=== PATIENT | female | born 1945 | race Caucasian/White ===

== ENCOUNTER 2023-08-12 13:05 | Outpatient (CLI) | payer MEDICAID, SELFPAY ==
--- OUTSIDE RECORDS SUMMARY | 2023-08-14 19:23 | XMS_ITS | Clinical Summary ---
Author Name Unknown Organization [facility] Address [place], [place] [address] Care Team Providers Care Burr Mill Operator Name Role Phone Pcp, No Unavailable Unavailable Pcp, No Unavailable Unavailable Navya Quinn DO Primary Care Provider [phone] Allergies No known active allergies Medications Medication Sig Dispensed Refills Start Date End Date Status blood-glucose meterIndications:D iabetes mellitus without complication (HC) Dispense meter, test strips, lancets covered by pt ins. E11.65 NIDDM type II, uncontrolled - Test 4 times/day. Reason: High A1C 1 Device 0 07/07/20 19 024 Discontinued(*P atient states no longer taking) polyethylene glycoL (MIRALAX) 17 gram/scoop powderIndications: Constipation, acute Mix 1 scoop (17 g) in liquid then take by mouth once daily if needed for Constipation. 510 g 3 09/06/19 23 024 Discontinued(*P atient states no longer taking) sennosides-docusat e (SENOKOT S) (8.6-50 mg) tabletIndications: Constipation, acute Take 1 Tablet by mouth once daily if needed for Constipation. 90 Tablet 3 10/01/19 23 024 Discontinued(*P atient states no longer taking) emollient (Vanicream) creamIndications:X erosis cutis Apply topically to affected area(s) 2 times daily if needed for Dry Skin, Irritation or Itching. 113 g 10 12/07/19 Suspended Additional Information traMADoL (ULTRAM) 50 mg tabletIndications: Primary osteoarthritis of left hip,Radicular pain of left lower extremity Take 1 Tablet (50 mg) by mouth every 6 hours if needed for Pain. 20 Tablet 0 01/14/20 23 024 Discontinued(Ph armacist change per medication history (E-cancel not sent)) propylene glycoL, PF, 0.6 % dropIndications:dr quiñones eye Place 1 Drop into both eyes 2 times daily if needed (for dry eyes). 10 mL 3 03/11/20 23 024 Discontinued(*P atient states no longer taking) aspirin (ECOTRIN) 81 mg enteric coated tabletIndications: Cerebrovascular accident (CVA), unspecified mechanism (HC) Take 1 Tablet (81 mg) by mouth once daily with a meal. 90 Tablet 3 03/11/20 Suspended Additional Information calcium carbonate (CALTRATE) 600 mg calcium (1,500 mg) tabletIndications: Postmenopausal Take 1 Tablet (600 mg) by mouth two times daily with meals. 180 Tablet 2 03/11/20 Suspended Additional Information cholecalciferol (Vitamin D) 1,000 unit capsuleIndications :Postmenopausal Take 1 Capsule (1,000 units) by mouth once daily. 90 Capsule 2 03/11/20 Suspended Additional Information naproxen (Naprosyn) 500 mg tabletIndications: Primary osteoarthritis of left hip,History of fracture of left hip Take 1 Tablet (500 mg) by mouth two times daily. 60 Tablet 4 05/20/20 23 024 Discontinued(Ph armacist change per medication history (E-cancel not sent)) acetaminophen (TYLENOL EXTRA STRGTH) 500 mg tabletIndications: Primary osteoarthritis of left hip Take 1 Tablet (500 mg) by mouth every 6 hours if needed for Headache or Pain. Max acetaminophen dose: 4000mg in 24 hrs. 500 Tablet 1 06/03/20 Suspended Additional Information atorvastatin (LIPITOR) 40 mg tabletIndications: Cerebrovascular accident (CVA), unspecified mechanism (HC) Take 1 Tablet (40 mg) by mouth once daily with evening meal. 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 Restart Friday06/21/23 90 Tablet 3 06/20/20 Suspended nitroglycerin (NITROSTAT) 0.4 mg sublingual tabletIndications: Cardiovascular symptoms,ASCVD (arteriosclerotic cardiovascular disease) Place 1 Tablet (0.4 mg) under the tongue every 5 minutes if needed for Chest pain 1st choice (Hold if SBP less than 90 mmHg). Up to 3 tablets in 15 minutes. 25 Tablet 1 06/20/20 Suspended Additional Information guaiFENesin (MUCINEX) 600 mg Extended-Release tabletIndications: Acute cough Take 1 Tablet (600 mg) by mouth two times daily. 60 Each 0 06/23/20 024 Discontinued(*P atient states no longer taking) metFORMIN (GLUCOPHAGE XR) 750 mg Extended-Release tabletIndications: Type 2 diabetes mellitus with diabetic neuropathy, without long-term current use of insulin (HC) Take 1 Tablet (750 mg) by mouth once daily with evening meal. Restart Friday06/22/23 as prescribed 90 Tablet 0 06/23/20 023 Discontinued metFORMIN (GLUCOPHAGE XR) 750 mg Extended-Release tabletIndications: Type 2 diabetes mellitus with diabetic neuropathy, without long-term current use of insulin (HC) TAKE 1 TABLET (750 MG) BY MOUTH ONCE DAILY WITH EVENING MEAL. RESTART Friday06/22/23 PRESCRIBED 60 Tablet 0 07/17/20 Suspended Additional Information erythromycin ophthalmic ointment 0.5%Indications:Le ft corneal abrasion, initial encounter Apply 1 Strip to left eye four times daily for 10 days. 0.7 g 0 07/31/19 24 024 oxyCODONE (ROXICODONE) 5 mg immediate release tabletIndications: Left corneal abrasion, initial encounter Take 1 Tablet (5 mg) by mouth every 8 hours if needed (breakthrough pain). 3 Tablet 0 07/31/19 Suspended Additional Information naproxen (NAPROSYN) 500 mg tablet Take 500 mg by mouth every 12 hours if needed for Pain. 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 03/06/2022 Vitreous hemorrhage, right eye 03/06/2022 Lumbar radiculopathy 01/03/2022 Type 2 diabetes mellitus wit h diabetic neuropathy, without long-term current use of insulin 01/03/2022 COVID-19 virus detected 12/18/2019 Kidney disease 12/18/2019 Closed intertrochanteric fracture of femur 12/16 Overview: Added automatically from request for surgery [id number] Presbyopia 07/15/2019 Regular astigmatism of both eyes 07/15/2019 Bilateral pseudophakia 07/15/2019 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 due to underlying condition 07/15/2019 Headache, post-traumatic 10/26/2010 Other and unspecified hyperlipidemia 11/09/2008 Lumbar Herniated Intervertebral Disk 11/09/2008 Type II or unspecified type diabetes mellitus without mention of complication, not stated as uncontrolled 04/16/2006 Primary osteoarthritis of left hip Encounters Date Type Department Care Team Description 08/12/2023 4:50 PM SEO SPECIALIST - Present Hospital Encounter [facility] [address] [place] [address] [facility], [facility] Hospitalists Of Macario Rojas MD Schmidt, Renan Ambriz MD Residents, C1 08/12/2023 Orders Only [facility] SERVICES Scanner 1 scan: (1-Ord) [facility], XR CHEST 1V PORTABLE, 08/12/2023 08/12/2023 Nurse Triage [facility] [address] [place] [address] Ludivina Chatterjee RN Chest Pain/problem (Walked in with 10 Chest pain. ) 08/07/2023 Telephone [facility] [address] [place] [address] Navya Quinn DO Screening 08/06/2023 11:20 AM SEO SPECIALIST Office Visit [facility] [address] [facility] [address] [place] [address] Nilo Lester MD Follow Up (Left Hip/Leg) 08/06/2023 Travel 08/01/2023 Orders Only [facility] [address] [place] [address] Renetta Malone PA Imaging 07/31/2023 8:42 PM SEO SPECIALIST - 07/31/2023 9:52 PM SEO SPECIALIST Emergency [facility] [address] [place] [address] Christiano Strickland DO Left corneal abrasion, initial encounter (Primary Dx) Discharge Disposition: Home Self Care 07/31/2023 Travel 07/30/2023 1:30 PM SEO SPECIALIST Office Visit [facility] [address] [place] [address] Josephine Aguilar MD CV General Cardiology Est (pt had angio 06/20 CAD ( [place] ref to Jeff to see in clinic )KATHRIN -GRAND DAUGHTER CONTACT ??[phone]//PCP : Navya Quinn DO) 07/30/2023 Travel 07/17/2023 Refill [facility] [address] [place] [address] Karolyn Jaimes PA Refill Request (Metformin) 07/14/2023 Refill [facility] [address] [place] [address] Karolyn Jaimes PA Refill Request (Metformin) 07/08/2023 9:01 AM SEO SPECIALIST - 07/08/2023 11:59 PM SEO SPECIALIST Hospital Encounter [facility] [address] [place] [address] Nilo Lester MD Chronic right SI joint pain 07/08/2023 Travel 07/07/2023 Refill [facility] [address] [place] [address] Karolyn Jaimes PA Refill Request (Metformin) 06/23/2023 11:35 AM SEO SPECIALIST Office Visit [facility] [address] [place] [address] Karolyn Jaimes PA Post Procedure (CORONARY ANGIOGRAM-[facility]W HOSP-DOD 06/20/23 ) 06/23/2023 Telephone [facility] [address] [place] [address] Dr [address] [place] [address] Renan Howard, DO Procedure (LEFT SI JOINT INJ W/DR HOWARD); Prior Authorization (MEDICAID AND [facility]) 06/23/2023 Travel 06/20/2023 10:12 AM SEO SPECIALIST - 06/20/2023 7:00 PM SEO SPECIALIST Hospital Encounter [facility] [address] [place] [address] Rudi Gallardo MD Strauss, Craig Edward, MD [place] [place] [place] ASCVD (arteriosclerotic cardiovascular disease) (Primary Dx); Cardiovascular symptoms; 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, without long-term current use of insulin, unspecified laterality, unspecified retinopathy severity (HC); Type 2 diabetes mellitus with diabetic neuropathy, without long-term current use of insulin (HC) Discharge Disposition: Home Self Care 06/20/2023 Travel 06/18/2023 10:20 AM SEO SPECIALIST Office Visit [facility] [address] [place] [address] Nilo Lester MD Follow Up (Left Hip/CT Scan Results) 06/18/2023 Telephone [facility] [address] [place] [address] Kristian Wang MD Injection Question (XR INJ SACROILIAC JOINT LEFT) 06/18/2023 Travel 06/13/2023 1:00 PM SEO SPECIALIST Ancillary Procedure [facility] [address] [place] [address] 06/13/2023 Travel 06/05/2023 11:00 AM SEO SPECIALIST Telemedicine [facility] [address] [facility] [address] [place] [phone] Rudi Gallardo MD CV General Cardiology Est 06/04/2023 9:00 AM SEO SPECIALIST Office Visit [facility] [place] [address] [place] [address] Nilo Lester MD Consult (Left Hip) 06/04/2023 Travel 06/03/2023 Refill [facility] [address] [place] [address] Navya Quinn DO Refill Request (Limited supply ) 05/21/2023 12:15 PM CDT - 05/21/2023 11:59 PM CDT Hospital Encounter [facility] [address] [place] [address] Winnie Self MD Sanoy, Tracy Elaine Chest pain, unspecified type 05/21/2023 10:30 AM CDT - 05/21/2023 12:14 PM CDT Hospital Encounter [facility] [address] [place] [address] Winnie Self MD Chest pain, unspecified type 05/21/2023 Telephone [facility] [address] [facility] [address] [place] [phone] Winnie Self MD Cardiology Appointment 05/20/2023 3:00 PM CDT Ancillary Procedure [facility] [place] [address] [facility] [place] [phone] 05/20/2023 2:30 PM CDT Office Visit [facility] [address] [facility] [address] [place] [phone] Mickey Delgadillo PA Hip Pain/problem (left hip) 05/20/2023 Travel 05/14/2023 Telephone [facility] [address] [place] [address] Navya Quinn, Appointment Request from Last 3 Months Immunizations Name Administration Dates Next Due COVID-19 vaccine (Pfizer-Bio NTech 30mcg/0.3mL) 12YO+ BIVALENT PF, MDV 06/05/2022 COVID-19 vaccine (Pfizer-Bio NTech 30mcg/0.3mL) 12YO+ REIGNALD-SUCROSE PF, MDV 01/02/2022 COVID-19 vaccine (Pfizer-Bio NTech 30mcg/0.3mL) PF, MDV 11/21/2020 Influenza, IIV3 (Age 6-35 mos) 04/24/2011 Influenza, IIV3 (Age >=3 years) 04/24/2011,05/02,05/02/2009 Influenza, Inactivated AIIV4 (Age 65+ Years) Preserv Free 06/05/2022,06/22/2021 Influenza, Inactivated IIV3 (Age 65+ Years) Preserv Free 07/07/2019,07/07/2019 Td (Age >=7 Years) 09/21/2003 Family History Medical History Relation Name Comments Diabetes Father Relation Name Status Comments Father Social History Tobacco Use Types Packs/Day Years Used Date Smoking Tobacco: Former Cigarettes 30 Smokeless Tobacco: Never Tobacco Cessation:Counseling Given: Not Answered Comments:Stopped smoking 30 years ago Alcohol Use Standard Drinks/Week Comments Not Currently 0 (1 standard drink = 0.6 oz pure alcohol) used to drink a lot 20 years ago. Social Connections Answer Date Recorded Frequency of Communication with Friends and Fami ly Not on file 07/28/2021 Financial Resource Strain Answer Date R ecorded Difficulty of Paying Living Expenses 1 09/09/2022 Difficulty of Paying Living Expenses 2 09/09/2022 Food Insecurity Answer Date Recorded Worried About Running Out of Food in the Last Ye ar 1 09/09/2022 Transportation Needs Answer Date Record ed Lack of Transportation (Medical) 2 09/09/2022 Housing Stability Answer Date Recorded Unable to Pay for Housing in the Last Year 1 09/09/2022 Sex and Gender Information Value Date Recorded Sex Assigned at Not on file Gender Identity Not on file Sexual Orientation Not on file Obstetrics History Last Filed Vital Signs Vital Sign Reading Time Taken Comments Blood Pressure 102/52 08/14/2023 7:20 PM SEO SPECIALIST Pulse 69 08/14/2023 7:20 PM SEO SPECIALIST Temperature 36.7 ??C (98.1 ??F) 08/14/2023 3:30 PM CS T Respiratory Rate 16 08/14/2023 3:30 PM SEO SPECIALIST Oxygen Saturation 98% 08/14/2023 3:30 PM SEO SPECIALIST Inhaled Oxygen Concentration - - Weight 48.6 kg (107 lb 4.1 oz) 08/14/2023 4:14 A M SEO SPECIALIST Height 157.5 cm (5' 2) 07/31/2023 8:03 PM SEO SPECIALIST Body Mass Index 19.62 07/31/2023 8:03 PM SEO SPECIALIST Plan of Treatment Upcoming Encounters Date Type Department Care Team (Late st Contact Info) Description 08/15/2023 7:00 AM SEO SPECIALIST - 08/15/2023 1:20 PM SEO SPECIALIST Surgery [facility] [address] [place] [address] Lucian Mooney MD [address] [facility] [address] [place] [address] BYPASS CORONARY ARTERY W/EVH 08/21/2023 10:25 AM SEO SPECIALIST Office Visit [facility] [address] [place] [address] Marcin Saeed MD [address] [place] [address] 08/29/2023 2:10 PM SEO SPECIALIST Office Visit [facility] [address] [place] [address] Navya Quinn, DO [address] [place] [address] 09/29/2023 11:30 AM SEO SPECIALIST Appointment [facility] [address] [place] [address] 09/29/2023 12:30 PM SEO SPECIALIST Appointment [facility] [address] [place] [address] 09/29/2023 2:30 PM SEO SPECIALIST Office Visit [facility] [address] [place] [phone] Danny Blackmon DO [address] [place] [address] Scheduled Procedures Name Priority Associated Diagnoses Date/Ti me BYPASS CORONARY ARTERY CAD 08/15/2023 7:00 AM SEO SPECIALIST Health Maintenance Due Date Last Done Comments Pneumococcal series for age 65+ (1 of 2 - PCV) 1950 Tdap 1955 Hepatitis C screening for ag e 18-79 1962 Zoster (shingles) series for age 50+ (1 of 2) 1994 DEXA/DXA scan for age 65+ 2009 Tetanus booster 09/21/2013 09/21/2003 Depression screening for age 12+ 07/09/2020 07/09/20 19, 07/07/2019 COVID-19 vaccine series ( season) 2023 06/05/2022, 01/02/2022, 11/21/2020 Influenza for age 65+ 03/28/2023 06/05/2022 , 06/22/2021, 07/07/2019, Additional history exists BMI (ht and wt on same day) for age 18+ 07/30/2024 07/30/2023, 09/20/2022, 08/26/2022, Additional history exists Medical Devices Implanted Type Area Jewel Supervisor Device Identifier Shelf Expiration Date Model / Serial / Lot Log [id number] - Yesy Sn60wf Lens Iol - 1 - Lens Iol 21.0 Wf [id number]. 0 Implanted:Qty: 1 on 10/21/2011 at [facility] Left: Eye [employer] [id number]. 0# / [id number] / Log [id number] - Yesy Sn60wf Lens Iol - 1 - Lens Iol 22.5 Wf [id number]. [id number] Implanted:Qty: 1 on 11/07/2011 at [facility] Right: Eye [employer] 07/08/2016 [id number]. [id number]# / [id number] / Procedures The patient is currently admitted. The information in this section might not be complete until the patient is discharged. Procedure Name Priority Date/Time Associated Diagnosis Comments SCAN-CARDIAC STRIP 08/14/2023 6: 43 PM SEO SPECIALIST GLUCOSE METER Timed 08/14/2023 5:41 PM SEO SPECIALIST GLUCOSE METER Timed 08/14/2023 12:16 PM SEO SPECIALIST TYPE & SCREEN STAT 08/14/2023 10:52 AM SEO SPECIALIST GLUCOSE, FASTING Preop 08/14/2023 10:5 2 AM SEO SPECIALIST GLUCOSE METER Timed 08/14/2023 7:42 AM SEO SPECIALIST SCAN-CARDIAC STRIP 08/14/2023 7: 16 AM SEO SPECIALIST PLATELET COUNT Early AM 08/14/2023 6:55 AM SEO SPECIALIST APTT Timed 08/14/2023 4:29 AM SEO SPECIALIST HEMATOCRIT Early AM 08/14/2023 4:29 AM SEO SPECIALIST HEMOGLOBIN Early AM 08/14/2023 4:29 AM SEO SPECIALIST SCAN-CARDIAC STRIP 08/14/2023 4: 11 AM SEO SPECIALIST GLUCOSE METER Timed 08/13/2023 9:43 PM SEO SPECIALIST APTT Today 08/13/2023 9:11 PM SEO SPECIALIST GLUCOSE METER Timed 08/13/2023 5:14 PM SEO SPECIALIST SCAN-CARDIAC STRIP 08/13/2023 3: 27 PM SEO SPECIALIST APTT Today 08/13/2023 2:10 PM SEO SPECIALIST GLUCOSE METER Timed 08/13/2023 12:20 PM SEO SPECIALIST SCAN CORRESP-EKG RESULTS 08/13/2023 10:16 AM SEO SPECIALIST SCAN CORRESP-IMAGING 08/13/2023 10:16 AM SEO SPECIALIST GLUCOSE METER Timed 08/13/2023 8:39 AM SEO SPECIALIST SCAN-CARDIAC STRIP 08/13/2023 7: 39 AM SEO SPECIALIST APTT Timed 08/13/2023 6:50 AM SEO SPECIALIST HEMATOCRIT Early AM 08/13/2023 6:50 AM SEO SPECIALIST HEMOGLOBIN Early AM 08/13/2023 6:50 AM SEO SPECIALIST PLATELET COUNT Early AM 08/13/2023 6:50 AM SEO SPECIALIST APTT Timed 08/13/2023 1:03 AM SEO SPECIALIST SCAN-CARDIAC STRIP 08/13/2023 12 :05 AM SEO SPECIALIST GLUCOSE METER Timed 08/12/2023 9:28 PM SEO SPECIALIST TROPONIN T (HS) ONE TIME Timed 08/12/2023 9:26 PM SEO SPECIALIST EKG 12 LEAD Routine 08/12/2023 7:51 PM SEO SPECIALIST TROPONIN T (HS) ACUTE W/2HR REFLEX STAT 08/12/2023 7:07 PM SEO SPECIALIST BASIC METABOLIC PANEL Timed 08/12/2023 7:07 PM SEO SPECIALIST HEMATOCRIT JEMMA 08/12/2023 7:07 PM SEO SPECIALIST HEMOGLOBIN JEMMA 08/12/2023 7:07 PM SEO SPECIALIST PLATELET COUNT JEMMA 08/12/2023 7:07 PM SEO SPECIALIST APTT JEMMA 08/12/2023 7:07 PM SEO SPECIALIST PROTIME-INR JEMMA 08/12/2023 7:07 PM SEO SPECIALIST GLUCOSE METER Timed 08/12/2023 6:50 PM SEO SPECIALIST SCAN-RADIOLOGY REPORT 08/12/2023 12:00 AM SEO SPECIALIST EKG 12 LEAD STAT 07/31/2023 9:04 PM SEO SPECIALIST PROTIME-INR STAT 07/31/2023 8:44 PM SEO SPECIALIST BASIC METABOLIC PANEL STAT 07/31/2023 8:44 PM SEO SPECIALIST CBC W PLT NO DIFF STAT 07/31/2023 8:4 4 PM SEO SPECIALIST XR INJ SACROILIAC JOINT LEFT Routine 07/08/2023 10:26 AM SEO SPECIALIST Chronic right SI joint pain HEMOGLOBIN Routine 06/23/2023 12:51 PM SEO SPECIALIST Unstable angina (HC) BASIC METABOLIC PANEL Routine 06/23/2023 12:51 PM SEO SPECIALIST Unstable angina (HC) CVL CORONARY ANGIOGRAM POSS PCI Routine 06/20/2023 2:38 PM SEO SPECIALIST Cardiovascular symptoms EXTRA TUBE GOLD/SST Today 06/20/2023 1 :55 PM SEO SPECIALIST POTASSIUM STAT 06/20/2023 1:55 PM SEO SPECIALIST HEMOGLOBIN A1C SCREENING JEMMA 06/20/2023 12:28 PM SEO SPECIALIST LIPID PANEL JEMMA 06/20/2023 12:28 PM SEO SPECIALIST CREATININE STAT 06/20/2023 12:28 PM SEO SPECIALIST BUN STAT 06/20/2023 12:28 PM SEO SPECIALIST SODIUM STAT 06/20/2023 12:28 PM SEO SPECIALIST CBC W PLT NO DIFF STAT 06/20/2023 12: 28 PM SEO SPECIALIST BASIC METABOLIC PANEL JEMMA 06/20/2023 12:28 PM SEO SPECIALIST EXTRA TUBE GOLD/SST Today 06/20/2023 1 2:25 PM SEO SPECIALIST EKG 12 LEAD JEMMA 06/20/2023 12:04 PM SEO SPECIALIST SCAN-OPERATIVE/PROC EDURE REPORT 06/20/2023 12:[address] HIP LEFT WO Routine 06/13/2023 1:25 PM SEO SPECIALIST History of fracture of left hip ECHO TTE COMPLETE WO CONTRAST Routine 05/21/2023 2:44 PM CDT Chest pain, unspecified type CT CARDIAC CORONARY ARTERIES DUAL READ Routine 05/21/2023 12:08 PM CDT Chest pain, unspecified type CREATININE,ISTAT Routine 05/21/2023 11:0 7 AM CDT XR HIP 2 OR 3 VIEWS W PELVIS LEFT Routine 05/20/2023 2:44 PM CDT Primary osteoarthritis of left hip History of fracture of left hip from Last 3 Months Results * SCAN-CARDIAC STRIP (08/14/2023 6:43 PM SEO SPECIALIST) Scanner OTHER * GLUCOSE METER (08/14/2023 5:41 PM SEO SPECIALIST) Only the most recent of9 resultswithin the time period is included. [facility] Signature GLUCOSE METER 99 65 - 100 mg/dL 08/14/2023 5:42 PM SEO SPECIALIST [facility] Blood BLOOD SPECIMEN / Unknown 08/14/2023 5:41 PM SEO SPECIALIST 08/14/2023 5:42 PM SEO SPECIALIST Renan Call MD CHEMISTRY Performing Organization Address City/[facility]/ZIP Co de Phone Number [facility] [address] [place] [address], * Type and Screen (08/14/2023 10:52 AM SEO SPECIALIST) ABORH O Rh Positive 08/14/2023 12:36 PM SEO SPECIALIST [facility] [employer] [facility] ANTIBODY SCREEN Negative Negative 08/14/2023 12:36 PM SEO SPECIALIST [facility] SPECIMEN EXPIRATION DATE/TIME 08/17/23 23:59 08/14/2023 12:36 PM SEO SPECIALIST [facility] Blood BLOOD SPECIMEN / Unknown Venipuncture / Unknown 08/14/2023 10:52 AM SEO SPECIALIST 08/14/2023 11:12 AM SEO SPECIALIST Nathalie MALAVE BLOOD BANK Performing Organization Address [facility] Co de Phone Number [facility]OD BANK [address] [place] [address], * (ABNORMAL) Glucose, Fasting (08/14/2023 10:52 AM SEO SPECIALIST) GLUCOSE 201(H) 70 - 99 mg/dL 08/14/2023 11:48 AM SEO SPECIALIST [facility] [employer] [facility] Blood BLOOD SPECIMEN / Unknown Venipuncture / Unknown 08/14/2023 10:52 AM SEO SPECIALIST 08/14/2023 11:13 AM SEO SPECIALIST Nathalie MALAVE CHEMISTRY Performing Organization Address [facility]/ZIP Co de Phone Number [facility] [employer] [facility] [address] [place] [address], * SCAN-CARDIAC STRIP (08/14/2023 7:16 AM SEO SPECIALIST) Scanner OTHER * PLATELET COUNT (08/14/2023 6:55 AM SEO SPECIALIST) Only the most recent of3 resultswithin the time period is included. PLATELET COUNT 319 140 - 440 thou/cu mm 08/14/2023 7:28 AM SEO SPECIALIST [facility] MPV 9.4 6.5 - 11.0 fL 08/14/2023 7:28 AM SEO SPECIALIST [facility] Blood BLOOD SPECIMEN / Unknown Venipuncture / Unknown 08/14/2023 6:55 AM SEO SPECIALIST 08/14/2023 7:20 AM SEO SPECIALIST Narrative [facility] - 08/14/2023 7:28 AM SEO SPECIALIST Necessary every morning while on IV heparin. Macario Rojas MD HEMATOLOGY Performing Organization Address [facility] de Phone Number [facility] [address] [place] [address], [place] * (ABNORMAL) HEMOGLOBIN (08/14/2023 4:29 AM SEO SPECIALIST) Only the most recent of4 resultswithin the time period is included. HEMOGLOBIN 11.9(L) 12.0 - 16.0 g/dL 08/14/2023 4:45 AM SEO SPECIALIST [facility] MCV 96 80 - 100 fL 08/14/2023 4:45 AM SEO SPECIALIST [facility] Blood BLOOD SPECIMEN / Unknown Venipuncture / Unknown 08/14/2023 4:29 AM SEO SPECIALIST 08/14/2023 4:40 AM SEO SPECIALIST Narrative [facility] - 08/14/2023 4:45 AM SEO SPECIALIST Every morning while on IV heparin. Every morning while on IV heparin. Macario Rojas MD HEMATOLOGY Performing Organization Address City/[facility]/ZIP Co de Phone Number [facility] [address] [place] [address], * HEMATOCRIT (08/14/2023 4:29 AM SEO SPECIALIST) Only the most recent of3 resultswithin the time period is included. HEMATOCRIT 35.3 33.0 - 51.0 % 08/14/2023 4:45 AM SEO SPECIALIST [facility] Blood BLOOD SPECIMEN / Unknown Venipuncture / Unknown 08/14/2023 4:29 AM SEO SPECIALIST 08/14/2023 4:40 AM SEO SPECIALIST Narrative [facility] - 08/14/2023 4:45 AM SEO SPECIALIST Every morning while on IV heparin. Every morning while on IV heparin. Macario Rojas MD HEMATOLOGY Performing Organization Address [facility] Co de Phone Number [facility] [address] [place] [address], * (ABNORMAL) APTT (08/14/2023 4:29 AM SEO SPECIALIST) Only the most recent of6 resultswithin the time period is included. APTT 75(H) 29 - 36 sec 08/14/2023 4:55 AM SEO SPECIALIST [facility] Blood BLOOD SPECIMEN / Unknown Venipuncture / Unknown 08/14/2023 4:29 AM SEO SPECIALIST 08/14/2023 4:40 AM SEO SPECIALIST Narrative [facility] - 08/14/2023 4:55 AM SEO SPECIALIST Therapeutic Range: 57-100 seconds Renan Call MD HEMATOLOGY Performing Organization Address [facility] Co de Phone Number [facility] [address] [place] [address], * SCAN-CARDIAC STRIP (08/14/2023 4:11 AM SEO SPECIALIST) Scanner OTHER * SCAN-CARDIAC STRIP (08/13/2023 3:27 PM SEO SPECIALIST) Scanner OTHER * SCAN CORRESP-EKG RESULTS (08/13/2023 10:16 AM SEO SPECIALIST) Narrative 08/13/2023 10:16 AM SEO SPECIALIST Ordered by an unspecified provider. Other Clinical Staff OTHER * SCAN CORRESP-IMAGING (08/13/2023 10:16 AM SEO SPECIALIST) Anatomical Region Laterality Modality Other Narrative 08/13/2023 10:16 AM SEO SPECIALIST Ordered by an unspecified provider. Other Clinical Staff OTHER * SCAN-CARDIAC STRIP (08/13/2023 7:39 AM SEO SPECIALIST) Scanner OTHER * SCAN-CARDIAC STRIP (08/13/2023 12:05 AM SEO SPECIALIST) Scanner OTHER * TROPONIN T (HS) ONE TIME (08/12/2023 9:26 PM SEO SPECIALIST) Pathologist [facility] TROPONIN T HS 10 6-10 ng/L ng/L 08/12/2023 11:04 PM SEO SPECIALIST [facility] Blood BLOOD SPECIMEN / Unknown Venipuncture / Unknown 08/12/2023 9:26 PM SEO SPECIALIST 08/12/2023 9:46 PM SEO SPECIALIST Macario Rojas MD [facility]Y [facility] [address] [place] [address], * EKG 12 LEAD (08/12/2023 7:51 PM SEO SPECIALIST) Only the most recent of3 resultswithin the time period is included. [facility] Interpretation Normal sinus rhythm Inferior infarct (cited on or before 08-SEP-2022) Anterolateral infarct (cited on or before 08-SEP-2022) Low voltage QRS Abnormal ECG When compared with ECG of 31-JUL-2023 21:04, Questionable change in initial forces of Anterolateral leads T waves now ??Inverted in III BEYOND NOW Ventricular Rate 84 BPM BEYOND NOW Atrial Rate 84 BPM BEYOND NOW P-R Interval 146 ms BEYOND NOW QRS Duration 78 ms BEYOND NOW QT 370 ms BEYOND NOW QTc 437 ms BEYOND NOW P Perry 39 degrees BEYOND NOW R Perry -11 degrees BEYOND NOW T Perry 27 degrees BEYOND NOW 08/12/2023 7:51 PM SEO SPECIALIST 08/13/2023 6:38 PM SEO SPECIALIST Clarence Mora APICULTURE TEACHER EKG ORD BEYOND NOW [place], [place] * TROPONIN T (HS) ACUTE W/2HR REFLEX (08/12/2023 7:07 PM SEO SPECIALIST) TROPONIN T HS 9 6-10 ng/L ng/L 08/12/2023 8:01 PM [facility] Blood BLOOD SPECIMEN / Unknown Venipuncture / Unknown 08/12/2023 7:07 PM SEO SPECIALIST 08/12/2023 7:29 PM SEO SPECIALIST [facility] - 08/12/2023 8:01 PM [facility] hs-cTnT (Elecsys Troponin T Gen 5) concentration (s) above the sex-specific 99th percentile (16 ng/L or greater for males or 11 ng/L or greater for females) are indicative of myocardial injury. If initial hs-cTnT <=100 ng/L at presentation, a 0h/2h ABSOLUTE (ng/L) delta change (rising or falling) of >=10 ng/L suggests a significant change, whereas a 0h/2h delta change <=3 ng/L suggests no significant change. If initial hs-cTnT >100 ng/L at presentation, a 0h/2h/ RELATIVE (percent, %) delta change of 20% is suggested to distinguish patients with acute vs. chronic myocardial injury. There are multiple etiologies that can cause hs-cTnT increases above the 99th percentile (myocardial injury) other than acute myocardial infarction. Clinical context and careful clinical evaluation are critical for diagnosis and risk-stratification. The diagnosis of acute myocardial infarction requires a rising and/or falling pattern in hs-cTnT concentrations with at least one value above the sex-specific 99th percentile PLUS at least one of the following clinical criteria: ischemic symptoms, new or presumed new significant ST-T wave changes or new LBBB, development of pathological Q waves, imaging evidence of new loss of viable myocardium or new regional wall motion abnormality, or identification of intracoronary atherothrombosis or an acute angiographic culprit on coronary angiography. In appropriate low-risk patients with a non-ischemic electrocardiogram without active chest pain with a symptom onset >3-hours without recurrence, a single initial hs-cTnT<6 ng/L identifies patient with a very low risk in emergency department patient population. Macario Rojas MD CHEMISTRY Performing Organization Address [facility] de Phone Number [facility] [address] [address], * PROTIME-INR (08/12/2023 7:07 PM SEO SPECIALIST) Only the most recent of2 resultswithin the time period is included. INR 1.0 <1.3 08/12/2023 7:55 PM [facility] PROTIME 11.5 10.3 - 12.3 sec 08/12/2023 7:55 PM [facility] Blood BLOOD SPECIMEN / Unknown Venipuncture / Unknown 08/12/2023 7:07 PM SEO SPECIALIST 08/12/2023 7:29 PM SEO SPECIALIST Narrative [facility] - 08/12/2023 7:55 PM SEO SPECIALIST ?Therapeutic Range 2.0-3.0 for most anticoagulated patients 2.5-3.5 or 4.0 for high risk patients The INR is only used for patients on stable oral anticoagulant therapy. It makes no significant contribution to the diagnosis or treatment of patients whose Protime is prolonged for other reasons. INR results are increased when heparin levels exceed 1.0 U/mL, which corresponds to an aPTT >125 seconds if the patient is on UFH. Macario Rojas MD HEMATOLOGY Performing Organization Address [facility] de Phone Number [facility] [address] [address], * (ABNORMAL) Basic metabolic panel TODAY (08/12/2023 7:07 PM SEO SPECIALIST) Only the most recent of4 resultswithin the time period is included. SODIUM 137 136 - 145 mmol/L 08/12/2023 8:01 PM [facility] POTASSIUM 4.0 3.5 - 5.1 mmol/L 08/12/2023 8:01 PM SEO SPECIALIST [facility] CHLORIDE 102 98 - 107 mmol/L 08/12/2023 8:01 PM [facility] CO2,TOTAL 22 22 - 29 mmol/L 08/12/2023 8:01 PM [facility] ANION GAP 13 5 - 18 08/12/2023 8:01 PM [facility] GLUCOSE 86 70 - 99 mg/dL 08/12/2023 8:01 PM [facility] CALCIUM 9.5 8.8 - 10.2 mg/dL 08/12/2023 8:01 PM [facility] BUN 8 8 - 23 mg/dL 08/12/2023 8:01 PM [facility] CREATININE 0.63 0.50 - 0.90 mg/dL 08/12/2023 8:01 PM [facility] BUN/CREAT RATIO 13 10 - 20 8:01 PM [facility] eGFR 90(L) >90 mL/min/1.7 3m2 08/12/2023 8:01 PM [facility] Comment:As of 2021, eG FR is calculated by the CKD-EPI creatinine equation without race adjustment. ??eGFR can be influenced by muscle mass, exercise, and diet. ??The reported eGFR is an estimation only and is only applicable if the renal function is stable. Blood BLOOD SPECIMEN / Unknown Venipuncture / Unknown 08/12/2023 7:07 PM SEO SPECIALIST 08/12/2023 7:29 PM SEO SPECIALIST Macario Rojas MD CHEMISTRY [facility] [address] [place] [address], * SCAN-RADIOLOGY REPORT (08/12/2023 12:00 AM SEO SPECIALIST) Anatomical Region Laterality Modality Other Scanner OTHER * (ABNORMAL) CBC W PLT NO DIFF (07/31/2023 8:44 PM SEO SPECIALIST) Only the most recent of2 resultswithin the time period is included. WHITE BLOOD COUNT 10.2 4.5 - 11.0 thou/cu mm 07/31/2023 8:52 PM [facility] RED BLOOD COUNT 3.67(L) 4.00 - 5.20 mil/cu mm 07/31/2023 8:52 PM [facility] HEMOGLOBIN 11.8(L) 12.0 - 16.0 g/dL 07/31/2023 8:52 PM [facility] HEMATOCRIT 36.3 33.0 - 51.0 % 07/31/2023 8:52 PM [facility] MCV 99 80 - 100 fL 07/31/2023 8:52 PM [facility] MCH 32.2 26.0 - 34.0 pg 07/31/2023 8:52 PM [facility] MCHC 32.5 32.0 - 36.0 g/dL 07/31/2023 8:52 PM [facility] RDW 14.0 11.5 - 15.5 % 07/31/2023 8:52 PM [facility] PLATELET COUNT 298 140 - 440 thou/cu mm 07/31/2023 8:52 PM [facility] MPV 9.2 6.5 - 11.0 fL 07/31/2023 8:52 PM [facility] Blood BLOOD SPECIMEN / Unknown Venipuncture / Unknown 07/31/2023 8:44 PM SEO SPECIALIST 07/31/2023 8:48 PM SEO SPECIALIST Chrisitano Strickland DO HEMATOLOGY Performing Organization Address [facility]/State/[facility] Co de Phone Number [facility] [address] [place] [address] * XR INJ SACROILIAC JOINT LEFT (07/08/2023 10:26 AM SEO SPECIALIST) Anatomical Region Laterality Modality SACRUM Digital Radiogra phy, Other Narrative 07/08/2023 10:41 AM SEO SPECIALIST Preoperative diagnosis: Left SI joint region pain. Postoperative diagnosis: ??Same. Procedure: Fluoroscopically guided, contrast controlled left sacroiliac joint injection. Surgeon: Renan Cunniff, D.O. Complications: None. Estimated blood loss: Less than 1 ml. Anesthesia: Local. Indications: Left low back and buttock pain. 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 Preprocedure pain score: 6/10 Postprocedure pain score: 6/10 Following denial of allergy and review of potential side effects and complications including but not necessarily limited to infection, allergic reaction, local tissue breakdown, nerve injury, seizure, syncope, headache, respiratory or cardiac arrest, and scar formation the patient indicated they understood and agreed to proceed. Written informed consent was obtained and all of the patient??s questions were answered. Procedure: In the prone position, following sterile prep and drape of the lumbosacral region, the hyperlucent zone in the inferior aspect of the left sacroiliac joint was imaged fluoroscopically via a roughly AP view with some cephalocaudad tilt. The skin over the target area was anesthetized via 25-gauge 1??? needle with 1 ml of 1% Lidocaine. ??A 22-gauge 3??? spinal needle was then atraumatically introduced and advanced under fluoroscopic guidance into the hyperlucent zone in the inferior aspect of the left sacroiliac joint. Following negative aspiration, injection of 0.5 ml Omnipaque 300 confirmed intra-articular placement without vascular uptake. 2.5 ml of solution (1.5 ml 0.2% ropivacaine with 1 ml or 6 mg betamethasone) was then injected without complication and the needle was withdrawn. The patient was observed following the procedure and met the discharge criteria before being discharged from the facility. ??The patient was instructed to follow up per the protocol for their procedure. Nilo Lester MD FLUOROSCOPY * CVL CORONARY ANGIOGRAM POSS PCI (06/20/2023 2:38 PM SEO SPECIALIST) Anatomical Region Laterality Modality X-Ray Angiograph y, X-Ray Angiography 06/20/2023 2:38 PM SEO SPECIALIST Narrative Transcriptions Rudi Gallardo MD - 06/20/2023 3:36 PM CST [facility] Cardiac Catheterization Report Name: JOSE LUIS JESSICA Event Date: 06/20/2023 14:38 Excellian ID #: [id number] [facility] #: [id number] Diagnostic Physician: RUDI GALLARDO [facility] Referring Physician: Primary Care Physician: NAVYA QUINN Date: 1945 Gender: Female Age: 77 Summary/Conclusions PRESENTATION / INDICATIONS * Angina * Abnormal cardiac CTA VASCULAR ACCESS * Using ultrasound guidance and a percutaneous technique, the right commonfemoral artery was accessed. Ultrasound was used to confirm vesselpatency, localizing needle into the lumen of the vessel. An image wassaved for the medical record. DIAGNOSTIC - CORONARY * Severe multivessel coronary disease (LAD,OM1,RCA) in a right dominantsystem HEMODYNAMICS * The LVEDP is within normal limits SPECIAL PROCEDURES * Right femoral arteriotomy was successfully closed utilizing a closuredevice DIAGNOSTIC SUMMARY ? 30% stenosis in the LMCA ? 30% stenosis in the Proximal LAD ? 70% stenosis in the Mid LAD ? 80% stenosis in the Distal LAD ? 80% stenosis in the 1st Marginal ? 70% stenosis in the 2nd Marginal ? 95% stenosis in the Ramus ? 80% stenosis in the Proximal RCA ? 70% stenosis in the Mid RCA ? 20% stenosis in the Distal RCA ? 70% stenosis in the RPDA LEFT VENTRICULAR FUNCTION ? LV Pressure = 120/4. RECOMMENDATIONS & PLAN * Medical Rx * Optimize risk factors and medications: HDL > 50 ; LDL < 70 ;Triglycerides < 100 * Smoking cessation * Recommend surgical revascularization Consent & [place] Protocol The risks, benefits, and alternatives of the procedure were discussed withthe patient and written informed consent was obtained. [place] protocol was followed. TIME OUT conducted just prior tostarting procedure confirmed patient identity, site/side, procedure,patient position, and availability of correct equipment and implants (ifapplicable). Staff Name Title Germania Rivas RN Nurse Carrier, October CVT Scrub Ney Leyva CVT Monitor Isabel Richey [employer] Monitor Jabari Glaser CVT Carton Forming Machine Tender DarrinondrKallie ramos [employer] Carton Forming Machine Tender Rudi Gallardo Diagnostic Brush Maker Machine Procedures ? Ultrasound Guided Vascular Access ? Coronary Angiogram ? Femoral Closure Device ? Left Heart Cath No Ventriculogram Diagnostic Findings * Left Main Coronary Artery ? 30% stenosis in the LMCA. * Left Anterior Descending ? 30% stenosis in the Proximal LAD. ? 70% stenosis in the Mid LAD. ? 80% stenosis in the Distal LAD. * Circumflex ? 80% stenosis in the 1st Marginal. ? 70% stenosis in the 2nd Marginal. The distal vessel is small. * Ramus ? 95% stenosis in the Ramus. The distal vessel is small. * Right Coronary Artery ? 80% stenosis in the Proximal RCA. ? 70% stenosis in the Mid RCA. ? 20% stenosis in the Distal RCA. ? 70% stenosis in the RPDA. Lesion Information Lesion # Vessel Segment Lesion Length Lesion Details 1st Marginal LMCA 2nd Marginal Mid LAD Distal LAD RPDA Proximal RCA Mid RCA Distal RCA Proximal LAD Ramus Hemodynamics State: Baseline Pressures (mmHg) Site Systolic Diastolic End Diastolic A Wave V Wave Mean AO 124 49 67 LV 120 -8 4 LV 127 -3 7 AO 126 49 79 Procedure Details Estimated Blood Loss: < 30 ml Specimen Collected: None Level of Sedation Achieved: Moderate Procedure Start: 14:38 Procedure End: 15:13 Procedure Time: 35 min Fluoroscopy Time: 2.9 min Cumulative Air Kerma: 212 mGy DAP: 1330 uGy/M2 Physiologic Data Weight: 49.0 kg BSA: 1.47 m2 Vascular Access Time Access Sheath Size 14:44 Right Femoral Artery, sheath inserted Medications Ordered and Administered Start Time Stop Time Medication Dose Units Route Ordered By Given By 14:38 Fentanyl 50 mcg IV Rudi Gallardo Katlyn RN 14:39 Versed 0.5 mg IV Rudi Gallardo Katlyn RN 14:44 1% Lidocaine 7 ml Subcut Rudi Gallardo Konstantinos 14:44 Versed 0.5 mg IV Kallie Singh Katlyn RN 15:08 Lidocaine 1% w/Epi 1:100,000 8 ml Subcut Cathy Gallardo Konstantinos I personally monitored the patient?s conscious sedation during theprocedure. Conscious sedation starts with the first sedation medication dose ofFentanyl or Versed and ends when the procedure is completed, the patientis stable for recovery status, and the physician or other qualified healthcare professional providing the sedation ends personal [id number] time with the patient. The medications listed above were verbally ordered by me and read back tome as documented above. Refer to the procedure log report for additional case details. electronically signed on 06/20/2023 3:36:46 PM with status of Final Rudi Gallardo MD [facility] [address] [place] [id number] [place] [address] (p) [phone](f) Provider Referring CV IMAGING * EXTRA TUBE GOLD/SST (06/20/2023 1:55 PM SEO SPECIALIST) Only the most recent of2 resultswithin the time period is included. Blood BLOOD SPECIMEN / Unknown Extra Tube / Unknown 06/20/2023 1:55 PM SEO SPECIALIST 06/20/2023 2:04 PM SEO SPECIALIST Rudi Gallardo MD LABORATORY [facility] [address] [place] [address], * POTASSIUM (06/20/2023 1:55 PM SEO SPECIALIST) POTASSIUM 4.0 3.5 - 5.1 mmol/L 06/20/2023 2:32 PM SEO SPECIALIST [facility] Blood BLOOD SPECIMEN / Unknown Non-Lab Venipuncture / Unknown 06/20/2023 1:55 PM SEO SPECIALIST 06/20/2023 2:04 PM SEO SPECIALIST Alize Zacarias APICULTURE TEACHER CHEMISTRY [facility] [address] [place] [address], * (ABNORMAL) HEMOGLOBIN A1C SCREENING (06/20/2023 12:28 PM SEO SPECIALIST) HEMOGLOBIN A1C SCREENING 6.9(H) <=6.4 % 06/20/2023 3:25 PM SEO SPECIALIST [facility] Blood BLOOD SPECIMEN / Unknown Non-Lab Venipuncture / Unknown 06/20/2023 12:28 PM SEO SPECIALIST 06/20/2023 12:38 PM SEO SPECIALIST Narrative [facility] - 06/20/2023 3:25 PM SEO SPECIALIST ? (<5.7%) ?Normal ? (5.7% to 6.4%) ? Indicates prediabetes ? (>=6.5%) ? Confirms diabetes Falsely low levels may be seen with: Recent Transfusion, Recent Significant Blood Loss, Hemolytic Diseases, or Falsely elevated levels may be seen with: Untreated Anemias, Splenectomy Alize Zacarias NP CHEMISTRY Performing Organization Address [facility] Co wv Phone Number [facility] [address] [place] [address], * BUN (06/20/2023 12:28 PM SEO SPECIALIST) BUN 13 8 - 23 mg/dL 06/20/2023 1:08 PM SEO SPECIALIST [facility] Blood BLOOD SPECIMEN / Unknown Non-Lab Venipuncture / Unknown 06/20/2023 12:28 PM SEO SPECIALIST 06/20/2023 12:38 PM SEO SPECIALIST Alize Zacarias APICULTURE TEACHER CHEMISTRY Performing Organization Address [facility] de Phone Number [facility] [address] [place] [address], [place] * Sodium (06/20/2023 12:28 PM SEO SPECIALIST) SODIUM 136 136 - 145 mmol/L 06/20/2023 1:08 PM SEO SPECIALIST [facility] Blood BLOOD SPECIMEN / Unknown Non-Lab Venipuncture / Unknown 06/20/2023 12:28 PM SEO SPECIALIST 06/20/2023 12:38 PM SEO SPECIALIST Alize Zacarias APICULTURE TEACHER CHEMISTRY Performing Organization Address [facility] Co de Phone Number [facility] [address] [place] [address], [place] * (ABNORMAL) Creatinine (06/20/2023 12:28 PM SEO SPECIALIST) eGFR 74(L) >90 mL/min/1.7 3m2 06/20/2023 1:08 PM SEO SPECIALIST [facility] Comment:As of 2021, eG FR is calculated by the CKD-EPI creatinine equation without race adjustment. ??eGFR can be influenced by muscle mass, exercise, and diet. ??The reported eGFR is an estimation only and is only applicable if the renal function is stable. CREATININE 0.81 0.50 - 0.90 mg/dL 06/20/2023 1:08 PM SEO SPECIALIST [facility] Blood BLOOD SPECIMEN / Unknown Non-Lab Venipuncture / Unknown 06/20/2023 12:28 PM SEO SPECIALIST 06/20/2023 12:38 PM SEO SPECIALIST Alize Zacarias NP CHEMISTRY [facility] [address] [place] [address], * Lipid Panel (06/20/2023 12:28 PM SEO SPECIALIST) CHOLESTEROL,TOTAL 104 100 - 199 mg/dL 06/20/2023 1:08 PM SEO SPECIALIST [facility] Comment: Cholesterol, Total Reference Ranges Desirable <200 mg/dL Borderline 200-239 mg/dL High >=240 mg/dL TRIGLYCERIDES 107 <150 mg/dL 06/20/2023 1:08 PM SEO SPECIALIST [facility] HDL CHOLESTEROL 44 >40 mg/dL 1:08 PM SEO SPECIALIST [facility] NON-HDL CHOLESTEROL 60 <145 mg/dl 06/20/2023 1:08 PM SEO SPECIALIST [facility] CHOL/HDL RATIO 2.36 <4.50 06/20/2023 1:08 PM SEO SPECIALIST [facility] LDL CHOLESTEROL 39 <=130 mg/dL 06/20/2023 1:08 PM SEO SPECIALIST [facility] VLDL CHOLESTEROL 21 <=30 mg/dL 06/20/2023 1:08 PM SEO SPECIALIST [facility] PROVIDER ORDERED STATUS RANDOM 06/20/2023 1:08 PM SEO SPECIALIST [facility] Blood BLOOD SPECIMEN / Unknown Non-Lab Venipuncture / Unknown 06/20/2023 12:28 PM SEO SPECIALIST 06/20/2023 12:38 PM SEO SPECIALIST Alize Zacarias NP [facility]STRY [facility] [address] [place] [address], * SCAN-OPERATIVE/PROCEDURE REPORT (06/20/2023 12:00 AM SEO SPECIALIST) Narrative 06/20/2023 12:00 AM SEO SPECIALIST Ordered by an unspecified provider. Other Clinical Staff OTHER * CT HIP LEFT WO (06/13/2023 1:25 PM SEO SPECIALIST) Anatomical Region Laterality Modality HIPL Computed Tomogra phy 06/14/2023 10:3 2 PM SEO SPECIALIST Narrative 06/14/2023 10:32 PM SEO SPECIALIST For Patients: ??As a result of the Century Cures Act, medical imaging exams and procedure reports are released immediately into your electronic medical record. ??You may view this report before your referring provider. ??If you have questions, please contact your health care provider. Indication: Left hip fracture Technique: Noncontrast CT pelvis and left hip Please note that all CT scans at this facility use dose modulation, iterative reconstruction, and/or weight-based dosing when appropriate to reduce radiation dose to as low as reasonably achievable. Comparison: X-rays 05/20/2023 Findings: There is a chronic displaced fracture of the right medial pubic bone with up to 6 millimeters of diastasis. Reactive sclerosis noted along with chronic adjacent densities. Spurring at the symphysis pubis with chondrocalcinosis. Chronic deformity of the left inferior and left superior pubic rami noted. The sacrum is intact. Mild degenerative changes at the SI joints. Chronic wedging of the L4 vertebral body. Facet degeneration lower lumbar spine. Dense vascular calcifications. Calcifications associated with the uterus. No adenopathy or bowel obstruction. Postoperative changes of open reduction internal fixation of proximal left femoral fracture with intact hardware. The oblique fracture lucency still persists at the anterior aspect. Up to 2.9 millimeters lucency at the fracture site noted. Chronic heterotopic density superior to the greater trochanter. Impression: Status post ORIF left femoral neck fracture with intact hardware and near anatomic alignment. Incomplete healing of the fracture at the anterior aspect. 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 Please note that all CT scans at this facility use dose modulation, iterative reconstruction, and/or weight-based dosing when appropriate to reduce radiation dose to as low as reasonably achievable. Dictated by Bg Yoon MD @ Jun 14 2023 10:32PM (Electronically Signed) ?? Procedure Note Bg Yoon MD - 06/14/2023 For Patients: As a result of the Cures Act, medical imagingexams and procedure reports are released immediately into your electronicmedical record. You may view this report before your referring provider.If you have questions, please contact your health care provider. Indication: Left hip fracture Technique: Noncontrast CT pelvis and left hip Please note that all CT scans at this facility use dose modulation,iterative reconstruction, and/or weight-based dosing when appropriate toreduce radiation dose to as low as reasonably achievable. Comparison: X-rays 05/20/2023 Findings: There is a chronic displaced fracture of the right medial pubic bone withup to 6 millimeters of diastasis. Reactive sclerosis noted along withchronic adjacent densities. Spurring at the symphysis pubis withchondrocalcinosis. Chronic deformity of the left inferior and leftsuperior pubic rami noted. The sacrum is intact. Mild degenerative changesat the SI joints. Chronic wedging of the L4 vertebral body. Facetdegeneration lower lumbar spine. Dense vascular calcifications.Calcifications associated with the uterus. No adenopathy or bowelobstruction. Postoperative changes of open reduction internal fixation ofproximal left femoral fracture with intact hardware. The oblique fracturelucency still persists at the anterior aspect. Up to 2.9 millimeterslucency at the fracture site noted. Chronic heterotopic density superiorto the greater trochanter. Impression: Status post ORIF left femoral neck fracture with intact hardware and nearanatomic alignment. Incomplete healing of the fracture at the anterioraspect. 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 Please note that all CT scans at this facility use dose modulation,iterative reconstruction, and/or weight-based dosing when appropriate toreduce radiation dose to as low as reasonably achievable. Dictated by Bg Yoon MD @ Jun 14 2023 10:32PM (Electronically Signed) Nilo Lester MD CT * ECHO TTE COMPLETE WO CONTRAST (05/21/2023 2:44 PM CDT) AORTIC VALVE MEAN PG 3 mmHg EJECTION FRACTION 60 % PEAK TR VELOCITY 1.9 m/s LVEDD 3.7 cm EJECTION FRACTION 60 - 65% Anatomical Region Laterality Modality Ultrasound 05/21/2023 12:1 2 PM CDT Narrative 05/21/2023 4:12 PM CDT ECHOCARDIOGRAM JOSE LUIS JESSICA ?Accession#: ?? [id number] : ?1945 77 years Study Date: ?? 05/21/2023 12:12:14 PM Gender: F ? BP: ? 96/60 mmHg Height: 160.00 cm ? BSA: ?1.49 m? ? ? Weight: 49.00 kg ?Tech: ? ARLETTE ?Referring MD: WINNIE SELF Site: ? [facility] Reading Location: [facility] Patient Location: Outpatient. Procedure: 2D, Color Doppler and Spectral Doppler. Indication for study: Chest pain Cardiac Rhythm: Regular.Study quality: Fair. Final Impressions: 1. Normal LV size, normal wall thickness, normal global systolic function with an estimated EF of 60 - 65%. 2. Right ventricular cavity size is normal, global systolic RV function is normal. 3. Mildly enlarged left atrium. Chamber Sizes and Function Normal left ventricular size, normal wall thickness, normal global systolic function with an estimated EF of 60 - 65%. Left atrial size is mildly enlarged. Right ventricular cavity size is normal, global systolic RV function is normal. The right atrium is normal. Right atrial volume index is 16 ml/m? ? ?. The pulmonary artery is not well visualized. The sinus of Valsalva is normal sized. The ascending aorta is not well visualized. Valves, RV Pressures and Diastolic Function The aortic valve is trileaflet and sclerotic, no stenosis and no regurgitation. The mitral valve is sclerotic, trace mitral regurgitation. Mitral annular calcification is present. Spectral Doppler shows Grade 1 pattern of LV diastolic filling. The tricuspid valve is normal in structure. Tricuspid regurgitation is trace regurgitation. The tricuspid regurgitant velocity is 1.9 m/s, the estimated right ventricular systolic pressure is 14 mmHg plus right atrial pressure. The pulmonic valve is not well visualized. Trace pulmonary regurgitation. Masses, Effusion, Shunts There is no pericardial effusion. The inferior vena cava is not well visualized, respiratory size variation not well visualized. No left to right shunting was detected by limited color flow Doppler interrogation of the interatrial septum. MEASUREMENTS AND CALCULATIONS 2-D Measurements and LV Function: LVID (d) 3.7 cm LVOT diameter 2.2 cm IVS (d) ??1.1 cm HR ?56 bpm LVPW (d) 0.8 cm LA Vol index ??34 ml/m2 Ao Sinus 3.3 cm RA Vol index ??16 ml/m2 ?RV Max 4C (d) 3.5 cm Diastology: Mitral ?Tissue Doppler E Peak 0.8 m/s ??e', Septum ? 0.05 m/s A Peak 1.3 m/s ??e', Lateral ?0.06 m/s E/A ?0.7 ?E/e' Average ?? 15.43 DT ? 331 msec Aortic Valve: Vmax ? 1.1 m/s ??LIANNA (V) ?? 3.54 cm? ? ? VTI ?0.26 m ?? LIANNA (I) ?? 3.30 cm? ? ? LVOT V max 1.0 m/s ??Max PG ?5 mmHg LVOT VTI ?? 0.22 m ?? Mean PG ?? 3 mmHg SV ? 87 ml ?Dim Index 0.85 SV index ?? 58 ml/m? ? ? CO ?4.9 l/min ?CI ?3.3 l/min/m? ? ? Mitral Valve: MVA ?2.3 cm? ? ? MV P 1/2 96 msec Tricuspid Valve and estimated PA pressures: TR Vmax 1.9 m/s TR maxG 14 mmHg . This study was interpreted by an [facility] accredited facility. ??Final ?? Procedure Note Bg Stratton MD - 05/21/2023 ECHOCARDIOGRAM JOSE LUIS JESSICA : 1945 77 years Study Date: 05/21/2023 12:12:14 PM Gender: F BP: 96/60 mmHg Height: 160.00 cm BSA: 1.49 m? ? ? Weight: 49.00 kg Tech: ARLETTE Referring MD: WINNIE SELF Site: [facility] Reading Location: [facility] Patient Location: Outpatient. Procedure: 2D, Color Doppler and Spectral Doppler. Indication for study: Chest pain Cardiac Rhythm: Regular.Study quality: Fair. Final Impressions: 1. Normal LV size, normal wall thickness, normal global systolic functionwith an estimated EF of 60 - 65%. 2. Right ventricular cavity size is normal, global systolic RV functionis normal. 3. Mildly enlarged left atrium. Chamber Sizes and Function Normal left ventricular size, normal wall thickness, normal globalsystolic function with an estimated EF of 60 - 65%. Left atrial size ismildly enlarged. Right ventricular cavity size is normal, global systolicRV function is normal. The right atrium is normal. Right atrial volumeindex is 16 ml/m? ? ?. The pulmonary artery is not well visualized. The sinusof Valsalva is normal sized. The ascending aorta is not well visualized. Valves, RV Pressures and Diastolic Function The aortic valve is trileaflet and sclerotic, no stenosis and noregurgitation. The mitral valve is sclerotic, trace mitral regurgitation.Mitral annular calcification is present. Spectral Doppler shows Grade 1pattern of LV diastolic filling. The tricuspid valve is normal instructure. Tricuspid regurgitation is trace regurgitation. The tricuspidregurgitant velocity is 1.9 m/s, the estimated right ventricular systolicpressure is 14 mmHg plus right atrial pressure. The pulmonic valve is notwell visualized. Trace pulmonary regurgitation. Masses, Effusion, Shunts There is no pericardial effusion. The inferior vena cava is not wellvisualized, respiratory size variation not well visualized. No left toright shunting was detected by limited color flow Doppler interrogation ofthe interatrial septum. MEASUREMENTS AND CALCULATIONS 2-D Measurements and LV Function: LVID (d) 3.7 cm LVOT diameter 2.2 cm IVS (d) 1.1 cm HR 56 bpm LVPW (d) 0.8 cm LA Vol index 34 ml/m2 Ao Sinus 3.3 cm RA Vol index 16 ml/m2 RV Max 4C (d) 3.5 cm Diastology: Mitral Tissue Doppler E Peak 0.8 m/s e', Septum 0.05 m/s A Peak 1.3 m/s e', Lateral 0.06 m/s E/A 0.7 E/e' Average 15.43 DT 331 msec Aortic Valve: Vmax 1.1 m/s LIANNA (V) 3.54 cm? ? ? VTI 0.26 m LIANNA (I) 3.30 cm? ? ? LVOT V max 1.0 m/s Max PG 5 mmHg LVOT VTI 0.22 m Mean PG 3 mmHg SV 87 ml Dim Index 0.85 SV index 58 ml/m? ? ? CO 4.9 l/min CI 3.3 l/min/m? ? ? Mitral Valve: MVA 2.3 cm? ? ? MV P 1/2 96 msec Tricuspid Valve and estimated PA pressures: TR Vmax 1.9 m/s TR maxG 14 mmHg . This study was interpreted by an [facility] accredited facility. Final Winnie Self MD ECHO ORD * CT CARDIAC CORONARY ARTERIES DUAL READ (05/21/2023 12:08 PM CDT) Anatomical Region Laterality Modality HEART Computed Tomogra phy 05/21/2023 11:5 7 AM CDT Impressions 05/21/2023 8:30 PM CDT 1. ??Stable basilar interstitial fibrotic changes. 2. ??No new acute or suspicious extracardiac imaging abnormality. 3. ??Please refer to the dedicated cardiac imaging report. ?? Please note that all CT scans at this facility use dose modulation, iterative reconstruction and/or weight-based dosing when appropriate to reduce radiation dose to as low as reasonably achievable. ?? Phil Stewart M.D. Pediatric/Diagnostic Radiologist [employer] [email or web address] / ? Narrative 05/21/2023 8:30 PM CDT ?[facility] ? Cardiac CT Report ??MRN: ? [id number] ?Name: ? JOSE LUIS JOYCE ?: ?Scan Date: ?Accession Number: ? [id number] ? Electronically signed by Seng Boland 12:57:54 VITALS HEIGHT: 63 in ?(160 cm) WEIGHT: 107 lbs ?(49 kgs) BSA: 1.48 m^2 BMI: 19 kg/m^2 BP: 108 / 59 mmHg BASELINE HR: 63 BPM HEART RHYTHM: Normal Sinus Rhythm FINAL IMPRESSION 1. Extensive coronary artery atherosclerosis with severe proximal RCA stenosis and potentially severe lesions in the LAD, ramus intermiedate, and RPLB. 2. Symptomatic coronary disease is likely. Consider invasive coronary angiogram, if clinically appropriate. STUDY QUALITY: Study quality is excellent. CAD-RADS: CAD-RADS Classification 4A (>=70% stenosis). CALCIUM SCORING: Total coronary artery calcium score 2528. REDFIELD percentile based on age, gender, and race is 99. DOMINANCE: Right dominant coronary artery system. LM: The LM is normal. LAD: The proximal LAD has partially calcified atherosclerosis. There is a 25-49% proximal LAD stenosis. The mid LAD has partially calcified atherosclerosis. There is a 50-69% mid LAD stenosis. There is a 50-69% distal LAD stenosis. D1: The first diagonal is too small to characterize. D2: The second diagonal has non-calcified atherosclerosis. There is a 25-49% second diagonal stenosis. RAMUS: The ramus has non-calcified atherosclerosis. There is a 50-69% ramus stenosis. LCX: The proximal LCx has partially calcified atherosclerosis. There is a <25% proximal LCx stenosis. The mid LCx has partially calcified atherosclerosis. There is a 25-49% mid LCx stenosis. Distal LCx stenosis indeterminate due to small vessel size. OM1: The first obtuse marginal has partially calcified atherosclerosis. There is a 25-49% first obtuse marginal stenosis. RCA: The proximal RCA has partially calcified atherosclerosis. There is a >=70% proximal RCA stenosis. The mid RCA has partially calcified atherosclerosis. There is a 25-49% mid RCA stenosis. The distal RCA has partially calcified atherosclerosis. There is a 25-49% distal RCA stenosis. RIGHT PDA: The right PDA is normal. RIGHT PLB: The right posterolateral has partially calcified atherosclerosis. There is a 25-49% right posterolateral stenosis. OTHER FINDINGS: No acute aortic pathology No NICOLE thrombus Normal pericardium CALCIUM SCORING TABLE . . ? Number of Lesions Pattern of Calcium Volume Total Score +-------+ + +--------+ + LM ? 0 LAD ? 772 LCx ? 373 RCA ?1383 Ramus ? '-------+ + +--------+ ' SCAN INFO TEST TYPE: ??Calcium score, Coronary CT Angiography SCANNER CREAM RIPENER: ??SIEMENS SCANNER MODEL: ??Cryoocyte DOSE REDUCTION ALGORITHM: ??Helical with dose modulation PHASE UNITS: ??ms START PHASE: ??280 ms END PHASE: ??350 ms EKG GATED: ??Yes PRE-CONTRAST: ??Yes POST-CONTRAST: ??Yes 3D RECONSTRUCTION: ??Yes GENERAL ?CONTRAST AGENT ?CONTRAST AGENT USED?: ??Yes ?TYPE: ??Omnipaque 350 ?DOSE: ??90 ml ?RATE: ??6.0 ml/s ?ROUTE: ??IV ?ARM: ??Right ?BOLUS TECHNIQUE: ??Biphasic ?SERUM CREATININE: ??0.8 mg/dL ?GFR: ??73.73 ml/min/1.73m^2 ?CREATININE DATE: ?CT CONTRAST REACTION: ??None ?MEDICATION ADMINISTERED DURING SCAN ?TYPE: ??Nitroglycerin, sublingual, B-Blockers ?NITROGLYCERIN, TOTAL DOSE: ??0.8 mg ?B-JAMI TYPE: ??Oral ?B-JAMI NAME, ORAL: ??Metoprolol tartrate ?B-BLOCKERS, ORAL DOSE: ??100 mg ?RADIATION DOSE ?DLP: ??158 ?KV: ??90 ?SETUP ?PATIENT TYPE: ??Outpatient ?REASON(S) FOR SCAN: ??Chest pain ?REFERRING PHYSICIAN: ??WINNIE SELF ?ATTENDING PHYSICIAN: ??WINNIE SELF ?TECHNOLOGIST: ??Jaylin Alvarez Patient Account ?[id number] ICD10 Codes ?R07.9 Report generated by [employer], a product of [employer] For Patients: As a result of the 21st Century Cures Act, medical imaging exams and procedure reports are released immediately into your electronic medical record. ??You may view this report before your referring provider. ?? If you have questions, please contact your health care provider. OVER-READ ??OVER-READ ??OVER-READ OVER-READ: DETAILED RADIOLOGY EXTRACARDIAC OVER-READ OF CARDIAC CT 05/21/2023 TECHNIQUE: ??Please see cardiology report for technical information. ??90 cc Omnipaque-350 intravenous contrast. This exam is being performed in conjunction with the services provided by the [facility] ([facility]). CLINICAL HISTORY: ??Cardiac CTA over-read. ? FINDINGS: Lung Parenchyma: Extensive emphysema and interstitial reticulation and fibrosis in the lower lobes. ??No change from a recent chest CT scan 11/06/2022. ?? Pleural Spaces: No pleural effusions. Pulmonary Arteries: No filling defects. Aorta: No signs for dissection. Mediastinum: No adenopathy. Miscellaneous: No additional suspicious abnormalities. Winnie Self MD CT * (ABNORMAL) CREATININE,ISTAT (05/21/2023 11:07 AM CDT) [facility] CREATININE, POCT 0.80 0.57 - 1.11 mg/dL 05/22/2023 3:59 PM CDT [facility] Comment:Caution: Patients ta giovanni Hydroxyurea have falsely increased iStat Creatinine results. Verify creatinine results ordering a Creatinine (03092.2) eGFR 76(L) >90 mL/min/1.7 3m2 05/22/2023 3:59 PM CDT [facility] Comment:As of 2021, eG FR is calculated by the CKD-EPI creatinine equation without race adjustment. eGFR can be influenced by muscle mass, exercise, and diet. The reported eGFR is an estimation only and is only applicable if the renal function is stable. Blood BLOOD SPECIMEN / Unknown 05/21/2023 11:07 AM CDT 05/22/2023 3:59 PM CDT Winnie Self [facility] [address] [place] [address], [place] * XR HIP 2 OR 3 VIEWS W PELVIS LEFT (05/20/2023 2:44 PM CDT) Anatomical Region Laterality Modality HIPS, HIPL, Pelvis Computed Radi ography 05/21/2023 7:00 AM CDT Impressions 05/21/2023 7:00 AM CDT Healed intertrochanteric fracture of the left hip. Hardware stable. Mild chronic bilateral hip arthropathy unchanged. Dictated by Shayla Weaver MD @ 05/21/2023 7:00:22 AM (Electronically Signed) Narrative 05/21/2023 7:00 AM CDT For Patients: ??As a result of the Cures Act, medical imaging exams and procedure reports are released immediately into your electronic medical record. ??You may view this report before your referring provider. ??If you have questions, please contact your health care provider. INDICATION: Primary osteoarthritis the left and history of fracture. TECHNIQUE: AP pelvis and left hip, 5 views. COMPARISON: 01/13/2023. FINDINGS: Healed intertrochanteric fracture of the left hip without evidence for position change. Inter medullary jessica and interlocking screw unchanged in position. No obvious hardware loosening. Mild joint arthropathy similar to the previous.. No significant change from the previous. Procedure Note Renan Weaver MD - 05/21/2023 For Patients: As a result of the s Act, medical imagingexams and procedure reports are released immediately into your electronicmedical record. You may view this report before your referring provider.If you have questions, please contact your health care provider. INDICATION: Primary osteoarthritis the left and history of fracture. TECHNIQUE: AP pelvis and left hip, 5 views. COMPARISON: 01/13/2023. FINDINGS: Healed intertrochanteric fracture of the left hip without evidence forposition change. Inter medullary jessica and interlocking screw unchanged inposition. No obvious hardware loosening. Mild joint arthropathy similar tothe previous.. No significant change from the previous. IMPRESSION: Healed intertrochanteric fracture of the left hip. Hardware stable. Mild chronic bilateral hip arthropathy unchanged. Dictated by Shayla Weaver MD @ 05/21/2023 7:00:22 AM (Electronically Signed) [facility] from Last 3 Months Advance Directives Latest Code Status on File Code Status Date Activated Date Inactivated Comments Full Code 08/12/2023 6:25 PM Question Answer Comments Code Status Discussion: Reviewed Preferences Code Status History Code Status Date Activated Date Inactivated Comments Full Code 06/20/2023 11:11 AM 06/20/2023 9:11 PM Question Answer Comments Code Status Discussion: Reviewed Preferences Full Code 09/08/2022 6:37 PM 09/09/2022 7:27 PM Question Answer Comments Code Status Discussion: Reviewed Preferences Full Code 11/07/2011 12:40 PM 11/07/2011 5:54 PM Full Code 10/21/2011 7:39 AM 10/21/2011 1:26 PM Care Teams [employer] Operator Relationship Specialty Start Date End Date [place] [address] PCP - General Family Practice 09/09/22 Pcp, No . 06/13/21 Pcp, No . 06/18/21
--- OUTSIDE RECORDS SUMMARY | 2023-08-14 19:23 | XMS_ITS | Data Portability ---
Author Name Unknown Address [address] [place] [id number] Phone [phone] Organization [place] - [facility] Address [address] [place] [phone] Assessment No assessment recorded. Plan of Treatment Reminders Order Date Submit Date Provider Last Modified By Organization Details Last Modified Time Details Appointments None recorded. Lab CBC w/ auto diff 2020 [facility] Not available 11:40:30 CMP, serum or plasma 2020 [facility] Not available 13:01:26 lipid panel, blood 2020 [facility], [address] [place] [address], [phone], 19:21:27 hemoglobin A1C/hemoglo bin total, QN, blood 2020 [facility], [address] [place] [address], [phone], 10:43:52 microalbumi n, urine 2020 [facility], [address] [place] [address], [phone], 19:21:28 Referral None recorded. Procedures None recorded. Surgeries None recorded. Imaging None recorded. Medication Orders Naprosyn 500 mg tablet 2020 [facility], [address] [place] [address], [id number], 14:25:44 metformin 500 mg tablet 2020 021 [facility], [address] [place] [address], [id number], 16:30:56 Patient TargetsNo targets recorded. Patient Instructions Encounter Date Encounter Id Patient Instructions Last Modified By Organization Details Last Modified Time 06/05/[id number] Trista will get her scheduled at [facility] frieda Not available 06/05/2021 20:07:01 12/11/2020 [id number] add Tylenol thre e times a day, review diet frieda Not available 12/11/2020 17:37:07 11/27/2020 [id number] discuss eyes, kidneys, here with yedalia malave Not available 11/27/2020 17:41:53 Reason for Referral None Reported. Results Created Date Observation Date Name Description Value Unit Range Abnormal Flag LastModifiedBy Organization Detail LastModifiedTime 11/23/1911/22/2020 hemog lobin A1C/h emogl obin total , QN, blood hemoglobin A1C 9.7 Not Available [facility] ([facility]) [address] [facility] [place], [address], 11/24/2020 09:11:18 11/23/19 21 11/22/2020 CMP, serum or plasm a creatinine 0.87 Not Available Not Available 0 11/23/2020 12:16:28 11/23/19 21 11/22/2020 CMP, serum or plasm a ALT 8 Not Available Not Available 10/27 12:16:28 11/23/19 21 11/22/2020 CBC w/ auto diff white blood count 9.7 Not Available Not Available 11:11:30 11/23/19 21 11/22/2020 CBC w/ auto diff hemoglobin 12.4 Not Available Not Available 0 11/23/2020 11:11:30 11/23/19 21 11/22/2020 CBC w/ auto diff platelet count 259 Not Available Not Available 11:11:30 12/12/19 21 11/28/2020 XR, hip, unila teral No observ ation record ed. [facility] Radiology Department [address] [place], [address], 12/11/2020 12:50:27 Result Notes None recorded. Problems Name Status Onset Date Resolution Date Notes Provider Name and Address Organization Details Recorded Time Type 2 diabetes mellitus Active Nelson Canales MD [address] [place], [address], [facility] 06/05/2021 15:10:37 Problem Notes None recorded. Procedures Surgical History None recorded. Imaging Results Imaging Date Name Status LastModified by Organiz ation Details LastModified Time 11/28/2020 XR, hip, unilateral completed [facility] Department [address] [place], [address], 12/11/2020 12:50:27 Procedure Notes None recorded. Medical Equipment None Reported. Medications Name Sig Start Date Stop Date Status Note LastModified by Organization Details LastModified Time metformin 500 mg tablet TAKE ONE TABLET BY MOUTH EVERY DAY active Not Available Not Available No t Available acetaminophen 325 mg tablet TAKE 2 TABLETS BY MOUTH TWICE A DAY active Not Available Not Available No t Available gabapentin 300 mg capsule TAKE 1 CAPSULE (300 MG) BY MOUTH 2 TIMES DAILY FOR 14 DAYS, THEN 2 CAPSULES (600 MG) 2 TIMES DAILY. active Not Available Not Available No t Available gabapentin 100 mg capsule TAKE ONE CAPSULE BY MOUTH THREE TIMES DAILY active Not Available Not Available No t Available naproxen 500 mg tablet TAKE ONE TABLET BY MOUTH TWICE A DAY FOR 90 DAYS 2021 active Not Available Not Available Not Avai lable Vitals Date Recorded Body weight Systolic blood pressure Diastolic blood pressure Provider Name and Address Organization Details Last Updated DateTime 02/05/2021 82767.71 g 143 mm[Hg] 69 mm[Hg] Nelson Canales MD [address] [place], [phone] 02/05/2021 15:34:54 Date Recorded Body weight Systolic blood pressure Diastolic blood pressure Provider Name and Address Organization Details Last Updated DateTime 06/05/2021 67293.04 g 132 mm[Hg] 71 mm[Hg] Muriel Tobias [facility], [place] - [facility] 06/05/2021 18:08:12 Social History None recorded. Functional Status None recorded. Mental Status None recorded. Family History Nothing Reported. Medical History No medical history recorded. Gynecological HistoryNo gynecological history recorded. Obstetrics History GPAL:G 0 P 0 0 0 0 Past Encounters Encounter ID Performer Location Encounter Start Date Encounter Closed Date Diagnosis/Indication [id number] eNlson Canales MD [place] [facility] [place] [address] 11/20/2020 16:11:17 11/20/2020 16:43:13 Type 2 diabetes mellitus without complication [id number] Nelson Canales MD [place] [facility] [address] [place] [phone] 11/27/2020 15:30:28 11/27/2020 18:30:09 Neuropathy due to diabetes mellitus [id number] Nelson Canales MD [place] [facility] [address] [place] [phone] 12/11/2020 14:26:48 12/11/2020 17:46:51 Disorder of eye due to type 2 diabetes mellitus [id number] Nelson Canales MD [place] [facility] [address] [place] [address] 02/05/2021 13:53:31 02/05/2021 17:56:26 Chronic low back pain Peripheral neuropathy due to type 2 diabetes mellitus [id number] Nelson Canales MD [place] [facility] [address] [place] [address] 06/05/2021 17:47:44 06/05/2021 18:35:31 Peripheral neuropathy due to type 2 diabetes mellitus Health Concerns Section Related Observation LastModified by Organization Detai ls LastModified Time None Recorded Concern Status LastModified by Organization Details LastModified Time None Recorded Advance Directives Directive None Recorded Payers Encounter Date Sequence Insurance Name Policy Number Policy Holly Covered Member ID Holly Member ID Guarantor Name 06/05/2021 SLIDING FEE SCHEDULE - DISCOUNT 02/05/2021 SLIDING FEE SCHEDULE - DISCOUNT 12/11/2020 SLIDING FEE SCHEDULE - DISCOUNT 11/27/2020 SLIDING FEE SCHEDULE - DISCOUNT 11/20/2020 SLIDING FEE SCHEDULE - DISCOUNT Notes Date Note Type Note Provider Name and Address Organization Details Recorded Time 11/20/2020 text/html HPI Notes: fx of left leg in past, using cane, needs handicapped, eye probs in past Nelson Canales MD [address] [facility] [place], [address], [facility] 11/20/2020 16:32:22 11/27/2020 text/html HPI Notes: fractured hip over a year ago, sounds like a rid in femur and a pin in hip, now discomfort in calf, numbness in both feet Nelson Canales MD [address] [facility] [place], [address], [facility] 11/27/2020 17:42:29 12/11/2020 text/html HPI Notes: follo w up type 2 diabetes Nelson Canales MD [address] [facility] [place], [address], [facility] 12/11/2020 17:37:41 02/05/2021 text/html HPI Notes: Diabe eder F/U Reported by patient. Review finger sticks: fastin; pre dinner: Labs: last A1C result: Context: concerns? thrmoved to [place], known retinopathy, can't pay for glasses, glucometers in 100's but last panel had BS of 300+ previous fx of left femur, now hip hurts, Tylenol doesn't help, using cane, requesting IM medicine Nelson Canales MD [address] [facility] [place], [address], [facility] 02/05/2021 15:46:12 06/05/2021 text/html HPI Notes: still has poor pain control of left leg and lower back, knows that she needs more attention to opthalmologic problems Nelson Canales MD [address] [facility] [place], [address], [facility] 06/05/2021 20:07:14 OBGyn Episode No OBEpisode recorded.
== END 2023-08-12 13:06 | disposition home or self-care (01) ==
PROVIDERS: PCP Family Medicine; Visit Provider Emergency Medicine
DX: R07.89 Other chest pain (principal)
CPT/HCPCS: A0425; A0427

== ENCOUNTER 2023-08-12 13:43 | Emergency (ER) | payer MEDICAID, SELFPAY ==
[2023-08-12] VITALS (21 sets, daily range): BP systolic 130–174; BP diastolic 73–154; PULSE 80–99; RESP 16; TEMP 36.8; O2SAT 96–100
--- NOTE | 2023-08-12 13:47 | CRLHL7_ITS ---
For Patients: As a result of the Cures Act, medical imaging exams and procedure reports are released immediately into your electronic medical record. You may view this report before your referring provider. If you have questions, please contact your health care provider. INDICATION: CHEST PAIN TECHNIQUE: Chest 1 views. COMPARISON: Chest radiograph on March 19, 2012 FINDINGS/IMPRESSION: The cardiomediastinal silhouette is within normal limits. There are diffuse interstitial markings bilaterally, which may be sequela of fibrosis without focal airspace consolidation, pleural effusion, or pneumothorax. Likely calcified granuloma in the left lateral mid lung zone. Chronic appearing deformity of the right humeral head, likely sequela of remote injury. No acute displaced fractures. Dictated by Godfrey Dodson MD @ 08/12/2023 2:52:36 PM (Electronically Signed)
--- NOTE | 2023-08-12 13:49 | ED.GENADULT ---
HPI - General Adult General Time Seen by Provider: 13:49 Date Seen: 08/12/23 Chief complaint: Chest Pain Stated complaint: Possible stemi Time Seen by Provider: 08/12/23 13:47 Source: patient Mode of arrival: EMS History of Present Illness HPI narrative: Leonila is a 78-year-old female past medical history includes diabetes mellitus type 2, with multivessel coronary disease presents emerged department from clinic via EMS with chest pain. Patient was just recently seen at [facility], considerations for a bypass due to her multivessel disease. Patient is [place], per EMS she developed chest pain that started around 10:00 p.m. last night, substernal nonradiating, this continued throughout the night she was seen in clinic, EKG performed showing concerns for STEMI, EMS was then called and she was transported over to the emergency department, she received 324 mg oral aspirin. Patient has no pain at this time. Patient states she has had ongoing intermittent chest pain for a long time, pain comes on at rest or during exertion, she gets mild shortness of breath, no diaphoresis, nausea vomiting. She denies any lightheadedness or dizziness, patient was seen by Cardiovascular surgery up in [place] on 07/30, they were considering her for bypass surgery. Related Data Home Medications Medication Instructions Recorded Confirmed SENNA 08/12/23 aspirin 81 mg tablet,delayed 81 mg PO DAILY 08/12/23 08/12/23 release atorvastatin 40 mg tablet 40 mg PO QPM 08/12/23 08/12/23 calcium carbonate 08/12/23 cholecalciferol (vitamin D3) .ROUTE 08/12/23 glipizide 5 mg tablet, extended 5 mg PO DAILY 08/12/23 08/12/23 release 24 hr guaifenesin 600 mg tablet, 600 mg PO BID 08/12/23 08/12/23 extended release 12 hr (Mucus Relief ER) metformin 750 mg tablet,extended 750 mg PO QPM 08/12/23 08/12/23 release 24 hr naproxen 500 mg tablet 500 mg PO BID 08/12/23 08/12/23 oxycodone 5 mg tablet 5 mg PO Q8H PRN pain 08/12/23 08/12/23 polyethylene glycol 3350 17 g PO 08/12/23 gram/dose oral powder propylene glycol (PF) 0.6 % eye 1 drp ophthalmic (eye) BID PRN 08/12/23 08/12/23 drops (Systane Complete PF) tramadol 50 mg tablet 50 mg PO Q6H PRN pain 08/12/23 08/12/23 Allergies Allergy/AdvReac Type Severity Reaction Status Date / Time No Known Drug Allergies Allergy Verified 08/12/23 13:54 Review of Systems Status of ROS: Reports: 10 or more systems reviewed and unremarkable except as noted in History and below PFSH PFSH Social History Smoking Status: Never smoker Do you use any of these nicotine containing products: None Second hand tobacco smoke exposure: No How often do you have a drink containing alcohol: never AUDIT-C Alcohol total score: 0 Non-prescribed substance use: denies use service: No Exam Narrative: Exam Narrative: General: No obvious distress sitting comfortably HEENT: No JVD, neck supple, pupils equal round reactive to light Lungs: Clear to auscultation bilaterally Heart: Normal sinus rhythm S1-S2 Abdomen: Soft nontender Muscle skeletal: No lower extremity edema Neuro: Alert awake and oriented x3 Const: Vital Signs, click to edit/add: Vital Signs - 24 hr 08/12/23 13:49 08/12/23 13:49 08/12/23 13:52 Temperature 98.2 F Pulse Rate 85 83 Pulse Rate [Pulse Oximeter] 80 Respiratory Rate 16 Blood Pressure 130/76 Blood Pressure [Ri ght Upper Arm] 130/76 Pulse Oximetry 100 98 100 Oxygen Delivery Me od Room Air 08/12/23 14:00 08/12/23 14:04 08/12/23 14:15 Temperature Pulse Rate 82 86 87 Pulse Rate [Pulse Oximeter] Respiratory Rate Blood Pressure Blood Pressure [Ri ght Upper Arm] Pulse Oximetry 99 99 100 Oxygen Delivery Me thod 08/12/23 14:23 08/12/23 14:27 08/12/23 14:30 Temperature Pulse Rate 83 84 86 Pulse Rate [Pulse Oximeter] Respiratory Rate Blood Pressure 131/97 H 146/94 H Blood Pressure [Ri ght Upper Arm] Pulse Oximetry 100 100 99 Oxygen Delivery Nc thod 08/12/23 14:32 08/12/23 14:37 08/12/23 14:45 Temperature Pulse Rate 86 88 97 Pulse Rate [Pulse Oximeter] Respiratory Rate Blood Pressure 145/77 H 135/74 150/133 H Blood Pressure [Ri ght Upper Arm] Pulse Oximetry 100 96 100 Oxygen Delivery Me thod 08/12/23 14:46 08/12/23 14:49 08/12/23 14:54 Temperature Pulse Rate 87 99 84 Pulse Rate [Pulse Oximeter] Respiratory Rate Blood Pressure 174/154 H 153/73 H Blood Pressure [Ri ght Upper Arm] Pulse Oximetry 100 100 98 Oxygen Delivery Me thod Course Course ED Course: 1:50 PM: AIDET performed. Vitals are stable at this time, patient is pain-free at this time, was able to speak with Dr. Joshua RENEE, cardiology [facility], recommendations at this time were no Plavix, Heparin with loading, patient did receive aspirin prior to arrival, not treat as a level 1 or level 2, patient to be transferred to [facility], acceptance was made by Dr. Lewis. Awaiting on bed availability. Differentials include life-STEMI, NSTEMI, ACS, angina, unstable angina, pulmonary embolism, pneumothorax, pneumonia, aortic dissection. Other considerations include pericarditis, myocarditis, chest wall pain, GERD, esophageal rupture as well as other etiologies. ECG a bedside shows normal sinus rhythm, bpm of 86, she does have a left axis deviation, low-voltage QRS, inferior infarct and anterior lateral infarct age undetermined but seen on previous, no acute ST changes compared to previous. This was discussed with Cardiology. Reevaluation(s) Time of Reevaluation #1: 14:20 Time of Reevaluation #2: 15:04 Reevaluation #2: Point of care troponin was negative, imaging showed no acute cardiopulmonary process, CBC showed mild leukocytosis of 11.65, neutrophils of 8.2, metabolic panel pending, patient was started on heparin and doing well, patient reports no chest pain at this time, transport here for patient, patient to go via ground ALS to [facility]. Patient and family were in agreement this plan. Vital Signs Vital signs: Initial Vital Signs Temperature 98.2 F 08/12/23 13:49 Temperature Source Temporal Artery Scan 08/12/23 13:49 Pulse Rate 85 08/12/23 13:49 Respiratory Rate 16 08/12/23 13:49 Blood Pressure 130/76 08/12/23 13:49 Blood Pressure Mean 94 08/12/23 13:49 Blood Pressure Position Supine 08/12/23 13:49 Pulse Oximetry 100 08/12/23 13:49 Oxygen Delivery Method Room Air 08/12/23 13:49 Vital Signs Temperature 98.2 F 08/12/23 13:49 Pulse Rate 85 08/12/23 13:49 Respiratory Rate 16 08/12/23 13:49 Blood Pressure 130/76 08/12/23 13:49 Pulse Oximetry 100 08/12/23 13:49 Oxygen Delivery Method Room Air 08/12/23 13:49 Temperature 98.2 F 08/12/23 13:49 Pulse Rate 84 08/12/23 14:54 Respiratory Rate 16 08/12/23 13:49 Blood Pressure 153/73 H 08/12/23 14:54 Pulse Oximetry 98 08/12/23 14:54 Oxygen Delivery Method Room Air 08/12/23 13:49 Medications Administered Medications: Generic Name Dose Route Start Last Admin Trade Name Freq PRN Reason Stop Dose Admin Heparin Sodium/Dextrose 25,000 unit in 500 mls @ 0 mls/hr 08/12/23 14:00 08/12/23 14:24 Heparin IV 900 unit/hr .Q0M JULY 18 mls/hr Administration Protocol Per Protocol Discontinued Medications Generic Name Dose Route Start Last Admin Trade Name Freq PRN Reason Stop Dose Admin Heparin Sodium (Porcine) 4,000 unit 08/12/23 13:57 08/12/23 14:27 Heparin 5,000 Unit/0.5 Ml Inj IVP 08/12/23 13:58 4,000 unit ONCE ONE Administration Medical Decision Making Lab Data Labs: Lab Results 08/12/23 Range/Units 14:15 WBC 11.65 H (4.50-11.00) K/uL RBC 3.81 L (4.00-5.20) m/uL Hgb 12.2 (12.0-16.0) gm/dL Hct 37.5 (33.0-51.0) % MCV 98 (80-100) fL MCH 32 (26-34) pg MCHC 33 (32-36) gm/dL RDW Coeff of Demetrius 13.4 (11.5-15.5) % Plt Count 354 (140-440) K/uL Neut % (Auto) 70.3 (42.0-72.0) % Lymph % (Auto) 22.5 (20-44) % Day % (Auto) 4.9 (0.0-11.0) % Eos % (Auto) 1.7 (0.0-7.0) % Baso % (Auto) 0.4 (0.0-3.0) % Neut # (Auto) 8.20 H (1.7-7.0) K/uL Lymph # (Auto) 2.60 (0.90-2.90) K/uL Day # (Auto) 0.60 (0.00-0.90) K/UL Eos # (Auto) 0.20 (0.00-0.50) K/uL Baso # (Auto) 0.00 (0.00-0.30) K/uL Abs Immat Gran (auto) 0.00 (0.00-0.30) K/uL Imm/Tot Granulo (auto) 0.2 % INR 0.88 L (0.91-1.10) POC Troponin I 0.00 L (0.01-0.04) ng/ml Critical Care Time Critical Care Time Critical Care Time: Yes Attestation: The patient required my highest level preparedness to intervene emergently and I personally spent this critical care time directly and personally managing the patient. This critical care time included: Obtaining a history; Examining the patient; Pulse oximetry; Ordering and reviewing of studies; Arranging urgent treatment with development of a management plan; Evaluation of patients response to treatment; Frequent reassessment discussions with other providers. This critical care time was performed to assess and manage the high probability of imminent life-threatening deterioration that could result in multiorgan failure. It was exclusive of separate billable procedures and treating other patients and teaching time. Total Critical Care Time in Minutes: 45 Critical Care Time Critical Care Time: Yes Attestation: The patient required my highest level preparedness to intervene emergently and I personally spent this critical care time directly and personally managing the patient. This critical care time included: Obtaining a history; Examining the patient; Pulse oximetry; Ordering and reviewing of studies; Arranging urgent treatment with development of a management plan; Evaluation of patients response to treatment; Frequent reassessment discussions with other providers. This critical care time was performed to assess and manage the high probability of imminent life-threatening deterioration that could result in multiorgan failure. It was exclusive of separate billable procedures and treating other patients and teaching time. Total Critical Care Time in Minutes: 45 Discharge Plan Discharge Prescriptions: No Action atorvastatin 40 mg tablet 40 mg PO QPM glipizide 5 mg tablet extended release 24hr 5 mg PO DAILY aspirin 81 mg tablet,delayed release (DR/EC) 81 mg PO DAILY polyethylene glycol 3350 17 gram/dose powder PO naproxen 500 mg tablet 500 mg PO BID oxycodone 5 mg tablet 5 mg PO Q8H PRN (Reason: pain) metformin 750 mg tablet extended release 24 hr 750 mg PO QPM guaifenesin [Mucus Relief ER] 600 mg tablet extended release 12hr 600 mg PO BID Systane Complete PF 0.6 % drops 1 drp ophthalmic (eye) BID PRN SENNA tramadol 50 mg tablet 50 mg PO Q6H PRN (Reason: pain) cholecalciferol (vitamin D3) .ROUTE calcium carbonate Follow Up/Referrals: Marcin Saeed MD [Primary Care Provider] -
[2023-08-12] MEDS: HEPARIN 25,000 UNIT/500 ML BAG 18 UNIT IV (14:24)
[2023-08-12 14:27] LABS: Basophils Percent Auto 0.4 % (0.0-3.0); Eosinophils Percent Auto 1.7 % (0.0-7.0); Hematocrit 37.5 % (33.0-51.0); Hemoglobin* 12.2 gm/dL (12.0-16.0); Immature Granulocytes Pct Auto 0.2 %; Lymphocytes Percent Auto 22.5 % (20-44); Mean Corpuscular HGB Conc 33 gm/dL (32-36); Mean Corpuscular Hemoglobin 32 pg (26-34); Mean Corpuscular Volume 98 fL (80-100); Monocytes Percent Auto 4.9 % (0.0-11.0); Neutrophils Percent Auto 70.3 % (42.0-72.0); Platelet Count* 354 K/uL (140-440); RDW Coefficient of Variation % 13.4 % (11.5-15.5); Red Blood Count 3.81 m/uL (4.00-5.20); White Blood Count* 11.65 K/uL (4.50-11.00)
[2023-08-12] MEDS: HEPARIN 5,000 UNIT/0.5 ML INJ 4000 UNIT IVP (14:27)
[2023-08-12 14:36] LABS: Slide Review Reflex No
--- NOTE | 2023-08-12 14:50 | ED.NURSE ---
Per patient request, phone call was placed to granddaughter, Azucena. Azucena informed of patients status and need for transfer for further cardiac treatment and work up. Azucena understood and was agreeable for patient transfer. She will meet the patient up at [place] later this evening. All questions answered.
[2023-08-12 14:51] LABS: INR 0.88 (0.91-1.10); Prothrombin Time 12.4 Seconds
--- NOTE | 2023-08-12 15:10 | ED.NURSE ---
Call received from [facility] nurse for report. Report given regarding patient. Pt will be transferred to [facility], Rm H [id number]. EMS called for transport. ETA within the hour. Patient notified of this by granddaughter, Azucena. All questions answered.
[2023-08-12 15:26] LABS: Albumin* 4.5 g/dL (3.3-5.0); Chloride* 102 mmol/L (96-114); Sodium* 137 mmol/L (135-149)
[2023-08-12 15:27] LABS: Potassium* 3.5 mmol/L (3.6-5.1)
[2023-08-12 15:29] LABS: Alanine Aminotransferase* 17 U/L (4-35); Alkaline Phosphatase* 108 U/L (40-150); Anion Gap 10 mEq/L (7-15); Aspartate Amino Transferase* 26 U/L (12-35); Bilirubin Total* 0.4 mg/dL (0.1-1.5); Blood Urea Nitrogen* 9 mg/dL (7-30); Carbon Dioxide* 25 mmol/L (20-32); Creatinine* 0.6 mg/dL (0.5-1.5); Estimated Glomerular Filt Rate 91 ml/min; Glucose* 121 mg/dL (60-115)
[2023-08-12 15:30] LABS: Calcium* 9.3 mg/dL (8.4-10.6)
[2023-08-12 15:57] LABS: Partial Thromboplastin Time* 29 Seconds (23-33)
== END 2023-08-12 15:40 | disposition short-term general hospital (02) ==
PROVIDERS: Emergency Provider Student in an Organized Health Care Education/Training Program; PCP Family Medicine
DX: I25.10 Atherosclerotic heart disease of native coronary artery without angina pectoris (principal)
CPT/HCPCS: 36415; 71045; 80053; 84484; 85025; 85610; 85730; 96374; 99283; 99291; J1644

== ENCOUNTER 2023-08-12 15:23 | Outpatient (CLI) | payer MEDICAID, SELFPAY | END 2023-08-12 15:24 | disposition home or self-care (01) | PROVIDERS: PCP Family Medicine; Visit Provider Emergency Medicine | DX: I20.9 Angina pectoris, unspecified (principal) | CPT/HCPCS: A0425; A0434 ==

== ENCOUNTER 2024-05-09 15:22 | Emergency (ER) | payer MEDICAID, SELFPAY ==
[2024-05-09] VITALS (26 sets, daily range): BP systolic 91–119; BP diastolic 44–73; PULSE 82–101; RESP 14–22; TEMP 36.9; O2SAT 95–98; BMI 20.3
--- NOTE | 2024-05-09 15:36 | ED_ITS ---
HPI - Chest Pain General Time Seen by Provider: 15:37 Date Seen: 05/09/24 Chief Complaint: Chest Pain Stated Complaint: chest pain/back pain dizzy, nausea Time Seen by Provider: 05/09/24 15:36 Source: patient, RN notes reviewed and supervisor delivery department Mode of arrival: ambulatory Limitations: no limitations History of Present Illness HPI narrative: This 78-year-old lady is seen with the aid of supervisor delivery department and concern with headache, back pain, cough, diffuse chest pain. It is been going on for several days, she states she has just been in bed. When ask if she has been around any ill contacts she states no one has been checking on her. She denies any fevers. She states her appetite is down and she feels nauseated but has had no vomiting or diarrhea. No urinary changes. She was revascularized at [facility] with a CABG in July of this year, this was the last time we saw her in we did send her to [facility]. Did ask her multiple times about her chest symptoms and she just kept saying that it was throughout the chest. Asked her if it was like prior heart disease symptoms she did state yes and then stated it was throughout the whole chest. It has been there for days now. She is not feeling well. She is also complaining of dizziness. She last tried Tylenol about 3 hours ago. MD complaint: chest pain Pertinent past history: coronary artery disease and CABG Related Data On Oral Contraceptives: No Home Medications ?Medication ?Instructions ?Recorded ?Confirmed SENNA 08/12/23 aspirin 81 mg tablet,delayed 81 mg PO DAILY 08/12/23 08/12/23 release atorvastatin 40 mg tablet 40 mg PO QPM 08/12/23 08/12/23 calcium carbonate 08/12/23 cholecalciferol (vitamin D3) .ROUTE 08/12/23 glipizide 5 mg tablet, extended 5 mg PO DAILY 08/12/23 08/12/23 release 24 hr guaifenesin 600 mg tablet, 600 mg PO BID 08/12/23 08/12/23 extended release 12 hr (Mucus Relief ER) metformin 750 mg tablet,extended 750 mg PO QPM 08/12/23 08/12/23 release 24 hr naproxen 500 mg tablet 500 mg PO BID 08/12/23 08/12/23 oxycodone 5 mg tablet 5 mg PO Q8H PRN pain 08/12/23 08/12/23 polyethylene glycol 3350 17 g PO 08/12/23 gram/dose oral powder propylene glycol (PF) 0.6 % eye 1 drp ophthalmic (eye) BID PRN 08/12/23 08/12/23 drops (Systane Complete PF) tramadol 50 mg tablet 50 mg PO Q6H PRN pain 08/12/23 08/12/23 Previous Rx's ?Medication ?Instructions ?Recorded ondansetron 4 mg disintegrating 4 mg PO Q8H PRN nausea and 05/09/24 tablet vomiting #10 tabs Allergies Allergy/AdvReac Type Severity Reaction Status Date / Time No Known Drug Allergies Allergy Verified 08/12/23 13:54 Review of Systems Status of ROS Reports: 6 or more systems reviewed and unremarkable except as noted in History and [facility] Social History Smoking Status: Never smoker Do you use any of these nicotine containing products: None Second hand tobacco smoke exposure: No How often do you have a drink containing alcohol: never AUDIT-C Alcohol total score: 0 Non-prescribed substance use: denies use service: No Exam Const Vital Signs, click to edit/add: Vital Signs - 24 hr 05/09/24 15:31 05/09/24 15:41 05/09/24 15:50 Temperature 98.4 F Pulse Rate Pulse Rate [Right Pulse Oximeter] 96 89 Respiratory Rate 18 18 Blood Pressure [Right Upper Arm] 91/73 109/65 Pulse Oximetry 95 95 96 Oxygen Delivery Method Room Air Room Air 05/09/24 15:56 05/09/24 16:00 05/09/24 16:14 Temperature Pulse Rate Pulse Rate [Right Pulse Oximeter] 101 H Respiratory Rate 22 Blood Pressure [Right Upper Arm] 114/67 Pulse Oximetry 97 96 96 Oxygen Delivery Method Room Air 05/09/24 16:15 05/09/24 16:20 05/09/24 16:30 Temperature Pulse Rate 95 Pulse Rate [Right Pulse Oximeter] Respiratory Rate Blood Pressure [Right Upper Arm] Pulse Oximetry 97 97 96 Oxygen Delivery Method 05/09/24 16:30 05/09/24 16:31 05/09/24 16:40 Temperature Pulse Rate Pulse Rate [Right Pulse Oximeter] 90 Respiratory Rate 22 Blood Pressure [Right Upper Arm] 99/44 L Pulse Oximetry 96 96 96 Oxygen Delivery Method Room Air 05/09/24 16:45 05/09/24 16:50 05/09/24 17:00 Temperature Pulse Rate 89 Pulse Rate [Right Pulse Oximeter] Respiratory Rate Blood Pressure [Right Upper Arm] Pulse Oximetry 95 96 95 Oxygen Delivery Method 05/09/24 17:00 05/09/24 17:01 05/09/24 17:10 Temperature Pulse Rate Pulse Rate [Right Pulse Oximeter] 82 Respiratory Rate 16 Blood Pressure [Right Upper Arm] 119/70 Pulse Oximetry 95 95 96 Oxygen Delivery Method Room Air 05/09/24 17:15 05/09/24 17:20 05/09/24 17:30 Temperature Pulse Rate 93 Pulse Rate [Right Pulse Oximeter] Respiratory Rate Blood Pressure [Right Upper Arm] Pulse Oximetry 96 96 96 Oxygen Delivery Method 05/09/24 17:30 05/09/24 17:31 05/09/24 17:40 Temperature Pulse Rate Pulse Rate [Right Pulse Oximeter] 88 Respiratory Rate 14 Blood Pressure [Right Upper Arm] 110/69 Pulse Oximetry 97 96 98 Oxygen Delivery Method Room Air 05/09/24 17:45 05/09/24 17:50 05/09/24 18:00 Temperature Pulse Rate 87 Pulse Rate [Right Pulse Oximeter] Respiratory Rate Blood Pressure [Right Upper Arm] Pulse Oximetry 97 98 97 Oxygen Delivery Method 05/09/24 18:00 05/09/24 18:01 05/09/24 18:10 Temperature Pulse Rate Pulse Rate [Right Pulse Oximeter] 90 Respiratory Rate 15 Blood Pressure [Right Upper Arm] 105/70 Pulse Oximetry 97 97 98 Oxygen Delivery Method Room Air Patient walks in from the parking lot with a walker, did see her walking in without any significant problem. She is of slender frame but alert, interactive, able speak in complete sentences. She does keep her eyes closed throughout the interaction. She has symmetrical facial function. Speech is fluid. Neck is slender, no masses or adenopathy, no jugular venous distension. She is able to sit up, lungs are with fibrotic crackles throughout but no wheezi ng, no tachypnea. CV regular rate and rhythm, 2 to 3/6 systolic murmur, normal S1-S2, no S3-S4. Abdomen is soft, nontender, nondistended, do not feel any masses or any organomegaly. She has no lower extremity edema. Using all of her extremities, no focal deficits noted. Documenting provider has reviewed patient's vital signs: yes Course Course ED Course: Reviewed with patient that we will certainly look at her heart, make sure it is not ischemic disease. It is quite definite that her symptoms have been present for days now. Will also look at COVID, consider pneumonia. Will get a full complement of labs. She will be monitored on cardiac monitoring pulse oximetry here. She is currently hemodynamically stable and afebrile. Reevaluation(s) Time of Reevaluation #1: 17:30 Reevaluation #1: Reviewed with patient via the supervisor delivery department that she has COVID. Specifically tried to decipher exactly when she was sick. She states she has had the flu all week long. It has maybe been Friday or Friday, it is unclear exactly when she got sick. Given that she would not start Paxlovid until tomorrow, I fear that she is significantly out of range for this treatment to work. She states that she has been taking Tylenol and drinking cinnamon T. She had earlier told nursing staff she had not drank anything for 2 days. She earlier told me that she has been drinking water. She did ambulate in, watched her walk without any difficulty with her walker. Nursing staff did report that her heart rate was escalating at times. When I was in talking to her at this point, heart rate baseline was 80s to 90s with a narrow complex, at 1 point the monitor are long armed with V-tach with a rate in the 200s, the monitor still had a narrow complex and was not any faster than what it had been. The monitor alarmed many times, sometimes it was artifact with her moving but her baseline heart rate was in the 80s to 90s. We can send her with some Zofran at home. We will try to contact her granddaughter's to see if they can come get her. We will also see if we can talk to family to find out exactly how long she has been sick, from the best that I can get from her, it is likely out of the 5 day window. She meets no criteria for hospitalization for hypoxia, certainly does not seem weak with the visualized walking I saw. Vital Signs Vital signs: Initial Vital Signs Temperature 98.4 F 05/09/24 15:31 Temperature Source Temporal Artery Scan 05/09/24 15:31 Pulse Rate 96 05/09/24 15:31 Respiratory Rate 18 05/09/24 15:31 Blood Pressure 91/73 05/09/24 15:31 Blood Pressure Mean 79 05/09/24 15:31 Blood Pressure Position Sitting 05/09/24 15:31 Pulse Oximetry 95 05/09/24 15:31 Oxygen Delivery Method Room Air 05/09/24 15:31 Vital Signs Temperature 98.4 F 05/09/24 15:31 Pulse Rate 96 05/09/24 15:31 Respiratory Rate 18 05/09/24 15:31 Blood Pressure 91/73 05/09/24 15:31 Pulse Oximetry 95 05/09/24 15:31 Oxygen Delivery Method Room Air 05/09/24 15:31 Temperature 98.4 F 05/09/24 15:31 Pulse Rate 90 05/09/24 18:00 Respiratory Rate 15 05/09/24 18:00 Blood Pressure 105/70 05/09/24 18:00 Pulse Oximetry 98 05/09/24 18:10 Oxygen Delivery Method Room Air 05/09/24 18:00 MDM - Chest Pain Lab Data Attestation: I reviewed the patient's lab results. Labs: Lab Results 05/09/24 05/09/24 05/09/24 Range/Units 14:10 15:55 16:10 WBC 10.03 (4.50-11.00) K/uL RBC 3.72 L (4.00-5.20) m/uL Hgb 11.7 L (12.0-16.0) gm/dL Hct 35.5 (33.0-51.0) % MCV 95 (80-100) fL MCH 32 (26-34) pg MCHC 33 (32-36) gm/dL RDW Coeff of Demetrius 13.2 (11.5-15.5) % Plt Count 279 (140-440) K/uL Neut % (Auto) 64.4 (42.0-72.0) % Lymph % (Auto) 25.5 (20-44) % Rusk % (Auto) 7.3 (0.0-11.0) % Eos % (Auto) 2.2 (0.0-7.0) % Baso % (Auto) 0.4 (0.0-3.0) % Neut # (Auto) 6.46 (1.7-7.0) K/uL Lymph # (Auto) 2.56 (0.90-2.90) K/uL Rusk # (Auto) 0.70 (0.00-0.90) K/UL Eos # (Auto) 0.22 (0.00-0.50) K/uL Baso # (Auto) 0.04 (0.00-0.30) K/uL Abs Immat Gran (auto) 0.02 (0.00-0.30) K/uL Imm/Tot Granulo (auto) 0.2 % D-Dimer Quant (PE/DVT) 0.59 H (0.00-0.50) ug/ml Sodium 132 L (135-149) mmol/L Potassium 3.8 (3.6-5.1) mmol/L Chloride 97 (96-114) mmol/L Carbon Dioxide 25 (20-32) mmol/L Anion Gap 10 (7-15) mEq/L BUN 12 (7-30) mg/dL Creatinine 0.9 (0.5-1.5) mg/dL Estimated Creat Clear 32.77 Estimated GFR 65 ml/min Glucose 274 H (60-115) mg/dL Lactate 2.1 H (0.5-1.9) mmol/L Calcium 8.9 (8.4-10.6) mg/dL Magnesium 1.6 (1.5-2.6) mg/dL Total Bilirubin 0.3 (0.1-1.5) mg/dL AST 29 (12-35) U/L ALT 17 (4-35) U/L Alkaline Phosphatase 106 (40-150) U/L Total Creatine Kinase 46 (41-117) U/L Troponin I < 0.01 L (0.01-0.04) ng/mL C-Reactive Protein < 0.5 L (0.5-1.0) mg/dL NT-Pro-B Natriuret Pep 461 pg/mL Total Protein 7.0 (6.0-8.3) g/dL Albumin 3.9 (3.3-5.0) g/dL Procalcitonin 0.07 (<0.50) ng/mL SARS-CoV-2 (PCR) POSITIVE SARS-CoV-2 A (Negative) Influenza Type A (PCR) Negative PCR FLU A (Negative) Influenza Type B (PCR) Negative PCR FLU B (Negative) RSV (PCR) Negative PCR RSV (Negative) POC Troponin I 0.02 (0.01-0.04) ng/ml Imaging Data Chest x-ray: Attestation: I have reviewed the pertinent imaging results. My impression: Patient has fibrotic changes on her lungs, was seen on prior chest x-ray when compared to that. Will await Radiology over-read. Do not appreciate any acute pneumonia or congestive heart failure. Radiologist's impression: Patient: JOSE LUIS JESSICA Facility:?[facility] Patient ID:?[id number] Site Patient ID:?[id number]. Site :?[id number] Study:?XRay-Chest PCXR-05/09/2024 4:06:55 PM Ordering Physician:Jasper Ruby Final Report: Indication: : Cough generalized chest pain Comparison 08/12/2023 TECHNIQUE: Single-view chest. FINDINGS: Normal cardiac mediastinal silhouette median sternotomy. Diffuse interstitial reticular opacities without significant change probable granuloma left lateral midlung. No acute findings are seen. No effusion. Dictated by Elizabeth Villarreal MD @ 05/09/2024 4:34:58 PM (Electronic Signature) ECG Data Attestation: I personally reviewed and interpreted this ECG as follows: (Sinus rhythm, 97 beats per minute. Inferior infarct, anterolateral infarct.) ECG interpretation date: 05/09/24 ECG interpretation time: 15:54 Prior ECG tracings: available for review (Compared to EKG from 08/12/2023 and unchanged.) Discharge Plan Discharge Clinical Impression: COVID-19 Patient Disposition: Home, Self-Care Condition: Stable Instructions: COVID-19 (Coronavirus Disease 2019) (ED), COVID-19: Slow the Coronavirus Spread (ED) Additional Instructions: Based on what you have told me, you are out of the treatment window for Paxlovid to work. Continue with Tylenol 1000 mg 3 times a day as needed for symptoms. Your appetite for food will improve as you feel better. Really need to stay hydrated and drink fluids. I have sent prescription for Zofran in to use for nausea, this may help you drink and eat better. If you are not improving over the next week, develops any concerns for respiratory symptoms or pneumonia (increasing cough, shortness of breath, develop fever), please seek re- evaluation. Activity Level: Activity as Tolerated Prescriptions: New ondansetron 4 mg tablet,disintegrating 4 mg PO Q8H PRN (Reason: nausea and vomiting) Qty: 10 0RF No Action atorvastatin 40 mg tablet 40 mg PO QPM glipizide 5 mg tablet extended release 24hr 5 mg PO DAILY aspirin 81 mg tablet,delayed release (DR/EC) 81 mg PO DAILY polyethylene glycol 3350 17 gram/dose powder PO naproxen 500 mg tablet 500 mg PO BID oxycodone 5 mg tablet 5 mg PO Q8H PRN (Reason: pain) metformin 750 mg tablet extended release 24 hr 750 mg PO QPM guaifenesin [Mucus Relief ER] 600 mg tablet extended release 12hr 600 mg PO BID Systane Complete PF 0.6 % drops 1 drp ophthalmic (eye) BID PRN SENNA tramadol 50 mg tablet 50 mg PO Q6H PRN (Reason: pain) cholecalciferol (vitamin D3) .ROUTE calcium carbonate Follow Up/Referrals: Marcin Saeed MD [Primary Care Provider] - Stand Alone Forms: [employer] Info Instructions
--- NOTE | 2024-05-09 15:50 | CRLHL7_ITS ---
For Patients: As a result of the Century Cures Act, medical imaging exams and procedure reports are released immediately into your electronic medical record. You may view this report before your referring provider. If you have questions, please contact your health care provider. Indication: : Cough generalized chest pain Comparison 08/12/2023 TECHNIQUE: Single-view chest. FINDINGS: Normal cardiac mediastinal silhouette median sternotomy. Diffuse interstitial reticular opacities without significant change probable granuloma left lateral midlung. No acute findings are seen. No effusion. Dictated by Elizabeth Villarreal MD @ 05/09/2024 4:34:58 PM (Electronically Signed)
[2024-05-09 16:26] LABS: Lactate* 2.1 mmol/L (0.5-1.9)
[2024-05-09 16:27] LABS: Basophils Absolute Auto 0.04 K/uL (0.00-0.30); Basophils Percent Auto 0.4 % (0.0-3.0); Eosinophils Absolute Auto 0.22 K/uL (0.00-0.50); Eosinophils Percent Auto 2.2 % (0.0-7.0); Hematocrit 35.5 % (33.0-51.0); Hemoglobin* 11.7 gm/dL (12.0-16.0); Immature Granulocytes Abs Auto 0.02 K/uL (0.00-0.30); Immature Granulocytes Pct Auto 0.2 %; Lymphocytes Absolute Auto 2.56 K/uL (0.90-2.90); Lymphocytes Percent Auto 25.5 % (20-44); Mean Corpuscular HGB Conc 33 gm/dL (32-36); Mean Corpuscular Hemoglobin 32 pg (26-34); Mean Corpuscular Volume 95 fL (80-100); Monocytes Percent Auto 7.3 % (0.0-11.0); Neutrophils Absolute Auto 6.46 K/uL (1.7-7.0); Neutrophils Percent Auto 64.4 % (42.0-72.0); Platelet Count* 279 K/uL (140-440); RDW Coefficient of Variation % 13.2 % (11.5-15.5); Red Blood Count 3.72 m/uL (4.00-5.20); White Blood Count* 10.03 K/uL (4.50-11.00)
[2024-05-09 16:27] LABS: Troponin, Point-of-Care* 0.02 ng/ml (0.01-0.04)
--- OUTSIDE RECORDS SUMMARY | 2024-05-09 16:31 | XMS_ITS | Clinical Summary ---
Author Organization [id number] Address [place], [place] [address] Care Team Providers Care Director Of Radiology Name Role Phone Pcp, No Unavailable Unavailable Pcp, No Unavailable Unavailable Navya Quinn DO Primary Care Provider [phone] Allergies No known active allergies Medications Medication Sig Dispensed Refills Start Date End Date Status emollient (Vanicream) creamIndications:Xe rosis cutis Apply topically to affected area(s) 2 times daily if needed for Dry Skin, Irritation or Itching. 113 g 10 3 Active nitroglycerin (NITROSTAT) 0.4 mg sublingual tabletIndications:C ardiovascular symptoms,ASCVD (arteriosclerotic cardiovascular disease) Place 1 Tablet (0.4 mg) under the tongue every 5 minutes if needed for Chest pain 1st choice (Hold if SBP less than 90 mmHg). Up to 3 tablets in 15 minutes. 25 Tablet 1 3 Active acetaminophen (TYLENOL EXTRA STRGTH) 500 mg tabletIndications:S /P CABG x 4 Take 2 Tablets (1,000 mg) by mouth every 6 hours if needed for Pain. Max acetaminophen dose: 4000mg in 24 hrs. 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 1 Each 4 Active metFORMIN (GLUCOPHAGE XR) 750 mg Extended-Release tabletIndications:T ype 2 diabetes mellitus with diabetic neuropathy, without long-term current use of insulin (HC) Take 1 Tablet (750 mg) by mouth once daily with evening meal. Restart Friday06/22/23 as prescribed 90 Tablet 3 4 Active nintedanib 150 mg capIndications:IPF (idiopathic pulmonary fibrosis) (HC) Take 1 Capsule (150 mg) by mouth two times daily with meals. 60 Capsule 11 4 Active polyethylene glycol 400 (Blink Tears) 0.25 % dropIndications:Dry eye syndrome of both eyes Place into the eye(s). 15 mL 4 Active famotidine (PEPCID) 20 mg tabletIndications:A bdominal pain, epigastric TAKE 1 TABLET (20 MG) BY MOUTH TWO TIMES DAILY. 180 Tablet 2 4 Active atorvastatin (LIPITOR) 40 mg tabletIndications:C erebrovascular accident (CVA), unspecified mechanism (HC) Take 1 Tablet (40 mg) by mouth once daily with evening meal. 90 Tablet 2 4 Active lidocaine 5 % topical patchIndications:Ch ronic left hip pain Apply on dry, clean, hairless skin. Apply 1 patch to painful area of skin for up to to 12 hours within 24 hour period. 30 Patch 11 4 Active metoprolol tartrate (LOPRESSOR) 25 mg tabletIndications:S /P CABG x 4,Atrial flutter, unspecified type (HC) Take 1 Tablet (25 mg) by mouth two times daily. 180 Tablet 3 4 Active aspirin (ECOTRIN) 81 mg enteric coated tabletIndications:C erebrovascular accident (CVA), unspecified mechanism (HC) Take 1 Tablet (81 mg) by mouth once daily with a meal. 90 Tablet 3 4 Active calcium carbonate-vitamin D3, 600 mg-400 unit, 600 mg-10 mcg (400 unit) tabletIndications:P ostmenopausal Take 1 Tablet by mouth two times daily with meals. 200 Tablet 4 4 Active Graduated Compression StockingsIndication s:Hypotension, unspecified hypotension type For personal use. Length: calf Strength: 16-20 mmHg 1 Packet 4 Active alendronate (FOSAMAX) 70 mg tabletIndications:A ge-related osteoporosis with current pathological fracture, sequela Take 1 Tablet (70 mg) by mouth once a week in the morning. Take on empty stomach with full glass of water. Do not lie down for 1 hr. 12 Tablet 3 4 Active warfarin (COUMADIN) 3 mg tabletIndications:N ew onset atrial fibrillation (HC),Anticoagulatio n monitoring, INR range 2-3 Take by mouth 04/26: Hold; Otherwise 3 mg every Fri; 4.5 mg all other days in the evening OR as directed 4 Active warfarin (COUMADIN) 3 mg tabletIndications:N ew onset atrial fibrillation (HC),Anticoagulatio n monitoring, INR range 2-3 Take by mouth 6 mg (3 mg x 2) every Fri; 4.5 mg (3 mg x 1.5) all other days in the evening OR as directed 4 04/26/20 24 Discontinue d(Other - add note to specify (E-cancel not sent)) Active Problems Problem Noted Date Diagnosed Date New onset atrial fibrillation 08/27/2023 Anticoagulation monitoring, INR range 2-3 2023 Atrial flutter 08/20/2023 ASCVD (arteriosclerotic cardiovascular disease) 06/20/[address] scan of heart 06/20/2023 Overview (06/20/2023): - CTCA: severe RCA stenosis, potentially severe [...] 12/18/2019 Closed intertrochanteric fracture of femur 12/16 Overview (08/15/2022): Added automatically from request for surgery [id number] Presbyopia 07/15/2019 Regular astigmatism of both eyes [...] Encounters Date Type Department Care Team Description 04/29/[address] [place] [address] Shaqra, Navya Annalee, DO Anticoagulation (Lab order update/) 04/24/2024 Anticoagulation (warfarin) [address] [address] 1, [facility] Anticoagulation 04/23/2024 10:15 AM CDT Orders Only [address] [place] [address] Lab[facility] 04/23/2024 Travel 04/20/[address] [address] Shaqra, Navya Annalee, DO Anticoagulation (AC ORDER) 04/13/[address] [address] Shaqra, Navya Annalee, DO Results 04/12/[address] [address] Shaqra, Navya Annalee, DO Medication Management (alendronate (FOSAMAX) ) 04/08/2024 2:00 PM CDT Ancillary Procedure [address] [address] 04/08/2024 1:45 PM CDT Ancillary Procedure [facility] [address] [facility] [address] 04/08/2024 12:55 PM CDT Office Visit [facility] [place] [address] Sir Quinni Annalee, DO Follow Up (Breast pain) 04/08/2024 Travel 04/06/2024 3:15 PM CDT Ancillary Procedure [facility] [address] [facility] [address] 04/06/2024 2:30 PM CDT Ancillary Procedure [facility] [address] 04/06/2024 2:00 PM CDT Ancillary Procedure [facility] [address] 04/06/2024 1:20 PM CDT Office [facility] [address] Sir Quinni Annalee, DO Blood Pressure (Follow up BP/dizziness) 04/06/2024 Travel 04/02/2024 2:30 PM CDT Orders Only [facility] [address] [facility] 04/02/2024 Anticoagulation (warfarin) [facility] [address] [facility] [place] [address] 1, [facility] Anticoagulation 04/02/2024 Travel 03/30/2024 Telephone [facility] [address] [facility] [address] Sir Quinni Annalee, DO Anticoagulation (Unable to contact patient.) 03/25/2024 9:20 AM CDT Office [facility] [address] Deseanra Navya Annalee, DO Diabetes (3 month check); Breast Problem (Continued bilateral breast pain, did not get mammogram completed) 03/25/2024 Anticoagulation (warfarin) [facility] [address] [facility] [address] 1, [facility] Anticoagulation (OV) 03/25/2024 Travel 03/08/2024 Anticoagulation (warfarin) [facility] [address] [place] [address] 1, [facility] Anticoagulation (Chart update: medication changes) 03/08/2024 Nurse Triage [facility] [address] [place] [address] Kai Navya Annalee, DO Error-please disregard 03/08/[address] [place] [address] Sir Quinni Annalee, Lab 03/03/[address] [address] Sir Quinni Annalee, DO Medication Management; Questions 03/01/2024 8:30 AM CDT Orders Only [address] [address] Lab[facility] 03/01/2024 Anticoagulation (warfarin) [facility] [address] [place] [address] 1, [facility] Anticoagulation 03/01/2024 Travel 02/23/[address] [address] Sir Quinni Annalee, DO Follow Up 02/18/[address] [address] Sir Quinni Annalee, DO Refill Request (Glipizide Extended-release) 02/16/2024 8:05 AM CDT Office Visit [address] [address] Sir Quinni DO [facility] Lab (Needs INR drawn); Hip Pain/problem (L hip/leg pain 4 years - has been unable to go to PT); Pain In Breast (Bilateral breast pain, reports feeling lumps ) 02/16/2024 Anticoagulation (warfarin) [address] [address] 1, [facility] Anticoagulation; Refill Request (Warfarin) 02/16/2024 Travel from Last 3 Months Immunizations Name Administration Dates Next Due COVID-19 vaccine (Chemayi-Bio NTech 30mcg/0.3mL) 12YO+ BIVALENT PF, MDV 06/05/2022 COVID-19 vaccine (Pfizer-Bio NTech 30mcg/0.3mL) 12YO+ REGINALD-SUCROSE PF, MDV 01/02/2022 COVID-19 vaccine (Pfizer-Bio NTech 30mcg/0.3mL) PF, MDV 11/21/2020 Influenza, IIV3 (Age 6-35 mos) 04/24/2011 Influenza, IIV3 (Age >=3 years) 04/24/2011,05/02,05/02/2009 Influenza, Inactivated AIIV4 (Age 65+ Years) Preserv Free 06/05/2022,06/22/2021 Influenza, Inactivated IIV3 (Age 65+ Years) Preserv Free 07/07/2019,07/07/2019 Pneumococcal Conj 20-valent (Prevnar 20) 024 Td (Age >=7 Years) 09/21/2003 Family History Medical History Relation Name Comments Diabetes Father Relation Name Status Comments Father Social History Tobacco Use Types Packs/Day Years Used Date Smoking Tobacco: Former Cigarettes Smokeless Tobacco: Never Tobacco Cessation:Counseling Given: Not Answered Comments:Stopped smoking 30 years ago Alcohol Use Standard Drinks/Week Comments Not Currently 0 (1 standard drink = 0.6 oz pure alcohol) used to drink a lot 20 years ago. PHQ-2 Answer Date Recorded PHQ-2 TOTAL SCORE 0 12/15/2023 Social Connections Answer Date Recorded Frequency of Communication with Friends and Fami ly 0 10/15/2023 Financial Resource Strain Answer Date R ecorded Difficulty of Paying Living Expenses 2 10/15/2023 Difficulty of Paying Living Expenses 1 10/15/2023 Food Insecurity Answer Date Recorded Worried About Running Out of Food in the Last Ye ar 1 10/15/2023 Transportation Needs Answer Date Record ed Lack of Transportation (Medical) 2 10/15/2023 Housing Stability Answer Date Recorded Unable to Pay for Housing in the Last Year 3 10/15/2023 Sex and Gender Information Value Date Recorded Sex Assigned at Not on file Gender Identity Not on file Sexual Orientation Not on file Obstetrics History Last Filed Vital Signs Vital Sign Reading Time Taken Comments Blood Pressure 113/68 04/08/2024 1:13 PM CDT Pulse 99 04/08/2024 1:13 PM CDT Temperature 36.7 ??C (98.1 ??F) 08/26/2023 8:12 AM CS T Respiratory Rate 16 12/02/2023 10:51 AM CDT Oxygen Saturation 97% 04/08/2024 1:13 PM CDT Inhaled Oxygen Concentration - - Weight 48.3 kg (106 lb 8 oz) 04/06/2024 1:08 PM CDT Height 160 cm (5' 3) 12/02/2023 10:51 AM CDT Body Mass Index 18.87 12/02/2023 10:51 AM CDT Plan of Treatment Upcoming Encounters Date Type Department Care Team (Late st Contact Info) Description 05/27/2024 12:45 PM CDT Orders Only [facility] [address] [place] [address] [place] 06/01/2024 1:30 PM EXTERNAL GRINDER TENDER Office Visit [facility] [address] [place] [address] James Johnson MD [address] [facility] [address] [place] [address] 06/29/2024 12:55 PM EXTERNAL GRINDER TENDER Office Visit [facility] [address] [place] [address] Navya Quinn, DO [address] [place] [address] Health Maintenance Due Date Last Done Comments Tdap 1956 Hepatitis C screening for ag e 18-79 1962 Zoster (shingles) series for age 50+ (1 of 2) 1963 Tetanus booster 09/21/2013 09/21/2003 RSV vaccine for adults or (1 - 1-dose 75+ series) 2019 COVID-19 vaccine series ( season) 2024 06/05/2022, 01/02/2022, 11/21/2020 Influenza for age 65+ 03/28/2024 06/05/2022 , 06/22/2021, 07/07/2019, Additional history exists BMI (ht and wt on same day) for age 18+ 12/01/2024 12/02/2023, 10/27/2023, 09/29/2023, Additional history exists Depression screening for age 12+ 12/17/2024 12/18/2023, 12/16/2023, 12/15/2023, Additional history exists Pneumococcal series for age 65+ Completed DEXA/DXA scan for age 65+ Completed 04/06/2024 Medical Devices Implanted Type Area Program Or Project Administrator Device Identifier Shelf Expiration Date Model / Serial / Lot Log [id number] - Yesy [id number] Lens Iol - 1 - Lens Iol 21.0 Wf [id number] Implanted:Qty: 1 on 10/21/2011 at [facility] Left: Eye [employer] [id number]. [id number]# / [id number] / Log [id number] - Yesy Sn60wf Lens Iol - 1 - Lens Iol 22.5 Wf [id number]. [id number] Implanted:Qty: 1 on 11/07/2011 at [facility] Right: Eye [employer] 07/08/2016 [id number]. [id number]# / [id number] / Procedures Procedure Name Priority Date/Time Associated Diagnosis Comments PROTIME-INR Routine 04/23/2024 10:18 AM CDT New onset atrial fibrillation (HC) Anticoagulation monitoring, INR range 2-3 XR SPINE THORACIC 3 VIEWS Routine 04/08/2024 1:13 PM CDT Left-sided chest wall pain XR RIBS LEFT AND PA CHEST MINIMUM 3 VIEWS Routine 04/08/2024 1:12 PM CDT Left-sided chest wall pain US BREAST UNILATERAL LEFT LIMITED JEMMA 04/06/2024 2:41 PM CDT Breast pain in female XR MAMMO LISANDRO BILAT DIAG STAT 04/06/2024 2:30 PM CDT Breast pain in female XR DXA BONE DENSITY 2 SITES AXIAL AND 1 SITE PERIPHERAL Routine 04/06/2024 2:24 PM CDT Postmenopausal INR,POCT Routine 04/02/2024 2:46 PM CDT New onset atrial fibrillation (HC) HEMOGLOBIN A1C MONITORING (POCT) Routine 03/25/2024 9:25 AM CDT Type 2 diabetes mellitus with diabetic neuropathy, without long-term current use of insulin (HC) PROTIME-INR STAT 03/25/2024 9:25 AM CDT New onset atrial fibrillation (HC) INR,POCT Routine 03/01/2024 7:45 AM CDT New onset atrial fibrillation (HC) INR,POCT Routine 02/16/2024 9:25 AM CDT New onset atrial fibrillation (HC) from Last 3 Months Results * (ABNORMAL) PROTIME-INR (04/23/2024 10:18 AM CDT) Only the most recent of2 resultswithin the time period is included. INR 4.1(H) [facility] Comment: Reference Range ? 0.9-1.1 Moderate-intensity Warfarin Therapy 2.0-3.0 Higher-intensity Warfarin Therapy ?? 3.0-4.0 PT 40.5(H) 9.0 - 11.5 sec [facility] Comment: For additional information, please refer to http://education.UIEvolution/faq/GFB844 (This link is being provided for informational/ educational purposes only.) Blood BLOOD SPECIMEN / Unknown 04/23/2024 10:18 AM CDT 04/23/2024 10:18 AM CDT Navya Quinn DO HEMATOLOGY [facility] [address] [place] [address], [facility] [address] [place] [address] * XR SPINE THORACIC 3 VIEWS (04/08/2024 1:13 PM CDT) Anatomical Region Laterality Modality Spine, THORACIC SPINE Computed R adiography 04/09/2024 2:21 PM CDT Impressions 04/09/2024 2:21 PM CDT Increased compression of the T12 vertebral body since the prior study. Chronic L1 fracture, unchanged. Dictated by Bg Yoon MD @ 04/09/2024 2:21:47 PM (Electronically Signed) Narrative 04/09/2024 2:21 PM CDT For Patients: ??As a result of the Cures Act, medical imaging exams and procedure reports are released immediately into your electronic medical record. ??You may view this report before your referring provider. ??If you have questions, please contact your health care provider. INDICATION: Left-sided chest wall pain TECHNIQUE: 3-view thoracic spine. COMPARISON: CT chest 09/29/2023 FINDINGS: Chronic wedging of L1. Increased compression of T12. Postop changes CABG. Chronic scarring bilaterally. Mild curvature of the lower thoracic/upper lumbar spine. Procedure Note Bg Yoon MD - 04/09/2024 For Patients: As a result of the Cures Act, medical imagingexams and procedure reports are released immediately into your electronicmedical record. You may view this report before your referring provider.If you have questions, please contact your health care provider. INDICATION: Left-sided chest wall pain TECHNIQUE: 3-view thoracic spine. COMPARISON: CT chest 09/29/2023 FINDINGS: Chronic wedging of L1. Increased compression of T12. Postop changes CABG.Chronic scarring bilaterally. Mild curvature of the lower thoracic/upperlumbar spine. IMPRESSION: Increased compression of the T12 vertebral body since the prior study.Chronic L1 fracture, unchanged. Dictated by Bg Yoon MD @ 04/09/2024 2:21:47 PM (Electronically Signed) Navya Quinn DO GENERAL IMAGING * XR RIBS LEFT AND PA CHEST MINIMUM 3 VIEWS (04/08/2024 1:12 PM CDT) Anatomical Region Laterality Modality RIBS, RIBS L, CHEST Computed Rad iography 04/09/2024 2:19 PM CDT Impressions 04/09/2024 2:19 PM CDT No acute cardiopulmonary disease. No left-sided rib fracture. Dictated by Bg Yoon MD @ 04/09/2024 2:19:49 PM (Electronically Signed) Narrative 04/09/2024 2:19 PM CDT For Patients: ??As a result of the Cures Act, medical imaging exams and procedure reports are released immediately into your electronic medical record. ??You may view this report before your referring provider. ??If you have questions, please contact your health care provider. INDICATION: Left-sided chest wall pain COMPARISON: 08/27/2023 TECHNIQUE: PA chest and left ribs. FINDINGS: Chronic reticular densities within the lungs bilaterally along with calcified left-sided granuloma. Postop changes right upper quadrant. Vascular calcifications. Curvature of the spine. There is no evidence of pulmonary contusion, pneumothorax or pleural effusion. Oblique detail views of the ribs demonstrate no evidence of fracture or intrinsic bone lesion. ??There is no evidence of pleural hematoma. Procedure Note Bg Yoon MD - 04/09/2024 For Patients: As a result of the Cures Act, medical imagingexams and procedure reports are released immediately into your electronicmedical record. You may view this report before your referring provider.If you have questions, please contact your health care provider. INDICATION: Left-sided chest wall pain COMPARISON: 08/27/2023 TECHNIQUE: PA chest and left ribs. FINDINGS: Chronic reticular densities within the lungs bilaterally along withcalcified left-sided granuloma. Postop changes right upper quadrant.Vascular calcifications. Curvature of the spine. There is no evidence ofpulmonary contusion, pneumothorax or pleural effusion. Oblique detailviews of the ribs demonstrate no evidence of fracture or intrinsic bonelesion. There is no evidence of pleural hematoma. IMPRESSION: No acute cardiopulmonary disease. No left-sided rib fracture. Dictated by Bg Yoon MD @ 04/09/2024 2:19:49 PM (Electronically Signed) Navya Annalee Erichqra DO GENERAL IMAGING * US BREAST UNILATERAL LEFT LIMITED (04/06/2024 2:41 PM CDT) Anatomical Region Laterality Modality BREASTS, Breast Left, Breast Right Left Ultrasound Narrative 04/07/2024 2:08 PM CDT As a result of the Cures Act, medical imaging exams and procedure reports are released immediately into your electronic medical record. ??You may view this report before your referring provider. ??If you have questions, please contact your health care provider. LEFT BREAST ULTRASOUND 04/06/2024 PLEASE SEE [id number] FOR BILATERAL DIGITAL DIAGNOSTIC MAMMOGRAM OF SAME DAY. Navya Annalee Erichqra DO US * XR MAMMO LISANDRO BILAT DIAG (04/06/2024 2:30 PM CDT) Anatomical Region Laterality Modality BREASTS, Breast Left, Breast Right Bilateral Mammography 04/06/2024 2:47 PM CDT Impressions 04/07/2024 2:08 PM CDT No suspicious findings. No evidence of malignancy. RECOMMENDATIONS: Routine screening mammography. BI-RADS Category 2: Benign Dictated by: Bg Yoon MD @04/06/2024 2:47:35 PM/jsb PATIENTS: You will also receive a letter with your examination results in an easy to read format. ??If you have questions about your results, please contact your referring provider. Narrative 04/07/2024 2:08 PM CDT As a result of the Cures Act, medical imaging exams and procedure reports are released immediately into your electronic medical record. ??You may view this report before your referring provider. ??If you have questions, please contact your health care provider. BILATERAL BREAST MAMMOGRAM DIGITAL DIAGNOSTIC ADDITIONAL VIEWS WITH COMPUTER-AIDED DETECTION AND TOMOSYNTHESIS 04/06/2024 ?? LEFT BREAST ULTRASOUND 04/06/2024 CLINICAL HISTORY: LEFT breast pain. COMPARISON: 12/13/2021. TECHNIQUE: Digital BILATERAL mammogram in 4 projections with computer-aided detection. Tomosynthesis was used in this interpretation. Real-time ultrasound imaging of LEFT breast with imaging documentation. BREAST COMPOSITION: There are scattered areas of fibroglandular density. FINDINGS: 3D CC/MLO BILATERAL mammogram images submitted. No suspicious mass or architectural distortion. No adenopathy or suspicious calcification. Targeted LEFT breast ultrasound performed at 4 o'clock 10 cm from the nipple. Normal fibroglandular tissue is present. No solid mass or fibrocystic change. Navya Annalee Shaqra DO MAMMO * (ABNORMAL) XR DXA BONE DENSITY 2 SITES AXIAL AND 1 SITE PERIPHERAL (04/06/2024 2:24 PM CDT) Anatomical Region Laterality Modality LUMBAR SPINE Other Impressions 04/07/2024 4:24 PM CDT Osteoporosis. RECOMMENDATIONS: The National Osteoporosis Foundation recommends pharmacologic treatment for patients with T-scores of -2.5 or less, patients with prior history of fragility fractures, or patients with 10-year probability of greater than 3% at hips or greater than 20% of suffering major osteoporotic fractures. Recommend continued optimization of calcium and vitamin D intake through dietary means and/or supplementation and regular exercise. Consider pharmacologic therapy for osteoporosis. Follow-up bone density reading in 2 years if therapy initiated to assess therapeutic efficacy. Emma Naidu PA-C [facility] 04/07/2024 Narrative 04/07/2024 4:24 PM CDT For Patients: Results are automatically released to your [facility] account once available, in compliance with federal regulations. This means that you may see your results before your provider has had a chance to review them. Please allow 2-3 business days for your provider to comment on the results. XR DXA Bone Mineral Density (BMD) EXAM LOCATION: [address] [address] PATIENT NAME: Leonila Lozano DATE OF : 1945 EXAM DATE: 04/06/2024 REQUESTING PROVIDER: Navya Quinn DO GENDER AT : female HEIGHT: 5' 3 (12/02/2023) WEIGHT: ??106 lb 8 oz (04/06/2024) MENOPAUSAL STATUS: Postmenopausal RACE/ETHNICITY: ?? White Patient Declined RISK FACTORS: History of Fragility Fracture (at a major site), Smoking (prior), and Weight < 127 lbs. CURRENT MEDICATION FOR BONE LOSS: NONE INDICATION: Post-Menopause COMPARISON DATE(S): None DXA scans are compared to prior studies for a patient only when the two (or more) studies were performed on the same scanner. It is not possible to compare data generated on one scanner to data from another because there are not standards in DXA equipment. This applies even if the two scanners are made by the same program management professional. PROCEDURE: Dual-energy x-ray absorptiometry performed with routine technique. Reporting is completed in the form of a T-score. The T-score represents the standard deviation from peak bone mass based on young healthy adult. A Z-score is used for diagnosis in premenopausal women, and for men under the age of 50. FINDINGS: RESULT LUMBAR SPINE L1 - L4 BMD: 0.662 g/cm2 T-Score: - 4.3 Z-Score: - 1.9 Change from prior: ??None RESULTS FEMUR Left femoral neck BMD: 0.423 g/cm2 T-Score: - 4.4 Z-Score: - 1.9 Change from prior: ??None Right femoral neck BMD: 0.385 g/cm2 T-Score: - 4.9 Z-Score: - 2.6 Change from prior: ??None Left hip BMD: 0.081 g/cm2 T-Score: - 9.1 Z-Score: - 6.4 Change from prior: ??None Right hip BMD: 0.057 g/cm2 T-Score: - 10.2 Z-Score: - 7.5 Change from prior: ??None WHO criteria: Normal: T-score at or above -1 SD Osteopenia: T-score between -1.1 and -2.4 SD Osteoporosis: T-score at or below -2.5 SD Navya Quinn DO DEXA * (ABNORMAL) INR,POCT (04/02/2024 2:46 PM CDT) Only the most recent of3 resultswithin the time period is included. INR 3.5(H) <1.3 04/02/2024 2:46 PM CDT [facility] Blood BLOOD SPECIMEN / Unknown Capillary / Unknown 04/02/2024 2:46 PM CDT 04/02/2024 2:46 PM CDT Narrative [facility] - 04/02/2024 2:46 PM CDT ?Therapeutic Range 2.0-3.0 for most anticoagulated patients 2.5-3.5 or 4.0 for high risk patients Navya Quinn DO LABORATORY Performing Organization Address City/State/[facility] Co de Phone Number [facility] [address] [place] [address], * (ABNORMAL) HEMOGLOBIN A1C MONITORING (POCT) (03/25/2024 9:25 AM CDT) Pathologist [facility] HEMOGLOBIN A1C MONITORING (POCT) 6.8(H) <=6.4 % 03/25/2024 9:36 AM CDT [facility] Blood BLOOD SPECIMEN / Unknown Venipuncture / Unknown 03/25/2024 9:25 AM CDT 03/25/2024 9:28 AM CDT Narrative [facility] - 03/25/2024 9:36 AM CDT ? (<=6.9%) ? Indicates good control ? (7.0% to 7.9%) ? Indicates fair control ? (>=8.0%) ? Indicates poor control ?? NOTE: ??These thresholds are guidelines and ?individual targets may vary. Falsely low levels may be seen with: Recent Transfusion, Recent Significant Blood Loss, Hemolytic Diseases, or Falsely elevated levels may be seen with: Untreated Anemias, Splenectomy ? Navya Quinn DO CHEMISTRY [facility] [address] [place] [address], [place] [phone] from Last 3 Months Advance Directives * Full Code (Latest Code Status on File) Date Activated Date Inactivated Comments 08/12/2023 6:25 PM 08/26/2023 5:01 PM Question Answer Comments Code Status Discussion: Reviewed Preferences * Full Code Date Activated Date Inactivated Comments 06/20/2023 11:11 AM 06/20/2023 9:11 PM Question Answer Comments Code Status Discussion: Reviewed Preferences * Full Code Date Activated Date Inactivated Comments 09/08/2022 6:37 PM 09/09/2022 7:27 PM Question Answer Comments Code Status Discussion: Reviewed Preferences * Full Code Date Activated Date Inactivated Comments 11/07/2011 12:40 PM 11/07/2011 5:54 PM * Full Code Date Activated Date Inactivated Comments 10/21/2011 7:39 AM 10/21/2011 1:26 PM Care Teams Director Of Radiology Relationship Specialty Start Date End Date Navya Quinn DO [address] [place] [address] PCP - General Family Practice 09/09/22 Pcp, No . 06/13/21 Pcp, No . 06/18/21
--- OUTSIDE RECORDS SUMMARY | 2024-05-09 16:31 | XMS_ITS | Data Portability ---
Author Organization [facility] - HealthDeangelo grayson [facility] Address [address] [place] [address] [facility] [place] [address] Assessment No assessment recorded. Plan of Treatment Reminders Order Date Submit Date Provider Last Modified By Organization Details Last Modified Time Details Appointments None recorded. Lab CBC w/ auto diff 2020 [facility] Not available 11:40:30 CMP, serum or plasma 2020 [facility] Not available 13:01:26 lipid panel, blood 2020 [facility], [address] [place] [address], [phone], 19:21:27 hemoglobin A1C/hemoglo bin total, QN, blood 2020 [facility], [address] [place] [address], [phone], 10:43:52 microalbumi n, urine 2020 [facility], [address] [place] [address], [phone], 19:21:28 Referral None recorded. Procedures None recorded. Surgeries None recorded. Imaging None recorded. Medication Orders metformin 500 mg tablet [address], [address], 16:30:56 Naprosyn 500 mg tablet 2020 021 [facility], [address] [place] [address], [address], 14:25:44 Patient TargetsNo targets recorded. Patient Instructions Encounter Date Encounter Id Patient Instructions Last Modified By Organization Details Last Modified Time 11/27/2020 [id number] discuss eyes, kidneys, here with razia malave Not available 11/27/2020 17:41:53 12/11/2020 [id number] add Tylenol thre e times a day, review diet frieda Not available 12/11/2020 17:37:07 06/05/2021 [id number] Trista will get her scheduled at [facility] Not available 06/05/2021 20:07:01 Reason for Referral None Reported. Results Created Date Observation Date Name Description Value Unit Range Abnormal Flag Note LastModifiedBy Organization Detail LastModifiedTime 11/23/1911/22/2020 hemog lobin A1C/h emogl obin total , QN, blood hemoglobin A1C 9.7 Not Available [facility], [place], [address], 11/24/2020 09:11:18 11/23/19 21 11/22/2020 CMP, serum or plasm a creatinine 0.87 Not Available Not Scarlet ilable 11/23/2020 12:16:28 11/23/19 21 11/22/2020 CMP, serum or plasm a ALT 8 Not Available Not Availa ble 11/23/2020 12:16:28 11/23/19 21 11/22/2020 CBC w/ auto diff white blood count 9.7 Not Available Not Available 10/27 11:11:30 11/23/19 21 11/22/2020 CBC w/ auto diff hemoglobin 12.4 Not Available Not Scarlet ilable 11/23/2020 11:11:30 11/23/19 21 11/22/2020 CBC w/ auto diff platelet count 259 Not Available Not Available 10/27 11:11:30 12/12/19 21 11/28/2020 XR, hip, unila teral No observ ation record ed. [facility] Radiology Department [address] [place], [address], 12/11/2020 12:50:27 Result Notes None recorded. Problems Name Problem SNOMED Code Status Onset Date Resolution Date Notes Provider Name and Address Organization Details Recorded Time Type 2 diabetes mellitus 68336083 Active Nelson Canales MD [address] [place], [address] , [facility] [employer] 15:10:37 Problem Notes None recorded. Procedures Surgical History None recorded. Imaging Results Imaging Date Name Status LastModified by Organiz ation Details LastModified Time 11/28/2020 XR, hip, unilateral completed [facility] Radiology Department [address] [place], [address], 12/11/2020 12:50:27 Procedure Notes None recorded. Medical [...] Address Organization Details Last Updated DateTime 02/05/2021 12643.71 g 143 mm[Hg] 69 mm[Hg] Nelson Canales MD [address] [place], [address] [employer] 02/05/2021 15:34:54 Date Recorded Body weight Systolic blood pressure Diastolic blood pressure Provider Name and Address Organization Details Last Updated DateTime 06/05/2021 01072.04 g 132 mm[Hg] 71 mm[Hg] Muriel Tobias [facility] 06/05/2021 18:08:12 Social History None recorded. Functional Status None recorded. Mental Status None recorded. Family History Nothing Reported. Medical History No medical history recorded. Gynecological HistoryNo gynecological history recorded. Obstetrics History GPAL:G 0 P 0 0 0 0 Past Encounters Encounter ID Performer Location Encounter Start Date Encounter Closed Date Diagnosis/Indication Diagnosis SNOMED-CT Code Diagnosis ICD10 Code [id number] [facility] [address] [place] [id number] 11/20/2020 16:11:17 11/20/2020 16:43:13 Type 2 diabetes mellitus without complication 548488846 E11.9 [id number] Nelson Canales MD [facility] [address] [place] [id number] 11/27/2020 15:30:28 11/27/2020 18:30:09 Neuropathy due to diabetes mellitus 376079540 E11.40 [id number] Nelson Canales MD [facility] [address] [place] [id number] 12/11/2020 14:26:48 12/11/2020 17:46:51 Disorder of eye due to type 2 diabetes mellitus 456259743 E11.39 [id number] [facility] [address] [place] [id number] 02/05/2021 13:53:31 02/05/2021 17:56:26 Chronic low back pain 928821539 M54.5 Peripheral neuropathy due to type 2 diabetes mellitus 1330840091 107 E11.42 [id number] Nelson Canales MD [facility] [address] [place] [address] 06/05/2021 17:47:44 06/05/2021 18:35:31 Peripheral neuropathy due to type 2 diabetes mellitus 5575970261 107 E11.42 Health Concerns Section Related Observation LastModified by Organization Detai ls LastModified Time None Recorded Concern Status LastModified by Organization Details LastModified Time None Recorded Advance Directives Directive None Recorded Payers Encounter Date Sequence Insurance Name Policy Number Policy Holly Covered Member ID Holly Member ID Guarantor Name 11/20/2020 SLIDING FEE SCHEDULE - DISCOUNT 11/27/2020 SLIDING FEE SCHEDULE - DISCOUNT 12/11/2020 SLIDING FEE SCHEDULE - DISCOUNT 02/05/2021 SLIDING FEE SCHEDULE - DISCOUNT 06/05/2021 SLIDING FEE SCHEDULE - DISCOUNT Notes Date Note Type Note Provider Name and Address Organization Details Recorded Time 11/20/2020 text/html HPI Notes: fx of left leg in past, using cane, needs handicapped, eye probs in past Nelson Canales MD [address] [place] [address] [place], [address], [facility] 11/20/2020 16:32:22 11/27/2020 text/html HPI Notes: fractured hip over a year ago, sounds like a rid in femur and a pin in hip, now discomfort in calf, numbness in both feet Nelson Canales MD [address] [place] [address] [place], [address], [facility] 11/27/2020 17:42:29 12/11/2020 text/html HPI Notes: follo w up type 2 [place] [address] [place], [place] [address], [address], [facility] [employer] 12/11/2020 17:37:41 02/05/2021 text/html HPI Notes: Diabe eder F/U Reported by patient. Review finger sticks: fastin; pre dinner: Labs: last A1C result: Context: concerns? thrmoved to [place], known retinopathy, can't pay for glasses, glucometers in 100's but last panel had BS of 300+ previous fx of left femur, now hip hurts, Tylenol doesn't help, using cane, requesting IM medicine Nelson Canales MD [address] [place] [address] [place], [address], [facility] [employer] 02/05/2021 15:46:12 06/05/2021 text/html HPI Notes: still has poor pain control of left leg and lower back, knows that she needs more attention [place] [address] [place] [address] [place], [address], [place] - [facility] 06/05/2021 20:07:14 OBGyn Episode No OBEpisode recorded.
[2024-05-09 16:32] LABS: Slide Review Reflex No
[2024-05-09 16:48] LABS: Albumin* 3.9 g/dL (3.3-5.0); Chloride* 97 mmol/L (96-114); Sodium* 132 mmol/L (135-149)
[2024-05-09 16:49] LABS: Potassium* 3.8 mmol/L (3.6-5.1)
[2024-05-09 16:50] LABS: Bilirubin Total* 0.3 mg/dL (0.1-1.5); Creatinine* 0.9 mg/dL (0.5-1.5); Est. Creatinine Clearance* 32.77; Estimated Glomerular Filt Rate 65 ml/min
[2024-05-09 16:51] LABS: Alanine Aminotransferase* 17 U/L (4-35); Alkaline Phosphatase* 106 U/L (40-150); Anion Gap 10 mEq/L (7-15); Aspartate Amino Transferase* 29 U/L (12-35); Blood Urea Nitrogen* 12 mg/dL (7-30); Carbon Dioxide* 25 mmol/L (20-32); Creatine Kinase* 46 U/L (41-117); Glucose* 274 mg/dL (60-115)
[2024-05-09 16:52] LABS: Calcium* 8.9 mg/dL (8.4-10.6); Magnesium* 1.6 mg/dL (1.5-2.6)
[2024-05-09 16:53] LABS: PCR FLU A Negative PCR FLU A (Negative); PCR FLU B Negative PCR FLU B (Negative); PCR RSV Negative PCR RSV (Negative); SARS PCR* POSITIVE SARS-CoV-2 (Negative)
[2024-05-09 16:57] LABS: C Reactive Protein* < 0.5 mg/dL (0.5-1.0)
[2024-05-09 17:08] LABS: NT Pro B Type NatriureticPept* 461 pg/mL; Procalcitonin* 0.07 ng/mL (<0.50); Troponin I* < 0.01 ng/mL (0.01-0.04)
[2024-05-09 17:39] LABS: D Dimer Quantitative* 0.59 ug/ml (0.00-0.50)
== END 2024-05-09 18:31 | disposition home or self-care (01) ==
PROVIDERS: Emergency Provider Family Medicine; PCP Family Medicine
DX: U07.1 COVID-19 (principal)
CPT/HCPCS: 36415; 71045; 80053; 82550; 83605; 83735; 83880; 84145; 84484; 85025; 85379; 86140; 87631; 93005; 94761; 99283; 99284

== ENCOUNTER 2024-09-08 17:20 | Emergency (ER) | payer MEDICAID, SELFPAY ==
--- OUTSIDE RECORDS SUMMARY | 2024-09-08 17:22 | XMS_ITS | Data Portability ---
Author Organization [facility] - HealthDeangelo grayson [facility] Address [address] [place] [address] [facility] [place] [address] Assessment No assessment recorded. Plan of Treatment Reminders Order Date Submit Date Provider Last Modified By Organization Details Last Modified Time Details Appointments None recorded. Lab CBC w/ auto diff 2020 [facility] Not available 11:40:30 CMP, serum or plasma 2020 [facility] Not available 13:01:26 lipid panel, blood 2020 [facility], [address] [place] [address], [phone], 19:21:27 hemoglobin A1C/hemoglo bin total, QN, blood 2020 [facility], [address] [place] [address], [address], 10:43:52 microalbumi n, urine 2020 [facility], [address] [place] [address], [phone], 19:21:28 Referral None recorded. Procedures None recorded. Surgeries None recorded. Imaging None recorded. Medication Orders metformin 500 mg tablet [address], [address], 16:30:56 Naprosyn 500 mg tablet 2020 021 [facility], [address] [place] [address], [address], 14:25:44 Patient TargetsNo targets recorded. Patient Instructions Encounter Date Encounter Id Patient Instructions Last Modified By Organization Details Last Modified Time 11/27/2020 [id number] discuss eyes, kidneys, here with razia malave Not available 11/27/2020 17:41:53 12/11/2020 [id number] add Tylenol thre e times a day, review diet frieda Not available 12/11/2020 17:37:07 06/05/2021 [id number] Trista will get her scheduled at [facility] Not available 06/05/2021 20:07:01 Reason for Referral None Reported. Results Created Date Observation Date Name Description Value Unit Range Abnormal Flag Note LastModifiedBy Organization Detail LastModifiedTime 11/23/1911/22/2020 hemog lobin A1C/h emogl obin total , QN, blood hemoglobin A1C 9.7 Not Available [facility], [place], [address], 11/24/2020 09:11:18 11/23/19 21 11/22/2020 CMP, serum [...] unila teral No observ ation record ed. [facility] Radiology Department [address] [place], [address], 12/11/2020 12:50:27 Result Notes None recorded. Problems Name Problem SNOMED Code Status Onset Date Resolution Date Notes Provider Name and Address Organization Details Recorded Time Type 2 diabetes mellitus 87560859 Active Nelson Canales MD [address] [place], [address] , [facility] [employer] 15:10:37 Problem Notes None recorded. Procedures Surgical History None recorded. Imaging Results Imaging Date Name Status LastModified by Organiz ation Details LastModified Time 11/28/2020 XR, hip, unilateral completed [facility] Radiology Department [address] [place], [address], 12/11/2020 12:50:27 Procedure Notes None recorded. Medical [...] Address Organization Details Last Updated DateTime 02/05/2021 68628.71 g 143 mm[Hg] 69 mm[Hg] Nelson Canales MD [address] [place], [address] [employer] 02/05/2021 15:34:54 Date Recorded Body weight Systolic blood pressure Diastolic blood pressure Provider Name and Address Organization Details Last Updated DateTime 06/05/2021 58691.04 g 132 mm[Hg] 71 mm[Hg] Muriel Tobias [facility] 06/05/2021 18:08:12 Social History None recorded. Functional Status None recorded. Mental Status None recorded. Family History Nothing Reported. Medical History No medical history recorded. Gynecological HistoryNo gynecological history recorded. Obstetrics History GPAL:G 0 P 0 0 0 0 Past Encounters Encounter ID Performer Location Encounter Start Date Encounter Closed Date Diagnosis/Indication Diagnosis SNOMED-CT Code Diagnosis ICD10 Code Diagnosis Note [id number] Nelson Canales MD [facility] [address] [place] [id number] 11/20/2020 16:11:17 11/20/2020 16:43:13 Type 2 diabetes mellitus without complication 670250608 E11.9 [id number] Nelson Canales MD [facility] [address] [place] [id number] 11/27/2020 15:30:28 11/27/2020 18:30:09 Neuropathy due to diabetes mellitus 637449523 E11.40 needs x-ray and med for discomfort [id number] [facility] [address] [place] [id number] 12/11/2020 14:26:48 12/11/2020 17:46:51 Disorder of eye due to type 2 diabetes mellitus 123211557 E11.39 has macular edema and needs improved control [id number] Nelson Canales MD [facility] [address] [place] [id number] 02/05/2021 13:53:31 02/05/2021 17:56:26 Chronic low back pain 212621089 M54.5 needs explanatio n, no narcotics, only NSAID's Peripheral neuropathy due to type 2 diabetes mellitus 7104145702 107 E11.42 needs nail care and inspection [id number] Nelson Canales MD [facility] [address] [place] [address] 06/05/2021 17:47:44 06/05/2021 18:35:31 Peripheral neuropathy due to type 2 diabetes mellitus 4437520249 107 E11.42 add Tylenol to naproxen and take meds with food Health Concerns Section Related Observation LastModified by [...] Address Organization Details Recorded Time 11/20/2020 text/html fx of left leg i n past, using cane, needs handicapped, eye probs in past Nelson Canales MD [address] [facility] [place], [address], [facility] [employer] 11/20/2020 16:32:22 11/27/2020 text/html fractured hip ov er a year ago, sounds like a rid in femur and a pin in hip, now discomfort in calf, numbness in both feet Nelson Canales MD [address] [facility], [address], [facility] [employer] 11/27/2020 17:42:29 12/11/2020 text/html follow up type 2 diabetes Nelson Canales MD [address] [facility] [place], [address], [facility] [employer] 12/11/2020 17:37:41 02/05/2021 text/html Diabetes F/UReported bypatient.Review finger sticks:fastin; pre dinner: Labs:last A1C result: Context:concerns? thrmoved to [place], known retinopathy, can't pay for glasses, glucometers in 100's but last panel had BS of 300+ previous fx of left femur, now hip hurts, Tylenol doesn't help, using cane, requesting IM medicine Nleson Canales MD [address] [facility] [place], [address], [facility] [employer] 02/05/2021 15:46:12 06/05/2021 text/html still has poor p ain control of left leg and lower back, knows that she needs more attention to opthalmologic problems Nelson Canales MD [address] [place], [address], [facility] - [facility] 06/05/2021 20:07:14 OBGyn Episode No OBEpisode recorded.
--- OUTSIDE RECORDS SUMMARY | 2024-09-08 17:22 | XMS_ITS | Clinical Summary ---
[facility] Address [address] [place] [address] Care Team Providers Care Survey Manager Name Role Phone Navya Quinn DO Primary Care Provider [phone] Source Comments You are receiving this document as you are listed as the primary care provider,follow-up provider, or the patient has been referred to you for consultation.This is in compliance with the Medicare and[facility] EHR Incentive Program,which states Providers who transition their patient to another setting of careor provider of care or refers their patient to another provider of care shouldprovide summary care record for each transition of care or referral. [facility] Allergies No known active allergies Medications Blood Glucose Monitoring Suppl (TRUE METRIX METER) DEVIIndication s:Diabetes Mellitus Use 1 Kit to test two times a day before meals. Pharmacy to dispense based on insurance Indications: Diabetes 1 Each 0 Active blood glucose (TRUE METRIX BLOOD GLUCOSE TEST) test stripIndicatio ns:Diabetes Mellitus Use 1 Each to test two times a day before meals. Pharmacy to dispense based on insurance Indications: Diabetes 100 Strip 0 Active lancets 30GIndications :Type 2 diabetes mellitus with hyperglycemia, without long-term current use of insulin (HRC) Use 1 Each to test two times a day before meals. Pharmacy to dispense based on insurance 100 Each 11 0 Active glipiZIDE XL (GLUCOTROL XL) 5 MG 24 hour release tablet Take 5 mg by mouth daily. before a meal. 2 Active methylPREDNISo lone (MEDROL 21 TABLET DOSEPACK) 4 MG tablet Take by mouth as instructed per packaging. 2 Active acetaminophen (TYLENOL) 500 MG tablet Take 500 mg by mouth every 6 hours as needed. Max acetaminophen dose: 4000mg in 24 hrs. 2 Active metFORMIN XR (GLUCOPHAGE XR) 750 MG 24 hour release tablet Take 750 mg by mouth daily. with evening meal. 2 Active ASPIRIN LOW DOSE 81 MG enteric coated tablet Take 1 Tablet (81 mg) by mouth daily. 3 Active atorvastatin (LIPITOR) 40 MG tablet Take 1 Tablet (40 mg) by mouth daily. 3 Active furosemide (LASIX) 40 MG tablet Take 1 Tablet (40 mg) by mouth daily. 4 Active metoprolol tartrate (LOPRESSOR) 25 MG tablet Take 1 Tablet (25 mg) by mouth two times a day. 4 Active polyethylene glycol 3350 (GLYCOLAX) 17 GM/SCOOP powder Fill to top of indicated section in lid (17 grams). Mix in 4 to 8 ounces of a beverage and drink once daily as directed. 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[employer]OR [employer] ENGLISH 4 Active warfarin 3 MG tablet Managed by outside facility/provider 4 Active Active Problems Problem Noted Date Diagnosed Date Constipation 09/24/2023 Abdominal pain 09/24/2023 Chest pain 09/24/2023 Hx of CABG 09/24/2023 Primary osteoarthritis of left hip 09/02/2023 Anticoagulation monitoring, INR range 2-3 2023 Chronic atrial fibrillation 08/27/2023 Atrial flutter 08/20/[address] scan of heart 06/20/2023 Overview (09/02/2023): - CTCA: severe RCA stenosis, potentially severe lesions to LAD, ramus & RPLB ASCVD (arteriosclerotic cardiovascular disease) 06/20/2023 Mixed hyperlipidemia 06/20/2023 Unstable angina 06/20/2023 Chronic [...] of insulin 01/03/2022 COVID-19 virus detected 12/18/2019 Type 2 diabetes mellitus wit h hyperglycemia, without long-term current use of insulin 12/18/2019 Kidney disease 12/18/2019 Closed displaced intertrochanteric fracture of l eft femur 12/18/2019 Closed nondisplaced intertro chanteric fracture of left femur 12/17/2019 Overview (12/17/2019): Added automatically from request for surgery [id number] Bilateral pseudophakia 07/15/2019 Presbyopia 07/15/2019 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 due to underlying condition 07/15/2019 Regular astigmatism of both eyes 07/15/2019 Headache, post-traumatic 10/26/2010 Hyperlipidemia 11/09/2008 Diabetes mellitus without complication 6 Resolved Problems Problem Noted Date Diagnosed Date Resolved Date Closed intertrochanteric fracture of femur 12/17/2019 12/11/2023 Overview (09/02/2023): Added automatically from request for surgery [id number] Social History Tobacco Use Types Packs/Day Years Used Date Smoking Tobacco: Never Assessed [facility] Utilities Answer Date Recorded In the past 12 months has e [employer], gas, oil, or water [employer] threatened to shut off services in your home? No 09/24/2023 Humiliation, Afraid, Rape, and Kick questionnair e Answer Date Recorded Fear of Current or Ex-Partner Not on file Emotionally Abused Not on file 09/23/2023 Within the last year, have y ou been kicked, hit, slapped, or otherwise physically hurt by your partner or ex-partner? No 09/23/2023 Within the last year, have y ou been raped or forced to have any kind of sexual activity by your partner or ex-partner? No 09/23/2023 Hunger Vital Sign Answer Date Recorded Within the past 12 months, y ou worried that your food would run out before you got the money to buy more. Never true 09/24/19 24 Within the past 12 months, t he food you bought just didn't last and you didn't have money to get more. Never true 09/24/2023 PRAPARE - Transportation Answer Date Re corded In the past 12 months, has l ack of transportation kept you from medical appointments or from getting medications? No 08/29 In the past 12 months, has l ack of transportation kept you from meetings, work, or from getting things needed for daily living? No 09/24/2023 Housing Stability Vital Sign Answer Hammad e Recorded In the last 12 months, was t here a time when you were not able to pay the mortgage or rent on time? No 09/24/2023 In the last 12 months, how many places have you lived? 2 09/24/2023 In the last 12 months, was t here a time when you did not have a steady place to sleep or slept in a [place] [facility] (including now)? No 09/24/2023 Comments No Sex and Gender Information Value Date Recorded Sex Assigned at Not on file Legal Sex Female 5:52 PM CDT Gender Identity Not on file Sexual Orientation Not on file Last Filed Vital Signs Vital Sign Reading Time Taken Comments Blood Pressure 109/51 11/28/2023 2:42 PM CDT Pulse 78 11/28/2023 2:42 PM CDT Temperature 37.1 C (98.7 F) 11/28/2023 2:42 PM CDT Respiratory Rate 18 11/28/2023 2:42 PM CDT Oxygen Saturation 100% 11/28/2023 2:42 PM CDT Inhaled Oxygen Concentration - - Weight 48.1 kg (106 lb) 09/24/2023 6:07 PM [employer] Height 154 cm (5' 0.63) 09/24/2023 4:00 PM [employer] Body Mass Index 20.27 09/24/2023 4:00 PM [employer] Plan of Treatment Health Maintenance Due Date Last Done Comments Diabetes: Eye Exam 1944 Diabetes: Foot Exam 1944 Diabetes: Lipid Panel 1944 Diabetes: Urine Microalbumin 1944 Pneumococcal 50+ Yrs (1 - PCV) 1950 Adult Preventive Visit 1962 Zoster/Shingles (1 of 2) 1994 DTaP/Tdap/Td (1 - Tdap) 09/22/2003 09/21/2003 Dexa 2009 RSV (1 - 1-dose 75+ series) 2019 COVID-19 Vaccine (2 - season) 2024 11/21/2020 Influenza (#1) 2024 06/05/2022, 05/29, 07/07/2019, Additional history exists Diabetes: HGBA1C 06/25/2024 12/24/2023, , 09/24/2023, Additional history exists Diabetes: Creatinine 11/27/2024 11/28/2023, 09/26/2023, 09/24/2023, Additional history exists HepA Aged Out No longer eligi ble based on patient's age to complete this topic HepB Aged Out No longer eligi ble based on patient's age to complete this topic Hib Aged Out No longer eligi ble based on patient's age to complete this topic IPV (Polio) Aged Out No longer eligi ble based on patient's age to complete this topic MCV4 Aged Out No longer eligi ble based on patient's age to complete this topic Medical Devices Implanted Type Area Living Nurse Device Identifier Shelf Expiration Date Model / Serial / Lot Nail Michael Ti St 130d [id number] - [id number] Implanted:Qty: 1 on 12/18/2019 by Nelson Escamilla MD at [facility] DEVICE [employer] - Trauma 05/27/2029 [id number] / / [id number] Scr T[address]na [address] 90mm - [id number] Implanted:Qty: 1 on 12/18/2019 by Nelson Escamilla MD at [facility] DEVICE [employer] - Trauma 04/26/2029 [id number] / / [id number] Scr Lk Ti T25 St 5.0x44 - [id number] Implanted:Qty: 1 on 12/18/2019 by Nelson Escamilla MD at [facility] DEVICE [employer] - Trauma 07/27/2028 [id number] / / [id number] Scr Lk Ti T25 St 5.0x60 - [id number] Implanted:Qty: 1 on 12/18/2019 by Nelson Escamilla MD at [facility] DEVICE [employer] De[employer] - Trauma 08/27/2028 [id number] / / [id number] Procedures Procedure Name Priority Date/Time Associated Diagnosis Comments BASIC METABOLIC PANEL STAT 11/28/2023 3:15 PM CDT HGB A1C Routine 09/24/2023 7:06 AM ASSOCIATE PROFESSOR OF ENGLISH from Last 3 Months or Most Recently Relevant to Health Maintenance Results * (ABNORMAL) Basic Metabolic Panel (11/28/2023 3:15 PM CDT) Sodium 134(L) 136 - 145 mmol/L 11/28/2023 3:49 PM CDT [facility] Potassium 3.6 3.5 - 5.1 mmol/L 11/28/2023 3:49 PM T [facility] Chloride 102 98 - 109 mmol/L 11/28/2023 3:49 PM T [facility] CO2 24 20 - 29 mmol/L 11/28/2023 3:49 PM T [facility] Anion Gap 8 6 - 16 mmol/L 11/28/2023 3:49 PM T [facility] Calcium 9.0 8.4 - 10.4 mg/dL 11/28/2023 3:49 PM T [facility] BUN 14 7 - 26 mg/dL 11/28/2023 3:49 PM T [facility] Creatinine 0.65 0.55 - 1.02 mg/dL 11/28/2023 3:49 PM T [facility] Glucose 190(H) 70 - 100 mg/dL 11/28/2023 3:49 PM T [facility] Comment:The given reference range is for the fasting state. Non-fasting reference range for glucose is 70 - 180 mg/dL. GFR, Estimated >60 >60 mL/min/1.7 3m2 11/28/2023 3:49 PM CDT [facility] Blood Venipuncture / Unknown 11/28/2023 3:15 PM CDT 11/28/2023 3:20 PM CDT us Sushma Valenzuela PA-C LAB_1 Final Re sult [address] [address], [facility] * (ABNORMAL) Hgb A1C (09/24/2023 7:06 AM ASSOCIATE PROFESSOR [employer] ENGLISH) Hemoglobin A1C 7.5(H) <=5.6 % 09/24/2023 11:45 AM ASSOCIATE PROFESSOR [employer] ENGLISH [facility] Estimated Average Glucose (Calc) 169 < 117 mg/dL 09/24/2023 11:45 AM ASSOCIATE PROFESSOR OF ENGLISH [facility] Comment:Estimated average gl ucose (eAG) converts A1c into glucose units (mg/dL) and estimates average glucose over the past approximately 3 months. The eAG reference interval (<117 mg/dL) corresponds to an A1c of <5.7%. Blood Venipuncture / Unknown 09/24/2023 7:06 AM ASSOCIATE PROFESSOR [employer] ENGLISH 09/24/2023 7:09 AM ASSOCIATE PROFESSOR OF ENGLISH Narrative [facility] - 09/24/2023 11:45 AM ASSOCIATE PROFESSOR OF ENGLISH For patients not previously diagnosed with diabetes: 5.7-6.4%: Increased risk for diabetes 6.5% and greater: Diagnostic for diabetes For patients diagnosed with diabetes: <8.0%: Goal of therapy for ages 18-75 Clinicians may recommend a higher or lower goal for specific individuals. us Myles Guo MD LAB_1 Final Result Performing Organization Address City/[facility]/ZIP Co de Phone Number [facility] [address] [address], [facility] from Last 3 Months or Most Recently Relevant to Health Maintenance Insurance [facility] Advance Directives * Full Code (Latest Code Status on File) Date Activated Date Inactivated Comments 09/24/2023 2:36 AM 09/26/2023 2:31 PM * Full Code Date Activated Date Inactivated Comments 12/17/2019 11:18 PM 12/24/2019 7:35 PM Care Teams Survey Manager Relationship Specialty Start Date End Date Navya Quinn DO [address] [place] [address] PCP - General Family Practice 11/28/23
[2024-09-08 17:28] VITALS: BP 101/62; PULSE 102; RESP 20; TEMP 36.4; O2SAT 97
--- NOTE | 2024-09-08 17:41 | ED.GENADULT ---
HPI - General Adult General Time Seen by Provider: 17:41 Date Seen: 09/08/24 Chief complaint: Abdominal Pain Stated complaint: Abdominal pain Time Seen by Provider: 09/08/24 17:41 Source: patient, RN notes reviewed, old records reviewed and travelift operator Mode of arrival: ambulatory Limitations: no limitations History of Present Illness HPI narrative: This 79-year-old female is coming in with complaint of left upper quadrant abdominal pain and pain along the left lower ribs. She states it hurts worse with eating. She has had this pain for a while now. She admits some of her symptoms have been present since she had open-heart surgery about a year ago. She denies heart attack or bypass grafting in but tells me a doctor told her her vessels were blocked in her heart. She obviously has had bypass grafting from what she is telling me. Will try to look in her chart. She states that she has been having pain in this left upper abdomen for some time now, possibly since the surgery. She will get pain up in the chest that certainly is been there since the surgery. There is no change with respiration. States the abdominal symptoms increase with eating but denies any heartburn or reflux. She has had no fevers or chills. She states she has chronic constipation. Her doctor gave her a powder or dust to take but then her stools got too loose. She is now on a pill. She states she still is having constipation issues. There is no vomiting. Did log in to [facility] and see that she was seen on September 03 this year for ongoing breast pain. She was complaining of breast pain at that time but pain along the left lower ribs as well. She was having back pain with it. She had had a diagnostic mammogram in March 2024 which was unremarkable. She notes Tylenol was helping with her symptoms. She is now on docusate 1 tablet twice daily for her constipation, previously trying MiraLax. She is known to have compression fractures. Her primary care provider did think that her symptoms were from musculoskeletal issues. She of note was not stating this was abdominal in nature. 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 She is known to have severe osteoporosis. Related Data Home Medications ?Medication ?Instructions ?Recorded ?Confirmed SENNA 08/12/23 aspirin 81 mg tablet,delayed 81 mg PO DAILY 08/12/23 08/12/23 release atorvastatin 40 mg tablet 40 mg PO QPM 08/12/23 08/12/23 calcium carbonate 08/12/23 cholecalciferol (vitamin D3) .ROUTE 08/12/23 glipizide 5 mg tablet, extended 5 mg PO DAILY 08/12/23 08/12/23 release 24 hr guaifenesin 600 mg tablet, 600 mg PO BID 08/12/23 08/12/23 extended release 12 hr (Mucus Relief ER) metformin 750 mg tablet,extended 750 mg PO QPM 08/12/23 08/12/23 release 24 hr naproxen 500 mg tablet 500 mg PO BID 08/12/23 08/12/23 oxycodone 5 mg tablet 5 mg PO Q8H PRN pain 08/12/23 08/12/23 polyethylene glycol 3350 17 g PO 08/12/23 gram/dose oral powder propylene glycol (PF) 0.6 % eye 1 drp ophthalmic (eye) BID PRN 08/12/23 08/12/23 drops (Systane Complete PF) tramadol 50 mg tablet 50 mg PO Q6H PRN pain 08/12/23 08/12/23 Previous Rx's ?Medication ?Instructions ?Recorded ondansetron 4 mg disintegrating 4 mg PO Q8H PRN nausea and 05/09/24 tablet vomiting #10 tabs Allergies Allergy/AdvReac Type Severity Reaction Status Date / Time No Known Drug Allergies Allergy Verified 09/08/24 18:15 Review of Systems Status of ROS: Reports: 6 or more systems reviewed and unremarkable except as noted in History and below PFSH PFSH Social History Smoking Status: Never smoker Do you use any of these nicotine containing products: None Second hand tobacco smoke exposure: No How often do you have a drink containing alcohol: never AUDIT-C Alcohol total score: 0 Non-prescribed substance use: denies use service: No Exam Const: Vital Signs, click to edit/add: Vital Signs - 24 hr 09/08/24 17:28 09/08/24 17:50 Temperature 97.6 F Pulse Rate [Pulse Oximeter] 102 H Respiratory Rate 20 Blood Pressure [Ri ght Upper Arm] 101/62 Pulse Oximetry 97 98 Oxygen Delivery Me thod Room Air This 79-year-old female is alert and interactive, voice is not hoarse, very conversive via the travelift operator. Missing some dentition. She will keep her eyes closed a lot when talking but will engage in eye contact at times. Sclera clear, conjugate gaze, symmetrical facial function. Neck supple, no adenopathy, do not note any jugular venous distension. She is able sit up, lungs are clear, good air entry, no wheezing or crackles, no tachypnea, no accessory muscle use. CV regular rate and rhythm, no significant murmur, normal S1-S2. She has a seborrheic keratosis juxtaposed along the left nipple, she pulls her shirt up over the chest wall when showing me where she hurts in the left chest wall and upper abdomen on that side. She takes my hand in presses in deeply below the left lower rib border an complains of pain. I note no masses, do not appreciate any organomegaly. She has no rebound or guarding but certainly is tender left upper quadrant. She does complain of pain along the left lower ribs. In prior notes this was painful as well along the rib borders on the left lower side. I do not feel any organomegaly in her abdomen. She is not painful or tender elsewhere outside this left upper quadrant. No lower extremity edema. Moving both arms. She did ambulate into the ED of her own accord. Documenting provider has reviewed patient's vital signs: yes Course Course ED Course: Will get an EKG, full complement of labs including troponin. Will do a portable chest x-ray. Will do abdomen pelvis imaging with CT scan with IV contrast. Reviewing her chart in her current presentation, suspect that this might be some chronic pain of undetermined etiology. Will do these imaging modalities, check full complement of labs to ensure stability. Rule out acute intra-abdominal pathology, make sure chest x-ray is not showing any significant infiltrate or effusion. Patient overall seems quite stable but will make sure she has no acute surgical issue intra-abdominally, consider cardiac, pulmonary, other nonsurgical GI issues. Reevaluation(s) Time of Reevaluation #1: 19:47 Reevaluation #1: Have reviewed patient's imaging reports. Did look in epic and she had a thoracic spine x-ray on 04/09/2024, this showed increased compression fracture T12 of the vertebral body since prior study, was compared to a chest CT 09/29/2023. There is a chronic L1 fracture, no change. Did call mining engineering technologist, will see if they can find this chest CT and get it compared to our current study. Time of Reevaluation #2: 21:02 Reevaluation #2: There is no comparison or addendum to the CT. Patient was given 5 mg oral oxycodone, have had this before. She does have some improvement in her pain. We discussed that there is nothing wrong on the CT intra-abdominally in that left upper quadrant, do suspect that this could be neuropathic pain. Her symptoms seem to be potentially subacute nature. I cannot do an MRI here at this time. I do think she is safe to discharge tomorrow to follow up in clinic, have discussed the importance of contacting the clinic, bring the CT report in. She may need MRI imaging in the near future. I will give some oxycodone from [facility], she understands that she will need more pain medicine from the clinic, we can only give a small amount from here. Given prior notes in chart, do wonder if there is certainly radiculopathy but I am going to refrain from any prednisone at this point. Patient is ambulatory, able to walk and believe she does need some pain management until she can follow up in clinic. Have discussed the need to go on MiraLax will on the oxycodone. She states the oxycodone gives her severe diarrhea and she cannot even make it to the toilet. We discussed use of senna instead, she will stay on Colace. Vital Signs Vital signs: Initial Vital Signs Temperature 97.6 F 09/08/24 17:28 Temperature Source Temporal Artery Scan 09/08/24 17:28 Pulse Rate 102 H 09/08/24 17:28 Respiratory Rate 20 09/08/24 17:28 Blood Pressure 101/62 09/08/24 17:28 Blood Pressure Mean 75 09/08/24 17:28 Pulse Oximetry 97 09/08/24 17:28 Oxygen Delivery Method Room Air 09/08/24 17:28 Vital Signs Temperature 97.6 F 09/08/24 17:28 Pulse Rate 102 H 09/08/24 17:28 Respiratory Rate 20 09/08/24 17:28 Blood Pressure 101/62 09/08/24 17:28 Pulse Oximetry 97 02/12/25 17:28 Oxygen Delivery Method Room Air 09/08/24 17:28 Temperature 97.6 F 09/08/24 17:28 Pulse Rate 102 H 09/08/24 17:28 Respiratory Rate 20 09/08/24 17:28 Blood Pressure 101/62 09/08/24 17:28 Pulse Oximetry 98 09/08/24 17:50 Oxygen Delivery Method Room Air 09/08/24 17:28 Medical Decision Making Lab Data Labs: Lab Results 09/08/24 09/08/24 Range/Units 18:10 Unknown WBC 10.73 (4.50-11.00) K/uL RBC 3.72 L (4.00-5.20) m/uL Hgb 11.7 L (12.0-16.0) gm/dL Hct 35.7 (33.0-51.0) % MCV 96 (80-100) fL MCH 32 (26-34) pg MCHC 33 (32-36) gm/dL RDW Coeff of Demetrius 12.3 (11.5-15.5) % Plt Count 255 (140-440) K/uL Neut % (Auto) 58.4 (42.0-72.0) % Lymph % (Auto) 30.8 (20-44) % Loup % (Auto) 7.4 (0.0-11.0) % Eos % (Auto) 2.7 (0.0-7.0) % Baso % (Auto) 0.5 (0.0-3.0) % Neut # (Auto) 6.28 (1.7-7.0) K/uL Lymph # (Auto) 3.30 H (0.90-2.90) K/uL Loup # (Auto) 0.80 (0.00-0.90) K/UL Eos # (Auto) 0.29 (0.00-0.50) K/uL Baso # (Auto) 0.05 (0.00-0.30) K/uL Abs Immat Gran (auto) 0.02 (0.00-0.30) K/uL Imm/Tot Granulo (auto) 0.2 % Sodium 136 (135-149) mmol/L Potassium 4.1 (3.6-5.1) mmol/L Chloride 98 (96-114) mmol/L Carbon Dioxide 28 (20-32) mmol/L Anion Gap 10 (7-15) mEq/L BUN 18 (7-30) mg/dL Creatinine 0.8 (0.5-1.5) mg/dL Estimated GFR 74 ml/min Glucose 291 H (60-115) mg/dL Lactate 1.7 (0.5-1.9) mmol/L Calcium 8.7 (8.4-10.6) mg/dL Total Bilirubin 0.3 (0.1-1.5) mg/dL AST 22 (12-35) U/L ALT 15 (4-35) U/L Alkaline Phosphatase 155 H (40-150) U/L Troponin I < 0.01 L (0.01-0.04) ng/mL C-Reactive Protein < 0.5 L (0.5-1.0) mg/dL NT-Pro-B Natriuret Pep 279 pg/mL Total Protein 6.2 (6.0-8.3) g/dL Albumin 3.7 (3.3-5.0) g/dL Lipase 87 (23-300) U/L Urine Color Yellow (Yellow) Urine Appearance Clear (Clear) Urine pH 5.5 (5.0-8.5) Ur Specific [place] 1.010 (1.000-1.030) Urine Protein Negative (Negative) Urine Glucose (UA) Negative (Negative) Urine Ketones Negative (Negative) Urine Blood Trace-intact A (Negative) Urine Nitrite Negative (Negative) Urine Bilirubin Negative (Negative) Urine Urobilinogen 0.2 (0.2-1.0) Ur Leukocyte Esterase Negative (Negative) Imaging Data Chest x-ray: Attestation: I have reviewed the pertinent imaging results. My impression: Portable chest x-ray without any definitive infiltrate, congestive heart failure or effusion on my preliminary review. Await Radiology over-read. Radiologist's impression: Patient: JOSE LUIS JESSICA Facility:?[facility] Patient ID:?[id number] Site Patient ID:?[id number]. Site :?[id number] Study:?XRay-Chest 1 VIEW-09/08/2024 6:37:50 PM Ordering Physician:Jasper Ruby Final Report: Indication: Chest pain Technique: Chest 1 view Comparison: Chest x-ray 05/09/2024 Findings/Impression: Cardiovascular and mediastinum: Normal heart size with aortic tortuosity and atherosclerotic calcification. Lungs and pleural space: No pleural effusion or pneumothorax. Mild reticular interstitial prominence, favor pulmonary fibrosis. Stable nodularity left lung. Bones and soft tissues: Right upper quadrant surgical clips. Contrast within the bilateral collecting systems. Status post median sternotomy. Dictated by Alejandro Alfaro MD @ 09/08/2024 7:08:04 PM (Electronic Signature) CT scan - abdomen: Attestation: I have reviewed the pertinent imaging results. Radiologist's impression: Patient: JOSE LUIS JESSICA Facility:?[facility] Patient ID:?[id number] Site Patient ID:?[id number]. Site :?[id number] Study:?CT-Abdomen/Pelvis W/ 58CC ISOVUE 370-09/08/2024 6:33:01 PM Ordering Physician:Jasper Ruby Final Report: INDICATION: Left upper quadrant pain. TECHNIQUE: CT of the abdomen and pelvis acquired with 58 cc Isovue 370 IV contrast. Coronal and sagittal reconstructions. COMPARISON: CT of the abdomen and pelvis 11/06/2022. FINDINGS: Lower chest: Pulmonary fibrotic changes with honeycombing. Calcified granuloma left upper lobe. Extensive coronary artery calcifications. Mitral annulus calcifications. Sternotomy. Retained epicardial pacer wires. Liver: Diffuse hepatic steatosis. No suspicious masses. Gallbladder and bile ducts: Cholecystectomy. Mild dilation of the common bile duct is likely related to postcholecystectomy state. Spleen: Unremarkable. Pancreas: Unremarkable. Adrenal glands: Unremarkable. Kidneys, Ureters, and Bladder: Symmetric enhancement. No hydronephrosis or obstructing stones. Mild circumferential bladder wall thickening. Reproductive organs: Periuterine vascular calcifications. Chronic coarse calcifications in the bilateral adnexa. GI tract/Peritoneum: No small bowel dilation. Large amount of stool throughout the colon. The appendix is not identified. No intraperitoneal free air or fluid. Vasculature: Abdominal aorta is normal in caliber. Mesenteric arteries appear patent. Extensive vascular calcifications. Lymph nodes: No lymphadenopathy. Abdominal Wall: Multiple calcified subcutaneous granulomas in the buttocks. Bones: Degenerative changes of the spine. Chronic L1 and L4 compression fractures. New severe T12 superior endplate compression fracture may be acute or subacute, with mild retropulsion. Old right pubic ramus fracture extending to the pubic symphysis. Old left inferior pubic ramus fracture. Partially visualized left femur hardware. IMPRESSION: 1. New acute or subacute appearing severe T12 superior endplate compression fracture with mild retropulsion. 2. Mild bladder wall thickening. Correlate with urinalysis. 3. Large stool burden. 4. Diffuse hepatic steatosis. Please note that all CT scans at this facility use dose modulation, iterative reconstruction, and/or weight-based dosing when appropriate to reduce radiation dose to as low as reasonably achievable. Dictated by Brielle Greenfield MD @ 09/08/2024 7:19:10 PM (Electronic Signature) ECG Data Attestation: I personally reviewed and interpreted this ECG as follows: (Normal sinus rhythm, 86 beats per minute. Q-waves inferiorly, Q-waves V3 through V6, no acute ST segment change.) Prior ECG tracings: available for review (Unchanged from priors last year in our chart.) Discharge Plan Discharge Clinical Impression: Abdominal pain, left upper quadrant, Chronic chest pain, Compression fracture of T12 vertebra Patient Disposition: Home, Self-Care Condition: Stable Instructions: Osteoporosis (ED), Vertebral Compression Fracture (ED) Additional Instructions: Take Tylenol 1000 mg 3 times a day baseline for pain. Have provided 4 tablets of oxycodone to be used every 6-8 hours as needed for pain that is not covered by the Tylenol. Need to call the clinic tomorrow and get a follow-up with either your primary or Dr. Wang. I do think MRI of your spine in this area should be considered to be ordered. This will need to be done by the clinic. You need to discuss further pain management and possible pain medicines with someone at clinic tomorrow. We cannot give you more from here. Activity Level: Activity as Tolerated Prescriptions: No Action atorvastatin 40 mg tablet 40 mg PO QPM glipizide 5 mg tablet extended release 24hr 5 mg PO DAILY aspirin 81 mg tablet,delayed release (DR/EC) 81 mg PO DAILY polyethylene glycol 3350 17 gram/dose powder PO naproxen 500 mg tablet 500 mg PO BID oxycodone 5 mg tablet 5 mg PO Q8H PRN (Reason: pain) metformin 750 mg tablet extended release 24 hr 750 mg PO QPM guaifenesin [Mucus Relief ER] 600 mg tablet extended release 12hr 600 mg PO BID Systane Complete PF 0.6 % drops 1 drp ophthalmic (eye) BID PRN SENNA tramadol 50 mg tablet 50 mg PO Q6H PRN (Reason: pain) cholecalciferol (vitamin D3) .ROUTE calcium carbonate ondansetron 4 mg tablet,disintegrating 4 mg PO Q8H PRN (Reason: nausea and vomiting) Qty: 10 0RF Follow Up/Referrals: Marcin Saeed MD [Staff Physician] - Stand Alone Forms: MyHealth Info Instructions
[2024-09-08 17:50] VITALS: O2SAT 98
--- OUTSIDE RECORDS SUMMARY | 2024-09-08 18:03 | XMS_ITS | Clinical Summary ---
[facility] Address [address] [place] [address] Care Team Providers Care Associate Material Handler Name Role Phone Navya Quinn DO Primary Care Provider [phone] Source Comments You are receiving this document as you are listed as the primary care provider,follow-up provider, or the patient has been referred to you for consultation.This is in compliance with the Medicare and[facility] EHR Incentive Program,which states Providers who transition their patient to another setting of careor provider of care or refers their patient to another provider of care shouldprovide summary care record for each transition of care or referral. [facility] Allergies No known active allergies Medications Blood [...] as directed. 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 Utilities Answer Date Recorded In the past 12 months has e [employer], gas, oil, or water [employer] threatened to shut off services in your [...] place to sleep or slept in a residential (including now)? No 09/24/2023 Comments No Sex [...] 48.1 kg (106 lb) 09/24/2023 6:07 PM [employer] Height 154 cm (5' 0.63) 09/24/2023 4:00 PM [employer] Body Mass Index 20.27 09/24/2023 4:00 PM [employer] Plan of Treatment Health Maintenance Due Date [...] this topic Medical Devices Implanted Type Area Vp Respiratory Device Identifier Shelf Expiration Date Model / Serial / Lot Nail Michael Ti St 130d [id number] Lt - [id number] Implanted:Qty: 1 on 12/18/2019 by Nelson Escamilla MD at [facility] DEVICE [employer] - Trauma 05/27/2029 [id number] / / [id number] Scr Tfna [address] 90mm - [id number] Implanted:Qty: 1 on 12/18/2019 by Nelson Escamilla MD at [facility] DEVICE [employer] - Trauma 04/26/2029 [id number] / / [id number] Scr Lk Ti T25 St 5.0x44 - [id number] Implanted:Qty: 1 on 12/18/2019 by Nelson Escamilla MD at [facility] DEVICE [employer] De[employer]uy [employer] - Trauma 07/27/2028 [id number] / / [id number] Scr Lk Ti T25 St 5.0x60 - [id number] Implanted:Qty: 1 on 12/18/2019 by Nelson Escamilla MD at [facility] DEVICE [employer] DePuy [employer]ynthe[employer] - Trauma 08/27/2028 [id number] / / [id number] Procedures Procedure Name Priority Date/Time Associated Diagnosis Comments BASIC METABOLIC PANEL STAT 11/28/2023 3:15 PM CDT HGB A1C Routine 09/24/2023 7:06 AM [facility] [employer] from Last 3 Months or Most Recently Relevant to Health Maintenance Results * (ABNORMAL) Basic Metabolic Panel (11/28/2023 3:15 PM CDT) Sodium 134(L) 136 - 145 mmol/L 11/28/2023 3:49 PM CDT [facility] Potassium 3.6 3.5 - 5.1 mmol/L 11/28/2023 3:49 PM T [facility] Chloride 102 98 - 109 mmol/L 11/28/2023 3:49 PM T [facility] CO2 24 20 - 29 mmol/L 11/28/2023 3:49 PM T [facility] Anion Gap 8 6 - 16 mmol/L 11/28/2023 3:49 PM T [facility] Calcium 9.0 8.4 - 10.4 mg/dL 11/28/2023 3:49 PM T [facility] BUN 14 7 - 26 mg/dL 11/28/2023 3:49 PM T [facility] Creatinine 0.65 0.55 - 1.02 mg/dL 11/28/2023 3:49 PM T [facility] Glucose 190(H) 70 - 100 mg/dL 11/28/2023 3:49 PM T [facility] Comment:The given reference range is for the fasting state. Non-fasting reference range for glucose is 70 - 180 mg/dL. GFR, Estimated >60 >60 mL/min/1.7 3m2 11/28/2023 3:49 PM CDT [facility] Blood Venipuncture / Unknown 11/28/2023 3:15 PM CDT 11/28/2023 3:20 PM CDT us Sushma Valenzuela PA-C LAB_1 Final Re sult [address] [address], [facility] * (ABNORMAL) Hgb A1C (09/24/2023 7:06 AM [facility]) Hemoglobin A1C 7.5(H) <=5.6 % 09/24/2023 11:45 AM [facility] [employer] [facility] Estimated Average Glucose (Calc) 169 < 117 mg/dL 09/24/2023 11:45 AM [facility] Comment:Estimated average gl ucose (eAG) converts A1c into glucose units (mg/dL) and estimates average glucose over the past approximately 3 months. The eAG reference interval (<117 mg/dL) corresponds to an A1c of <5.7%. Blood Venipuncture / Unknown 09/24/2023 7:06 AM [facility] 09/24/2023 7:09 AM [facility] Narrative [facility] - 09/24/2023 11:45 AM [facility] For patients not previously diagnosed with diabetes: 5.7-6.4%: Increased risk for diabetes 6.5% and greater: Diagnostic for diabetes For patients diagnosed with diabetes: <8.0%: Goal of therapy for ages 18-75 Clinicians may recommend a higher or lower goal for specific individuals. us Myles Guo MD LAB_1 Final Result Performing Organization Address City/[facility]/ZIP Co de Phone Number [facility] [address] [address], [facility] from Last 3 Months or Most Recently Relevant to Health Maintenance Insurance [facility] Advance Directives * Full Code (Latest Code Status on File) Date Activated Date Inactivated Comments 09/24/2023 2:36 AM 09/26/2023 2:31 PM * Full Code Date Activated Date Inactivated Comments 12/17/2019 11:18 PM 12/24/2019 7:35 PM Care Teams Associate Material Handler Relationship Specialty Start Date End Date Navya Quinn DO [address] [place] [address] PCP - General Family Practice 11/28/23
[2024-09-08 18:34] LABS: Albumin* 3.7 g/dL (3.3-5.0); Chloride* 98 mmol/L (96-114); Sodium* 136 mmol/L (135-149)
[2024-09-08 18:35] LABS: Basophils Absolute Auto 0.05 K/uL (0.00-0.30); Basophils Percent Auto 0.5 % (0.0-3.0); Eosinophils Absolute Auto 0.29 K/uL (0.00-0.50); Eosinophils Percent Auto 2.7 % (0.0-7.0); Hematocrit 35.7 % (33.0-51.0); Hemoglobin* 11.7 gm/dL (12.0-16.0); Immature Granulocytes Abs Auto 0.02 K/uL (0.00-0.30); Immature Granulocytes Pct Auto 0.2 %; Lymphocytes Percent Auto 30.8 % (20-44); Mean Corpuscular HGB Conc 33 gm/dL (32-36); Mean Corpuscular Hemoglobin 32 pg (26-34); Mean Corpuscular Volume 96 fL (80-100); Monocytes Percent Auto 7.4 % (0.0-11.0); Neutrophils Absolute Auto 6.28 K/uL (1.7-7.0); Neutrophils Percent Auto 58.4 % (42.0-72.0); Platelet Count* 255 K/uL (140-440); Potassium* 4.1 mmol/L (3.6-5.1); RDW Coefficient of Variation % 12.3 % (11.5-15.5); Red Blood Count 3.72 m/uL (4.00-5.20); White Blood Count* 10.73 K/uL (4.50-11.00)
[2024-09-08 18:36] LABS: Creatinine* 0.8 mg/dL (0.5-1.5); Estimated Glomerular Filt Rate 74 ml/min
[2024-09-08 18:37] LABS: Alanine Aminotransferase* 15 U/L (4-35); Alkaline Phosphatase* 155 U/L (40-150); Anion Gap 10 mEq/L (7-15); Aspartate Amino Transferase* 22 U/L (12-35); Bilirubin Total* 0.3 mg/dL (0.1-1.5); Blood Urea Nitrogen* 18 mg/dL (7-30); Carbon Dioxide* 28 mmol/L (20-32); Glucose* 291 mg/dL (60-115); Lipase* 87 U/L (23-300); Total Protein* 6.2 g/dL (6.0-8.3)
[2024-09-08 18:38] LABS: Calcium* 8.7 mg/dL (8.4-10.6)
[2024-09-08 18:42] LABS: Slide Review Reflex No
[2024-09-08 18:52] LABS: Lactate* 1.7 mmol/L (0.5-1.9)
[2024-09-08 18:55] LABS: C Reactive Protein* < 0.5 mg/dL (0.5-1.0); NT Pro B Type NatriureticPept* 279 pg/mL; Troponin I* < 0.01 ng/mL (0.01-0.04)
[2024-09-08 20:41] LABS: Appearance Urine Clear (Clear); Bilirubin Urine Negative (Negative); Blood Urine Trace-intact (Negative); Color Urine Yellow (Yellow); Glucose Urine Negative (Negative); Ketones Urine Negative (Negative); Leukocyte Esterase Urine Negative (Negative); Nitrite Urine Negative (Negative); Protein Urine Negative (Negative); Urobilinogen Urine 0.2 (0.2-1.0); pH Urine 5.5 (5.0-8.5)
[2024-09-08 21:39] LABS: RBC Urine 0-2 (0-2); Squamous Epithelial Cell Urine Few (None-Few); WBC Urine 0-2 (0-5)
== END 2024-09-08 21:32 | disposition home or self-care (01) ==
PROVIDERS: Emergency Provider Family Medicine; PCP Student in an Organized Health Care Education/Training Program
DX: R10.12 Left upper quadrant pain (principal); R07.9 Chest pain, unspecified; G89.29 Other chronic pain; M48.54XA Collapsed vertebra, not elsewhere classified, thoracic region, initial encounter for fracture
CPT/HCPCS: 36415; 71045; 74177; 80053; 81001; 82565; 83605; 83690; 83880; 84484; 85025; 86140; 93005; 94761; 99284; 99285; Q9967

== ENCOUNTER 2024-10-05 15:58 | Emergency (ER) | payer MEDICAID, SELFPAY ==
[2024-10-05] VITALS (44 sets, daily range): BP systolic 80–152; BP diastolic 44–106; PULSE 72–91; RESP 0–40; TEMP 36.2; O2SAT 86–100
--- OUTSIDE RECORDS SUMMARY | 2024-10-05 16:00 | XMS_ITS | Clinical Summary ---
Author Organization [facility] Address [address] [place] [address] Care Team Providers Care Obiee Obia Solution Architect Name Role Phone Navya Quinn DO Primary Care Provider [phone] Source Comments You are receiving this document as you are listed as the primary care provider,follow-up provider, or the patient has been referred to you for consultation.This is in compliance with the Medicare and[facility] EHR Incentive Program,which states Providers who transition their patient to another setting of careor provider of care or refers their patient to another provider of care shouldprovide summary care record for each transition of care or referral. [facility] Allergies No known active allergies Medications Blood [...] as directed. 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 07/15/2019 Regular astigmatism of both eyes 07/15/2019 Headache, post-traumatic 10/26/2010 Hyperlipidemia 11/09/2008 Diabetes mellitus without complication 6 Resolved Problems Problem Noted Date Diagnosed Date Resolved Date Closed intertrochanteric fracture of femur 12/17/2019 12/11/2023 Overview (09/02/2023): Added automatically from request for surgery [id number] Social History Tobacco Use Types Packs/Day Years Used Date Smoking Tobacco: Never Assessed [facility] Utilities Answer Date Recorded In the past 12 months has e Transit [employer], gas, oil, or water [employer] threatened to shut off services in your [...] place to sleep or slept in a care home (including now)? No 09/24/2023 Comments No Sex [...] 48.1 kg (106 lb) 09/24/2023 6:07 PM [employer] Height 154 cm (5' 0.63) 09/24/2023 4:00 PM [employer] Body Mass Index 20.27 09/24/2023 4:00 PM [employer] Plan of Treatment Health Maintenance Due Date Last Done Comments Diabetes: Eye Exam 1944 Diabetes: Foot Exam 1944 Diabetes: Lipid Panel 1944 Diabetes: Urine Microalbumin 1944 Tuberculosis Screening 1944 Adult Preventive Visit 1962 Pneumococcal 50+ Yrs (1 of 2 - PCV) 1963 Zoster/Shingles (1 of 2) 1994 DTaP/Tdap/Td (1 [...] on patient's age to complete this topic Meningococcal B Aged Out No longer el igible based on patient's age to complete this topic Medical Devices Implanted Type Area Mechanotherapist Device Identifier Shelf Expiration Date Model / Serial / Lot Nail Michael Ti St 130d [id number] Lt - [id number] Implanted:Qty: 1 on 12/18/2019 by Nelson Escamilla MD at [facility] DEVICE [employer] - Trauma 05/27/2029 [id number] / / [id number] Sc[address] 90mm - [id number] Implanted:Qty: 1 on 12/18/2019 by Nelson Escamilla MD at [facility] DEVICE [employer] - Trauma 04/26/2029 [id number] / / [id number] Scr Lk Ti T25 St 5.0x44 - [id number] Implanted:Qty: 1 on 12/18/2019 by Nelson Escamilla MD at [facility] DEVICE [employer] De[employer]uy Synthes - Trauma 07/27/2028 [id number] / / [id number] Scr Lk Ti T25 St 5.0x60 - [id number] Implanted:Qty: 1 on 12/18/2019 by Nelson Escamilla MD at [facility] DEVICE [employer] DePuy Synthes - Trauma 08/27/2028 [id number] / / [id number] Procedures Procedure Name Priority Date/Time Associated Diagnosis Comments BASIC METABOLIC PANEL STAT 11/28/2023 3:15 PM CDT HGB A1C Routine 09/24/2023 7:06 AM [employer] from Last 3 Months or Most Recently [...] Sushma Valenzuela PA-C LAB_1 Final Re sult Performing Organization Address City/[facility]/ZIP Co de Phone Number [address] * (ABNORMAL) Hgb A1C (09/24/2023 7:06 AM [employer]) Hemoglobin A1C 7.5(H) <=5.6 % 09/24/2023 11:45 AM [employer] [facility] Estimated Average Glucose (Calc) 169 < 117 mg/dL 09/24/2023 11:45 AM [facility] Comment:Estimated average gl ucose (eAG) converts A1c into glucose units (mg/dL) and estimates average glucose over the past approximately 3 months. The eAG reference interval (<117 mg/dL) corresponds to an A1c of <5.7%. Blood Venipuncture / Unknown 09/24/2023 7:06 AM [employer] 09/24/2023 7:09 AM [employer] Narrative [facility] - 09/24/2023 11:45 AM [employer] For patients not previously diagnosed with diabetes: 5.7-6.4%: Increased risk for diabetes 6.5% and greater: Diagnostic for diabetes For patients diagnosed with diabetes: <8.0%: Goal of therapy for ages 18-75 Clinicians may recommend a higher or lower goal for specific individuals. us Myles Guo MD LAB_1 Final Result Performing Organization Address [facility] Co de Phone Number [facility] [address] [place] [address], [facility] from Last 3 Months or Most Recently Relevant to Health Maintenance Insurance [facility] [id number] [place] [id number] Advance Directives * Full Code (Latest Code Status on File) Date Activated Date Inactivated Comments 09/24/2023 2:36 AM 09/26/2023 2:31 PM * Full Code Date Activated Date Inactivated Comments 12/17/2019 11:18 PM 12/24/2019 7:35 PM Care Teams Obiee Obia Solution Architect Relationship Specialty Start Date End Date Navya [place] [address] [place] [address] PCP - General Family Practice 11/28/23
--- OUTSIDE RECORDS SUMMARY | 2024-10-05 16:01 | XMS_ITS | Data Portability ---
Author Organization [facility] - [facility]angel[facility] Address [address] [place] [address] [facility] [place] [address] Assessment No assessment recorded. Plan of Treatment Reminders Order Date Submit Date Provider Last Modified By Organization Details Last Modified Time Details Appointments None recorded. Lab CBC w/ auto diff 2020 [facility] Not available 11:40:30 CMP, serum or plasma 2020 [facility] Not available 13:01:26 lipid panel, blood 2020 [facility], [address] [place] [address], [phone], 19:21:27 hemoglobin A1C/hemoglo bin total, QN, blood 2020 [facility], [address] [place] [address], [phone], 10:43:52 microalbumi n, urine 2020 [facility], [address] [place] [address], [phone], 19:21:28 Referral None recorded. Procedures None recorded. Surgeries None recorded. Imaging None recorded. Medication Orders Naprosyn 500 mg tablet [address], [address], 14:25:44 metformin 500 mg tablet 2020 021 [facility], [address] [place] [address], [address], 16:30:56 Patient TargetsNo targets recorded. Patient Instructions Encounter Date Encounter Id Patient Instructions Last Modified By Organization Details Last Modified Time 11/27/2020 [id number] discuss eyes, kidneys, here with razia malave Not available 11/27/2020 17:41:53 12/11/2020 [id number] add Tylenol thre e times a day, review diet frieda Not available 12/11/2020 17:37:07 06/05/2021 [id number] Trista will get her scheduled at [facility] Not available 06/05/2021 20:07:01 Reason for Referral None Reported. Results Created Date Observation Date Name Description Value Unit Range Abnormal Flag Note LastModifiedBy Organization Detail LastModifiedTime 11/23/1911/22/2020 hemog lobin A1C/h emogl obin total , QN, blood hemoglobin A1C 9.7 Not Available [facility] [address] [place] [address], [place], [address], 11/24/2020 09:11:18 11/23/19 21 11/22/2020 CMP, serum [...] unila teral No observ ation record ed. [facility] Radiology Department [address] [place], [address], 12/11/2020 12:50:27 Result Notes None recorded. Problems Name Problem SNOMED Code Status Onset Date Resolution Date Notes Provider Name and Address Organization Details Recorded Time Type 2 diabetes mellitus 27712336 Active Nelosn Canales MD [address] [place], [address] , [facility] Group Therapy Records 15:10:37 Problem Notes None recorded. Procedures Surgical History None recorded. Imaging Results Imaging Date Name Status LastModified by Organiz ation Details LastModified Time 11/28/2020 XR, hip, unilateral completed [facility] Radiology Department [address] [place], [address], 12/11/2020 12:50:27 Procedure Notes None recorded. Medical [...] Address Organization Details Last Updated DateTime 02/05/2021 81472.71 g 143 mm[Hg] 69 mm[Hg] Nelson Caanles MD [address] [place], [phone] Group Therapy Records 02/05/2021 15:34:54 Date Recorded Body weight Systolic blood pressure Diastolic blood pressure Provider Name and Address Organization Details Last Updated DateTime 06/05/2021 20189.04 g 132 mm[Hg] 71 mm[Hg] Muriel Tobias [facility] 06/05/2021 18:08:12 Social History None recorded. Functional Status None recorded. Mental Status None recorded. Family History Nothing Reported. Medical History No medical history recorded. Gynecological HistoryNo gynecological history recorded. Obstetrics History GPAL:G 0 P 0 0 0 0 Past Encounters Encounter ID Performer Location Encounter Start Date Encounter Closed Date Diagnosis/Indication Diagnosis SNOMED-CT Code Diagnosis ICD10 Code Diagnosis Note [id number] Nelson Canales MD [facility] [address] [place] [phone] 11/20/2020 16:11:17 11/20/2020 16:43:13 Type 2 diabetes mellitus without complication 711124579 E11.9 [id number] Nelson Canales MD [facility] [address] [place] [phone] 11/27/2020 15:30:28 11/27/2020 18:30:09 Neuropathy due to diabetes mellitus 604235319 E11.40 needs x-ray and med for discomfort [id number] [facility] [address] [place] [phone] 12/11/2020 14:26:48 12/11/2020 17:46:51 Disorder of eye due to type 2 diabetes mellitus 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 [address] [place] [address] 06/05/2021 17:47:44 06/05/2021 18:35:31 Peripheral neuropathy due to type 2 diabetes mellitus 4854029384 107 E11.42 add Tylenol to naproxen and [...] probs in past Nelson Canales MD [address] [facility] [place], [address], [facility] Group Therapy Records 11/20/2020 16:32:22 11/27/2020 text/html fractured hip ov er a year ago, sounds like a rid in femur and a pin in hip, now discomfort in calf, numbness in both feet Nelson Canales MD [address] [facility] [place], [address], [facility] [employer] 11/27/2020 17:42:29 12/11/2020 text/html follow up type 2 diabetes Nelson Canales MD [address] [facility] [place], [address], [facility] Group Therapy Records 12/11/2020 17:37:41 02/05/2021 text/html Diabetes F/UReported bypatient.Review finger sticks:fastin; pre dinner: Labs:last A1C result: Context:concerns? thrmoved to [place], known retinopathy, can't pay for glasses, glucometers in 100's but last panel had BS of 300+ previous fx of left femur, now hip hurts, Tylenol doesn't help, using cane, requesting IM medicine Nelson Canales MD [address] [facility] [place], [address], [facility] Group Therapy Records 02/05/2021 15:46:12 06/05/2021 text/html still has poor p ain control of left leg and lower back, knows that she needs more attention to opthalmologic problems Nelson Canales MD [address] [place], [address], [facility] - [facility] 06/05/2021 20:07:14 OBGyn Episode No OBEpisode recorded.
--- OUTSIDE RECORDS SUMMARY | 2024-10-05 16:01 | XMS_ITS | Clinical Summary ---
Author Organization [facility] [place] [facility] & [facility] Address [address] [place] [address] Care Team Providers Care Raised Printer Name Role Phone Navya Quinn DO Primary Care Provider [phone] Navya Quinn Annalee DO Unavailable [phone] Pcp, No Unavailable Unavailable Pcp, No Unavailable Unavailable Gustavo Castellano Unavailable [phone] [facility] Unavailable [phone] Allergies No known active allergies Medications nitroglycerin (NITROSTAT) 0.4 mg sublingual tabletIndications :Cardiovascular symptoms,ASCVD (arteriosclerotic cardiovascular disease) Place 1 Tablet (0.4 mg) under the tongue every 5 minutes if needed for Chest pain 1st choice (Hold if SBP less than 90 mmHg). Up to 3 tablets in 15 minutes. 25 Tablet 1 06/20/20 23 6:39 PM LEAD SOLUTIONS ARCHITECT 023 Active acetaminophen (TYLENOL EXTRA STRGTH) 500 mg tabletIndications :S/P CABG x 4 Take 2 Tablets (1,000 mg) by mouth every 6 hours if needed for Pain. Max acetaminophen dose: 4000mg in 24 hrs. 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 1 Each 024 Active atorvastatin (LIPITOR) 40 mg tabletIndications :Cerebrovascular accident (CVA), unspecified mechanism (HC) Take 1 Tablet (40 mg) by mouth once daily with evening meal. 90 Tablet 2 024 Active aspirin (ECOTRIN) 81 mg enteric coated tabletIndications :Cerebrovascular accident (CVA), unspecified mechanism (HC) Take 1 Tablet (81 mg) by mouth once daily with a meal. 90 Tablet 3 024 Active calcium carbonate-vitamin D3, 600 mg-400 unit, 600 mg-10 mcg (400 unit) tabletIndications :Postmenopausal Take 1 Tablet by mouth two times daily with meals. 200 Tablet 4 024 Active Graduated Compression StockingsIndicati ons:Hypotension, unspecified hypotension type For personal use. Length: calf Strength: 16-20 mmHg 1 Packet 024 Active polyethylene glycoL (MIRALAX) 17 gram/scoop powderIndications :Chronic constipation Mix 1 scoop (17 g) in liquid then take by mouth once daily if needed for Constipation. 510 g 3 024 Active Methyl Salicylate-Mentho l (Icy Hot) 29-7.6 % ointIndications:C hronic left hip pain Apply topically to affected area(s) once daily if needed (For pain). 99.2 g 024 Active metFORMIN (GLUCOPHAGE XR) 750 mg Extended-Release tabletIndications :Type 2 diabetes mellitus with diabetic neuropathy, without long-term current use of insulin (HC) Take 1 Tablet (750 mg) by mouth two times daily with meals. 180 Tablet 3 024 Active docusate (COLACE) 100 mg capsuleIndication s:Chronic constipation Take 1 Capsule (100 mg) by mouth 2 times daily if needed for Constipation. 100 Capsule 1 024 Active sennosides (SENNA) 8.6 mg tabletIndications :Chronic constipation Take 1 Tablet (8.6 mg) by mouth 2 times daily if needed for Constipation. 60 Tablet 1 025 Active levETIRAcetam (KEPPRA) 1,000 mg tabletIndications :prevent seizures Take 1 Tablet (1,000 mg) by mouth two times daily. 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 15 mL 024 2024 Discontinued (Pharmacist change per medication history (E-cancel not sent)) famotidine (PEPCID) 20 mg tabletIndications :Abdominal pain, epigastric TAKE 1 TABLET (20 MG) BY MOUTH TWO TIMES DAILY. 180 Tablet 2 024 2024 Discontinued (Pharmacist change per medication history (E-cancel not sent)) famotidine (PEPCID) 20 mg tabletIndications :Abdominal pain, epigastric Take 1 Tablet (20 mg) by mouth two times daily. 180 Tablet 3 024 2024 Discontinued (Pharmacist change per medication history (E-cancel not sent)) propylene glycoL 0.6 % ophthalmic solutionIndicatio ns:Dry eyes, bilateral Place into the eye(s). 10 mL 2 024 2024 Discontinued (Pharmacist change per medication history (E-cancel not sent)) diclofenac topical (VOLTAREN) 1 % gelIndications:Ch ronic midline thoracic back pain Apply 2 g topically to affected area(s) four times daily. 50 g 2 025 2024 Discontinued (Pharmacist change per medication history (E-cancel not sent)) lidocaine 4 % topical patchIndications: Chronic midline thoracic back pain Apply to intact skin to cover most painful area for max 12hr per 24hr period. 30 Patch 1 025 2024 Discontinued (Pharmacist change per medication history (E-cancel not sent)) emollient (Vanicream) creamIndications: Xerosis cutis Apply topically to affected area(s) 2 times daily if needed for Dry Skin, Irritation or Itching. 113 g 10 025 2024 Discontinued (Pharmacist change per medication history (E-cancel not sent)) Active Problems Problem Noted Date Diagnosed Date New onset seizure 10/01/2024 Seizure 09/18/2024 History of CVA (cerebrovascular accident) 2024 Encephalopathy 09/18/2024 Acute respiratory failure 09/18/2024 Type 2 diabetes mellitus wit h proliferative retinopathy of both eyes, without long-term current use of insulin 07/05/2024 Vitreous hemorrhage of left eye 07/05/2024 Coronary artery disease invo lving [place] coronary artery without angina pectoris 06/01/2024 AF (paroxysmal atrial fibrillation) 06/01/2024 New onset atrial fibrillation 08/27/2023 Atrial flutter 08/20/2023 ASCVD (arteriosclerotic cardiovascular disease) [...] (08/15/2022): Added automatically from request for surgery [id number] Presbyopia 07/15/2019 Regular astigmatism of both eyes 07/15/2019 Bilateral pseudophakia 07/15/2019 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 due to underlying condition 07/15/2019 Headache, post-traumatic 10/26/2010 Other and unspecified hyperlipidemia 11/09/2008 Lumbar Herniated Intervertebral Disk 11/09/2008 Type II or unspecified type diabetes mellitus without mention of complication, not stated as uncontrolled 04/16/2006 Primary osteoarthritis of left hip Resolved Problems Problem Noted Date Diagnosed Date Resolved Date Anticoagulation monitoring, INR range 2-3 08/27/2023 06/11/2024 Encounters Date Type Department Care Team Description 10/05/2024 Home Care Visit [address] [address] Yesenia Stovall, RN NOT TAKEN UNDER HOME CARE 10/04/2024 Home Care Visit [address] [address] Meseret Davis, LAVELL CARE COORDINATION 10/01/2024 2:10 PM LEAD SOLUTIONS ARCHITECT Office Visit [facility] [address] [place] [address] Navya Quinn, [facility] F/U (09/26 Follow up - seizures, weakness, stent placement) 10/01/2024 Travel 09/29/2024 Home Care Visit [address] [address] Yesenia Stovall, RN CARE COORDINATION 09/28/2024 Home Care Visit [address] [address] Yesenia Stovall, RN CARE COORDINATION 09/27/2024 Patient Outreach [facility] [address] [place] [address] Taya Judge RN Primary RN Care Management; Hospital F/U (LACE 57) 09/24/2024 Travel 09/18/2024 8:45 PM LEAD SOLUTIONS ARCHITECT - 09/26/2024 1:55 PM LEAD SOLUTIONS ARCHITECT Hospital Encounter [address] [address] Suzanne Harris MD [facility], [facility] Hospitalist megan Montes, MD Lance Orr Saadia Zafar, MD [place], Shelly Leavitt MD Seizure (HC) (Primary Dx); Left-sided weakness; Acute respiratory failure, unspecified whether with hypoxia or hypercapnia (HC) Discharge Disposition: Home Health 09/18/2024 8:38 PM LEAD SOLUTIONS ARCHITECT - 09/19/2024 6:38 AM LEAD SOLUTIONS ARCHITECT Emergency [facility] [address] [place] [address] Suzanne Harris MD Discharge Disposition: Home Self Care 09/08/2024 Orders Only [facility] Scanner 1 scan: (1-Ord) [facility], ADDENDUM-CT ABDOMEN PELVIS W, 09/08/2024 09/08/2024 Orders Only [facility] Scanner 1 scan: (1-Ord) [facility], XR CHEST 1V, 09/08/2024 09/08/2024 Orders Only [facility] Scanner 1 scan: (1-Ord) [facility], CT ABD PELVIS WO, 09/08/2024 09/03/2024 12:45 PM LEAD SOLUTIONS ARCHITECT Office Visit [facility] [address] [place] [address] Kellen Atwood, Pain (left breast pain and left sided pulsating back pain for about 1 month. ) 09/03/2024 Travel 07/08/2024 7:30 AM LEAD SOLUTIONS ARCHITECT Office Visit [facility] [address] [place] [address] Kellen Atwood, DO Diabetes 07/08/2024 Travel from Last 3 Months Immunizations Immunization Administration Dates Next Due COVID-19 vaccine (Pfizer-Bio NTech 30mcg/0.3mL) 12YO+ BIVALENT PF, MDV 06/05/2022 COVID-19 vaccine (Pfizer-Bio NTech 30mcg/0.3mL) 12YO+ REGINALD-SUCROSE PF, MDV 01/02/2022 COVID-19 vaccine (Pfizer-Bio NTech 30mcg/0.3mL) PF, MDV 11/21/2020 Influenza, IIV3 (Age 6-35 mos) 04/24/2011 Influenza, IIV3 (Age >=3 years) 04/24/2011,05/02,05/02/2009 Influenza, Inactivated AIIV4 (Age 65+ Years) Preserv Free 06/05/2022,06/22/2021 Influenza, Inactivated IIV3 (Age 65+ Years) Preserv Free 09/25/2024,07/07/2019,07/07/2019 Pneumococcal Conj 20-valent (Prevnar 20) 024 Td (Age >=7 Years) 09/21/2003 Family History Medical History Relation Name Comments Diabetes Father Relation Name Status Comments Father Social History Tobacco Use Types Packs/Day Years Used Date Smoking Tobacco: Former Cigarettes Smokeless Tobacco: Never Tobacco Cessation:Counseling Given: Yes Comments:Stopped smoking 30 years ago Alcohol Use Standard Drinks/Week Comments Not Currently 0 (1 standard drink = 0.6 oz pure alcohol) used to drink a lot 20 years ago. PHQ-2 Answer Date Recorded PHQ-2 TOTAL SCORE 0 12/15/2023 Social Connections Answer Date Recorded Do you often feel lonely or isolated from those around you? 0 09/24/2024 Financial Resource Strain Answer Date R ecorded Difficulty of Paying Living Expenses 3 09/24/2024 Difficulty of Paying Living Expenses Not on file 09/24/2024 Food Insecurity Answer Date Recorded Do you worry your food will run out before you are able to buy more? 1 09/24/2024 Transportation Needs Answer Date Record ed Does lack of transportation keep you from medica l appointments? 1 09/24/2024 Does lack of transportation keep you from work, meetings or getting things that you need? 1 09/24/2024 Housing Stability Answer Date Recorded What is your housing situation today? 1 09/24/2024 Interpersonal Safety Answer Date Record ed Are you being hit, kicked, p ushed or yelled at (see row info)? No 09/18/2024 Interpersonal Safety Abuse 12 - 18 Not on file 09/18/2024 Interpersonal Safety Ambulatory Vulnerability No t on file 09/18/2024 Utilities Answer Date Recorded Do you have trouble paying f or utilities (for example, heat, electricity, water, phone)? 1 09/24/2024 Comments No Sex and Gender Information Value Date Recorded Sex Assigned at Not on file Legal Sex Female 12:24 PM CDT Gender Identity Not on file Sexual Orientation Not on file Obstetrics History Last Filed Vital Signs Vital Sign Reading Time Taken Comments Blood Pressure 107/57 10/01/2024 2:05 PM LEAD SOLUTIONS ARCHITECT Pulse 89 10/01/2024 2:05 PM LEAD SOLUTIONS ARCHITECT Temperature 37.1 C (98.7 F) 09/26/2024 8:18 AM LEAD SOLUTIONS ARCHITECT Respiratory Rate 16 09/26/2024 8:18 AM LEAD SOLUTIONS ARCHITECT Oxygen Saturation 97% 10/01/2024 2:05 PM LEAD SOLUTIONS ARCHITECT Inhaled Oxygen Concentration - - Weight 48.4 kg (106 lb 9.6 oz) 10/01/2024 2:05 P M LEAD SOLUTIONS ARCHITECT Height 160 cm (5' 3) 09/19/2024 2:00 AM LEAD SOLUTIONS ARCHITECT Body Mass Index 18.88 09/19/2024 2:00 AM LEAD SOLUTIONS ARCHITECT Plan of Treatment Upcoming Encounters Date Type Department Care Team (Late st Contact Info) Description 10/06/2024 2:40 PM CDT Office Visit [facility] [address] [place] [address] Kristian Wang MD [address] [place] [address] 10/15/2024 2:10 PM CDT Office Visit [facility] [address] [place] [address] Navya Quinn DO [address] [place] [address] 11/11/2024 1:45 PM CDT Office Visit [facility] [address] [address] [place], [place] [id number] Danny Blackmon, DO [address] [address] Health Maintenance Due Date Last Done Comments Tdap 1955 Zoster (shingles) series for age 50+ (1 of 2) 1994 Tetanus booster 09/21/2013 09/21/2003 RSV vaccine for adults or (1 - 1-dose 75+ series) 2019 COVID-19 vaccine series ( season) 2024 06/05/2022, 01/02/2022, 11/21/2020 BMI (ht and wt on same day) for age 18+ 12/01/2024 12/02/2023, 10/27/2023, 09/29/2023, Additional history exists Depression screening for age 12+ 12/17/2024 12/18/2023, 12/16/2023, 12/15/2023, Additional history exists Pneumococcal series for age 50+ Completed DEXA/DXA scan for age 65+ Completed 04/06/2024 Influenza Vaccine Completed 09/25/2024, , 06/22/2021, Additional history exists Medical Devices Implanted Type Area Manager Demand Device Identifier Shelf Expiration Date Model / Serial / Lot Log [id number] - Yesy [id number] Lens Iol - 1 - Lens Iol 21.0 Wf [id number]. [id number] Implanted:Qty: 1 on 10/21/2011 at [facility] Left: Eye [employer] [id number]. [id number]# / [id number] / Log [id number] - Yesy [id number] Lens Iol - 1 - Lens Iol 22.5 Wf [id number]. [id number] Implanted:Qty: 1 on 11/07/2011 at [facility] Right: Eye [employer] 07/08/2016 [id number]. [id number]# / [id number] / Procedures Procedure Name Priority Date/Time Associated Diagnosis Comments GLUCOSE METER Timed 09/26/2024 12:46 PM LEAD SOLUTIONS ARCHITECT SCAN-CARDIAC STRIP 09/26/2024 8: 26 AM LEAD SOLUTIONS ARCHITECT GLUCOSE METER Timed 09/26/2024 7:26 AM LEAD SOLUTIONS ARCHITECT MAGNESIUM Early AM 09/26/2024 6:18 AM LEAD SOLUTIONS ARCHITECT POTASSIUM Early AM 09/26/2024 6:18 AM LEAD SOLUTIONS ARCHITECT GLUCOSE METER Timed 09/25/2024 10:20 PM LEAD SOLUTIONS ARCHITECT MAGNESIUM Timed 09/25/2024 5:34 PM LEAD SOLUTIONS ARCHITECT GLUCOSE METER Timed 09/25/2024 5:11 PM LEAD SOLUTIONS ARCHITECT GLUCOSE METER Timed 09/25/2024 12:00 PM LEAD SOLUTIONS ARCHITECT SCAN-CARDIAC STRIP 09/25/2024 9: 11 AM LEAD SOLUTIONS ARCHITECT GLUCOSE METER Timed 09/25/2024 8:40 AM LEAD SOLUTIONS ARCHITECT POTASSIUM Early AM 09/25/2024 6:32 AM LEAD SOLUTIONS ARCHITECT MAGNESIUM Early AM 09/25/2024 6:32 AM LEAD SOLUTIONS ARCHITECT GLUCOSE METER Timed 09/24/2024 9:27 PM LEAD SOLUTIONS ARCHITECT GLUCOSE METER Timed 09/24/2024 5:06 PM LEAD SOLUTIONS ARCHITECT POTASSIUM Timed 09/24/2024 3:14 PM LEAD SOLUTIONS ARCHITECT GLUCOSE METER Timed 09/24/2024 11:59 AM LEAD SOLUTIONS ARCHITECT SCAN-CARDIAC STRIP 09/24/2024 9: 31 AM LEAD SOLUTIONS ARCHITECT GLUCOSE METER Timed 09/24/2024 8:41 AM LEAD SOLUTIONS ARCHITECT CREATININE Early AM 09/24/2024 6:34 AM LEAD SOLUTIONS ARCHITECT HEMOGLOBIN Early AM 09/24/2024 6:34 AM LEAD SOLUTIONS ARCHITECT WHITE BLOOD COUNT Early AM 09/24/2024 6:3 4 AM LEAD SOLUTIONS ARCHITECT POTASSIUM Early AM 09/24/2024 6:34 AM LEAD SOLUTIONS ARCHITECT MAGNESIUM Early AM 09/24/2024 6:34 AM LEAD SOLUTIONS ARCHITECT GLUCOSE METER Timed 09/23/2024 10:20 PM LEAD SOLUTIONS ARCHITECT SCAN-CARDIAC STRIP 09/23/2024 5: 33 PM LEAD SOLUTIONS ARCHITECT GLUCOSE METER Timed 09/23/2024 4:55 PM LEAD SOLUTIONS ARCHITECT GLUCOSE METER Timed 09/23/2024 11:17 [address] [employer] CARDIAC CORONARY ARTERIES CV DUAL READ Routine 09/23/2024 11:06 AM LEAD SOLUTIONS [address] CT CARDIAC CORONARY ARTERIES RAD DUAL READ Routine 09/23/2024 11:06 AM LEAD SOLUTIONS ARCHITECT GLUCOSE METER Timed 09/23/2024 7:52 AM LEAD SOLUTIONS ARCHITECT MAGNESIUM Early AM 09/23/2024 3:59 AM LEAD SOLUTIONS ARCHITECT CBC W PLT NO DIFF Early AM 09/23/2024 3:5 9 AM LEAD SOLUTIONS ARCHITECT BASIC METABOLIC PANEL Early AM 09/23/2024 3:59 AM LEAD SOLUTIONS ARCHITECT GLUCOSE METER Timed 09/23/2024 3:49 AM LEAD SOLUTIONS ARCHITECT GLUCOSE METER Timed 09/22/2024 11:51 PM LEAD SOLUTIONS ARCHITECT GLUCOSE METER Timed 09/22/2024 9:24 PM LEAD SOLUTIONS ARCHITECT SCAN-CARDIAC STRIP 09/22/2024 8: 06 PM LEAD SOLUTIONS ARCHITECT SCAN-CARDIAC STRIP 09/22/2024 7: 43 PM LEAD SOLUTIONS ARCHITECT MAGNESIUM Timed 09/22/2024 5:40 PM LEAD SOLUTIONS ARCHITECT GLUCOSE METER Timed 09/22/2024 4:27 PM LEAD SOLUTIONS ARCHITECT GLUCOSE METER Timed 09/22/2024 3:53 PM LEAD SOLUTIONS ARCHITECT SCAN CORRESP-EKG RESULTS 09/22/2024 1:55 PM LEAD SOLUTIONS ARCHITECT GLUCOSE METER Timed 09/22/2024 12:30 PM LEAD SOLUTIONS ARCHITECT XR VIDEO SWALLOW W SPEECH Routine 09/22/2024 10:10 AM LEAD SOLUTIONS ARCHITECT GLUCOSE METER Timed 09/22/2024 7:49 AM LEAD SOLUTIONS ARCHITECT SCAN-CARDIAC STRIP 09/22/2024 7: 19 AM LEAD SOLUTIONS ARCHITECT EKG 12 LEAD STAT 09/22/2024 6:25 AM LEAD SOLUTIONS ARCHITECT TROPONIN T (HS) ONE TIME STAT 09/22/2024 6:17 AM LEAD SOLUTIONS ARCHITECT CREATININE Early AM 09/22/2024 4:26 AM LEAD SOLUTIONS ARCHITECT HEMOGLOBIN Early AM 09/22/2024 4:26 AM LEAD SOLUTIONS ARCHITECT WHITE BLOOD COUNT Early AM 09/22/2024 4:2 6 AM LEAD SOLUTIONS ARCHITECT POTASSIUM Early AM 09/22/2024 4:26 AM LEAD SOLUTIONS ARCHITECT MAGNESIUM Early AM 09/22/2024 4:26 AM LEAD SOLUTIONS ARCHITECT GLUCOSE METER Timed 09/22/2024 4:14 AM LEAD SOLUTIONS ARCHITECT GLUCOSE METER Timed 09/21/2024 11:57 PM LEAD SOLUTIONS ARCHITECT US VENOUS LOWER EXTREMITY BILATERAL PORTABLE Routine 09/21/2024 10:47 PM LEAD SOLUTIONS ARCHITECT EXTRA TUBE GOLD/SST Today 09/21/2024 8 :53 PM LEAD SOLUTIONS ARCHITECT LACTATE VENOUS Today 09/21/2024 8:48 PM LEAD SOLUTIONS ARCHITECT SCAN-CARDIAC STRIP 09/21/2024 8: 22 PM LEAD SOLUTIONS ARCHITECT GLUCOSE METER Timed 09/21/2024 8:07 PM LEAD SOLUTIONS [address] CT CHEST PULMONARY EMBOLUS PE ABDOMEN PELVIS W STAT 09/21/2024 7:17 PM LEAD SOLUTIONS ARCHITECT GLUCOSE METER Timed 09/21/2024 4:50 PM LEAD SOLUTIONS ARCHITECT TROPONIN T (HS) ONE TIME Today 09/21/2024 4:15 PM LEAD SOLUTIONS ARCHITECT GLUCOSE METER Timed 09/21/2024 4:07 PM LEAD SOLUTIONS ARCHITECT XR CHEST 1 VIEW PORTABLE JEMMA 09/21/2024 2:43 PM LEAD SOLUTIONS ARCHITECT GLUCOSE METER Timed 09/21/2024 11:56 AM LEAD SOLUTIONS ARCHITECT TROPONIN T (HS) ONE TIME Today 09/21/2024 10:22 AM LEAD SOLUTIONS ARCHITECT EKG 12 LEAD Routine 09/21/2024 10:18 AM LEAD SOLUTIONS ARCHITECT GLUCOSE METER Timed 09/21/2024 7:46 AM LEAD SOLUTIONS ARCHITECT SCAN-CARDIAC STRIP 09/21/2024 7: 30 AM LEAD SOLUTIONS ARCHITECT POTASSIUM Timed 09/21/2024 4:34 AM LEAD SOLUTIONS ARCHITECT BASIC METABOLIC PANEL Early AM 09/21/2024 4:34 AM LEAD SOLUTIONS ARCHITECT CBC W PLT NO DIFF Early AM 09/21/2024 4:3 4 AM LEAD SOLUTIONS ARCHITECT MAGNESIUM Early AM 09/21/2024 4:34 AM LEAD SOLUTIONS ARCHITECT GLUCOSE METER Timed 09/21/2024 3:49 AM LEAD SOLUTIONS ARCHITECT GLUCOSE METER Timed 09/20/2024 11:55 PM LEAD SOLUTIONS ARCHITECT EKG 12 LEAD Routine 09/20/2024 9:57 PM LEAD SOLUTIONS ARCHITECT POTASSIUM STAT 09/20/2024 9:49 PM LEAD SOLUTIONS ARCHITECT GLUCOSE METER Timed 09/20/2024 8:07 PM LEAD SOLUTIONS ARCHITECT GLUCOSE METER Timed 09/20/2024 4:24 PM LEAD SOLUTIONS ARCHITECT POTASSIUM Timed 09/20/2024 3:00 PM LEAD SOLUTIONS ARCHITECT ECHO TTE COMPLETE WO CONTRAST Routine 09/20/2024 12:35 PM LEAD SOLUTIONS ARCHITECT GLUCOSE METER Timed 09/20/2024 11:52 AM LEAD SOLUTIONS ARCHITECT COVID/FLU/RSV PANEL Today 09/20/2024 1 1:30 AM LEAD SOLUTIONS ARCHITECT XR CHEST 1 VIEW PORTABLE Routine 09/20/2024 9:58 AM LEAD SOLUTIONS ARCHITECT CONTINUOUS VIDEO EEG MONITORING Routine 09/20/2024 8:55 AM LEAD SOLUTIONS ARCHITECT GLUCOSE METER Timed 09/20/2024 8:21 AM LEAD SOLUTIONS ARCHITECT SCAN-CARDIAC STRIP 09/20/2024 7: 41 AM LEAD SOLUTIONS ARCHITECT PROCALCITONIN Early AM 09/20/2024 4:43 AM LEAD SOLUTIONS ARCHITECT MAGNESIUM Early AM 09/20/2024 4:39 AM LEAD SOLUTIONS ARCHITECT CO2,TOTAL Early AM 09/20/2024 4:39 AM LEAD SOLUTIONS ARCHITECT WHITE BLOOD COUNT Early AM 09/20/2024 4:3 9 AM LEAD SOLUTIONS ARCHITECT HEMOGLOBIN Early AM 09/20/2024 4:39 AM LEAD SOLUTIONS ARCHITECT CREATININE Early AM 09/20/2024 4:39 AM LEAD SOLUTIONS ARCHITECT SODIUM Early AM 09/20/2024 4:39 AM LEAD SOLUTIONS ARCHITECT POTASSIUM Early AM 09/20/2024 4:39 AM LEAD SOLUTIONS ARCHITECT CK TOTAL Timed 09/20/2024 4:39 AM LEAD SOLUTIONS ARCHITECT TRIGLYCERIDES Timed 09/20/2024 4:39 AM LEAD SOLUTIONS ARCHITECT LEVETIRACETAM (KEPPRA) Timed 4:31 AM LEAD SOLUTIONS ARCHITECT GLUCOSE METER Timed 09/20/2024 4:14 AM LEAD SOLUTIONS ARCHITECT EKG 12 LEAD STAT 09/20/2024 1:43 AM LEAD SOLUTIONS ARCHITECT GLUCOSE METER Timed 09/20/2024 12:09 AM LEAD SOLUTIONS ARCHITECT GLUCOSE METER Timed 09/19/2024 8:02 PM LEAD SOLUTIONS ARCHITECT BLOOD CULTURE Today 09/19/2024 7:15 PM LEAD SOLUTIONS ARCHITECT BLOOD CULTURE Today 09/19/2024 7:04 PM LEAD SOLUTIONS ARCHITECT MAGNESIUM Timed 09/19/2024 7:04 PM LEAD SOLUTIONS ARCHITECT URINALYSIS MICROSCOPIC Timed 4:36 PM LEAD SOLUTIONS ARCHITECT UA W/ SEDIMENT EXAM REFLEXED PER CRITERIA Today 09/19/2024 4:36 PM LEAD SOLUTIONS ARCHITECT GLUCOSE METER Timed 09/19/2024 4:20 PM LEAD SOLUTIONS ARCHITECT SCAN-CARDIAC STRIP 09/19/2024 3: 51 PM LEAD SOLUTIONS ARCHITECT MR HEAD BRAIN WWO Routine 09/19/2024 1:4 7 PM LEAD SOLUTIONS ARCHITECT MRSA/SA PCR Today 09/19/2024 12:31 PM LEAD SOLUTIONS ARCHITECT GLUCOSE METER Timed 09/19/2024 12:14 PM LEAD SOLUTIONS ARCHITECT SCAN-CARDIAC STRIP 09/19/2024 8: 06 AM LEAD SOLUTIONS ARCHITECT MAGNESIUM Early AM 09/19/2024 6:09 AM LEAD SOLUTIONS ARCHITECT POTASSIUM STAT 09/19/2024 6:09 AM LEAD SOLUTIONS ARCHITECT ALT (SGPT) STAT 09/19/2024 6:09 AM LEAD SOLUTIONS ARCHITECT AST (SGOT) STAT 09/19/2024 6:09 AM LEAD SOLUTIONS ARCHITECT BILIRUBIN DIRECT STAT 09/19/2024 6:09 AM LEAD SOLUTIONS ARCHITECT PROTIME-INR JEMMA 09/19/2024 6:09 AM LEAD SOLUTIONS ARCHITECT CBC WITH AUTO DIFFERENTIAL STAT 09/19/2024 6:08 AM LEAD SOLUTIONS ARCHITECT CBC WITH AUTO DIFFERENTIAL STAT 09/19/2024 6:08 AM LEAD SOLUTIONS ARCHITECT GLUCOSE METER Timed 09/19/2024 6:07 AM LEAD SOLUTIONS ARCHITECT SPUTUM CULTURE, STAIN Today 09/19/2024 4:04 AM LEAD SOLUTIONS ARCHITECT GLUCOSE METER Timed 09/19/2024 2:57 AM LEAD SOLUTIONS ARCHITECT HEPATIC FUNCTION PANEL STAT 2:41 AM LEAD SOLUTIONS ARCHITECT PROTIME-INR STAT 09/19/2024 2:41 AM LEAD SOLUTIONS ARCHITECT BASIC METABOLIC PANEL STAT 09/19/2024 2:41 AM LEAD SOLUTIONS ARCHITECT XR ABDOMEN 1 VIEW PORTABLE STAT 09/18/2024 11:18 PM LEAD SOLUTIONS ARCHITECT ISTAT EG6+ ABG Timed 09/18/2024 10:45 PM LEAD SOLUTIONS ARCHITECT MR HEAD RAPID CODE STROKE LTD BRAIN WO CONTRAST JEMMA 09/18/2024 10:28 PM LEAD SOLUTIONS ARCHITECT XR CHEST 1 VIEW PORTABLE JEMMA 09/18/2024 9:29 PM LEAD SOLUTIONS ARCHITECT EKG 12 LEAD STAT 09/18/2024 9:11 PM [address]AD SOLUTIONS [address] ANGIO HEAD NECK CAROTID STROKE PROTOCOL BRET CANDIDAT STAT 09/18/2024 8:54 PM LEAD SOLUTIONS ARCHITECT CT HEAD STROKE PROTOCOL WITHOUT CONTRAST STAT 09/18/2024 8:54 PM LEAD SOLUTIONS ARCHITECT CWS PATH REVIEW HEMATOLOGY STAT 09/18/2024 8:49 PM LEAD SOLUTIONS ARCHITECT RED CELL MORPHOLOGY STAT 09/18/2024 8 :49 PM LEAD SOLUTIONS ARCHITECT PLATELET ESTIMATE STAT 09/18/2024 8:4 9 PM LEAD SOLUTIONS ARCHITECT MANUAL DIFFERENTIAL STAT 09/18/2024 8 :49 PM LEAD SOLUTIONS ARCHITECT CBC WITH AUTO DIFFERENTIAL STAT 09/18/2024 8:49 PM LEAD SOLUTIONS ARCHITECT BASIC METABOLIC PANEL STAT 09/18/2024 8:49 PM LEAD SOLUTIONS ARCHITECT PROTIME-INR STAT 09/18/2024 8:49 PM LEAD SOLUTIONS ARCHITECT CBC WITH AUTO DIFFERENTIAL STAT 09/18/2024 8:49 PM LEAD SOLUTIONS ARCHITECT GLUCOSE METER Timed 09/18/2024 8:40 PM LEAD SOLUTIONS ARCHITECT SCAN-CT INTERPRETATION 12:00 AM LEAD SOLUTIONS ARCHITECT SCAN-RADIOLOGY REPORT 09/08/2024 12:00 AM LEAD SOLUTIONS ARCHITECT SCAN-CT INTERPRETATION 12:00 AM LEAD SOLUTIONS ARCHITECT HEMOGLOBIN A1C MONITORING (POCT) Routine 07/08/2024 7:47 AM LEAD SOLUTIONS ARCHITECT Type 2 diabetes mellitus with diabetic neuropathy, without long-term current use of insulin (HC) XR DXA BONE DENSITY 2 SITES AXIAL AND 1 SITE PERIPHERAL Routine 04/06/2024 2:24 PM CDT Postmenopausal from Last 3 Months or Most Recently Relevant to Health Maintenance Results * (ABNORMAL) GLUCOSE METER (09/26/2024 12:46 PM LEAD SOL[employer] ARCHIT[employer]) Only the most recent of42 resultswithin the time period is included. GLUCOSE METER 190(H) 65 - 100 mg/dL 09/26/2024 12:46 PM [employer] ARCH[employer] [facility] Blood BLOOD SPECIMEN / Unknown 09/26/2024 12:46 PM [employer] 09/26/2024 12:46 PM [employer] AR[employer] us Shelly Perkins MD CHEMISTRY F inal Result [facility] SENDOUT INTERNAL ZIP [phone] [place] [address] * SCAN-CARDIAC STRIP (09/26/2024 8:26 AM LEAD SOLUTIONS ARCHITECT) us Scanner OTHER Final Result * POTASSIUM (09/26/2024 6:18 AM LEAD SOLUTIONS ARCHITECT) Only the most recent of10 resultswithin the time period is included. POTASSIUM 4.0 3.5 - 5.1 mmol/L 09/26/2024 6:59 AM LEAD SOLUTIONS ARCHITECT [facility] Blood BLOOD SPECIMEN / Unknown Venipuncture / Unknown 09/26/2024 6:18 AM LEAD SOLUTIONS ARCHITECT 09/26/2024 6:30 AM LEAD SOLUTIONS ARCHITECT Mariam Martinez RN CHEMISTRY Final Result Performing Organization Address [facility] de Phone Number [facility] S[address]OUT [address] [phone] [place] [address] * MAGNESIUM (09/26/2024 6:18 AM LEAD SOLUTIONS ARCHITECT) Only the most recent of11 resultswithin the time period is included. MAGNESIUM 2.1 1.6 - 2.4 mg/dL 09/26/2024 7:03 AM LEAD SOLUTIONS ARCHITECT [facility] Blood BLOOD SPECIMEN / Unknown Venipuncture / Unknown 09/26/2024 6:18 AM LEAD SOLUTIONS ARCHITECT 09/26/2024 6:30 AM LEAD SOLUTIONS ARCHITECT Mariam Martinez RN CHEMISTRY Final Result Performing Organization Address [facility] Phone Number [facility] S[address]OUT [address] [phone] [place] [address] * SCAN-CARDIAC STRIP (09/25/2024 9:11 AM LEAD SOLUTIONS ARCHITECT) us Scanner OTHER Final Result * SCAN-CARDIAC STRIP (09/24/2024 9:31 AM LEAD SOLUTIONS ARCHITECT) us Scanner OTHER Final Result * WHITE BLOOD COUNT (09/24/2024 6:34 AM LEAD SOLUTIONS ARCHITECT) Only the most recent of3 resultswithin the time period is included. WHITE BLOOD COUNT 7.0 4.5 - 11.0 thou/cu mm 09/24/2024 7:23 AM LEAD SOLUTIONS ARCHITECT [facility] NRBC 0.0 % 09/24/2024 7:23 AM LEAD SOLUTIONS ARCHITECT [facility] ABS NRBC 0.0 thou /cu mm 09/24/2024 7:23 AM LEAD SOLUTIONS ARCHITECT [facility] Blood BLOOD SPECIMEN / Unknown Venipuncture / Unknown 09/24/2024 6:34 AM LEAD SOLUTIONS ARCHITECT 09/24/2024 7:11 AM LEAD SOLUTIONS ARCHITECT us Shelly Perkins MD HEMATOLOGY F inal Result [facility] SENDOUT [address]NAL [phone] [place] [phone] * (ABNORMAL) HEMOGLOBIN (09/24/2024 6:34 AM LEAD SOLUTIONS ARCHITECT) Only the most recent of3 resultswithin the time period is included. HEMOGLOBIN 10.7(L) 12.0 - 16.0 g/dL 09/24/2024 7:23 AM LEAD SOLUTIONS ARCHITECT [facility] MCV 93 80 - 100 fL 09/24/2024 7:[address] [facility] Blood BLOOD SPECIMEN / Unknown Venipuncture / Unknown 09/24/2024 6:34 AM LEAD SOLUTIONS ARCHITECT 09/24/2024 7:11 AM LEAD SOLUTIONS ARCHITECT us Shelly Perkins MD HEMATOLOGY F inal Result Performing Organization Address City/[facility]/ZIP Co de Phone Number [facility] SENDOUT INTERNAL ZIP [phone] [place] [phone] * (ABNORMAL) CREATININE (09/24/2024 6:34 AM LEAD SOLUTIONS ARCHITECT) Only the most recent of3 resultswithin the time period is included. Pathologist [facility] eGFR >90 >90 mL/min/1.7 3m2 09/24/2024 7:[address] [facility] Comment:As of 2021, eG FR is calculated by the CKD-EPI creatinine equation without race adjustment. eGFR can be influenced by muscle mass, exercise, and diet. The reported eGFR is an estimation only and is only applicable if the renal function is stable. CREATININE 0.48(L) 0.50 - 0.90 mg/dL 09/24/2024 7:[address] [facility] Blood BLOOD SPECIMEN / Unknown Venipuncture / Unknown 09/24/2024 6:34 AM LEAD SOLUTIONS ARCHITECT 09/24/2024 7:11 AM LEAD SOLUTIONS ARCHITECT us Shelly Perkins MD CHEMISTRY F inal Result [facility] SENDOUT INTERNAL [address] [phone] [place] [address] * SCAN-CARDIAC STRIP (09/23/2024 5:33 PM LEAD SOLUTIONS ARCHITECT) us Scanner OTHER Final Result * CT CARDIAC CORONARY ARTERIES CV DUAL READ (09/23/2024 11:06 AM LEAD SOLUTIONS ARCHITECT) Anatomical Region Laterality Modality HEART Computed Tomogra phy, Other Narrative 09/23/2024 3:47 PM LEAD SOLUTIONS ARCHITECT Results are automatically released to your [employer] account once available, in compliance with federal regulations. This means that you may see your results before your provider has had a chance to review them. Please allow 2-3 business days for your provider to comment on the results. THIS IS THE CARDIOLOGY REPORT OF A DUAL READ STUDY. READ THE SEPARATE RADIOLOGY REPORT FOR POTENTIAL INCIDENTAL FINDINGS. REPORTS MAY BE FINALIZED AT DIFFERENT TIMES. CT CARDIAC CORONARY, 09/23/2024 INDICATION: Chest pain, coronary artery disease. CONCLUSIONS: See separate radiology report for non-cardiac findings. Severe multivessel [place] coronary artery disease involving the left anterior descending artery, left circumflex, first obtuse marginal, ramus intermedius, and right coronary artery. TA to LAD is widely patent. Vein graft to ramus intermedius is widely patent. Vein graft to obtuse marginal branch and sequentially to the right PDA is widely patent. TECHNIQUE: Calcium score was not performed. ECG-gated CT angiogram of the heart with intravenous contrast Omnipaque 350, 106 cc, flow rate 5, was performed on a Siemens SOMATOM Force CT scanner. The imaging protocol was individualized to minimize radiation exposure. The following ECG-gated acquisition protocol was used: Systole. Pulse range 280-400 msec. Best phase: 300 msec. Min dose: Yes. Scan parameters were as follows: Tube potential: 70 KV. Tube Current: 5231 mAs. Total DLP: 228 mGy*cm; mSv: 3.2; CTDI: 12.2. Images were reconstructed at a slice thickness of 0.6 mm with 0.3 mm overlap. Image post processing was performed on a [employer]rea Workstation. The patient received the following medications: 20 mg of IV metoprolol and 0.8 mg sublingual nitroglycerin spray. Average heart rate during the study was 72 BPM. There were no complications. TECHNICAL QUALITY: Good. FINDINGS: CORONARY ARTERIES: Dominance: Right. Left main artery: The distal left main has mild stenosis, 25-49%. Left anterior descending artery: The LAD is severely calcified with severe stenosis (greater than 70%) in its proximal to mid segment. Left circumflex artery: The mid circumflex is severely diseased. The first obtuse marginal has severe stenosis. Right coronary artery: The RCA is severely calcified with severe stenosis in its proximal to mid segment. Diffuse disease in the distal segment. GRAFTS: TA to LAD graft is widely patent. Saphenous vein graft to the ramus intermedius graft is widely patent. The saphenous vein graft to the obtuse marginal and then sequentially to the right PDA is widely patent. CARDIAC: Grossly normal left ventricular chamber size. Grossly normal right ventricular chamber size. The left atrium is enlarged. Grossly intact interatrial septum. No left atrial appendage thrombus. Mild aortic valve calcification. Severe mitral annular calcification. No pericardial effusion. VESSELS: Normal size aortic root and visualized portions of the ascending and descending thoracic aorta. Mild aortic atherosclerosis. Corbin Coleman MD [facility] AHK/car Susan MALAVE CT Final Result * CT CARDIAC CORONARY ARTERIES RAD DUAL READ (09/23/2024 11:06 AM LEAD SOLUTIONS ARCHITECT) Anatomical Region Laterality Modality HEART Computed Tomogra phy, Other 09/23/2024 11:0 6 AM LEAD SOLUTIONS ARCHITECT Impressions 09/23/2024 12:48 PM LEAD SOLUTIONS ARCHITECT 1. Please refer to no experience's dictation for the cardiac CT report. 2. No new significant incidental extracardiac findings. Narrative 09/23/2024 12:48 PM LEAD SOLUTIONS ARCHITECT For Patients: As a result of the 21st Century Cures Act, medical imaging exams and procedure reports are released immediately into your electronic medical record. You may view this report before your referring provider. If you have questions, please contact your health care provider. *THIS IS THE RADIOLOGY OVER READ REPORT OF A DUAL READ STUDY. READ THE SEPARATE CARDIOLOGY REPORT FOR CARDIOVASCULAR FINDINGS. REPORTS MAY BE FINALIZED AT DIFFERENT TIMES.* EXAM: OVERREAD: DETAILED [facility] EXTRACARDIAC OVERREAD OF CARDIAC CT LOCATION: [facility] MEDICAL IMAGING DATE: 09/23/2024 INDICATION: Chest pain/anginal equiv, ECGs and troponins normal TECHNIQUE: Dose reduction techniques were used. COMPARISON: CT 09/21/2024. FINDINGS: LIMITED CHEST: Chronic fibrotic interstitial changes with patchy airspace opacities in the bilateral lung bases. Small bilateral pleural effusions, right greater than left. Calcified granuloma left upper lobe. Sternotomy. Chronic left lower rib fracture. LIMITED MEDIASTINUM: Epicardial pacer wires. LIMITED UPPER ABDOMEN: Cholecystectomy. Procedure Note Godfrey Quigley MD - 09/23/2024 For Patients: As a result of the Cures Act, medical imagingexams and procedure reports are released immediately into your electronicmedical record. You may view this report before your referring provider.If you have questions, please contact your health care provider. *THIS IS THE RADIOLOGY OVER READ REPORT OF A DUAL READ STUDY. READ THESEPARATE CARDIOLOGY REPORT FOR CARDIOVASCULAR FINDINGS. REPORTS MAY BEFINALIZED AT DIFFERENT TIMES.* EXAM: OVERREAD: DETAILED [facility] EXTRACARDIAC OVERREAD OFCARDIAC CT LOCATION: [facility] MEDICAL IMAGING DATE: 09/23/2024 INDICATION: Chest pain/anginal equiv, ECGs and troponins normal TECHNIQUE: Dose reduction techniques were used. COMPARISON: CT 09/21/2024. FINDINGS: LIMITED CHEST: Chronic fibrotic interstitial changes with patchy airspaceopacities in the bilateral lung bases. Small bilateral pleural effusions,right greater than left. Calcified granuloma left upper lobe. Sternotomy.Chronic left lower rib fracture. LIMITED MEDIASTINUM: Epicardial pacer wires. LIMITED UPPER ABDOMEN: Cholecystectomy. IMPRESSION: 1. Please refer to no experience's dictation for the cardiac CT report. 2. No new significant incidental extracardiac findings. Susan MALAVE CT Final Result * (ABNORMAL) CBC W PLT NO DIFF (09/23/2024 3:59 AM LEAD SOLUTIONS ARCHITECT) Only the most recent of2 resultswithin the time period is included. WHITE BLOOD COUNT 9.5 4.5 - 11.0 thou/cu mm 09/23/2024 4:[address] [facility] RED BLOOD COUNT 3.25(L) 4.00 - 5.20 mil/cu mm 09/23/2024 4:[address] [facility] HEMOGLOBIN 10.5(L) 12.0 - 16.0 g/dL 09/23/2024 4:[address] [facility] HEMATOCRIT 30.7(L) 33.0 - 51.0 % 09/23/2024 4:[address] [facility] MCV 95 80 - 100 fL 09/23/2024 4:13 AM [facility] MCH 32.3 26.0 - 34.0 pg 09/23/2024 4:13 AM [facility] MCHC 34.2 32.0 - 36.0 g/dL 09/23/2024 4:[address] [facility] RDW 13.7 11.5 - 15.5 % 09/23/2024 4:[address] [facility] PLATELET COUNT 263 140 - 440 thou/cu mm 09/23/2024 4:13 AM [facility] MPV 9.7 6.5 - 11.0 fL 09/23/2024 4:[address] [facility] NRBC 0.0 % 09/23/2024 4:13 AM [facility] ABS NRBC 0.0 thou /cu mm 09/23/2024 4:[address] [facility] Blood BLOOD SPECIMEN / Unknown Venipuncture / Unknown 09/23/2024 3:59 AM LEAD SOLUTIONS ARCHITECT 09/23/2024 4:11 AM [facility] us Shelly Perkins MD HEMATOLOGY F inal Result [facility] SENDOUT INTERNAL ZIP [address] [place] [phone] * (ABNORMAL) BASIC METABOLIC PANEL (09/23/2024 3:59 AM [facility]) Only the most recent of4 resultswithin the time period is included. Pathologist [facility] SODIUM 141 136 - 145 mmol/L 09/23/2024 4:[address] [facility] POTASSIUM 3.7 3.5 - 5.1 mmol/L 09/23/2024 4:[address] [facility] CHLORIDE 107 98 - 107 mmol/L 09/23/2024 4:[address] [facility] CO2,TOTAL 24 22 - 29 mmol/L 09/23/2024 4:[address] [facility] ANION GAP 10 5 - 18 09/23/2024 4:[address] [facility] GLUCOSE 128(H) 70 - 99 mg/dL 09/23/2024 4:[address] [facility] CALCIUM 8.6(L) 8.8 - 10.4 mg/dL 09/23/2024 4:[address] [facility] Comment: Reference ranges for this test were updated on 06/01/2024 to reflect our healthy population more accurately. Reference range changes are not retroactively applied to results, but previous results using the same methodology can be interpreted in the context of the new reference range. BUN 6(L) 8 - 23 mg/dL 09/23/2024 4:[address] [facility] CREATININE 0.54 0.50 - 0.90 mg/dL 09/23/2024 4:[address] [facility] BUN/CREAT RATIO 11 10 - 20 4:[address] [facility] eGFR >90 >90 mL/min/1. 73m2 09/23/2024 4:[address] [facility] Comment:As of 2021, eG FR is calculated by the CKD-EPI creatinine equation without race adjustment. eGFR can be influenced by muscle mass, exercise, and diet. The reported eGFR is an estimation only and is only applicable if the renal function is stable. Blood BLOOD SPECIMEN / Unknown Venipuncture / Unknown 09/23/2024 3:59 AM LEAD SOLUTIONS ARCHITECT 09/23/2024 4:11 AM LEAD SOLUTIONS ARCHITECT us Susan MALAVE CHEMISTRY Final Result [facility] SENDOUT INTERNAL [address] [phone] [place] [address] * SCAN-CARDIAC STRIP (09/22/2024 8:06 PM [facility]) us Scanner OTHER Final Result * SCAN-CARDIAC STRIP (09/22/2024 7:43 PM LEAD SOLUTIONS ARCHITECT) us Scanner OTHER Final Result * SCAN CORRESP-EKG RESULTS (09/22/2024 1:55 PM LEAD SOLUTIONS ARCHITECT) Narrative 09/22/2024 1:55 PM LEAD SOLUTIONS ARCHITECT Ordered by an unspecified provider. us Other Clinical Staff OTHER Final Resul t * XR VIDEO SWALLOW AND TREATMENT W SPEECH (09/22/2024 10:10 AM LEAD SOLUTIONS ARCHITECT) Anatomical Region Laterality Modality Esophagus Computed Radiogr aphy 09/22/2024 10:1 0 AM LEAD SOLUTIONS ARCHITECT Impressions 09/22/2024 10:44 AM LEAD SOLUTIONS ARCHITECT Swallow study with Speech Pathology using multiple barium thicknesses. Deep penetration of thin liquids without arcadio aspiration. Mildly thickened liquids, pudding, and solid textures swallowed without evidence for airway compromise. Minor pharyngeal residue. Please see speech pathology report for additional details and dietary recommendations. Narrative 09/22/2024 10:44 AM LEAD SOLUTIONS ARCHITECT For Patients: As a result of the Cures Act, medical imaging exams and procedure reports are released immediately into your electronic medical record. You may view this report before your referring provider. If you have questions, please contact your health care provider. EXAM: XR VIDEO SWALLOW AND TREATMENT W SPEECH LOCATION: [facility] MEDICAL IMAGING DATE: 09/22/2024 INDICATION: Recent stroke. Concern for aspiration. COMPARISON: None. TECHNIQUE: Routine swallow study with speech pathology using multiple barium thicknesses. RADIATION DOSE: DAP 327.8 uGym2 Procedure Note Aiden Hilario MD - 09/22/2024 For Patients: As a result of the Cures Act, medical imagingexams and procedure reports are released immediately into your electronicmedical record. You may view this report before your referring provider.If you have questions, please contact your health care provider. EXAM: XR VIDEO SWALLOW AND TREATMENT W SPEECH LOCATION: [facility] MEDICAL [facility]AG[facility] DATE: 09/22/2024 INDICATION: Recent stroke. Concern for aspiration. COMPARISON: None. TECHNIQUE: Routine swallow study with speech pathology using multiplebarium thicknesses. RADIATION DOSE: DAP 327.8 uGym2 IMPRESSION: Swallow study with Speech Pathology using multiple barium thicknesses. Deep penetration of thin liquids without arcadio aspiration. Mildlythickened liquids, pudding, and solid textures swallowed without evidencefor airway compromise. Minor pharyngeal residue. Please see speech pathology report for additional details and dietaryrecommendations. us Shelly Perkins MD FLUOROSCOPY F inal Result * SCAN-CARDIAC STRIP (09/22/2024 7:19 AM LEAD SOLUTIONS ARCHITECT) us Scanner OTHER Final Result * EKG 12 LEAD (09/22/2024 6:25 AM LEAD SOLUTIONS ARCHITECT) Only the most recent of5 resultswithin the time period is included. Interpretation Normal sinus rhythm Low voltage QRS Possible Inferior infarct (cited on or before 08-Sep-2022) Abnormal ECG When compared with ECG of 21-Sep-2024 10:18, Borderline criteria for Anterior infarct are no longer Present Borderline criteria for Anterolateral infarct are no longer Present BEYOND NOW Ventricular Rate 86 BPM BEYOND NOW Atrial Rate 86 BPM BEYOND NOW P-R Interval 176 ms BEYOND NOW QRS Duration 84 ms BEYOND NOW QT 376 ms BEYOND NOW QTc 449 ms BEYOND NOW P Devol 56 degrees BEYOND NOW R Devol 0 degrees BEYOND NOW T Devol 34 degrees BEYOND NOW 09/22/2024 6:25 AM LEAD SOLUTIONS ARCHITECT 09/22/2024 9:08 AM LEAD SOLUTIONS ARCHITECT Angel Molina MD EKG ORD Final Re sult BEYOND NOW [place], [place] * (ABNORMAL) TROPONIN T (HS) ONE TIME (09/22/2024 6:17 AM LEAD SOLUTIONS ARCHITECT) Only the most recent of3 resultswithin the time period is included. TROPONIN T HS 48(H) 6-10 ng/L ng/L 09/22/2024 6:51 AM LEAD SOLUTIONS ARCHITECT [facility] Blood BLOOD SPECIMEN / Unknown Butterfly / Unknown 09/22/2024 6:17 AM LEAD SOLUTIONS ARCHITECT 09/22/2024 6:22 AM LEAD SOLUTIONS ARCHITECT Narrative [facility] - 09/22/2024 6:51 AM LEAD SOLUTIONS ARCHITECT hs-cTnT (Elecsys Troponin T Gen 5) concentration [...] low risk in emergency department patient population. us Angel Molina MD CHEMISTRY Final Re sult [facility] SENDOUT INTERNAL ZIP [phone] [place] [address] * US VENOUS LOWER EXTREMITY BILATERAL PORTABLE (09/21/2024 10:47 PM LEAD SOLUTIONS ARCHITECT) Anatomical Region Laterality Modality LEGS, LEG L, LEG R Ultrasound 09/21/2024 10:4 7 PM LEAD SOLUTIONS ARCHITECT Impressions 09/21/2024 11:06 PM LEAD SOLUTIONS ARCHITECT 1. No deep venous thrombosis in the bilateral lower extremities. Narrative 09/21/2024 11:06 PM LEAD SOLUTIONS ARCHITECT For Patients: As a result of the Cures Act, medical imaging exams and procedure reports are released immediately into your electronic medical record. You may view this report before your referring provider. If you have questions, please contact your health care provider. EXAM: US VENOUS LOWER EXTREMITY BILATERAL PORTABLE LOCATION: [facility] MEDICAL IMAGING DATE: 09/21/2024 INDICATION: Bilateral lower extremity pain, swelling and edema. COMPARISON: None. TECHNIQUE: Venous Duplex ultrasound of bilateral lower extremities with and without compression, augmentation and duplex. Color flow and spectral Doppler with waveform analysis performed. FINDINGS: Exam includes the common femoral, femoral, popliteal veins as well as segmentally visualized deep calf veins and greater saphenous vein. RIGHT: No deep vein thrombosis. No superficial thrombophlebitis. No popliteal cyst. LEFT: No deep vein thrombosis. No superficial thrombophlebitis. No popliteal cyst. Procedure Note Pb Danielle MD - 09/21/2024 For Patients: As a result of the Cures Act, medical imagingexams and procedure reports are released immediately into your electronicmedical record. You may view this report before your referring provider.If you have questions, please contact your health care provider. EXAM: US VENOUS LOWER EXTREMITY BILATERAL PORTABLE LOCATION: [facility] MEDICAL IMAGING DATE: 09/21/2024 INDICATION: Bilateral lower extremity pain, swelling and edema. COMPARISON: None. TECHNIQUE: Venous Duplex ultrasound of bilateral lower extremities withand without compression, augmentation and duplex. Color flow and spectralDoppler with waveform analysis performed. FINDINGS: Exam includes the common femoral, femoral, popliteal veins aswell as segmentally visualized deep calf veins and greater saphenous vein. RIGHT: No deep vein thrombosis. No superficial thrombophlebitis. Nopopliteal cyst. LEFT: No deep vein thrombosis. No superficial thrombophlebitis. Nopopliteal cyst. IMPRESSION: 1. No deep venous thrombosis in the bilateral lower extremities. us Kellen Truong NP US Fin al Result * EXTRA TUBE GOLD/SST (09/21/2024 8:53 PM LEAD SOLUTIONS ARCHITECT) Blood BLOOD SPECIMEN / Unknown Non-Lab Venipuncture / Unknown 09/21/2024 8:53 PM LEAD SOLUTIONS ARCHITECT 09/21/2024 8:53 PM LEAD SOLUTIONS ARCHITECT us Doctor Unknown LABORATORY Final Result [facility] SENDOUT INTERNAL ZIP [phone] [place] [address] * LACTATE VENOUS (09/21/2024 8:48 PM LEAD SOLUTIONS ARCHITECT) LACTATE,VENOUS 1.3 0.5 - 2.0 mmol/L 09/21/2024 9:21 PM LEAD SOLUTIONS ARCHITECT [facility] Blood BLOOD SPECIMEN / Unknown Venipuncture / Unknown 09/21/2024 8:48 PM LEAD SOLUTIONS ARCHITECT 09/21/2024 8:52 PM LEAD SOLUTIONS ARCHITECT us Kellen Truong MACHINE [employer] MECH[employer]IC CHEMISTRY Fin al Result Performing Organization Address City/[facility]/ZIP Co de Phone Number [facility] SENDOUT INTERNAL ZIP [phone] [place] [address] * SCAN-CARDIAC STRIP (09/21/2024 8:22 PM LEAD SOLUTIONS ARCHITECT) us Scanner OTHER Final Result * CT CHEST PULMONARY EMBOLUS PE ABDOMEN PELVIS W (09/21/2024 7:17 PM LEAD SOLUTIONS ARCHITECT) Anatomical Region Laterality Modality CHEST, Abdomen, Pelvis Computed Tomography 09/21/2024 7:17 PM LEAD SOLUTIONS ARCHITECT Impressions 09/21/2024 8:05 PM LEAD SOLUTIONS ARCHITECT 1. No pulmonary embolism. 2. Small bilateral effusions with bibasilar atelectasis. Additional patchy airspace opacities noted at the lung bases which may represent pneumonia or atelectasis. 3. Chronic interstitial fibrotic changes with Mosaic attenuation of the lungs suggesting small airway disease. 4. No acute findings in the abdomen and pelvis. Narrative 09/21/2024 8:05 PM LEAD SOLUTIONS ARCHITECT For Patients: As a result of the Cures Act, medical imaging exams and procedure reports are released immediately into your electronic medical record. You may view this report before your referring provider. If you have questions, please contact your health care provider. EXAM: CT CHEST PULMONARY EMBOLUS PE ABDOMEN PELVIS W LOCATION: [facility] MEDICAL IMAGING DATE: 09/21/2024 INDICATION: Pulmonary Embolism Abdominal or pelvic pain COMPARISON: None. TECHNIQUE: CT chest pulmonary angiogram and routine CT abdomen pelvis with IV contrast. Arterial phase through the chest and venous phase through the abdomen and pelvis. Multiplanar reformats and MIP reconstructions were performed. Dose reduction techniques were used. CONTRAST: IOHEXOL 350 MG IODINE/ML IV 500 ML BOTTLE: 90mL FINDINGS: ANGIOGRAM CHEST: Pulmonary arteries are normal caliber and negative for pulmonary emboli. Thoracic aorta is negative for dissection. No CT evidence of right heart strain. LUNGS AND PLEURA: Chronic interstitial lung changes with fibrotic changes are diffuse groundglass opacity. Small bilateral effusions with bibasilar atelectasis. Increased patchy airspace opacities within both lower lobes. MEDIASTINUM/AXILLAE: Heart is normal in size. No mediastinal, axillary, or hilar adenopathy. Small low-attenuation area noted along the trachea which probably represents debris. CORONARY ARTERY CALCIFICATION: Severe. HEPATOBILIARY: Liver within normal limits. Cholecystectomy. PANCREAS: Normal. SPLEEN: Normal. ADRENAL GLANDS: No significant nodules. KIDNEYS/BLADDER: No significant mass, stone, or hydronephrosis. BOWEL: Diverticulosis of the colon. No acute inflammatory change. No obstruction. LYMPH NODES: Normal. VASCULATURE: Severe atherosclerotic disease of the abdominal aorta branches. PELVIC ORGANS: Uterus within normal limits. Laura catheter noted within the bladder. MUSCULOSKELETAL: Status post surgical fixation of left femur. Degenerative changes of spine and hips. Mild compression deformity of L4. Severe compression deformity of T12 and L1. Procedure Note Jesse Solis MD - 09/21/2024 For Patients: As a result of the 21st Century Cures Act, medical imagingexams and procedure reports are released immediately into your electronicmedical record. You may view this report before your referring provider.If you have questions, please contact your health care provider. EXAM: CT CHEST PULMONARY EMBOLUS PE ABDOMEN PELVIS W LOCATION: [facility] MEDICAL IMAGING DATE: 09/21/2024 INDICATION: Pulmonary Embolism Abdominal or pelvic pain COMPARISON: None. TECHNIQUE: CT chest pulmonary angiogram and routine CT abdomen pelvis withIV contrast. Arterial phase through the chest and venous phase through theabdomen and pelvis. Multiplanar reformats and MIP reconstructions wereperformed. Dose reduction techniques were used. CONTRAST: IOHEXOL 350 MG IODINE/ML IV 500 ML BOTTLE: 90mL FINDINGS: ANGIOGRAM CHEST: Pulmonary arteries are normal caliber and negative forpulmonary emboli. Thoracic aorta is negative for dissection. No CTevidence of right heart strain. LUNGS AND PLEURA: Chronic interstitial lung changes with fibrotic changesare diffuse groundglass opacity. Small bilateral effusions with bibasilaratelectasis. Increased patchy airspace opacities within both lowerlobes. MEDIASTINUM/AXILLAE: Heart is normal in size. No mediastinal, axillary, orhilar adenopathy. Small low-attenuation area noted along the tracheawhich probably represents debris. CORONARY ARTERY CALCIFICATION: Severe. HEPATOBILIARY: Liver within normal limits. Cholecystectomy. PANCREAS: Normal. SPLEEN: Normal. ADRENAL GLANDS: No significant nodules. KIDNEYS/BLADDER: No significant mass, stone, or hydronephrosis. BOWEL: Diverticulosis of the colon. No acute inflammatory change. Noobstruction. LYMPH NODES: Normal. VASCULATURE: Severe atherosclerotic disease of the abdominal aortabranches. PELVIC ORGANS: Uterus within normal limits. Laura catheter noted withinthe bladder. MUSCULOSKELETAL: Status post surgical fixation of left femur. Degenerativechanges of spine and hips. Mild compression deformity of L4. Severecompression deformity of T12 and L1. IMPRESSION: 1. No pulmonary embolism. 2. Small bilateral effusions with bibasilar atelectasis. Additionalpatchy airspace opacities noted at the lung bases which may representpneumonia or atelectasis. 3. Chronic interstitial fibrotic changes with Mosaic attenuation of thelungs suggesting small airway disease. 4. No acute findings in the abdomen and pelvis. us Shelly Perkins MD CT F inal Result * XR CHEST 1 VIEW PORTABLE (09/21/2024 2:43 PM LEAD SOLUTIONS ARCHITECT) Only the most recent of3 resultswithin the time period is included. Anatomical Region Laterality Modality HEART, THORAX, CHEST Computed Ra diography 09/21/2024 2:43 PM LEAD SOLUTIONS ARCHITECT Impressions 09/21/2024 3:32 PM LEAD SOLUTIONS ARCHITECT Sternotomy. Heart mildly enlarged, unchanged. Low lung volumes. Small increased consolidation noted within the right mid and lower lung concerning for pneumonia. No large effusion. Chronic interstitial lung changes appears similar to prior examination. Narrative 09/21/2024 3:32 PM LEAD SOLUTIONS ARCHITECT For Patients: As a result of the Cures Act, medical imaging exams and procedure reports are released immediately into your electronic medical record. You may view this report before your referring provider. If you have questions, please contact your health care provider. EXAM: XR CHEST 1 VIEW PORTABLE LOCATION: [facility] MEDICAL IMAGING DATE: 09/21/2024 INDICATION: SOB COMPARISON: 09/20/2024 Procedure Note Jesse Solis MD - 09/21/2024 For Patients: As a result of the Cures Act, medical imagingexams and procedure reports are released immediately into your electronicmedical record. You may view this report before your referring provider.If you have questions, please contact your health care provider. EXAM: XR CHEST 1 VIEW PORTABLE LOCATION: [facility] MEDICAL IMAGING DATE: 09/21/2024 INDICATION: SOB COMPARISON: 09/20/2024 IMPRESSION: Sternotomy. Heart mildly enlarged, unchanged. Low lung volumes. Smallincreased consolidation noted within the right mid and lower lungconcerning for pneumonia. No large effusion. Chronic interstitial lungchanges appears similar to prior examination. Shelly Perkins MD GENERAL IMAGING F inal Result * SCAN-CARDIAC STRIP (09/21/2024 7:30 AM LEAD SOLUTIONS ARCHITECT) Scanner OTHER Final Result * ECHO TTE COMPLETE WO CONTRAST (09/20/2024 12:35 PM LEAD SOLUTIONS ARCHITECT) Anatomical Region Laterality Modality Ultrasound 09/20/2024 12:0 2 PM LEAD SOLUTIONS ARCHITECT Narrative 09/20/2024 1:13 PM [place] [address] Main: [email or web address] Echo Report JOSE LUIS JOYCE Excellian ID: [id number] Age: 79 : 1945 Ordering Provider: KELLEN TRUONG Exam Date: 09/20/2024 12:02 Gender: F Laborer Tanbark: ANGELATanya Height: 68 in BSA: 1.87 m BP: 121 / 54 Weight: 163 lbs BMI: 24.8 kg/m HR: 74 Location: Inpatient (Portable) Rhythm: Normal Sinus Rhythm Procedure Components: 2D imaging, Color Doppler, Spectral Doppler Indications: Heart Failure, Heart failure, unspecified Technical Quality: Fair Contrast: None Final Conclusion 1. Hyperdynamic left ventricular systolic function. Calculated left ventricular ejection fraction (modified Isaac technique) is 78 %. No regional wall motion abnormalities. 2. Grade 2 left ventricular diastolic dysfunction consistent with moderately increased left ventricular filling pressure. 3. Normal right ventricular size and systolic function. 4. Mild biatrial enlargement. 5. Moderate mitral annular calcification. Mitral inflow obstruction due to mitral annular calcification. Mitral valve diastolic mean gradient is 4 mmHg (at a HR of 74 bpm). Mildly thickened mitral valve. Mild mitral valve regurgitation. There were no prior studies available for comparison. Estimated EF: >75% FINDINGS Left Ventricle Normal left ventricular chamber size. Normal left ventricular wall thickness. Hyperdynamic left ventricular systolic function. Calculated left ventricular ejection fraction (modified Isaac technique) is 78 %. No regional wall motion abnormalities. Diastolic Function Grade 2 left ventricular diastolic dysfunction consistent with moderately increased left ventricular filling pressure. Right Ventricle Normal right ventricular chamber size. Normal right ventricular systolic function. Estimated right ventricular systolic pressure is 33 mmHg plus right atrial pressure. Left Atrium Mild left atrial enlargement. Left atrial volume index is 40 ml/m . Right Atrium Mild right atrial enlargement. Atrial Septum Atrial septum was not well visualized. Aortic Valve Trileaflet aortic valve. Aortic valve sclerosis without stenosis. No aortic valve regurgitation. Mitral Valve Moderate mitral annular calcification. Mitral inflow obstruction due to mitral annular calcification. Mitral valve diastolic mean gradient is 4 mmHg (at a HR of 74 bpm). Mildly thickened mitral valve. Mild mitral valve regurgitation. Tricuspid Valve Mildly thickened tricuspid valve. No tricuspid valve stenosis. Trivial tricuspid valve regurgitation. Pulmonic Valve Pulmonary valve was not well visualized. Normal pulmonary valve systolic Doppler profile. Trivial pulmonary valve regurgitation. Pericardium No pericardial effusion. Aorta Aortic sinus of Valsalva is normal in size (3.1 cm, ZScore = -1.4). Normal indexed ascending aorta dimension (3.1 cm, 1.7 cm/m ). Inferior Vena Cava Patient on ventilator. Normal inferior vena cava size. MEASUREMENTS (Male / Female) Normal Values 2D MEASUREMENTS AND LV FUNCTION IVS Diastolic Thickness 0.9 cm < 1.1 cm / < 1.0 cm LV Diastolic Diameter PLAX 3.4 cm 4.2 - 5.9 / 3.9 - 5.3 cm LV Diastolic Diameter Index 1.81 cm/m LVPW Diastolic Thickness 0.7 cm < 1.1 cm / < 1.0 cm LV Systolic Diameter PLAX 2.3 cm LV Systolic Diameter Index 1.23 cm/m LVOT Diameter 1.9 cm LVOT Cardiac Output 5.33 l/min LVOT Cardiac Index 2.82 l/min m LVOT Stroke Volume 72 ml Stroke Volume Index 38.1 ml/m LV Ejection Fraction MOD BP 78.3 % >= 55 % LA Volume MOD BP 74 ml LA Volume Index MOD BP 39.5 ml/m 16 - 34 ml/m RV Diastolic Basal Diameter 3.2 cm LV Mass 71.9 g LV Mass Index 38.2 g/m Sinuses of Valsalva Diameter(d) 3.1 cm Ascending Aorta Diameter(s) 3.1 cm IVC Diameter Expiration 1.8 cm Ascending Aorta Index 1.65 cm/m M MODE TAPSE MM 1.38 cm DIASTOLOGY Mitral E Point Velocity 1.43 m/sec 0.70 - 1.02 m/sec Mitral A Point Velocity 1.53 m/sec 0.06 - 1.06 m/sec Mitral E to A Ratio 0.935 1.1 - 2.1 LV E' Lateral Velocity 0.0609 m/sec Mitral E to LV E' Lateral Ratio 23.5 LV E' Septal Velocity 0.0544 m/sec Mitral E to LV E' Septal Ratio 26.3 AORTIC VALVE AV Peak Velocity 1.28 m/sec < 2.0 m/sec AV Peak Gradient 6.55 mmHg AV Mean Gradient 4 mmHg AV Velocity Time Integral 29.9 cm LVOT Peak Velocity 1.1 m/sec LVOT Velocity Time Integral 25.4 cm AV Area Cont Eq vti 2.41 cm AV Area Cont Eq pk 2.44 cm AV Dimensionless Index 0.849 MITRAL VALVE MV Peak Gradient 8.38 mmHg MV Mean Gradient 3.75 mmHg MV Velocity Time Integral 37.8 cm MV Pressure Half Time 84.5 msec MV Area PHT 2.6 cm TRICUSPID VALVE AND ESTIMATED PRESSURES TR Peak Velocity 2.87 m/sec TR Peak Gradient 32.8 mmHg HCM DATA LVOT ROSITA (r) 4.84 mmHg Aortic Root ZScore: -1.42 Roxy Chowdary MD (Electronically Signed) [facility] Accredited Site Final Date: 20 September 2024 13:12 ICD-10 Codes: 428.9 Procedure Note Roxy Chowdary MD - 09/20/2024 [place] [address] Main: [email or web address] Transthoracic Echo Report KEE JESSICA JOSE LUIS Cherrieian ID: [id number] Age: 79 : 1945 Ordering Provider:KELLEN TRUONG Exam Date: 09/20/2024 12:02 Gender: F Laborer Tanbark: MIKA Height: 68 in BSA: 1.87 m BP: 121 / 54 Weight: 163 lbs BMI: 24.8 kg/m HR: 74 Location: Inpatient (Portable) Rhythm: Normal Sinus Rhythm Procedure Components: 2D imaging, Color Doppler, Spectral Doppler Indications: Heart Failure, Heart failure, unspecified Technical Quality: Fair Contrast: None Final Conclusion 1. Hyperdynamic left ventricular systolic function. Calculated leftventricular ejection fraction (modified Siaac technique) is 78 %. No regional wall motion abnormalities. 2. Grade 2 left ventricular diastolic dysfunction consistent withmoderately increased left ventricular filling pressure. 3. Normal right ventricular size and systolic function. 4. Mild biatrial enlargement. 5. Moderate mitral annular calcification. Mitral inflow obstruction dueto mitral annular calcification. Mitral valve diastolic mean gradient is 4 mmHg (at a HR of 74 bpm). Mildly thickened mitral valve.Mild mitral valve regurgitation. There were no prior studies available for comparison. Estimated EF: >75% FINDINGS Left Ventricle Normal left ventricular chamber size. Normal leftventricular wall thickness. Hyperdynamic left ventricular systolic function. Calculated left ventricular ejection fraction(modified Isaac technique) is 78 %. No regional wall motion abnormalities. Diastolic Function Grade 2 left ventricular diastolic dysfunctionconsistent with moderately increased left ventricular filling pressure. Right Ventricle Normal right ventricular chamber size. Normal rightventricular systolic function. Estimated right ventricular systolic pressure is 33 mmHg plus right atrial pressure. Left Atrium Mild left atrial enlargement. Left atrial volume index is 40ml/m . Right Atrium Mild right atrial enlargement. Atrial Septum Atrial septum was not well visualized. Aortic Valve Trileaflet aortic valve. Aortic valve sclerosis withoutstenosis. No aortic valve regurgitation. Mitral Valve Moderate mitral annular calcification. Mitral inflowobstruction due to mitral annular calcification. Mitral valve diastolic mean gradient is 4 mmHg (at a HR of 74 bpm). Mildly thickenedmitral valve. Mild mitral valve regurgitation. Tricuspid Valve Mildly thickened tricuspid valve. No tricuspid valvestenosis. Trivial tricuspid valve regurgitation. Pulmonic Valve Pulmonary valve was not well visualized. Normal pulmonaryvalve systolic Doppler profile. Trivial pulmonary valve regurgitation. Pericardium No pericardial effusion. Aorta Aortic sinus of Valsalva is normal in size (3.1 cm, ZScore = -1.4).Normal indexed ascending aorta dimension (3.1 cm, 1.7 cm/m ). Inferior Vena Cava Patient on ventilator. Normal inferior vena cavasize. MEASUREMENTS (Male / Female) Normal Values 2D MEASUREMENTS AND LV FUNCTION IVS Diastolic Thickness 0.9 cm < 1.1 cm / < 1.0cm LV Diastolic Diameter PLAX 3.4 cm 4.2 - 5.9 / 3.9 -5.3 cm LV Diastolic Diameter Index 1.81 cm/m LVPW Diastolic Thickness 0.7 cm < 1.1 cm / < 1.0cm LV Systolic Diameter PLAX 2.3 cm LV Systolic Diameter Index 1.23 cm/m LVOT Diameter 1.9 cm LVOT Cardiac Output 5.33 l/min LVOT Cardiac Index 2.82 l/min m LVOT Stroke Volume 72 ml Stroke Volume Index 38.1 ml/m LV Ejection Fraction MOD BP 78.3 % >= 55 % LA Volume MOD BP 74 ml LA Volume Index MOD BP 39.5 ml/m 16 - 34 ml/m RV Diastolic Basal Diameter 3.2 cm LV Mass 71.9 g LV Mass Index 38.2 g/m Sinuses of Valsalva Diameter(d) 3.1 cm Ascending Aorta Diameter(s) 3.1 cm IVC Diameter Expiration 1.8 cm Ascending Aorta Index 1.65 cm/m M MODE TAPSE MM 1.38 cm DIASTOLOGY Mitral E Point Velocity 1.43 m/sec 0.70 - 1.02m/sec Mitral A Point Velocity 1.53 m/sec 0.06 - 1.06m/sec Mitral E to A Ratio 0.935 1.1 - 2.1 LV E' Lateral Velocity 0.0609 m/sec Mitral E to LV E' Lateral Ratio 23.5 LV E' Septal Velocity 0.0544 m/sec Mitral E to LV E' Septal Ratio 26.3 AORTIC VALVE AV Peak Velocity 1.28 m/sec < 2.0 m/sec AV Peak Gradient 6.55 mmHg AV Mean Gradient 4 mmHg AV Velocity Time Integral 29.9 cm LVOT Peak Velocity 1.1 m/sec LVOT Velocity Time Integral 25.4 cm AV Area Cont Eq vti 2.41 cm AV Area Cont Eq pk 2.44 cm AV Dimensionless Index 0.849 MITRAL VALVE MV Peak Gradient 8.38 mmHg MV Mean Gradient 3.75 mmHg MV Velocity Time Integral 37.8 cm MV Pressure Half Time 84.5 msec MV Area PHT 2.6 cm TRICUSPID VALVE AND ESTIMATED PRESSURES TR Peak Velocity 2.87 m/sec TR Peak Gradient 32.8 mmHg HCM DATA LVOT ROSITA (r) 4.84 mmHg Aortic Root ZScore: -1.42 Rxoy Chowdary MD (Electronically Signed) [facility] Accredited Site Final Date: 20 September 2024 13:12 ICD-10 Codes: 428.9 us Kellen Truong MACHINE [employer]IC ECHO ORD Fin al Result * COVID/FLU/RSV PANEL (09/20/2024 11:30 AM LEAD SOLUTIONS ARCHITECT) COVID 19 [facility] Negative Negative 09/20/2024 12:41 PM LEAD SOLUTIONS ARCHITECT [facility] Comment:All PCR tests are gomez bject to false negative result due to variability in viral load and collection technique. A negative result does not rule out a SARS-CoV-2 infection. Clinical correlation required. INFLUENZA A PCR Negative 5 12:41 PM LEAD SOLUTIONS ARCHITECT [facility] INFLUENZA B PCR Negative 12:41 PM LEAD SOLUTIONS ARCHITECT [facility] Respiratory Syncytial Virus Negative 09/20/2024 12:41 PM LEAD SOLUTIONS ARCHITECT [facility] Swab NASOPHARYNGEAL SWAB / Unknown Non-Blood / Unknown 09/20/2024 11:30 AM LEAD SOLUTIONS ARCHITECT 09/20/2024 11:32 AM LEAD SOLUTIONS ARCHITECT Sangita Osorio ARAGON MICROBIOLOGY Final R esult [facility] SENDOUT [place]NAL [address]IP [id number] [address] [place] [address] * CONTINUOUS VIDEO EEG MONITORING (09/20/2024 8:55 AM LEAD SOLUTIONS ARCHITECT) Narrative Evelia Fernandes MBBS - 09/20/2024 8:55 AM LEAD SOLUTIONS ARCHITECT Evelia Fernandes MBBS 09/20/2024 2:06 PM [facility] intermediate card tender monitoring/ video EEG report Name: Jose Luis Jessica Test Number: See below Test date: 09/20/24 : 1945 Referring Service: @SERVDEPT@ Age: 79 y.o. Referring Physician: Hospitalist [facility] Procedure: videoEEG/ LTM Interpreting Physician: Evelia Fernandes MD Introduction: The patient is a 79 y.o. old female with a history of seizure, altered mental state, left-sided weakness and chronic right temporoparietal encephalomalacia. This video EEGmonitoring study was done in order to monitor for seizures. The patient is currently on following neuroactive medications. Fentanyl, levetiracetam, propofol. Procedural details: This is a 21-channel digital EEG performed using the international 10-20 system of electrode placement. Multiple reformatable montages were used in review. Video recording was available for review. Physician access to data was throughout the recording period. A daily report, as below, was generated and updated and signed at least once every 24 hour period from the start of the EEG monitoring. I took over the interpretation and reporting of this study as of 00:00:00 on 09/20/24 . The portion of this patient's continuous video EEG study prior to it were read by Dr. Lao. Day report - (Study date: 09/20/2024,Study duration: 13 hours 30m, Study # [id number]) Indication: Unchanged, as detailed above. Procedural details: Unchanged, as detailed above. Interictal EEG Samples: Diffusely slow, theta-alpha range background. Poorly formed posterior dominant rhythm reaching up to 8 Hz, over the left hemisphere. Superimposed diffuse beta range frequencies. Rare intermixed generalized polymorphic delta range frequencies. Relative attenuation of faster frequencies over the right hemisphere as compared to left. Additional right hemispheric, right posterior quadrant maximal, polymorphic delta slowing. State changes, with intermittent generalized background discontinuity. Ictal Recordings: During this period the patient had none of their typical events. Summary: During this day of recording no events were recorded. Monitoring was discontinued. Clinical Correlation: This day EEG recording was an abnormal study. The background is consistent with mild-moderate degree of encephalopathy and superimposed sedative/anesthetic induced effect. The presence of relative attenuation of faster frequencies over the right hemisphere, and additional right hemispheric slowing, right posterior quadrant maximal, suggest underlying structural lesion. No seizures, epileptiform discharges, or typical events were recorded. Evelia Fernandes MD, FAAN, FAES Continuous video EEG study completed from 09/19/24-09/20/24, with a total recording time of (25Hours:37Minutes) us Wicho Quiroz [facility] Final Result * SCAN-CARDIAC STRIP (09/20/2024 7:41 AM LEAD SOLUTIONS ARCHITECT) us Scanner OTHER Final Result * PROCALCITONIN (09/20/2024 4:43 AM LEAD SOLUTIONS ARCHITECT) PROCALCITONIN 0.30 ng/ml 09/20/2024 5:27 AM LEAD SOLUTIONS ARCHITECT [facility] Blood BLOOD SPECIMEN / Unknown Non-Lab Venipuncture / Unknown 09/20/2024 4:43 AM LEAD SOLUTIONS ARCHITECT 09/20/2024 4:43 AM LEAD SOLUTIONS ARCHITECT Narrative [facility] - 09/20/2024 5:27 AM LEAD SOLUTIONS ARCHITECT Procalcitonin for initial assessment of Lower Respiratory Tract Infection: Results Interpretation <0.10 ng/mL Antibiotic therapy strongly discoraged. Indicates absent of bacterial infection. * 0.10 - 0.25 ng/mL Antibiotic therapy discouraged. Bacterial infection unlikely. * 0.26 - 0.50 ng/mL Antibiotic therapy encouraged. Bacterial infection possible. >0.50 ng/mL Antibiotic therapy strongly encouraged. Suggestive of presence of bacterial infection. *Antibiotic therapy should be considered regardless of PCT result if the patient is clinically unstable, is at high risk for adverse outcome, has strong evidence of bacterial pathogen, or the clinical context indicates antibiotic therapy is warranted. If antibiotics are withheld, reassess if symptoms persist/worsen and/or repeat PCT measurement within 6-24 hours. In order to assess treatment success and to support a decision to discontinue antibiotic therapy, follow up samples should be tested once every 1-2 days, based upon physician discretion taking into account patient's evolution and progress. Procalcitonin for initial assessment of severe sepsis risk: Results Interpretation <0.5 ng/ml A PCT level below 0.5 ng/ml on the first day of ICU admission is associated with a low risk for progression to severe sepsis and/or septic shock. > 2.0 ng/mL A PCT level above 2.0 ng/mL on the first day of ICU admission is associated with a high risk for progression to severe sepsis and/or septic shock. Note: Concentrations < 0.5 ng/mL do not exclude an infection, on account of localized infections (without systemic signs) which can be associated with such low concentrations, or a systemic infection in its initial stages(< 6 hours). Furthermore, increased procalcitonin can occur without infection. PCT concentrations between 0.5 and 2.0 ng/mL should be interpreted taking into account the patient's history. It is recommended to retest PCT within 6-24 hours if any concentrations < 2 ng/mL are obtained. Sangita ARAGON SEND OUTS Final R esult Performing Organization Address City/State/[facility] Co de Phone Number [facility] SENDOUT INTERNAL [facility] [id number] [place] [phone] * TRIGLYCERIDES propofol (09/20/2024 4:39 AM LEAD SOLUTIONS ARCHITECT) TRIGLYCERIDES 65 <150 mg/dL 09/20/2024 5:14 AM LEAD SOLUTIONS ARCHITECT [facility] PROVIDER ORDERED STATUS RANDOM 09/20/2024 5:14 AM LEAD SOLUTIONS ARCHITECT [facility] Blood BLOOD SPECIMEN / Unknown Venipuncture / Unknown 09/20/2024 4:39 AM LEAD SOLUTIONS ARCHITECT 09/20/2024 4:42 AM LEAD SOLUTIONS ARCHITECT Sangita ARAGON CHEMISTRY Final R esult [facility] SENDOUT INTERNAL ZIP [id number] [place] [phone] * (ABNORMAL) SODIUM (09/20/2024 4:39 AM LEAD SOLUTIONS ARCHITECT) SODIUM 134(L) 136 - 145 mmol/L 09/20/2024 5:14 AM LEAD SOLUTIONS ARCHITECT [facility] Blood BLOOD SPECIMEN / Unknown Venipuncture / Unknown 09/20/2024 4:39 AM LEAD SOLUTIONS ARCHITECT 09/20/2024 4:42 AM LEAD SOLUTIONS ARCHITECT Nessa Lucas MD CHEMISTRY Final R esult Performing Organization Address [facility]/ZIP Co de Phone Number [facility] SENDOUT INTERNAL ZIP [phone] [place] [id number] * (ABNORMAL) CO2,TOTAL (09/20/2024 4:39 AM LEAD SOLUTIONS ARCHITECT) CO2,TOTAL 19(L) 22 - 29 mmol/L 09/20/2024 5:14 AM LEAD SOLUTIONS ARCHITECT [facility] Blood BLOOD SPECIMEN / Unknown Venipuncture / Unknown 09/20/2024 4:39 AM LEAD SOLUTIONS ARCHITECT 09/20/2024 4:42 AM LEAD SOLUTIONS ARCHITECT Nessa Lucas MD CHEMISTRY Final R esult Performing Organization Address [facility]/ZIP Co de Phone Number [facility] SENDOUT INTERNAL ZIP [phone] [place] [phone] * (ABNORMAL) CK TOTAL propofol (09/20/2024 4:39 AM LEAD SOLUTIONS ARCHITECT) CK,TOTAL 195(H) 26 - 192 IU/L 09/20/2024 5:14 AM LEAD SOLUTIONS ARCHITECT [facility] Blood BLOOD SPECIMEN / Unknown Venipuncture / Unknown 09/20/2024 4:39 AM LEAD SOLUTIONS ARCHITECT 09/20/2024 4:42 AM LEAD SOLUTIONS ARCHITECT Sangita ARAGON CHEMISTRY Final R esult [facility] SENDOUT INTERNAL [address] [phone] [place] [address] * LEVETIRACETAM (KEPPRA) (09/20/2024 4:31 AM LEAD SOLUTIONS ARCHITECT) LEVETIRACETAM (KEPPRA) 30.8 6.0 - 46.0 ug/mL 09/20/2024 11:43 AM LEAD SOLUTIONS ARCHITECT [facility] Blood BLOOD SPECIMEN / Unknown Venipuncture / Unknown 09/20/2024 4:31 AM LEAD SOLUTIONS ARCHITECT 09/20/2024 4:43 AM LEAD SOLUTIONS ARCHITECT Narrative [facility] - 09/20/2024 11:43 AM LEAD SOLUTIONS ARCHITECT Reference Range is based on Trough Steady State in patients receiving recommended daily dose. The relationship between serum concentrations and toxicity is not known. Bivaracetam (Briviact ) interferes with measurements of levetiracetam (Keppra ) in the ARK Levetiracetam Assay Richard Lao MD SEND OUTS Final Resu lt [facility] [address] [place] [address], [place] * BLOOD CULTURE (09/19/2024 7:15 PM LEAD SOLUTIONS ARCHITECT) Only the most recent of2 resultswithin the time period is included. CULTURE No Growth. 09/25/2024 1:59 AM LEAD SOLUTIONS ARCHITECT [facility] Blood BLOOD SPECIMEN / Unknown Venipuncture / Unknown 09/19/2024 7:15 PM LEAD SOL[employer]IONS ARCHITECT 09/19/2024 7:19 PM LEAD [employer]IONS ARCHITECT Narrative [facility] - 09/25/2024 1:59 AM LE[employer]IONS ARCHITECT Low volume blood culture received; possible false negative culture. Sangita JONES MICROBIOLOGY Final R esult [facility] [address] [place] [address], [place] * (ABNORMAL) URINALYSIS MICROSCOPIC (09/19/2024 4:36 PM LEAD SOL[employer]IONS ARCHITECT) RBC 0-2 0-2, None Seen /HPF 09/19/2024 5:24 PM LEAD SOL[employer]IONS ARCHITECT [facility] WBC 6-10(A) 0-2, 3-5, None Seen /HPF 09/19/2024 5:[address] [facility] BACTERIA None Seen None Seen, Rare, Few Bacteria/ HPF 09/19/2024 5:[address] [facility] EPITHELIAL CELLS None Seen None Seen, Few Epi/HPF 09/19/2024 5:[address] [facility] HYALINE CASTS 0-2 0-2, 3-5 /LPF 09/19/2024 5:[address] [facility] Urine URINE SPECIMEN / Unknown Non-Blood / Unknown 09/19/2024 4:36 PM [employer]IONS ARCHITECT 09/19/2024 4:57 PM [employer]IONS ARCHITECT Nessa Lucas MD URINE Final R esult [facility] SENDOUT INTERNAL [facility] [address] [place] [address] * (ABNORMAL) UA W/ SEDIMENT EXAM REFLEXED PER CRITERIA (09/19/2024 4:36 PM LEAD SOL[employer]IONS ARCHITECT) COLOR Yellow Yellow Color 09/19/2024 5:[address] [facility] CLARITY Clear Clear Clarity 09/19/2024 5:[address] [facility] SPECIFIC GRAVITY,URINE 1.015 1.010, 1.015, 1.020, 1.025 09/19/2024 5:[address] [facility] PH,URINE 7.0 6.0, 7.0, 8.0, 5.5, 6.5, 7.5, 8.5 09/19/2024 5:[address] [facility] UROBILINOGEN, QUALITATIVE Normal Normal EU/dl 09/19/2024 5:[address] [facility] PROTEIN, URINE Negative Negative mg/dL 09/19/2024 5:[address] [facility] GLUCOSE, URINE Negative Negative mg/dL 09/19/2024 5:[address] [facility] KETONES,URINE Negative Negative mg/dL 09/19/2024 5:[address] [facility] BILIRUBIN,URI NE Negative Negative 09/19/2024 5:16 PM LEAD SOLUTIONS ARCHITECT [facility] OCCULT BLOOD,URINE Trace(A) Negative 09/19/2024 5:16 PM LEAD SOLUTIONS ARCHITECT [facility] NITRITE Negative Negative 09/19/2024 5:16 PM LEAD SOLUTIONS ARCHITECT [facility] LEUKOCYTE ESTERASE Trace(A) Negative 09/19/2024 5:16 PM LEAD SOLUTIONS ARCHITECT [facility] Urine URINE SPECIMEN / Unknown Non-Blood / Unknown 09/19/2024 4:36 PM LEAD [employer]IONS ARCHITECT 09/19/2024 4:57 PM LEAD [employer]IONS ARCHITECT us Nessa Lucas MD URINE Final R esult [facility] SENDOUT INTERNAL ZIP [phone] [place] [phone] * SCAN-CARDIAC STRIP (09/19/2024 3:51 PM LEAD SOL[employer]IONS ARCHITECT) us Scanner OTHER Final Result * MR Brain w/wo Contrast (09/19/2024 1:47 PM LEAD SOLUTIONS ARCHITECT) Anatomical Region Laterality Modality BRAIN, HEAD Magnetic Resonan ce 09/19/2024 1:47 PM LE[employer]IONS ARCHITECT Impressions 09/19/2024 10:49 PM [employer] ARCHITECT 1. 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 2. No acute intracranial process. Narrative 09/19/2024 10:49 PM LEAD SOL[employer]IONS ARCHITECT For Patients: As a result of the Cures Act, medical imaging exams and procedure reports are released immediately into your electronic medical record. You may view this report before your referring provider. If you have questions, please contact your health care provider. EXAM: MR HEAD BRAIN O LOCATION: [facility] MEDICAL IMAG[facility] DATE: 09/19/2024 INDICATION: Seizure, new-onset, no history of trauma. COMPARISON: MRI 09/18/2024. CONTRAST: GADOBUTROL 1 MMOL/ML IV 10 ML VIAL: 10mL TECHNIQUE: 1.5 Annie multiplanar multisequence head MRI without and with intravenous contrast according to the seizure protocol. FINDINGS: INTRACRANIAL CONTENTS: Dedicated imaging of the temporal lobes demonstrates symmetrical size and signal intensity of the mesial temporal structures including the hippocampus. No malformations of cortical development. No acute or subacute infarct. No mass, acute hemorrhage, or extra-axial fluid collections. Scattered nonspecific T2/FLAIR hyperintensities within the cerebral white matter most consistent with mild chronic microvascular ischemic change. Mild to moderate generalized cerebral atrophy. No hydrocephalus. Moderate zone of encephalomalacia with evidence of associated cortical laminar necrosis in the right parietal lobe. No pathologic contrast enhancement. SELLA: No abnormality accounting for technique. OSSEOUS STRUCTURES/SOFT TISSUES: Normal marrow signal. The major intracranial vascular flow voids are maintained. ORBITS: No abnormality accounting for technique. SINUSES/MASTOIDS: No paranasal sinus mucosal disease. No middle ear or mastoid effusion. Procedure Note Bg Sierra MD - 09/19/2024 For Patients: As a result of the Cures Act, medical imagingexams and procedure reports are released immediately into your electronicmedical record. You may view this report before your referring provider.If you have questions, please contact your health care provider. EXAM: MR HEAD BRAIN WWO LOCATION: [facility] MEDICAL IMAGING DATE: 09/19/2024 INDICATION: Seizure, new-onset, no history of trauma. COMPARISON: MRI 09/18/2024. CONTRAST: GADOBUTROL 1 MMOL/ML IV 10 ML VIAL: 10mL TECHNIQUE: 1.5 Annie multiplanar multisequence head MRI without and withintravenous contrast according to the seizure protocol. FINDINGS: INTRACRANIAL CONTENTS: Dedicated imaging of the temporal lobesdemonstrates symmetrical size and signal intensity of the mesial temporalstructures including the hippocampus. No malformations of corticaldevelopment. No acute or subacute infarct. No mass, acute hemorrhage, orextra-axial fluid collections. Scattered nonspecific T2/FLAIRhyperintensities within the cerebral white matter most consistent withmild chronic microvascular ischemic change. Mild to moderate generalizedcerebral atrophy. No hydrocephalus. Moderate zone of encephalomalaciawith evidence of associated cortical laminar necrosis in the rightparietal lobe. No pathologic contrast enhancement. SELLA: No abnormality accounting for technique. OSSEOUS STRUCTURES/SOFT TISSUES: Normal marrow signal. The majorintracranial vascular flow voids are maintained. ORBITS: No abnormality accounting for technique. SINUSES/MASTOIDS: No paranasal sinus mucosal disease. No middle ear ormastoid effusion. IMPRESSION: 1. 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 2. No acute intracranial process. Sangita ARAGON MR Final R esult * MRSA/SA PCR (09/19/2024 12:31 PM LEAD SOLUTIONS ARCHITECT) MRSA DNA PCR Negative Negative 09/19/2024 2:35 PM LEAD SOLUTIONS ARCHITECT [facility] STAPHYLOCOCCUS AUREUS PCR Negative Negative 09/19/2024 2:35 PM LEAD SOL[employer]IONS ARCHITECT [facility] Other SPECIMEN FROM INTERNAL NOSE / Unknown Non-Blood / Unknown 09/19/2024 12:31 PM LE[employer]IONS ARCHITECT 09/19/2024 12:41 PM LE[employer]IONS ARCHITECT Narrative [facility] - 09/19/2024 2:35 PM LEAD [employer]IONS ARCHITECT Test result does not preclude MRSA or SA nasal colonization. Chester Osorio ARAGON MICROBIOLOGY Final R esult [facility] SENDOUT INTERNAL [facility] [address] [place] [phone] * SCAN-CARDIAC STRIP (09/19/2024 8:06 AM LEAD SOL[employer]IONS ARCHITECT) Scanner OTHER Final Result * PROTIME-INR (09/19/2024 6:09 AM LEAD [employer]IONS ARCHITECT) Only the most recent of3 resultswithin the time period is included. INR 1.0 <1.3 09/19/2024 6:[address] [facility] PROTIME 11.1 10.6 - 12.4 sec 09/19/2024 6:[address] [facility] Blood BLOOD SPECIMEN / Unknown Venipuncture / Unknown 09/19/2024 6:09 AM LE[employer]IONS ARCHITECT 09/19/2024 6:18 AM LEAD SOLUTIONS ARCHITECT [facility] - 09/19/2024 6:28 AM LEAD SOL[employer]IONS ARCHITECT Therapeutic Range 2.0-3.0 for most anticoagulated patients 2.5-3.5 [...] seconds if the patient is on UFH. Result [facility] Osorio Herrera [facility] Final R esult [facility] SENDOUT INTERNAL ZIP [address] [address] [place] [address] * ALT (SGPT) (09/19/2024 6:09 AM LEAD SOL[employer]IONS ARCHITECT) ALT (SGPT) 14 10 - 35 IU/L 09/19/2024 6:47 AM LEAD SOLUTIONS ARCHITECT [facility] Blood BLOOD SPECIMEN / Unknown Venipuncture / Unknown 09/19/2024 6:09 AM LEAD SOL[employer]IONS ARCHITECT 09/19/2024 6:18 AM LEAD SOLUTIONS ARCHITECT Result [facility] Osorio Shaik [facility] CHEMISTR[facility] Final R esult Performing Organization Address [facility]/ZIP Co de Phone Number [facility] SENDOUT INTERNAL ZIP [address] [place] [phone] * AST (SGOT) (09/19/2024 6:09 AM LEAD SOLUTIONS ARCHITECT) AST (SGOT) 33 10 - 35 IU/L 09/19/2024 6:47 AM LEAD SOLUTIONS ARCHITECT [facility] Blood BLOOD SPECIMEN / Unknown Venipuncture / Unknown 09/19/2024 6:09 AM LEAD SOLUTIONS ARCHITECT 09/19/2024 6:18 AM LEAD SOLUTIONS ARCHITECT [facility] Final R esult Performing Organization Address City/[facility]/ZIP Co de Phone Number [facility] SENDOUT INTERNAL ZIP [address] [address] [place] [address] * BILIRUBIN DIRECT (09/19/2024 6:09 AM LEAD SOLUTIONS ARCHITECT) BILIRUBIN,DIRE CT 0.1 0.0 - 0.2 mg/dL 09/19/2024 6:47 AM LEAD SOLUTIONS ARCHITECT [facility] Blood BLOOD SPECIMEN / Unknown Venipuncture / Unknown 09/19/2024 6:09 AM LEAD SOLUTIONS ARCHITECT 09/19/2024 6:18 AM [facility] Sangita ARAGON CHEMISTRY Final R esult [facility] SENDOUT INTERNAL ZIP [address] [address] [place] [address] * (ABNORMAL) CBC WITH AUTO DIFFERENTIAL (09/19/2024 6:08 AM [facility]) Only the most recent of2 resultswithin the time period is included. WHITE BLOOD COUNT 16.9(H) 4.5 - 11.0 thou/cu mm 09/19/2024 6:[address] [facility] RED BLOOD COUNT 3.76(L) 4.00 - 5.20 mil/cu mm 09/19/2024 6:[address] [facility] HEMOGLOBIN 12.2 12.0 - 16.0 g/dL 09/19/2024 6:[address] [facility] HEMATOCRIT 34.9 33.0 - 51.0 % 09/19/2024 6:[address] [facility] MCV 93 80 - 100 fL 09/19/2024 6:[address] [facility] MCH 32.4 26.0 - 34.0 pg 09/19/2024 6:[address] [facility] MCHC 35.0 32.0 - 36.0 g/dL 09/19/2024 6:[address] [facility] RDW 12.7 11.5 - 15.5 % 09/19/2024 6:[address] [facility] PLATELET COUNT 257 140 - 440 thou/cu mm 09/19/2024 6:[address] [facility] MPV 9.5 6.5 - 11.0 fL 09/19/2024 6:[address] [facility] NRBC 0.0 % 09/19/2024 6:[address] [facility] ABS NRBC 0.0 thou /cu mm 09/19/2024 6:[address] [facility] % NEUT 68.9 % 09/19/2024 6:[address] [facility] % LYMPH 21.8 % 09/19/2024 6:[address] [facility] % MONO 7.8 % 09/19/2024 6:[address] [facility] % EOS 0.5 % 09/19/2024 6:[address] [facility] % BASO 0.5 % 09/19/2024 6:[address] [facility] % IMMATURE GRAN (METAS,MYELOS,NV OS) 0.5 % 09/19/2024 6:21 AM [facility] ABSOLUTE NEUTROPHILS 11.6(H) 1.7 - 7.0 thou/cu mm 09/19/2024 6:[address] [facility] ABSOLUTE LYMPHOCYTES 3.7(H) 0.9 - 2.9 thou/cu mm 09/19/2024 6:21 AM [facility] ABSOLUTE MONOCYTES 1.3(H) <0.9 thou/cu mm 09/19/2024 6:21 AM [facility] ABSOLUTE EOSINOPHILS 0.1 <0.5 thou/cu mm 09/19/2024 6:21 AM [facility] ABSOLUTE BASOPHILS 0.1 <0.3 thou/cu mm 09/19/2024 6:[address] [facility] ABSOLUTE IMMATURE GRANULOCYTES(MET ,MYELOS,PROS) 0.1 <0.3 thou/cu mm 09/19/2024 6:[address] [facility] Blood BLOOD SPECIMEN / Unknown Venipuncture / Unknown 09/19/2024 6:08 AM LEAD [employer]IONS ARCHITECT 09/19/2024 6:18 AM [facility] us Arif Osorio ARAGON HEMATOLOGY Final R esult [facility] SENDOUT INTERNAL [facility] [address] [place] [phone] * (ABNORMAL) SPUTUM CULTURE, STAIN (09/19/2024 4:04 AM [facility]) CULTURE RESULT(A) 09/22/2024 9:50 AM [facility] CULTURE 4+ Streptococcus pneumoniae 09/22/2024 9:50 AM [facility] CULTURE 3+ Usual Lisa 09/22/2024 9:50 AM [facility] GRAM STAIN 4+ PMNs 09/22/2024 9:50 AM LEAD SOLUTIONS ARCHITECT [facility] GRAM STAIN 1+ Epithelial cells 09/22/2024 9:50 AM LEAD SOLUTIONS ARCHITECT [facility] GRAM STAIN No RBCs 09/22/2024 9:50 AM LEAD SOLUTIONS ARCHITECT [facility] GRAM STAIN 4+ Gram Positive Cocci 09/22/2024 9:50 AM LEAD SOLUTIONS ARCHITECT [facility] GRAM STAIN Gram stain performed by [place], [place] 09/22/2024 9:[address] [facility] Sputum SPECIMEN FROM ENDOTRACHEAL TUBE / Unknown Non-Blood / Unknown 09/19/2024 4:04 AM LEAD SOLUTIONS ARCHITECT 09/19/2024 4:07 AM [facility] Narrative Organism Antibiotic Method Susceptibility Streptococcus pneumoniae PENICILLIN-ORAL <=0.06: S Streptococcus pneumoniae [id number] <=0.06: S Streptococcus pneumoniae [id number] <=0.06: S Streptococcus pneumoniae CEFTRIAXONE-MENINGIT <=0.12: S Streptococcus pneumoniae CEFTRIAXONE-NONMENIN <=0.12: S Streptococcus pneumoniae VANCOMYCIN 0.5: S Streptococcus pneumoniae LEVOFLOXACIN 0.5: S Streptococcus pneumoniae TRIMETHOPRIM/SULF <=0.5/9.5: S Streptococcus pneumoniae AZITHROMYCIN S Streptococcus pneumoniae CLARITHROMYCIN S [facility] Osorio JONES MICROBIOLOGY Final R esult [facility] [address] [place] [address], [facility] SENDOUT INTERNAL ZIP [address] [place] [address] * (ABNORMAL) HEPATIC FUNCTION PANEL (09/19/2024 2:41 AM LEAD SOL[employer]IONS ARCHITECT) ALBUMIN 3.8(L) 4.0 - 4.9 g/dL 09/19/2024 3:[address] [facility] PROTEIN,TOTAL 7.3 6.0 - 8.0 g/dL 09/19/2024 3:[address] [facility] BILIRUBIN,TOTAL 0.5 0.0 - 1.2 mg/dL 09/19/2024 3:[address] [facility] BILIRUBIN,DIRECT 09/19/19 3:[address] [facility] Comment:Canceled- Specimen H emolyzed, Disposition Per Policy ALK PHOSPHATASE 100 35 - 104 IU/L 09/19/2024 3:[address] [facility] ALT (SGPT) 09/19/2024 3:16 AM LEAD SOLUTIONS ARCHITECT [facility] Comment:Canceled- Specimen H emolyzed, Disposition Per Policy AST (SGOT) 09/19/2024 3:16 AM LEAD SOLUTIONS ARCHITECT [facility] Comment:Canceled- Specimen H emolyzed, Disposition Per Policy Blood BLOOD SPECIMEN / Unknown Butterfly / Unknown 09/19/2024 2:41 AM LE[employer] SOL[employer]IONS ARCHITECT 09/19/2024 2:54 AM LE[employer] SOLUTIONS ARCHITECT us Sangita ARAGON CHEMISTRY Final R esult [facility] SENDOUT INTERNAL ZIP [address] [place] [phone] * XR ABDOMEN 1 VIEW PORTABLE (09/18/2024 11:18 PM LEAD SOLUTIONS ARCHITECT) Anatomical Region Laterality Modality Abdomen Computed Radiogr aphy 09/18/2024 11:1 8 PM LEAD SOL[employer]IONS ARCHITECT Impressions 09/19/2024 12:19 AM LE[employer]IONS ARCHITECT Enteric suction tube tip overlies the region of the gastric antrum. This could be slightly retracted. Median sternotomy and retained epicardial pacer wires.] Quadrant cholecystectomy clips. Nonspecific bowel gas pattern, due to a paucity of small bowel gas. Mild to moderate stool burden of the rectum and ascending colon. Diffuse atherosclerotic calcifications. Thoracolumbar compression deformities, grossly unchanged when correlated to CT chest 09/29/2023. Narrative 09/19/2024 12:19 AM LEAD [employer]IONS ARCHITECT For Patients: As a result of the Cures Act, medical imaging exams and procedure reports are released immediately into your electronic medical record. You may view this report before your referring provider. If you have questions, please contact your health care provider. EXAM: XR ABDOMEN 1 VIEW PORTABLE LOCATION: [facility] MEDICAL IMAGING DATE: 09/18/2024 INDICATION: Tube placement. COMPARISON: None available. Procedure Note Nelson Heard MD - 09/19/2024 For Patients: As a result of the Cures Act, medical imagingexams and procedure reports are released immediately into your electronicmedical record. You may view this report before your referring provider.If you have questions, please contact your health care provider. EXAM: XR ABDOMEN 1 VIEW PORTABLE LOCATION: [facility] MEDICAL IMAGING DATE: 09/18/2024 INDICATION: Tube placement. COMPARISON: None available. IMPRESSION: Enteric suction tube tip overlies the region of the gastric antrum. Thiscould be slightly retracted. Median sternotomy and retained epicardial pacer wires.] Quadrantcholecystectomy clips. Nonspecific bowel gas pattern, due to a paucity of small bowel gas. Mildto moderate stool burden of the rectum and ascending colon. Diffuse atherosclerotic calcifications. Thoracolumbar compression deformities, grossly unchanged when correlatedto CT chest 09/29/2023. us Suzanne Harris MD GENERAL IMAGING Final Result * (ABNORMAL) ISTAT EG6+ ABG (09/18/2024 10:45 PM [facility]) PH, ARTERIAL 7.48(H) 7.35 - 7.45 09/18/2024 10:[address] [facility] PCO2, ARTERIAL 34 32 - 45 mmHg 09/18/2024 10:[address] [facility] PO2, ARTERIAL 132(H) 83 - 108 mmHg 09/18/2024 10:[address] [facility] HCO3, ARTERIAL 25 21 - 28 mmol/L 09/18/2024 10:[address] [facility] BASE EXCESS, ARTERIAL 2.0 -2.0 - 3.0 09/18/2024 10:[address] [facility] O2 SATURATION, ARTERIAL 99(H) 94 - 98 % 09/18/2024 10:[address] [facility] SODIUM, POCT 09/18/2024 10:[address] [facility] Comment:Unable to determine. POTASSIUM, POCT 10:[address] [facility] Comment:Unable to determine. INSPIRED O2,ISTAT 30.0 09/18/2024 10:[address] [facility] PATIENT TEMPERATURE 37.0 Degrees C 09/18/2024 10:[address] [facility] ENRIQUE'S TEST Not Given 09/18/2024 10:[address] [facility] SAMPLE TYPE,ISTAT BLOOD GAS ARTERIAL 09/18/2024 10:[address] [facility] Blood BLOOD SPECIMEN / Unknown 09/18/2024 10:45 PM LEAD SOLUTIONS ARCHITECT 09/18/2024 10:48 PM LE[employer]IONS ARCHITECT us Suzanne Harris MD CHEMISTRY Final Result [facility] SENDOUT INTERNAL ZIP [phone] [place] [address] * MR HEAD RAPID CODE STROKE LTD BRAIN WO CONTRAST (09/18/2024 10:28 PM LEAD SOLUTIONS ARCHITECT) Anatomical Region Laterality Modality Magnetic Resonan ce 09/18/2024 10:2 8 PM LE[employer] SOL[employer]IONS ARCHITECT Impressions 09/18/2024 11:20 PM LEAD SOL[employer]IONS ARCHITECT HEAD MRI: 1. No acute intracranial abnormality. 2. Right parietotemporal encephalomalacia. HEAD MRA: No large vessel occlusion or hemodynamically significant stenosis. Narrative 09/18/2024 11:20 PM LE[employer]IONS ARCHITECT For Patients: As a result of the Cures Act, medical imaging exams and procedure reports are released immediately into your electronic medical record. You may view this report before your referring provider. If you have questions, please contact your health care provider. EXAM: MR HEAD RAPID BTIG STROKE LTD BRAIN WO CONTRAST LOCATION: [facility] MEDICAL IMAGING DATE/TIME: 09/18/2024 10:28 PM LEAD SOL[employer]IONS ARCHITECT INDICATION: Eval/ FU cerebral vascular disease or ischemia TIA COMPARISON: None. CONTRAST: None. TECHNIQUE: 1) Routine multiplanar multisequence head MRI without and with intravenous contrast. 2) 3D [id number]-[id number] head MRA without intravenous contrast. FINDINGS: HEAD MRI: INTRACRANIAL CONTENTS: No acute or subacute infarct. No mass, acute hemorrhage, or extra-axial fluid collections. Scattered nonspecific T2/FLAIR hyperintensities within the cerebral white matter most consistent with mild chronic microvascular ischemic change. Right parietotemporal encephalomalacia with associated cortical laminar necrosis. Mild generalized cerebral atrophy. No hydrocephalus. Normal position of the cerebellar tonsils. No pathologic contrast enhancement. SELLA: No abnormality accounting for technique. OSSEOUS STRUCTURES/SOFT TISSUES: Normal marrow signal. The major intracranial vascular flow voids are maintained. ORBITS: No abnormality accounting for technique. SINUSES/MASTOIDS: No paranasal sinus mucosal disease. No middle ear or mastoid effusion. HEAD MRA: ANTERIOR CIRCULATION: No stenosis/occlusion, aneurysm, or high flow vascular malformation. origin of the right posterior cerebral artery from the anterior circulation. POSTERIOR CIRCULATION: No stenosis/occlusion, aneurysm, or high flow vascular malformation. Balanced vertebral arteries supply a normal basilar artery. Procedure Note Eddi Anderson MD - 09/18/2024 For Patients: As a result of the Cures Act, medical imagingexams and procedure reports are released immediately into your electronicmedical record. You may view this report before your referring provider.If you have questions, please contact your health care provider. EXAM: MR HEAD RAPID CODE STROKE LTD BRAIN WO CONTRAST LOCATION: [facility] MEDICAL IMAGING DATE/TIME: 09/18/2024 10:28 PM LEAD SOL[employer]IONS ARCHITECT INDICATION: Eval/ FU cerebral vascular disease or ischemia TIA COMPARISON: None. CONTRAST: None. TECHNIQUE: 1) Routine multiplanar multisequence head MRI without and with intravenouscontrast. 2) 3D [id number] head MRA without intravenous contrast. FINDINGS: HEAD MRI: INTRACRANIAL CONTENTS: No acute or subacute infarct. No mass, acutehemorrhage, or extra-axial fluid collections. Scattered nonspecificT2/FLAIR hyperintensities within the cerebral white matter most consistentwith mild chronic microvascular ischemic change. Right parietotemporalencephalomalacia with associated cortical laminar necrosis. Mildgeneralized cerebral atrophy. No hydrocephalus. Normal position of thecerebellar tonsils. No pathologic contrast enhancement. SELLA: No abnormality accounting for technique. OSSEOUS STRUCTURES/SOFT TISSUES: Normal marrow signal. The majorintracranial vascular flow voids are maintained. ORBITS: No abnormality accounting for technique. SINUSES/MASTOIDS: No paranasal sinus mucosal disease. No middle ear ormastoid effusion. HEAD MRA: ANTERIOR CIRCULATION: No stenosis/occlusion, aneurysm, or high flowvascular malformation. origin of the right posterior cerebral arteryfrom the anterior circulation. POSTERIOR CIRCULATION: No stenosis/occlusion, aneurysm, or high flowvascular malformation. Balanced vertebral arteries supply a normal basilarartery. IMPRESSION: HEAD MRI: 1. No acute intracranial abnormality. 2. Right parietotemporal encephalomalacia. HEAD MRA: No large vessel occlusion or hemodynamically significant stenosis. us Manolo Flanagan MD MR Final R esult * CT ANGIO HEAD NECK CAROTID STROKE PROTOCOL BRET CANDIDAT (09/18/2024 8:54 PM LEAD SOLUTIONS ARCHITECT) Anatomical Region Laterality Modality BRAIN, NECK Computed Tomogra phy 09/18/2024 8:54 PM LEAD SOLUTIONS ARCHITECT Impressions 09/18/2024 9:12 PM LEAD SOLUTIONS ARCHITECT HEAD CT: 1. No acute intracranial findings. 2. 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 HEAD CTA: 1. No high-grade stenosis or large vessel occlusion of the [place] vasculature. NECK CTA: 1. No significant stenosis of the neck arterial vasculature. Results called to Dr. Flanagan at 10:55 PM on 09/18/2024. Narrative 09/18/2024 9:12 PM LEAD SOLUTIONS ARCHITECT For Patients: As a result of the Cures Act, medical imaging exams and procedure reports are released immediately into your electronic medical record. You may view this report before your referring provider. If you have questions, please contact your health care provider. EXAM: CT HEAD STROKE PROTOCOL WITHOUT CONTRAST, CTA HEAD NECK CAROTID STROKE PROTOCOL BRET CANDIDAT LOCATION: [facility] MEDICAL IMAGING DATE: 09/18/2024 INDICATION: STAT reading for possible thrombolytics. free text)->Neurologic Dysfunction COMPARISON: None. CONTRAST: None. (accession [id number]), Omnipaque 350 75 (accession [id number]) TECHNIQUE: Head and neck CT angiogram with IV contrast. Noncontrast head CT followed by axial helical CT images of the head and neck vessels obtained during the arterial phase of intravenous contrast administration. Axial 2D reconstructed images and multiplanar 3D MIP reconstructed images of the head and neck vessels were performed by the technologist. Dose reduction techniques were used. All stenosis measurements made according to NASCET criteria unless otherwise specified. FINDINGS: NONCONTRAST HEAD CT: INTRACRANIAL CONTENTS: No intracranial hemorrhage, extraaxial collection, or mass effect. No CT evidence of acute infarct. 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 Mild presumed chronic small vessel ischemic changes. Mild generalized volume loss. No hydrocephalus. VISUALIZED ORBITS/SINUSES/MASTOIDS: Prior bilateral cataract surgery. Visualized portions of the orbits are otherwise unremarkable. No paranasal sinus mucosal disease. No middle ear or mastoid effusion. BONES/SOFT TISSUES: No acute abnormality. HEAD CTA: ANTERIOR CIRCULATION: Scattered atherosclerosis of the bilateral carotid siphons. No high-grade stenosis or large vessel occlusion. No evidence of aneurysm or high flow vascular malformation. origin of the right posterior cerebral artery from the anterior circulation. POSTERIOR CIRCULATION: No high-grade stenosis or large vessel occlusion. No evidence of aneurysm or high flow vascular malformation. Dominant right and smaller left vertebral artery contribute to a normal basilar artery. DURAL VENOUS SINUSES: Not well evaluated on a technical basis. NECK CTA: RIGHT CAROTID: Scattered atherosclerosis along the cervical right carotid artery. No measurable stenosis or dissection. LEFT CAROTID: Mild atherosclerosis at the left carotid bifurcation. No measurable stenosis or dissection. VERTEBRAL ARTERIES: No focal stenosis or dissection. Dominant right and smaller left vertebral arteries. AORTIC ARCH: Classic aortic arch anatomy with no significant stenosis at the origin of the great vessels. NONVASCULAR STRUCTURES: Emphysematous changes in the visualized lung matthew. Multilevel cervical spondylosis. Procedure Note Richard Felix MD - 09/18/2024 For Patients: As a result of the Cures Act, medical imagingexams and procedure reports are released immediately into your electronicmedical record. You may view this report before your referring provider.If you have questions, please contact your health care provider. EXAM: CT HEAD STROKE PROTOCOL WITHOUT CONTRAST, CTA HEAD NECK CAROTIDSTROKE PROTOCOL BRET CANDIDAT LOCATION: [facility] MEDICAL IMAGING DATE: 09/18/2024 INDICATION: STAT reading for possible thrombolytics. freetext)->Neurologic Dysfunction COMPARISON: None. CONTRAST: None. (accession [id number]), Omnipaque 350 75 ([id number]) TECHNIQUE: Head and neck CT angiogram with IV contrast. Noncontrast headCT followed by axial helical CT images of the head and neck vesselsobtained during the arterial phase of intravenous contrast administration.Axial 2D reconstructed images and multiplanar 3D MIP reconstructed imagesof the head and neck vessels were performed by the technologist. Dosereduction techniques were used. All stenosis measurements made accordingto NASCET criteria unless otherwise specified. FINDINGS: NONCONTRAST HEAD CT: INTRACRANIAL CONTENTS: No intracranial hemorrhage, extraaxial collection,or mass effect. No CT evidence of acute infarct. Chronic infarct in theright parietal lobe. Mild presumed chronic small vessel ischemic changes.Mild generalized volume loss. No hydrocephalus. VISUALIZED ORBITS/SINUSES/MASTOIDS: Prior bilateral cataract surgery.Visualized portions of the orbits are otherwise unremarkable. No paranasalsinus mucosal disease. No middle ear or mastoid effusion. BONES/SOFT TISSUES: No acute abnormality. HEAD CTA: ANTERIOR CIRCULATION: Scattered atherosclerosis of the bilateral carotidsiphons. No high-grade stenosis or large vessel occlusion. No evidence ofaneurysm or high flow vascular malformation. origin of the rightposterior cerebral artery from the anterior circulation. POSTERIOR CIRCULATION: No high-grade stenosis or large vessel occlusion.No evidence of aneurysm or high flow vascular malformation. Dominant rightand smaller left vertebral artery contribute to a normal basilar artery. DURAL VENOUS SINUSES: Not well evaluated on a technical basis. NECK CTA: RIGHT CAROTID: Scattered atherosclerosis along the cervical right carotidartery. No measurable stenosis or dissection. LEFT CAROTID: Mild atherosclerosis at the left carotid bifurcation. Nomeasurable stenosis or dissection. VERTEBRAL ARTERIES: No focal stenosis or dissection. Dominant right andsmaller left vertebral arteries. AORTIC ARCH: Classic aortic arch anatomy with no significant stenosis atthe origin of the great vessels. NONVASCULAR STRUCTURES: Emphysematous changes in the visualized lungfields. Multilevel cervical spondylosis. IMPRESSION: HEAD CT: 1. No acute intracranial findings. 2. 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 HEAD CTA: 1. No high-grade stenosis or large vessel occlusion of the [place] vasculature. NECK CTA: 1. No significant stenosis of the neck arterial vasculature. Results called to Dr. Flanagan at 10:55 PM on 09/18/2024. Suzanne Harris MD CT Final Result * CT HEAD STROKE PROTOCOL WITHOUT CONTRAST Thrombolytic Candidate (09/18/2024 8:54 PM LEAD SOLUTIONS ARCHITECT) Anatomical Region Laterality Modality BRAIN Computed Tomogra phy 09/18/2024 8:54 PM LEAD SOLUTIONS ARCHITECT Impressions 09/18/2024 9:12 PM LEAD SOLUTIONS ARCHITECT HEAD CT: 1. No acute intracranial findings. 2. 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 HEAD CTA: 1. No high-grade stenosis or large vessel occlusion of the [place] vasculature. NECK CTA: 1. No significant stenosis of the neck arterial vasculature. Results called to Dr. Flanagan at 10:55 PM on 09/18/2024. Narrative 09/18/2024 9:12 PM LEAD SOLUTIONS ARCHITECT For Patients: As a result of the Century Cures Act, medical imaging exams and procedure reports are released immediately into your electronic medical record. You may view this report before your referring provider. If you have questions, please contact your health care provider. EXAM: CT HEAD STROKE PROTOCOL WITHOUT CONTRAST, CTA HEAD NECK CAROTID STROKE PROTOCOL BRET CANDIDAT LOCATION: [facility] MEDICAL IMAGING DATE: 09/18/2024 INDICATION: STAT reading for possible thrombolytics. free text)->Neurologic Dysfunction COMPARISON: None. CONTRAST: None. (accession [id number]), Omnipaque [id number] (accession [id number]) TECHNIQUE: Head and neck CT angiogram with IV contrast. Noncontrast head CT followed by axial helical CT images of the head and neck vessels obtained during the arterial phase of intravenous contrast administration. Axial 2D reconstructed images and multiplanar 3D MIP reconstructed images of the head and neck vessels were performed by the technologist. Dose reduction techniques were used. All stenosis measurements made according to NASCET criteria unless otherwise specified. FINDINGS: NONCONTRAST HEAD CT: INTRACRANIAL CONTENTS: No intracranial hemorrhage, extraaxial collection, or mass effect. No CT evidence of acute infarct. 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 Mild presumed chronic small vessel ischemic changes. Mild generalized volume loss. No hydrocephalus. VISUALIZED ORBITS/SINUSES/MASTOIDS: Prior bilateral cataract surgery. Visualized portions of the orbits are otherwise unremarkable. No paranasal sinus mucosal disease. No middle ear or mastoid effusion. BONES/SOFT TISSUES: No acute abnormality. HEAD CTA: ANTERIOR CIRCULATION: Scattered atherosclerosis of the bilateral carotid siphons. No high-grade stenosis or large vessel occlusion. No evidence of aneurysm or high flow vascular malformation. origin of the right posterior cerebral artery from the anterior circulation. POSTERIOR CIRCULATION: No high-grade stenosis or large vessel occlusion. No evidence of aneurysm or high flow vascular malformation. Dominant right and smaller left vertebral artery contribute to a normal basilar artery. DURAL VENOUS SINUSES: Not well evaluated on a technical basis. NECK CTA: RIGHT CAROTID: Scattered atherosclerosis along the cervical right carotid artery. No measurable stenosis or dissection. LEFT CAROTID: Mild atherosclerosis at the left carotid bifurcation. No measurable stenosis or dissection. VERTEBRAL ARTERIES: No focal stenosis or dissection. Dominant right and smaller left vertebral arteries. AORTIC ARCH: Classic aortic arch anatomy with no significant stenosis at the origin of the great vessels. NONVASCULAR STRUCTURES: Emphysematous changes in the visualized lung matthew. Multilevel cervical spondylosis. Procedure Note Richard Felix MD - 09/18/2024 For Patients: As a result of the 21st Century Cures Act, medical imagingexams and procedure reports are released immediately into your electronicmedical record. You may view this report before your referring provider.If you have questions, please contact your health care provider. EXAM: CT HEAD STROKE PROTOCOL WITHOUT CONTRAST, CTA HEAD NECK CAROTIDSTROKE PROTOCOL BRET CANDIDAT LOCATION: [facility] MEDICAL IMAGING DATE: 09/18/2024 INDICATION: STAT reading for possible thrombolytics. freetext)->Neurologic Dysfunction COMPARISON: None. CONTRAST: None. (accession [id number]), Omnipaque [id number] ([id number]) TECHNIQUE: Head and neck CT angiogram with IV contrast. Noncontrast headCT followed by axial helical CT images of the head and neck vesselsobtained during the arterial phase of intravenous contrast administration.Axial 2D reconstructed images and multiplanar 3D MIP reconstructed imagesof the head and neck vessels were performed by the technologist. Dosereduction techniques were used. All stenosis measurements made accordingto NASCET criteria unless otherwise specified. FINDINGS: NONCONTRAST HEAD CT: INTRACRANIAL CONTENTS: No intracranial hemorrhage, extraaxial collection,or mass effect. No CT evidence of acute infarct. Chronic infarct in theright parietal lobe. Mild presumed chronic small vessel ischemic changes.Mild generalized volume loss. No hydrocephalus. VISUALIZED ORBITS/SINUSES/MASTOIDS: Prior bilateral cataract surgery.Visualized portions of the orbits are otherwise unremarkable. No paranasalsinus mucosal disease. No middle ear or mastoid effusion. BONES/SOFT TISSUES: No acute abnormality. HEAD CTA: ANTERIOR CIRCULATION: Scattered atherosclerosis of the bilateral carotidsiphons. No high-grade stenosis or large vessel occlusion. No evidence ofaneurysm or high flow vascular malformation. origin of the rightposterior cerebral artery from the anterior circulation. POSTERIOR CIRCULATION: No high-grade stenosis or large vessel occlusion.No evidence of aneurysm or high flow vascular malformation. Dominant rightand smaller left vertebral artery contribute to a normal basilar artery. DURAL VENOUS SINUSES: Not well evaluated on a technical basis. NECK CTA: RIGHT CAROTID: Scattered atherosclerosis along the cervical right carotidartery. No measurable stenosis or dissection. LEFT CAROTID: Mild atherosclerosis at the left carotid bifurcation. Nomeasurable stenosis or dissection. VERTEBRAL ARTERIES: No focal stenosis or dissection. Dominant right andsmaller left vertebral arteries. AORTIC ARCH: Classic aortic arch anatomy with no significant stenosis atthe origin of the great vessels. NONVASCULAR STRUCTURES: Emphysematous changes in the visualized lungfields. Multilevel cervical spondylosis. IMPRESSION: HEAD CT: 1. No acute intracranial findings. 2. 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 HEAD CTA: 1. No high-grade stenosis or large vessel occlusion of the [place] vasculature. NECK CTA: 1. No significant stenosis of the neck arterial vasculature. Results called to Dr. Flanagan at 10:55 PM on 09/18/2024. Result Davian Harris MD CT Final Result * CWS PATH REVIEW HEMATOLOGY (09/18/2024 8:49 PM LEAD SOLUTIONS ARCHITECT) PATH COMMENT comment 09/23/2024 10:55 PM LEAD SOLUTIONS ARCHITECT [facility] Comment: If the absolute lymphocytosis persists and/or is unexplained, consider peripheral blood morphology study for further evaluation. Reviewed by Mitzi Leblanc This is an appended report. These results have been appended to a previously final verified report. Blood BLOOD SPECIMEN / Unknown Non-Lab Venipuncture / Unknown 09/18/2024 8:49 PM LEAD SOLUTIONS ARCHITECT 09/18/2024 8:51 PM LEAD SOLUTIONS ARCHITECT Result Davian Harris MD LABORATORY Edited Result - Final [facility] SENDOUT INTERNAL ZIP [id number] [place] [phone] * (ABNORMAL) RED CELL MORPHOLOGY (09/18/2024 8:49 PM LEAD SOLUTIONS ARCHITECT) ELLIPTOCYTES Few 09/18/2024 9:36 PM LEAD SOLUTIONS ARCHITECT [facility] RBC COMMENT Present(A ) RBC morphology appears normal, RBC morphology within normal limits for newborns. 09/18/2024 9:36 PM LEAD SOLUTIONS ARCHITECT [facility] Blood BLOOD SPECIMEN / Unknown Non-Lab Venipuncture / Unknown 09/18/2024 8:49 PM LEAD SOLUTIONS ARCHITECT 09/18/2024 8:51 PM LEAD SOLUTIONS ARCHITECT Result Davian Harris MD HEMATOLOGY Final Result [facility] S[address]OUT [place] [id number] [address] [place] [address] * PLATELET ESTIMATE (09/18/2024 8:49 PM LEAD SOLUTIONS ARCHITECT) PLATELET ESTIMATE Adequate Adequate, No estimate 09/18/2024 9:36 PM LEAD SOLUTIONS ARCHITECT [facility] Blood BLOOD SPECIMEN / Unknown Non-Lab Venipuncture / Unknown 09/18/2024 8:49 PM LEAD SOLUTIONS ARCHITECT 09/18/2024 8:51 PM LEAD SOLUTIONS ARCHITECT Suzanne Harris MD HEMATOLOGY Final Result [facility] SENDOUT [place] [phone] [place] [address] * (ABNORMAL) MANUAL DIFFERENTIAL (09/18/2024 8:49 PM LEAD SOLUTIONS ARCHITECT) % NEUTROPHILS 49.0 % 09/18/2024 9:[address] [facility] % LYMPHOCYTES 43.0 % 09/18/2024 9:[address] [facility] % MONOCYTES 6.0 % 09/18/2024 9:[address] [facility] % EOSINOPHILS 2.0 % 09/18/2024 9:[address] [facility] % BASOPHILS 0.0 % 09/18/2024 9:[address] [facility] NEUTROPHILS ABSOLUTE 7.4(H) 1.7 - 7.0 thou/cu mm 09/18/2024 9:[address] [facility] LYMPHOCYTES ABSOLUTE 6.5(H) 0.9 - 2.9 thou/cu mm 09/18/2024 9:[address] [facility] MONOCYTES ABSOLUTE 0.9(H) <0.9 thou/cu mm 09/18/2024 9:[address] [facility] EOSINOPHILS ABSOLUTE 0.3 <0.5 thou/cu mm 09/18/2024 9:[address] [facility] BASOPHILS ABSOLUTE 0.0 <0.3 thou/cu mm 09/18/2024 9:[address] [facility] Blood BLOOD SPECIMEN / Unknown Non-Lab Venipuncture / Unknown 09/18/2024 8:49 PM LEAD SOLUTIONS ARCHITECT 09/18/2024 8:51 PM LEAD SOLUTIONS ARCHITECT us Suzanne Harris MD HEMATOLOGY Final Result Performing Organization Address City/[facility]/ZIP Co de Phone Number [facility] SENDOUT INTERNAL ZIP [phone] [place] [phone] * SCAN-RADIOLOGY REPORT (09/08/2024 12:00 AM LEAD SOLUTIONS ARCHITECT) Anatomical Region Laterality Modality Other us Scanner OTHER Final Result * SCAN-CT INTERPRETATION (09/08/2024 12:00 AM LEAD SOLUTIONS ARCHITECT) Only the most recent of2 resultswithin the time period is included. Anatomical Region Laterality Modality Other us Scanner OTHER Final Result * (ABNORMAL) HEMOGLOBIN A1C MONITORING (POCT) (07/08/2024 7:47 AM LEAD SOLUTIONS ARCHITECT) POC HEMOGLOBIN A1C 9.6(H) <6.0 % OF TOTAL HGB [facility] Comment: Any point of care results exhibiting inconsistency with the patient's clinical status should be repeated using a different testing method. Blood BLOOD SPECIMEN / Unknown 07/08/2024 7:47 AM LEAD SOLUTIONS ARCHITECT 07/08/2024 7:48 AM LEAD SOLUTIONS ARCHITECT us Kellen Atwood DO CHEMISTRY Final Resu lt Performing Organization Address City/[facility]/ZIP Co de Phone Number [facility] [address] [place] [address], [facility] [address] [place] [address] * (ABNORMAL) XR DXA BONE DENSITY 2 [...] to assess therapeutic efficacy. Emma Naidu PA-C [facility] 04/07/2024 Narrative 04/07/2024 4:24 PM CDT For Patients: Results are automatically released to your [facility] ([employer]) account once available, in compliance with federal regulations. This means that you may see your results before your provider has had a chance to review them. Please allow 2-3 business days for your provider to comment on the results. XR DXA Bone Mineral Density (BMD) EXAM LOCATION: [address] [address] PATIENT NAME: Jose Luis Jessica DATE OF : 1945 EXAM DATE: 04/06/2024 REQUESTING PROVIDER: Navya Quinn DO GENDER AT : female HEIGHT: 5' 3 (12/02/2023) WEIGHT: 106 lb 8 oz (04/06/2024) MENOPAUSAL STATUS: Postmenopausal RACE/ETHNICITY: White Patient Declined RISK FACTORS: History of [...] two scanners are made by the same leather belt loop cutter. PROCEDURE: Dual-energy x-ray absorptiometry performed with routine [...] 4.3 Z-Score: - 1.9 Change from prior: None RESULTS FEMUR Left femoral neck BMD: 0.423 g/cm2 T-Score: - 4.4 Z-Score: - 1.9 Change from prior: None Right femoral neck BMD: 0.385 g/cm2 T-Score: - 4.9 Z-Score: - 2.6 Change from prior: None Left hip BMD: 0.081 g/cm2 T-Score: - 9.1 Z-Score: - 6.4 Change from prior: None Right hip BMD: 0.057 g/cm2 T-Score: - 10.2 Z-Score: - 7.5 Change from prior: None WHO criteria: Normal: T-score at or above -1 SD Osteopenia: T-score between -1.1 and -2.4 SD Osteoporosis: T-score at or below -2.5 SD Navya Annalee Kai DO DEXA Final Result from Last 3 Months or Most Recently Relevant to Health Maintenance Insurance [place] [address] ATTN: [place] [address] MEDICAID [facility] ATTN: [place] [address] Advance Directives Documents on File Type Date Recorded Patient Quality Control Assistant Expl anation Healthcare Directive 09/22/2024 025 * Full Code (Latest Code Status on File) Date Activated Date Inactivated Comments 09/20/2024 1:17 PM 09/26/2024 4:27 PM Question Answer Comments Code Status Discussion: Reviewed Preferences * Partial Code Date Activated Date Inactivated Comments 09/18/2024 10:06 PM 09/20/2024 1:17 PM Question Answer Comments Cardio Resuscitation: No Chest CompressionsNo De fibrillation/Cardioversion Ventilation: No Restrictions Drug Protocol: No Restrictions * Full Code Date Activated Date Inactivated Comments 08/12/2023 6:25 PM 08/26/2023 5:01 PM Question Answer Comments Code Status Discussion: Reviewed Preferences * Full Code Date Activated Date Inactivated Comments 06/20/2023 11:11 AM 06/20/2023 9:11 PM Question Answer Comments Code Status Discussion: Reviewed Preferences * Full Code Date Activated Date Inactivated Comments 09/08/2022 6:37 PM 09/09/2022 7:27 PM Question Answer Comments Code Status Discussion: Reviewed Preferences Care Teams Raised Printer Relationship Specialty Start Date End Date Navya Quinn DO [address] [place] [address] PCP - General Family Practice 09/18/24 Navya Quinn DO [address] [place] [address] Family Practice 09/18/24 Pcp, No . 06/13/21 Pcp, No . 06/18/21 Gustavo Castellano MBBS [address] [facility] [address] [place] [address] Cardiology - Interventional 09/22/24 [facility] [address] [place] [address] 09/26/24
--- NOTE | 2024-10-05 16:12 | ED_ITS ---
HPI - General Adult General Chief complaint: Chest Pain Stated complaint: Chest/L arm pain Time Seen by Provider: 10/05/24 16:09 History of Present Illness HPI narrative: hx of heart surgery 1 year ago. 15 days ago felt pain and 8 days ago fainted and went to hospital in [place]. today increased L CP and shoulder pain. was watching tv when started , about an hour ago. also states SOB. neighbor gave me a pill for bp being really high. went to sleep after pill and woke up with worse pain. 79-year-old woman presenting to the emergency department with concern of intense left-sided chest pressure, pain. Maybe a little shortness of breath with this as well. Apparently began 2 days ago it has escalated. Was persistent during this entire time she says. 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 My initial review of EKG is concerning for ST-elevation in leads 2 and 3 along with Q-waves. Family reports having been admitted for seizure 2 weeks ago to [facility]. Unclear what this medication she received is at this point. Reviewing records further I see that was seen here 1 month ago with left lower rib pain and week before that for breast pain and left lower ribs. Noted to have low thoracic upper lumbar compression fractures. Later obtaining outside records for problem list includes Type 2 diabetes Herniated lumbar intervertebral discs with radiculopathy Proliferative diabetic retinopathy History of vitreous hemorrhage in the right eye History of right-sided MCA stroke with facial droop Left hip fracture Chronic left hip pain and right SI joint pain ASCVD Abnormal CT scan of the heart Hyperlipidemia Unstable angina A flutter History of atrial fibrillation Seizure history History of respiratory failure Medication include acetaminophen Aspirin Atorvastatin Calcium plus D Docusate Levetiracetam Metformin Nitroglycerin Polyethylene glycol Sennosides Related Data Home Medications ?Medication ?Instructions ?Recorded ?Confirmed SENNA 08/12/23 aspirin 81 mg tablet,delayed 81 mg PO DAILY 08/12/23 10/05/24 release atorvastatin 40 mg tablet 40 mg PO QPM 08/12/23 10/05/24 calcium carbonate 08/12/23 cholecalciferol (vitamin D3) .Route 08/12/23 metformin 750 mg tablet,extended 750 mg PO QPM 08/12/23 10/05/24 release 24 hr polyethylene glycol 3350 17 g PO 08/12/23 gram/dose oral powder propylene glycol (PF) 0.6 % eye 1 drp ophthalmic (eye) BID PRN 08/12/23 08/12/23 drops (Systane Complete PF) docusate sodium 100 mg capsule 100 mg PO BID PRN constipation 10/05/24 10/05/24 levetiracetam 1,000 mg tablet 1,000 mg PO BID 10/05/24 10/05/24 (Keppra) nitroglycerin 10/05/24 polyethylene glycol 400 0.25 % eye drp ophthalmic (eye) 10/05/24 drops (Blink Tears) Allergies Allergy/AdvReac Type Severity Reaction Status Date / Time No Known Drug Allergies Allergy Verified 10/05/24 18:22 Review of Systems Status of ROS: Reports: 6 or more systems reviewed and unremarkable except as noted in History and below [facility] Social History Smoking Status: Never smoker Do you use any of these nicotine containing products: None Second hand tobacco smoke exposure: No How often do you have a drink containing alcohol: never AUDIT-C Alcohol total score: 0 Non-prescribed substance use: denies use service: No Exam Narrative: Exam Narrative: Small stature. Partially edentulous. Cranial nerves 2-12 intact. There is little drooping of the left upper lip/lower face which I think is more related to her absence of dentition here. Moaning in apparent discomfort with her hand placed at left breast/chest area. Mildly labored in her breathing but not tachypneic. Abdomen is soft and nontender. Lungs with some trace crepitus in the lower lung. Breath sounds throughout. Lower extremities are well perfused. She has no edema. Moving all extremities without difficulty. Const: Vital Signs, click to edit/add: Vital Signs - 24 hr 10/05/24 16:06 10/05/24 16:17 10/05/24 16:22 Temperature 97.2 F L Pulse Rate 83 82 Pulse Rate [Pulse Oximeter] 90 Respiratory Rate 18 40 H 9 L Blood Pressure 109/56 L Blood Pressure [Ri ght Upper Arm] 128/68 Pulse Oximetry 99 99 100 Oxygen Delivery Me thod Room Air Room Air 10/05/24 16:27 10/05/24 16:30 10/05/24 16:34 Temperature Pulse Rate Pulse Rate [Pulse Oximeter] Respiratory Rate 20 16 Blood Pressure 84/44 L Blood Pressure [Ri ght Upper Arm] Pulse Oximetry 99 Oxygen Delivery Me thod 10/05/24 16:34 10/05/24 16:40 10/05/24 16:42 Temperature Pulse Rate Pulse Rate [Pulse Oximeter] Respiratory Rate 30 H 11 L 16 Blood Pressure 91/45 L 98/52 L Blood Pressure [Ri ght Upper Arm] Pulse Oximetry Oxygen Delivery Me thod 10/05/24 16:45 10/05/24 16:47 10/05/24 16:48 Temperature Pulse Rate 81 Pulse Rate [Pulse Oximeter] Respiratory Rate 16 14 14 Blood Pressure 80/46 L 84/55 L Blood Pressure [Ri ght Upper Arm] Pulse Oximetry 98 Oxygen Delivery Me thod Room Air 10/05/24 17:00 10/05/24 17:01 10/05/24 17:15 Temperature Pulse Rate 80 83 79 Pulse Rate [Pulse Oximeter] Respiratory Rate 0 L 17 20 Blood Pressure 114/61 Blood Pressure [Ri ght Upper Arm] Pulse Oximetry 99 96 97 Oxygen Delivery Me thod 10/05/24 17:17 10/05/24 17:30 10/05/24 17:32 Temperature Pulse Rate 76 74 75 Pulse Rate [Pulse Oximeter] Respiratory Rate 8 L 12 11 L Blood Pressure 122/63 115/66 Blood Pressure [Ri ght Upper Arm] Pulse Oximetry 86 L 100 100 Oxygen Delivery Me thod 10/05/24 17:45 10/05/24 17:47 10/05/24 17:48 Temperature Pulse Rate 89 76 72 Pulse Rate [Pulse Oximeter] Respiratory Rate 16 0 L 5 L Blood Pressure 112/76 Blood Pressure [Ri ght Upper Arm] Pulse Oximetry 87 L 98 100 Oxygen Delivery Me thod Room Air Room Air 10/05/24 18:00 10/05/24 18:01 10/05/24 18:15 Temperature Pulse Rate 74 72 Pulse Rate [Pulse Oximeter] Respiratory Rate 11 L 12 11 L Blood Pressure 124/75 Blood Pressure [Ri ght Upper Arm] Pulse Oximetry 100 99 Oxygen Delivery Me thod 10/05/24 18:16 10/05/24 18:39 10/05/24 18:45 Temperature Pulse Rate 80 Pulse Rate [Pulse Oximeter] Respiratory Rate 7 L 30 H 12 Blood Pressure 129/66 Blood Pressure [Ri ght Upper Arm] Pulse Oximetry 99 Oxygen Delivery Me thod 10/05/24 18:46 10/05/24 19:00 10/05/24 19:02 Temperature Pulse Rate 79 87 89 Pulse Rate [Pulse Oximeter] Respiratory Rate 10 L 12 17 Blood Pressure 127/59 L 128/106 H Blood Pressure [Ri ght Upper Arm] Pulse Oximetry 100 100 99 Oxygen Delivery Me thod 10/05/24 19:15 10/05/24 19:16 10/05/24 19:30 Temperature Pulse Rate 89 89 86 Pulse Rate [Pulse Oximeter] Respiratory Rate 6 L 8 L 12 Blood Pressure 119/60 Blood Pressure [Ri ght Upper Arm] Pulse Oximetry 99 99 100 Oxygen Delivery Me thod 10/05/24 19:32 10/05/24 19:45 10/05/24 19:47 Temperature Pulse Rate 88 85 85 Pulse Rate [Pulse Oximeter] Respiratory Rate 11 L 0 L 11 L Blood Pressure 119/64 129/65 Blood Pressure [Ri ght Upper Arm] Pulse Oximetry 100 98 99 Oxygen Delivery Me thod 10/05/24 20:00 10/05/24 20:01 10/05/24 20:15 Temperature Pulse Rate 91 86 82 Pulse Rate [Pulse Oximeter] Respiratory Rate 12 13 12 Blood Pressure 150/80 H Blood Pressure [Ri ght Upper Arm] Pulse Oximetry 94 95 88 Oxygen Delivery Me thod 10/05/24 20:20 10/05/24 20:30 10/05/24 20:35 Temperature Pulse Rate 80 80 75 Pulse Rate [Pulse Oximeter] Respiratory Rate 11 L 18 Blood Pressure 146/79 H Blood Pressure [Ri ght Upper Arm] Pulse Oximetry 99 99 99 Oxygen Delivery Me thod Room Air 10/05/24 20:45 10/05/24 20:49 10/05/24 21:00 Temperature Pulse Rate 74 77 77 Pulse Rate [Pulse Oximeter] Respiratory Rate 21 Blood Pressure 152/80 H Blood Pressure [Ri ght Upper Arm] Pulse Oximetry 99 100 100 Oxygen Delivery Me thod Room Air Documenting provider has reviewed patient's vital signs: yes Course Vital Signs Vital signs: Initial Vital Signs Temperature 97.2 F L 10/05/24 16:06 Temperature Source Temporal Artery Scan 10/05/24 16:06 Pulse Rate 90 10/05/24 16:06 Respiratory Rate 18 10/05/24 16:06 Blood Pressure 128/68 10/05/24 16:06 Blood Pressure Mean 88 10/05/24 16:06 Blood Pressure Position Supine 10/05/24 16:06 Pulse Oximetry 99 10/05/24 16:06 Oxygen Delivery Method Room Air 10/05/24 16:06 Vital Signs Temperature 97.2 F L 10/05/24 16:06 Pulse Rate 90 10/05/24 16:06 Respiratory Rate 18 10/05/24 16:06 Blood Pressure 128/68 10/05/24 16:06 Pulse Oximetry 99 10/05/24 16:06 Oxygen Delivery Method Room Air 10/05/24 16:06 Temperature 97.2 F L 10/05/24 16:06 Pulse Rate 77 10/05/24 21:00 Respiratory Rate 21 10/05/24 21:00 Blood Pressure 152/80 H 10/05/24 21:00 Pulse Oximetry 100 10/05/24 21:00 Oxygen Delivery Method Room Air 10/05/24 21:00 Medications Administered Medications: Discontinued Medications Generic Name Dose Route Start Last Admin Trade Name Freq PRN Reason Stop Dose Admin Sodium Chloride 500 mls @ 500 mls/hr 10/05/24 16:33 10/05/24 16:58 0.9 % Sodium Chloride 500 Ml IV 10/05/24 17:32 500 mls/hr .Q1H ONE Administration Sodium Chloride 1,000 mls @ 1,000 mls/hr 10/05/24 18:53 10/05/24 19:25 0.9 % Sodium Chloride 1000 Ml IV 10/05/24 19:52 1,000 mls/hr .Q1H ONE Administration Lidocaine 1 patch 10/05/24 20:58 10/05/24 21:00 Lidocaine 5% Patch TRANSDERMA 10/05/24 20:59 1 patch ONCE ONE Administration Protocol Medical Decision Making MDM Narrative Medical decision making narrative: Ordered for aspirin and nitro. Concerning changes of on my initial read of her EKG which shows [address]-elevation in leads 2 and 3 along with Q-waves. No reci procal changes are evident. Able to find prior EKG which does show elevation in the ST segment of 2 and 3 not dissimilar from today's. On reassessment pain is much less. Seems more relaxed. With re-examination I am reproducing the discomfort to palpation of the left chest wall now. Appears to have been seen for chest/chest wall pain and number of times on review of record. Chest x-ray by my independent review shows post surgical changes. Interstitial fullness noted. ProBNP is reassuring. Labs however with elevation of D-dimer. Certainly could be evidence of dissection or pulmonary embolus. Did request CT imaging as well. Hyponatremia as well which has gone from 136 1 month ago to 128 today. New medications are noted. Did review images of CT of chest as well. I do not think she has an infectious process here per radiology mention. Technique: AP view of the chest. Comparison: 09/08/2024. Findings: Low lung volumes. Postsurgical changes from median sternotomy and coronary artery bypass grafting. Normal cardiomediastinal silhouette. [id number]-[id number]-[id number] interstitial prominence. No focal consolidation, pleural effusions, or visualized pneumothorax. Right upper quadrant abdominal surgical clips. Left lung calcified granuloma. Impression: Piki-sg-[id number] interstitial prominence may represent fibrotic changes or mild pulmonary edema. Dictated by Yahir Villasenor MD @ 10/05/2024 5:37:07 PM INDICATION: Left-sided chest pain, moderately elevated D-dimer. TECHNIQUE: CT chest PE was acquired with 95 cc Isovue 370 IV contrast. COMPARISON: CT abdomen and pelvis 07/08/2025. FINDINGS: Heart and vasculature: Contrast opacification of the pulmonary arterial tree is adequate. No sign of pulmonary embolism. Heart size is normal. Thoracic aorta and pulmonary artery are normal in caliber. Prior median sternotomy with CABG postsurgical changes. Coronary artery and thoracic aorta atherosclerotic calcification.. Lungs and pleura: Scattered subpleural fibrotic changes. Mild honeycombing within the lung bases, including the posterior costophrenic angles. Small focus of consolidation within the superior segment of the right lower lobe. No pleural effusion or pneumothorax. Lingula calcified granuloma. Lymph nodes/mediastinum: No mediastinal, hilar, or axillary adenopathy. Chest wall: No masses. Upper abdomen: No acute or significant findings. Prior cholecystectomy. Bones: Unchanged severe T12 and moderate L1 compression fractures. IMPRESSION: 1. No pulmonary embolism. 2. Small focus of consolidation within the superior segment of the right lower adjacent to an area of honeycombing and fibrotic changes. This could represent atelectasis and/or scarring; however, difficult to exclude infection, in the correct clinical setting. 3. Unchanged severe T12 and moderate L1 compression fractures. Please note that all CT scans at this facility use dose modulation, iterative reconstruction, and/or weight-based dosing when appropriate to reduce radiation dose to as low as reasonably achievable. Dictated by Isacc Sharpe MD @ 10/05/2024 7:04:07 PM Upon discharge is requesting some of the medicine that we gave from her. I believe she is referring to the nitroglycerin. She does have this available at least on her medication list. Did also place a lidocaine patch given chest wall nature of her pain. This might be costochondritis? Seems so improved though it also hesitate to give regular oral medication at this point. Pain seems out of proportion. Location of pain would not seem to be radicular from known compression fractures. See patient discharge plan for further discussion If this lidocaine patch was helpful, you can purchase more over the counter. Your sodium was low today. We did replace some of it. I would schedule with your primary care provider for recheck in about a week. You also have compression fractures in your low mid spine. However these are not new. Medical Records Medical records reviewed: Yes I reviewed the patient's medical records Lab Data Lab results reviewed: Yes I reviewed the patient's lab results Labs: Lab Results 10/05/24 10/05/24 Range/Units 17:00 17:24 WBC 7.97 (4.50-11.00) K/uL RBC 3.36 L (4.00-5.20) m/uL Hgb 10.8 L (12.0-16.0) gm/dL Hct 32.4 L (33.0-51.0) % MCV 96 (80-100) fL MCH 32 (26-34) pg MCHC 33 (32-36) gm/dL RDW Coeff of Demetrius 13.3 (11.5-15.5) % Plt Count 485 H (140-440) K/uL Neut % (Auto) 49.0 (42.0-72.0) % Lymph % (Auto) 40.0 (20-44) % [place] % (Auto) 7.4 (0.0-11.0) % Eos % (Auto) 2.5 (0.0-7.0) % Baso % (Auto) 0.8 (0.0-3.0) % Neut # (Auto) 3.91 (1.7-7.0) K/uL Lymph # (Auto) 3.19 H (0.90-2.90) K/uL [place] # (Auto) 0.60 (0.00-0.90) K/UL Eos # (Auto) 0.20 (0.00-0.50) K/uL Baso # (Auto) 0.06 (0.00-0.30) K/uL Abs Immat Gran (auto) 0.02 (0.00-0.30) K/uL Imm/Tot Granulo (auto) 0.3 % Diff Slide Review Acceptable Review (Acceptable) D-Dimer Quant (PE/DVT) 1.22 H (0.00-0.50) ug/ml Sodium 128 L (135-149) mmol/L Potassium 4.0 (3.6-5.1) mmol/L Chloride 91 L (96-114) mmol/L Carbon Dioxide 28 (20-32) mmol/L Anion Gap 9 (7-15) mEq/L BUN 9 (7-30) mg/dL Creatinine 0.5 (0.5-1.5) mg/dL Estimated GFR 95 ml/min Glucose 152 H (60-115) mg/dL Calcium 8.9 (8.4-10.6) mg/dL Troponin I < 0.01 L (0.01-0.04) ng/mL NT-Pro-B Natriuret Pep 329 pg/mL POC Creatinine 0.7 (0.6-1.3) mg/dl POC Troponin I 0.01 (0.01-0.04) ng/ml ECG Data Attestation: I personally reviewed and interpreted this ECG as follows: (Normal sinus rhythm at a rate of 84. Has [address]-elevation in leads 2 and 3. Q- waves also noted. I do not appreciate reciprocal changes. This does actually appear similar to prior EKG ) Discharge Plan Discharge Clinical Impression: Chest wall pain, Hyponatremia, Compression fracture Patient Disposition: Home w/ Parent or Adult Condition: Improved Additional Instructions: If this lidocaine patch was helpful, you can purchase more over the counter. Your sodium was low today. We did replace some of it. I would schedule with your primary care provider for recheck in about a week. You also have compression fractures in your low mid spine. However these are not new. Si marbella parche de lidoca?na le result? ?til, puede comprar m?s sin receta. Hoy ten?a el sodio bajo. Reemplazamos zac parte. Le recomendar?a programar zac kerri con gomez m?dico de cabecera para zac nueva revisi?n en zac semana aproximadamente. Tambi?n tiene fracturas por compresi?n en la parte media inferior de la columna. Sin embargo, no son nuevas. Prescriptions: No Action atorvastatin 40 mg tablet 40 mg PO QPM aspirin 81 mg tablet,delayed release (DR/EC) 81 mg PO DAILY polyethylene glycol 3350 17 gram/dose powder PO metformin 750 mg tablet extended release 24 hr 750 mg PO QPM Systane Complete PF 0.6 % drops 1 drp ophthalmic (eye) BID PRN SENNA cholecalciferol (vitamin D3) .Route calcium carbonate docusate sodium 100 mg capsule 100 mg PO BID PRN (Reason: constipation) levetiracetam [Keppra] 1,000 mg tablet 1,000 mg PO BID nitroglycerin Blink Tears 0.25 % drops ophthalmic (eye) Follow Up/Referrals: CORI BRAY DO [Primary Care Provider] - Stand Alone Forms: MyHealth Info Instructions
[2024-10-05] MEDS: 0.9 % SODIUM CHLORIDE 500 ML 500 ML IV (16:58)
[2024-10-05 17:10] LABS: Basophils Absolute Auto 0.06 K/uL (0.00-0.30); Basophils Percent Auto 0.8 % (0.0-3.0); Eosinophils Percent Auto 2.5 % (0.0-7.0); Hematocrit 32.4 % (33.0-51.0); Hemoglobin* 10.8 gm/dL (12.0-16.0); Immature Granulocytes Abs Auto 0.02 K/uL (0.00-0.30); Immature Granulocytes Pct Auto 0.3 %; Lymphocytes Absolute Auto 3.19 K/uL (0.90-2.90); Mean Corpuscular HGB Conc 33 gm/dL (32-36); Mean Corpuscular Hemoglobin 32 pg (26-34); Mean Corpuscular Volume 96 fL (80-100); Monocytes Percent Auto 7.4 % (0.0-11.0); Neutrophils Absolute Auto 3.91 K/uL (1.7-7.0); Platelet Count* 485 K/uL (140-440); RDW Coefficient of Variation % 13.3 % (11.5-15.5); Red Blood Count 3.36 m/uL (4.00-5.20); White Blood Count* 7.97 K/uL (4.50-11.00)
[2024-10-05 17:15] LABS: Slide Review Reflex Yes
[2024-10-05 17:23] LABS: Chloride* 91 mmol/L (96-114); Sodium* 128 mmol/L (135-149)
[2024-10-05 17:24] LABS: Troponin, Point-of-Care* 0.01 ng/ml (0.01-0.04)
[2024-10-05 17:25] LABS: Creatinine, Point-of-Care* 0.7 mg/dl (0.6-1.3)
[2024-10-05 17:26] LABS: Anion Gap 9 mEq/L (7-15); Blood Urea Nitrogen* 9 mg/dL (7-30); Calcium* 8.9 mg/dL (8.4-10.6); Carbon Dioxide* 28 mmol/L (20-32); Creatinine* 0.5 mg/dL (0.5-1.5); Estimated Glomerular Filt Rate 95 ml/min; Glucose* 152 mg/dL (60-115)
--- OUTSIDE RECORDS SUMMARY | 2024-10-05 17:27 | XMS_ITS | Clinical Summary ---
Author Organization [facility] Address [address] [place] [address] Care Team Providers Care Medical Review Specialist Name Role Phone Navya Quinn DO Primary Care Provider [phone] Source Comments You are receiving this document as you are listed as the primary care provider,follow-up provider, or the patient has been referred to you for consultation.This is in compliance with the Medicare and[facility] EHR Incentive Program,which states Providers who transition their patient to another setting of careor provider of care or refers their patient to another provider of care shouldprovide summary care record for each transition of care or referral. [facility] Allergies No known active allergies Medications Blood [...] as directed. 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 07/15/2019 Regular astigmatism of both eyes 07/15/2019 Headache, post-traumatic 10/26/2010 Hyperlipidemia 11/09/2008 Diabetes mellitus without complication 6 Resolved Problems Problem Noted Date Diagnosed Date Resolved Date Closed intertrochanteric fracture of femur 12/17/2019 12/11/2023 Overview (09/02/2023): Added automatically from request for surgery [id number] Social History Tobacco Use Types Packs/Day Years Used Date Smoking Tobacco: Never Assessed [facility] Utilities Answer Date Recorded In the past 12 months has e [employer], gas, oil, or water [employer] threatened to shut off services in your [...] 48.1 kg (106 lb) 09/24/2023 6:07 PM FASHION DIRECTOR Height 154 cm (5' 0.63) 09/24/2023 4:00 PM FASHION DIRECTOR Body Mass Index 20.27 09/24/2023 4:00 PM FASHION DIRECTOR Plan of Treatment Health Maintenance Due Date [...] this topic Medical Devices Implanted Type Area Technical Delivery Manager Device Identifier Shelf Expiration Date Model / Serial / Lot Nail Michael Ti St 130d [id number] Lt - [id number] Implanted:Qty: 1 on 12/18/2019 by Nelson Escamilla MD at [facility] DEVICE [employer] - Trauma 05/27/2029 [id number] / / [id number] Scr Tfna [address] 90mm - [id number] Implanted:Qty: 1 on 12/18/2019 by Nelson Escamilla MD at [facility] DEVICE [employer] - Trauma 04/26/2029 [id number] / / [id number] Scr Lk Ti T25 St 5.0x44 - [id number] Implanted:Qty: 1 on 12/18/2019 by Nelson Escamilla MD at [facility] DEVICE [employer] De[employer]uy [employer]ynthe[employer] - Trauma 07/27/2028 [id number] / / [id number] Scr Lk Ti T25 St 5.0x60 - [id number] Implanted:Qty: 1 on 12/18/2019 by Nelson Escamilla MD at [facility] DEVICE [employer] De[employer]uy [employer] - Trauma 08/27/2028 [id number] / / [id number] Procedures Procedure Name Priority Date/Time Associated Diagnosis Comments BASIC METABOLIC PANEL STAT 11/28/2023 3:15 PM CDT HGB A1C Routine 09/24/2023 7:06 AM FASHION DIRECTOR from Last 3 Months or Most Recently Relevant to Health Maintenance Results * (ABNORMAL) Basic Metabolic Panel (11/28/2023 3:15 PM CDT) Sodium 134(L) 136 - 145 mmol/L 11/28/2023 3:49 PM CDT [facility] Potassium 3.6 3.5 - 5.1 mmol/L 11/28/2023 3:49 PM T [facility] Chloride 102 98 - 109 mmol/L 11/28/2023 3:49 PM T [facility] CO2 24 20 - 29 mmol/L 11/28/2023 3:49 PM T [facility] Anion Gap 8 6 - 16 mmol/L 11/28/2023 3:49 PM T [facility] Calcium 9.0 8.4 - 10.4 mg/dL 11/28/2023 3:49 PM T [facility] BUN 14 7 - 26 mg/dL 11/28/2023 3:49 PM T [facility] Creatinine 0.65 0.55 - 1.02 mg/dL 11/28/2023 3:49 PM T [facility] Glucose 190(H) 70 - 100 mg/dL 11/28/2023 3:49 PM T [facility] Comment:The given reference range is for the fasting state. Non-fasting reference range for glucose is 70 - 180 mg/dL. GFR, Estimated >60 >60 mL/min/1.7 3m2 11/28/2023 3:49 PM CDT [facility] Blood Venipuncture / Unknown 11/28/2023 3:15 PM CDT 11/28/2023 3:20 PM CDT us Sushma Valenzuela PA-C LAB_1 Final Re sult Performing Organization Address City/[facility]/ZIP Co de Phone Number [address] * (ABNORMAL) Hgb A1C (09/24/2023 7:06 AM FASHION DIRECTOR) Hemoglobin A1C 7.5(H) <=5.6 % 09/24/2023 11:45 AM FASHION DIRECTOR [facility] Estimated Average Glucose (Calc) 169 < 117 mg/dL 09/24/2023 11:45 AM [facility] Comment:Estimated average gl ucose (eAG) converts A1c into glucose units (mg/dL) and estimates average glucose over the past approximately 3 months. The eAG reference interval (<117 mg/dL) corresponds to an A1c of <5.7%. Blood Venipuncture / Unknown 09/24/2023 7:06 AM FASHION DIRECTOR 09/24/2023 7:09 AM FASHION DIRECTOR Narrative [facility] - 09/24/2023 11:45 AM FASHION DIRECTOR For patients not previously diagnosed with diabetes: 5.7-6.4%: Increased risk for diabetes 6.5% and greater: Diagnostic for diabetes For patients diagnosed with diabetes: <8.0%: Goal of therapy for ages 18-75 Clinicians may recommend a higher or lower goal for specific individuals. us Myles Guo MD LAB_1 Final Result Performing Organization Address [facility] Co de Phone Number [facility] [address] [place] [address], [facility] from Last 3 Months or Most Recently Relevant to Health Maintenance Insurance [facility] [id number] [place] [id number] Advance Directives * Full Code (Latest Code Status on File) Date Activated Date Inactivated Comments 09/24/2023 2:36 AM 09/26/2023 2:31 PM * Full Code Date Activated Date Inactivated Comments 12/17/2019 11:18 PM 12/24/2019 7:35 PM Care Teams Medical Review Specialist Relationship Specialty Start Date End Date Navya Quinn [place] [address] PCP - General Family Practice 11/28/23
--- OUTSIDE RECORDS SUMMARY | 2024-10-05 17:27 | XMS_ITS | Clinical Summary ---
Author Organization [email or web address] [facility] Address [address] [place] [address] Care Team Providers Care Sleeve Tailor Name Role Phone Navya Quinn DO Primary Care Provider [phone] Navya Quinn Annalee DO Unavailable [phone] Pcp, No Unavailable Unavailable Pcp, No Unavailable Unavailable Gustavo Castellano Unavailable [phone] [facility] Unavailable [phone] Allergies No known active allergies Medications nitroglycerin (NITROSTAT) 0.4 mg sublingual tabletIndications :Cardiovascular symptoms,ASCVD (arteriosclerotic cardiovascular disease) Place 1 Tablet (0.4 mg) under the tongue every 5 minutes if needed for Chest pain 1st choice (Hold if SBP less than 90 mmHg). Up to 3 tablets in 15 minutes. 25 Tablet 1 06/20/20 23 6:39 PM CERNER ANALYST 023 Active acetaminophen (TYLENOL EXTRA STRGTH) 500 mg tabletIndications :S/P CABG x 4 Take 2 Tablets (1,000 mg) by mouth every 6 hours if needed for Pain. Max acetaminophen dose: 4000mg in 24 hrs. 120 Tablet 08/26/19 24 9:39 AM CERNER ANALYST 024 Active WalkerIndications :S/P CABG x 4 [...] 60 Tablet 11 09/27/19 25 11:31 AM CERNER ANALYST Active polyethylene glycol 400 (Blink Tears) 0.25 [...] eye 07/05/2024 Coronary artery disease invo lving kasaan coronary artery without angina pectoris 06/01/2024 AF [...] (08/15/2022): Added automatically from request for surgery [id number] Presbyopia 07/15/2019 Regular astigmatism of both eyes [...] Date Type Department Care Team Description 10/05/2024 Telephone [facility] [address] [place] [address] Navya Quinn, 10/05/2024 Home Care Visit [address] [address] Yesenia Stovall, RN NOT TAKEN UNDER HOME CARE 10/04/2024 Home Care Visit [address] [address] Meseret Davis, RN CARE COORDINATION 10/01/2024 2:10 PM CERNER ANALYST Office Visit [facility] [address] [place] [address] Navya Quinn, DO Hospital F/U (3/ Follow up - seizures, weakness, stent placement) 10/01/2024 Travel 09/29/2024 Home Care Visit [address] [address] Yesenia Stovall, RN CARE COORDINATION 09/28/2024 Home Care Visit [address] [address] Yesenia Stovall, RN CARE COORDINATION 09/27/2024 Patient Outreach [facility] [address] [place] [address] Taya Judge RN Primary RN Care Management; Hospital F/U (LACE 57) 09/24/2024 Travel 09/18/2024 8:45 PM CERNER ANALYST - 09/26/2024 1:55 PM CERNER ANALYST Hospital Encounter [address] [address] Suzanne Harris MD [facility], U Hospitalist [facility] Simon, MD Lance Orr, MD Gregorio Marsh, Shelly Leavitt MD Seizure (HC) (Primary Dx); Left-sided weakness; Acute respiratory failure, unspecified whether with hypoxia or hypercapnia (HC) Discharge Disposition: Home Health 09/18/2024 8:38 PM CERNER ANALYST - 09/19/2024 6:38 AM [facility] Emergency [facility] [address] [place] [address] Suzanne Harris MD Discharge Disposition: Home Self Care 09/08/2024 Orders Only [facility] Scanner 1 scan: (1-Ord) [facility], ADDENDUM-CT ABDOMEN PELVIS W, 09/08/2024 09/08/2024 Orders Only [facility] Scanner 1 scan: (1-Ord) [facility], XR CHEST 1V, 09/08/2024 09/08/2024 Orders Only [facility] Scanner 1 scan: (1-Ord) [facility], CT ABD PELVIS WO, 09/08/2024 09/03/2024 12:45 PM CERNER ANALYST Office Visit [facility] [address] [place] [address] Kellen Atwood, Pain (left breast pain and left sided pulsating back pain for about 1 month. ) 09/03/2024 Travel 07/08/2024 7:30 AM CERNER ANALYST Office Visit [facility] [address] [place] [address] Kellen Atwood, DO Diabetes 07/08/2024 Travel from [...] Comments Blood Pressure 107/57 10/01/2024 2:05 PM CERNER ANALYST Pulse 89 10/01/2024 2:05 PM CERNER ANALYST Temperature 37.1 C (98.7 F) 09/26/2024 8:18 AM CERNER ANALYST Respiratory Rate 16 09/26/2024 8:18 AM CERNER ANALYST Oxygen Saturation 97% 10/01/2024 2:05 PM CERNER ANALYST Inhaled Oxygen Concentration - - Weight 48.4 kg (106 lb 9.6 oz) 10/01/2024 2:05 P M CERNER ANALYST Height 160 cm (5' 3) 09/19/2024 2:00 AM CERNER ANALYST Body Mass Index 18.88 09/19/2024 2:00 AM CERNER ANALYST Plan of Treatment Upcoming Encounters Date Type Department Care Team (Late st Contact Info) Description 10/06/2024 2:40 PM CDT Office Visit [facility] [address] [place] [address] Kristian Wang MD [address] [place] [address] 10/15/2024 2:10 PM CDT Office Visit [facility] [address] [place] [address] Navya Quinn DO [address] [place] [address] 11/11/2024 1:45 PM CDT Office Visit [facility] [address] [place] [address] Danny Blackmon, DO [address] [address] Health Maintenance Due Date Last Done Comments [...] history exists Medical Devices Implanted Type Area Design Draftsman Device Identifier Shelf Expiration Date Model / Serial / Lot Log [id number] - Yesy Sn60wf Lens Iol - 1 - Lens Iol 21.0 Wf [id number]. [id number] Implanted:Qty: 1 on 10/21/2011 at [facility] Left: Eye [employer] [id number]. 0# / [id number] / Log [id number] - Yesy Sn60wf Lens Iol - 1 - Lens Iol 22.5 Wf [id number]. [id number] Implanted:Qty: 1 on 11/07/2011 at [facility] Right: Eye [employer] 07/08/2016 [id number]. [id number]# / [id number] / Procedures Procedure Name Priority Date/Time Associated Diagnosis Comments GLUCOSE METER Timed 09/26/2024 12:46 PM CERNER ANALYST SCAN-CARDIAC STRIP 09/26/2024 8: 26 AM CERNER ANALYST GLUCOSE METER Timed 09/26/2024 7:26 AM CERNER ANALYST MAGNESIUM Early AM 09/26/2024 6:18 AM CERNER ANALYST POTASSIUM Early AM 09/26/2024 6:18 AM CERNER ANALYST GLUCOSE METER Timed 09/25/2024 10:20 PM CERNER ANALYST MAGNESIUM Timed 09/25/2024 5:34 PM CERNER ANALYST GLUCOSE METER Timed 09/25/2024 5:11 PM CERNER ANALYST GLUCOSE METER Timed 09/25/2024 12:00 PM CERNER ANALYST SCAN-CARDIAC STRIP 09/25/2024 9: 11 AM CERNER ANALYST GLUCOSE METER Timed 09/25/2024 8:40 AM CERNER ANALYST POTASSIUM Early AM 09/25/2024 6:32 AM CERNER ANALYST MAGNESIUM Early AM 09/25/2024 6:32 AM CERNER ANALYST GLUCOSE METER Timed 09/24/2024 9:27 PM CERNER ANALYST GLUCOSE METER Timed 09/24/2024 5:06 PM CERNER ANALYST POTASSIUM Timed 09/24/2024 3:14 PM CERNER ANALYST GLUCOSE METER Timed 09/24/2024 11:59 AM CERNER ANALYST SCAN-CARDIAC STRIP 09/24/2024 9: 31 AM CERNER ANALYST GLUCOSE METER Timed 09/24/2024 8:41 AM CERNER ANALYST CREATININE Early AM 09/24/2024 6:34 AM CERNER ANALYST HEMOGLOBIN Early AM 09/24/2024 6:34 AM CERNER ANALYST WHITE BLOOD COUNT Early AM 09/24/2024 6:3 4 AM CERNER ANALYST POTASSIUM Early AM 09/24/2024 6:34 AM CERNER ANALYST MAGNESIUM Early AM 09/24/2024 6:34 AM CERNER ANALYST GLUCOSE METER Timed 09/23/2024 10:20 PM CERNER ANALYST SCAN-CARDIAC STRIP 09/23/2024 5: 33 PM CERNER ANALYST GLUCOSE METER Timed 09/23/2024 4:55 PM CERNER ANALYST GLUCOSE METER Timed 09/23/2024 11:[address] CARDIAC CORONARY ARTERIES CV DUAL READ Routine 09/23/2024 11:[address] CARDIAC CORONARY ARTERIES RAD DUAL READ Routine 09/23/2024 11:06 AM CERNER ANALYST GLUCOSE METER Timed 09/23/2024 7:52 AM CERNER ANALYST MAGNESIUM Early AM 09/23/2024 3:59 AM CERNER ANALYST CBC W PLT NO DIFF Early AM 09/23/2024 3:5 9 AM CERNER ANALYST BASIC METABOLIC PANEL Early AM 09/23/2024 3:59 AM CERNER ANALYST GLUCOSE METER Timed 09/23/2024 3:49 AM CERNER ANALYST GLUCOSE METER Timed 09/22/2024 11:51 PM CERNER ANALYST GLUCOSE METER Timed 09/22/2024 9:24 PM CERNER ANALYST SCAN-CARDIAC STRIP 09/22/2024 8: 06 PM CERNER ANALYST SCAN-CARDIAC STRIP 09/22/2024 7: 43 PM CERNER ANALYST MAGNESIUM Timed 09/22/2024 5:40 PM CERNER ANALYST GLUCOSE METER Timed 09/22/2024 4:27 PM CERNER ANALYST GLUCOSE METER Timed 09/22/2024 3:53 PM CERNER ANALYST SCAN CORRESP-EKG RESULTS 09/22/2024 1:55 PM CERNER ANALYST GLUCOSE METER Timed 09/22/2024 12:30 PM CERNER ANALYST XR VIDEO SWALLOW W SPEECH Routine 09/22/2024 10:10 AM CERNER ANALYST GLUCOSE METER Timed 09/22/2024 7:49 AM CERNER ANALYST SCAN-CARDIAC STRIP 09/22/2024 7: 19 AM CERNER ANALYST EKG 12 LEAD STAT 09/22/2024 6:25 AM CERNER ANALYST TROPONIN T (HS) ONE TIME STAT 09/22/2024 6:17 AM CERNER ANALYST CREATININE Early AM 09/22/2024 4:26 AM CERNER ANALYST HEMOGLOBIN Early AM 09/22/2024 4:26 AM CERNER ANALYST WHITE BLOOD COUNT Early AM 09/22/2024 4:2 6 AM CERNER ANALYST POTASSIUM Early AM 09/22/2024 4:26 AM CERNER ANALYST MAGNESIUM Early AM 09/22/2024 4:26 AM CERNER ANALYST GLUCOSE METER Timed 09/22/2024 4:14 AM CERNER ANALYST GLUCOSE METER Timed 09/21/2024 11:57 PM CERNER ANALYST US VENOUS LOWER EXTREMITY BILATERAL PORTABLE Routine 09/21/2024 10:47 PM CERNER ANALYST EXTRA TUBE GOLD/SST Today 09/21/2024 8 :53 PM CERNER ANALYST LACTATE VENOUS Today 09/21/2024 8:48 PM CERNER ANALYST SCAN-CARDIAC STRIP 09/21/2024 8: 22 PM CERNER ANALYST GLUCOSE METER Timed 09/21/2024 8:[address] CHEST PULMONARY EMBOLUS PE ABDOMEN PELVIS W STAT 09/21/2024 7:17 PM CERNER ANALYST GLUCOSE METER Timed 09/21/2024 4:50 PM CERNER ANALYST TROPONIN T (HS) ONE TIME Today 09/21/2024 4:15 PM CERNER ANALYST GLUCOSE METER Timed 09/21/2024 4:07 PM CERNER ANALYST XR CHEST 1 VIEW PORTABLE JEMMA 09/21/2024 2:43 PM CERNER ANALYST GLUCOSE METER Timed 09/21/2024 11:56 AM CERNER ANALYST TROPONIN T (HS) ONE TIME Today 09/21/2024 10:22 AM CERNER ANALYST EKG 12 LEAD Routine 09/21/2024 10:18 AM CERNER ANALYST GLUCOSE METER Timed 09/21/2024 7:46 AM CERNER ANALYST SCAN-CARDIAC STRIP 09/21/2024 7: 30 AM CERNER ANALYST POTASSIUM Timed 09/21/2024 4:34 AM CERNER ANALYST BASIC METABOLIC PANEL Early AM 09/21/2024 4:34 AM CERNER ANALYST CBC W PLT NO DIFF Early AM 09/21/2024 4:3 4 AM CERNER ANALYST MAGNESIUM Early AM 09/21/2024 4:34 AM CERNER ANALYST GLUCOSE METER Timed 09/21/2024 3:49 AM CERNER ANALYST GLUCOSE METER Timed 09/20/2024 11:55 PM CERNER ANALYST EKG 12 LEAD Routine 09/20/2024 9:57 PM CERNER ANALYST POTASSIUM STAT 09/20/2024 9:49 PM CERNER ANALYST GLUCOSE METER Timed 09/20/2024 8:07 PM CERNER ANALYST GLUCOSE METER Timed 09/20/2024 4:24 PM CERNER ANALYST POTASSIUM Timed 09/20/2024 3:00 PM CERNER ANALYST ECHO TTE COMPLETE WO CONTRAST Routine 09/20/2024 12:35 PM CERNER ANALYST GLUCOSE METER Timed 09/20/2024 11:52 AM CERNER ANALYST COVID/FLU/RSV PANEL Today 09/20/2024 1 1:30 AM CERNER ANALYST XR CHEST 1 VIEW PORTABLE Routine 09/20/2024 9:58 AM CERNER ANALYST CONTINUOUS VIDEO EEG MONITORING Routine 09/20/2024 8:55 AM CERNER ANALYST GLUCOSE METER Timed 09/20/2024 8:21 AM CERNER ANALYST SCAN-CARDIAC STRIP 09/20/2024 7: 41 AM CERNER ANALYST PROCALCITONIN Early AM 09/20/2024 4:43 AM CERNER ANALYST MAGNESIUM Early AM 09/20/2024 4:39 AM CERNER ANALYST CO2,TOTAL Early AM 09/20/2024 4:39 AM CERNER ANALYST WHITE BLOOD COUNT Early AM 09/20/2024 4:3 9 AM CERNER ANALYST HEMOGLOBIN Early AM 09/20/2024 4:39 AM CERNER ANALYST CREATININE Early AM 09/20/2024 4:39 AM CERNER ANALYST SODIUM Early AM 09/20/2024 4:39 AM CERNER ANALYST POTASSIUM Early AM 09/20/2024 4:39 AM CERNER ANALYST CK TOTAL Timed 09/20/2024 4:39 AM CERNER ANALYST TRIGLYCERIDES Timed 09/20/2024 4:39 AM CERNER ANALYST LEVETIRACETAM (KEPPRA) Timed 4:31 AM CERNER ANALYST GLUCOSE METER Timed 09/20/2024 4:14 AM CERNER ANALYST EKG 12 LEAD STAT 09/20/2024 1:43 AM CERNER ANALYST GLUCOSE METER Timed 09/20/2024 12:09 AM CERNER ANALYST GLUCOSE METER Timed 09/19/2024 8:02 PM CERNER ANALYST BLOOD CULTURE Today 09/19/2024 7:15 PM CERNER ANALYST BLOOD CULTURE Today 09/19/2024 7:04 PM CERNER ANALYST MAGNESIUM Timed 09/19/2024 7:04 PM CERNER ANALYST URINALYSIS MICROSCOPIC Timed 4:36 PM CERNER ANALYST UA W/ SEDIMENT EXAM REFLEXED PER CRITERIA Today 09/19/2024 4:36 PM CERNER ANALYST GLUCOSE METER Timed 09/19/2024 4:20 PM CERNER ANALYST SCAN-CARDIAC STRIP 09/19/2024 3: 51 PM CERNER ANALYST MR HEAD BRAIN WWO Routine 09/19/2024 1:4 7 PM CERNER ANALYST MRSA/SA PCR Today 09/19/2024 12:31 PM CERNER ANALYST GLUCOSE METER Timed 09/19/2024 12:14 PM CERNER ANALYST SCAN-CARDIAC STRIP 09/19/2024 8: 06 AM CERNER ANALYST MAGNESIUM Early AM 09/19/2024 6:09 AM CERNER ANALYST POTASSIUM STAT 09/19/2024 6:09 AM CERNER ANALYST ALT (SGPT) STAT 09/19/2024 6:09 AM CERNER ANALYST AST (SGOT) STAT 09/19/2024 6:09 AM CERNER ANALYST BILIRUBIN DIRECT STAT 09/19/2024 6:09 AM CERNER ANALYST PROTIME-INR JEMMA 09/19/2024 6:09 AM CERNER ANALYST CBC WITH AUTO DIFFERENTIAL STAT 09/19/2024 6:08 AM CERNER ANALYST CBC WITH AUTO DIFFERENTIAL STAT 09/19/2024 6:08 AM CERNER ANALYST GLUCOSE METER Timed 09/19/2024 6:07 AM CERNER ANALYST SPUTUM CULTURE, STAIN Today 09/19/2024 4:04 AM CERNER ANALYST GLUCOSE METER Timed 09/19/2024 2:57 AM CERNER ANALYST HEPATIC FUNCTION PANEL STAT 2:41 AM CERNER ANALYST PROTIME-INR STAT 09/19/2024 2:41 AM CERNER ANALYST BASIC METABOLIC PANEL STAT 09/19/2024 2:41 AM CERNER ANALYST XR ABDOMEN 1 VIEW PORTABLE STAT 09/18/2024 11:18 PM CERNER ANALYST ISTAT EG6+ ABG Timed 09/18/2024 10:45 PM CERNER ANALYST MR HEAD RAPID CODE STROKE LTD BRAIN WO CONTRAST JEMMA 09/18/2024 10:28 PM CERNER ANALYST XR CHEST 1 VIEW PORTABLE JEMMA 09/18/2024 9:29 PM CERNER ANALYST EKG 12 LEAD STAT 09/18/2024 9:[address] ANGIO HEAD NECK CAROTID STROKE PROTOCOL BRET CANDIDAT STAT 09/18/2024 8:[address] HEAD STROKE PROTOCOL WITHOUT CONTRAST STAT 09/18/2024 8:54 PM CERNER ANALYST CWS PATH REVIEW HEMATOLOGY STAT 09/18/2024 8:49 PM CERNER ANALYST RED CELL MORPHOLOGY STAT 09/18/2024 8 :49 PM CERNER ANALYST PLATELET ESTIMATE STAT 09/18/2024 8:4 9 PM CERNER ANALYST MANUAL DIFFERENTIAL STAT 09/18/2024 8 :49 PM CERNER ANALYST CBC WITH AUTO DIFFERENTIAL STAT 09/18/2024 8:49 PM CERNER ANALYST BASIC METABOLIC PANEL STAT 09/18/2024 8:49 PM CERNER ANALYST PROTIME-INR STAT 09/18/2024 8:49 PM CERNER ANALYST CBC WITH AUTO DIFFERENTIAL STAT 09/18/2024 8:49 PM CERNER ANALYST GLUCOSE METER Timed 09/18/2024 8:40 PM CERNER ANALYST SCAN-CT INTERPRETATION 12:00 AM CERNER ANALYST SCAN-RADIOLOGY REPORT 09/08/2024 12:00 AM CERNER ANALYST SCAN-CT INTERPRETATION 12:00 AM CERNER ANALYST HEMOGLOBIN A1C MONITORING (POCT) Routine 07/08/2024 7:47 AM CERNER ANALYST Type 2 diabetes mellitus with diabetic neuropathy, without long-term current use of insulin (HC) XR DXA BONE DENSITY 2 SITES AXIAL AND 1 SITE PERIPHERAL Routine 04/06/2024 2:24 PM CDT Postmenopausal from Last 3 Months or Most Recently Relevant to Health Maintenance Results * (ABNORMAL) GLUCOSE METER (09/26/2024 12:46 PM CERNER ANALYST) Only the most recent of42 resultswithin the time period is included. GLUCOSE METER 190(H) 65 - 100 mg/dL 09/26/2024 12:46 PM CERNER ANALYST [facility] Blood BLOOD SPECIMEN / Unknown 09/26/2024 12:46 PM CERNER ANALYST 09/26/2024 12:46 PM CERNER ANALYST us Shelly Perkins MD CHEMISTRY F inal Result [facility] SENDOUT [place] [address]IP [phone] [place] [address] * SCAN-CARDIAC STRIP (09/26/2024 8:26 AM CERNER ANALYST) us Scanner OTHER Final Result * POTASSIUM (09/26/2024 6:18 AM CERNER ANALYST) Only the most recent of10 resultswithin the time period is included. Pathologist [facility] POTASSIUM 4.0 3.5 - 5.1 mmol/L 09/26/2024 6:59 AM CERNER ANALYST [facility] Blood BLOOD SPECIMEN / Unknown Venipuncture / Unknown 09/26/2024 6:18 AM CERNER ANALYST 09/26/2024 6:30 AM CERNER ANALYST Mariam Martinez RN CHEMISTRY Final Result Performing Organization Address [facility]/ZIP Co de Phone Number [facility] SENDOUT [place] ZIP [phone] [place] [address] * MAGNESIUM (09/26/2024 6:18 AM CERNER ANALYST) Only the most recent of11 resultswithin the time period is included. Pathologist [facility] MAGNESIUM 2.1 1.6 - 2.4 mg/dL 09/26/2024 7:03 AM [facility] Blood BLOOD SPECIMEN / Unknown Venipuncture / Unknown 09/26/2024 6:18 AM CERNER ANALYST 09/26/2024 6:30 AM CERNER ANALYST Mariam Martinez RN CHEMISTRY Final Result Performing Organization Address [facility] Co de Phone Number [facility] SENDOUT INTERNAL ZIP [phone] [place] [phone] * SCAN-CARDIAC STRIP (09/25/2024 9:11 AM CERNER ANALYST) us Scanner OTHER Final Result * SCAN-CARDIAC STRIP (09/24/2024 9:31 AM CERNER ANALYST) us Scanner OTHER Final Result * WHITE BLOOD COUNT (09/24/2024 6:34 AM CERNER ANALYST) Only the most recent of3 resultswithin the time period is included. Pathologist [facility] WHITE BLOOD COUNT 7.0 4.5 - 11.0 thou/cu mm 09/24/2024 7:23 AM CERNER ANALYST [facility] NRBC 0.0 % 09/24/2024 7:23 AM CERNER ANALYST [facility] ABS NRBC 0.0 thou /cu mm 09/24/2024 7:23 AM CERNER ANALYST [facility] Blood BLOOD SPECIMEN / Unknown Venipuncture / Unknown 09/24/2024 6:34 AM CERNER ANALYST 09/24/2024 7:11 AM CERNER ANALYST Shelly Perkins MD HEMATOLOGY F inal Result Performing Organization Address City/[facility]/ZIP Co de Phone Number [facility] SENDOUT INTERNAL ZIP [phone] [place] [phone] * (ABNORMAL) HEMOGLOBIN (09/24/2024 6:34 AM CERNER ANALYST) Only the most recent of3 resultswithin the time period is included. HEMOGLOBIN 10.7(L) 12.0 - 16.0 g/dL 09/24/2024 7:23 AM [facility] MCV 93 80 - 100 fL 09/24/2024 7:23 AM [facility] Blood BLOOD SPECIMEN / Unknown Venipuncture / Unknown 09/24/2024 6:34 AM CERNER ANALYST 09/24/2024 7:11 AM CERNER ANALYST Shelly Perkins MD HEMATOLOGY F inal Result Performing Organization Address [facility]/ZIP Co de Phone Number [facility] SENDOUT INTERNAL ZIP [phone] [place] [phone] * (ABNORMAL) CREATININE (09/24/2024 6:34 AM CERNER ANALYST) Only the most recent of3 resultswithin the time period is included. eGFR >90 >90 mL/min/1.7 3m2 09/24/2024 7:39 AM [facility] Comment:As of 2021, eG FR is calculated by the CKD-EPI creatinine equation without race adjustment. eGFR can be influenced by muscle mass, exercise, and diet. The reported eGFR is an estimation only and is only applicable if the renal function is stable. CREATININE 0.48(L) 0.50 - 0.90 mg/dL 09/24/2024 7:39 AM [facility] Blood BLOOD SPECIMEN / Unknown Venipuncture / Unknown 09/24/2024 6:34 AM CERNER ANALYST 09/24/2024 7:11 AM CERNER ANALYST Shelly Perkins MD CHEMISTRY F inal Result [facility] SENDOUT INTERNAL ZIP [phone] [place] [address] * SCAN-CARDIAC STRIP (09/23/2024 5:33 PM CERNER ANALYST) us Scanner OTHER Final Result * CT CARDIAC CORONARY ARTERIES CV DUAL READ (09/23/2024 11:06 AM CERNER ANALYST) Anatomical Region Laterality Modality HEART Computed Tomogra phy, Other Narrative 09/23/2024 3:47 PM CERNER ANALYST Results are automatically released to your [employer] account once available, in compliance with federal [...] radiology report for non-cardiac findings. Severe multivessel kasaan coronary artery disease involving the left anterior [...] Image post processing was performed on a [employer] Workstation. The patient received the following medications: [...] aorta. Mild aortic atherosclerosis. Corbin Coleman MD [facility] AHK/car Susan [facility] CT Final Result * CT CARDIAC CORONARY ARTERIES RAD DUAL READ (09/23/2024 11:06 AM CERNER ANALYST) Anatomical Region Laterality Modality HEART Computed Tomogra phy, Other 09/23/2024 11:0 6 AM CERNER ANALYST Impressions 09/23/2024 12:48 PM CERNER ANALYST 1. Please refer to supervisor harvesting's dictation for the cardiac CT report. 2. No new significant incidental extracardiac findings. Narrative 09/23/2024 12:48 PM CERNER ANALYST For Patients: As a result of the [...] FINALIZED AT DIFFERENT TIMES.* EXAM: OVERREAD: DETAILED [facility] EXTRACARDIAC OVERREAD OF CARDIAC CT LOCATION: [facility] MEDICAL IMAGING DATE: 09/23/2024 INDICATION: Chest pain/anginal [...] BEFINALIZED AT DIFFERENT TIMES.* EXAM: OVERREAD: DETAILED [facility] EXTRACARDIAC OVERREAD OFCARDIAC CT LOCATION: [facility] MEDICAL IMAGING DATE: 09/23/2024 INDICATION: Chest [...] ABDOMEN: Cholecystectomy. IMPRESSION: 1. Please refer to supervisor harvesting's dictation for the cardiac CT report. 2. No new significant incidental extracardiac findings. Susan [facility]AVE CT Final Result * (ABNORMAL) CBC W PLT NO DIFF (09/23/2024 3:59 AM CERNER ANALYST) Only the most recent of2 resultswithin the time period is included. WHITE BLOOD COUNT 9.5 4.5 - 11.0 thou/cu mm 09/23/2024 4:13 AM [facility] RED BLOOD COUNT 3.25(L) 4.00 - 5.20 mil/cu mm 09/23/2024 4:13 AM [facility] HEMOGLOBIN 10.5(L) 12.0 - 16.0 g/dL 09/23/2024 4:13 AM [facility] HEMATOCRIT 30.7(L) 33.0 - 51.0 % 09/23/2024 4:13 AM [facility] MCV 95 80 - 100 fL 09/23/2024 4:13 AM [facility] MCH 32.3 26.0 - 34.0 pg 09/23/2024 4:13 AM [facility] MCHC 34.2 32.0 - 36.0 g/dL 09/23/2024 4:13 AM [facility] RDW 13.7 11.5 - 15.5 % 09/23/2024 4:13 AM [facility] PLATELET COUNT 263 140 - 440 thou/cu mm 09/23/2024 4:13 AM [facility] MPV 9.7 6.5 - 11.0 fL 09/23/2024 4:13 AM [facility] NRBC 0.0 % 09/23/2024 4:13 AM [facility] ABS NRBC 0.0 thou /cu mm 09/23/2024 4:13 AM [facility] Blood BLOOD SPECIMEN / Unknown Venipuncture / Unknown 09/23/2024 3:59 AM CERNER ANALYST 09/23/2024 4:11 AM [facility] Shelly Perkins MD HEMATOLOGY F inal Result [facility] SENDOUT INTERNAL ZIP [id number] [place] [address] * (ABNORMAL) BASIC METABOLIC PANEL (09/23/2024 3:59 AM CERNER ANALYST) Only the most recent of4 resultswithin the time period is included. SODIUM 141 136 - 145 mmol/L 09/23/2024 4:33 AM [facility] POTASSIUM 3.7 3.5 - 5.1 mmol/L 09/23/2024 4:33 AM [facility] CHLORIDE 107 98 - 107 mmol/L 09/23/2024 4:33 AM [facility] CO2,TOTAL 24 22 - 29 mmol/L 09/23/2024 4:33 AM [facility] ANION GAP 10 5 - 18 09/23/2024 4:33 AM [facility] GLUCOSE 128(H) 70 - 99 mg/dL 09/23/2024 4:33 AM [facility] CALCIUM 8.6(L) 8.8 - 10.4 mg/dL 09/23/2024 4:33 AM [facility] Comment: Reference ranges for this test were updated on 06/01/2024 to reflect our healthy population more accurately. Reference range changes are not retroactively applied to results, but previous results using the same methodology can be interpreted in the context of the new reference range. BUN 6(L) 8 - 23 mg/dL 09/23/2024 4:33 AM [facility] CREATININE 0.54 0.50 - 0.90 mg/dL 09/23/2024 4:33 AM [facility] BUN/CREAT RATIO 11 10 - 20 4:33 AM [facility] eGFR >90 >90 mL/min/1. 73m2 09/23/2024 4:33 AM [facility] Comment:As of 2021, eG FR is calculated by the CKD-EPI creatinine equation without race adjustment. eGFR can be influenced by muscle mass, exercise, and diet. The reported eGFR is an estimation only and is only applicable if the renal function is stable. Blood BLOOD SPECIMEN / Unknown Venipuncture / Unknown 09/23/2024 3:59 AM CERNER ANALYST 09/23/2024 4:11 AM [facility] Susan MALAVE CHEMISTRY Final Result [facility] SENDOUT [place]NAL [address]IP [phone] [place] [address] * SCAN-CARDIAC STRIP (09/22/2024 8:06 PM CERNER ANALYST) us Scanner OTHER Final Result * SCAN-CARDIAC STRIP (09/22/2024 7:43 PM CERNER ANALYST) us Scanner OTHER Final Result * SCAN CORRESP-EKG RESULTS (09/22/2024 1:55 PM CERNER ANALYST) Narrative 09/22/2024 1:55 PM CERNER ANALYST Ordered by an unspecified provider. us Other Clinical Staff OTHER Final Resul t * XR VIDEO SWALLOW AND TREATMENT W SPEECH (09/22/2024 10:10 AM CERNER ANALYST) Anatomical Region Laterality Modality Esophagus Computed Radiogr aphy 09/22/2024 10:1 0 AM CERNER ANALYST Impressions 09/22/2024 10:44 AM CERNER ANALYST Swallow study with Speech Pathology using multiple barium thicknesses. Deep penetration of thin liquids without arcadio aspiration. Mildly thickened liquids, pudding, and solid textures swallowed without evidence for airway compromise. Minor pharyngeal residue. Please see speech pathology report for additional details and dietary recommendations. Narrative 09/22/2024 10:44 AM CERNER ANALYST For Patients: As a result of the Cures Act, medical imaging exams and procedure reports are released immediately into your electronic medical record. You may view this report before your referring provider. If you have questions, please contact your health care provider. EXAM: XR VIDEO SWALLOW AND TREATMENT W SPEECH LOCATION: [facility] MEDICAL IMAGING DATE: 09/22/2024 INDICATION: Recent [...] VIDEO SWALLOW AND TREATMENT W SPEECH LOCATION: [facility] MEDICAL IMAGING DATE: 09/22/2024 INDICATION: Recent [...] Result * SCAN-CARDIAC STRIP (09/22/2024 7:19 AM CERNER ANALYST) us Scanner OTHER Final Result * EKG 12 LEAD (09/22/2024 6:25 AM CERNER ANALYST) Only the most recent of5 resultswithin the [...] NOW QTc 449 ms BEYOND NOW P [place] 56 degrees BEYOND NOW R [place] 0 degrees BEYOND NOW T [place] 34 degrees BEYOND NOW 09/22/2024 6:25 AM CERNER ANALYST 09/22/2024 9:08 AM CERNER ANALYST us Angel Molina MD EKG ORD Final Re sult BEYOND NOW [place], [place] * (ABNORMAL) TROPONIN T (HS) ONE TIME (09/22/2024 6:17 AM CERNER ANALYST) Only the most recent of3 resultswithin the time period is included. TROPONIN T HS 48(H) 6-10 ng/L ng/L 09/22/2024 6:51 AM CERNER ANALYST [facility] Blood BLOOD SPECIMEN / Unknown Butterfly / Unknown 09/22/2024 6:17 AM CERNER ANALYST 09/22/2024 6:22 AM CERNER ANALYST Narrative [facility] - 09/22/2024 6:51 AM CERNER ANALYST hs-cTnT (Elecsys Troponin T Gen 5) concentration [...] Angel Molina MD CHEMISTRY Final Re sult [facility] SENDOUT [place]NAL ZIP [phone] [place] [address] * US VENOUS LOWER EXTREMITY BILATERAL PORTABLE (09/21/2024 10:47 PM CERNER ANALYST) Anatomical Region Laterality Modality LEGS, LEG L, LEG R Ultrasound 09/21/2024 10:4 7 PM CERNER ANALYST Impressions 09/21/2024 11:06 PM CERNER ANALYST 1. No deep venous thrombosis in the bilateral lower extremities. Narrative 09/21/2024 11:06 PM CERNER ANALYST For Patients: As a result of the Cures Act, medical imaging exams and procedure reports are released immediately into your electronic medical record. You may view this report before your referring provider. If you have questions, please contact your health care provider. EXAM: US VENOUS LOWER EXTREMITY BILATERAL PORTABLE LOCATION: [facility] MEDICAL IMAGING DATE: 09/21/2024 INDICATION: Bilateral [...] US VENOUS LOWER EXTREMITY BILATERAL PORTABLE LOCATION: [facility] MEDICAL IMAGING DATE: 09/21/2024 INDICATION: Bilateral [...] the bilateral lower extremities. us Kellen Truong [employer] US Fin al Result * EXTRA TUBE GOLD/SST (09/21/2024 8:53 PM CERNER ANALYST) Blood BLOOD SPECIMEN / Unknown Non-Lab Venipuncture / Unknown 09/21/2024 8:53 PM CERNER ANALYST 09/21/2024 8:53 PM CERNER ANALYST us Doctor Unknown LABORATORY Final Result [facility] SENDOUT INTERNAL ZIP [phone] [place] [address] * LACTATE VENOUS (09/21/2024 8:48 PM CERNER ANALYST) [facility] LACTATE,VENOUS 1.3 0.5 - 2.0 mmol/L 09/21/2024 9:21 PM CERNER ANALYST [facility] Blood BLOOD SPECIMEN / Unknown Venipuncture / Unknown 09/21/2024 8:48 PM CERNER ANALYST 09/21/2024 8:52 PM CERNER ANALYST Kellen Truong [employer] CHEMISTRY Fin al Result [facility] SENDOUT INTERNAL ZIP [phone] [place] [address] * SCAN-CARDIAC STRIP (09/21/2024 8:22 PM CERNER ANALYST) us Scanner OTHER Final Result * CT CHEST PULMONARY EMBOLUS PE ABDOMEN PELVIS W (09/21/2024 7:17 PM CERNER ANALYST) Anatomical Region Laterality Modality CHEST, Abdomen, Pelvis Computed Tomography 09/21/2024 7:17 PM CERNER ANALYST Impressions 09/21/2024 8:05 PM CERNER ANALYST 1. No pulmonary embolism. 2. Small bilateral effusions with bibasilar atelectasis. Additional patchy airspace opacities noted at the lung bases which may represent pneumonia or atelectasis. 3. Chronic interstitial fibrotic changes with Mosaic attenuation of the lungs suggesting small airway disease. 4. No acute findings in the abdomen and pelvis. Narrative 09/21/2024 8:05 PM CERNER ANALYST For Patients: As a result of the Cures Act, medical imaging exams and procedure reports are released immediately into your electronic medical record. You may view this report before your referring provider. If you have questions, please contact your health care provider. EXAM: CT CHEST PULMONARY EMBOLUS PE ABDOMEN PELVIS W LOCATION: [facility] MEDICAL IMAGING DATE: 09/21/2024 INDICATION: Pulmonary [...] PULMONARY EMBOLUS PE ABDOMEN PELVIS W LOCATION: [facility] MEDICAL IMAGING DATE: 09/21/2024 INDICATION: Pulmonary [...] CHEST 1 VIEW PORTABLE (09/21/2024 2:43 PM CERNER ANALYST) Only the most recent of3 resultswithin the time period is included. Anatomical Region Laterality Modality HEART, THORAX, CHEST Computed Ra diography 09/21/2024 2:43 PM CERNER ANALYST Impressions 09/21/2024 3:32 PM CERNER ANALYST Sternotomy. Heart mildly enlarged, unchanged. Low lung volumes. Small increased consolidation noted within the right mid and lower lung concerning for pneumonia. No large effusion. Chronic interstitial lung changes appears similar to prior examination. Narrative 09/21/2024 3:32 PM CERNER ANALYST For Patients: As a result of the Cures Act, medical imaging exams and procedure reports are released immediately into your electronic medical record. You may view this report before your referring provider. If you have questions, please contact your health care provider. EXAM: XR CHEST 1 VIEW PORTABLE LOCATION: [facility] MEDICAL IMAGING DATE: 09/21/2024 INDICATION: SOB COMPARISON: 09/20/2024 Procedure Note Jesse Solis MD - 09/21/2024 For Patients: As a result of the Cures Act, medical imagingexams and procedure reports are released immediately into your electronicmedical record. You may view this report before your referring provider.If you have questions, please contact your health care provider. EXAM: XR CHEST 1 VIEW PORTABLE LOCATION: [facility] MEDICAL IMAGING DATE: 09/21/2024 INDICATION: SOB COMPARISON: 09/20/2024 IMPRESSION: Sternotomy. Heart mildly enlarged, unchanged. Low lung volumes. Smallincreased consolidation noted within the right mid and lower lungconcerning for pneumonia. No large effusion. Chronic interstitial lungchanges appears similar to prior examination. us Shlely Perkins MD GENERAL IMAGING F inal Result * SCAN-CARDIAC STRIP (09/21/2024 7:30 AM CERNER ANALYST) us Scanner OTHER Final Result * ECHO TTE COMPLETE WO CONTRAST (09/20/2024 12:35 PM CERNER ANALYST) Anatomical Region Laterality Modality Ultrasound 09/20/2024 12:0 2 PM CERNER ANALYST Narrative 09/20/2024 1:13 PM CERNER ANALYST [address] [address] Main: [email or web address] Transthoracic Echo Report JOSE LUIS JOYCE Excellian ID: [id number] Age: 79 : 1945 Ordering Provider: KELLEN TRUONG Exam Date: 09/20/2024 12:02 Gender: F Pencils Washer: MIKA Height: 68 in BSA: 1.87 m [...] ZScore: -1.42 Roxy Chowdary MD (Electronically Signed) [facility] Accredited Site Final Date: 20 September 2024 13:12 ICD-10 Codes: 428.9 Procedure Note Roxy Chowdary MD - 09/20/2024 [place] [address] Main: [email or web address] Transthoracic Echo Report JOSE LUIS JOYCE Excellian ID: [id number] Age: 79 : 1945 Ordering Provider:KELLEN TRUONG Exam Date: 09/20/2024 12:02 Gender: F Pencils Washer: MIKA Height: 68 in BSA: 1.87 m BP: 121 / 54 Weight: 163 lbs BMI: 24.8 kg/m HR: 74 Location: Inpatient (Portable) Rhythm: Normal Sinus Rhythm Procedure Components: 2D imaging, Color Doppler, Spectral Doppler Indications: Heart Failure, Heart failure, unspecified Technical Quality: Fair Contrast: None Final Conclusion 1. Hyperdynamic left ventricular systolic function. Calculated leftventricular ejection fraction (modified Isaac technique) is 78 [...] ZScore: -1.42 Roxy Chowdary MD (Electronically Signed) [facility] Accredited Site Final Date: 20 September 2024 13:12 ICD-10 Codes: 428.9 us Kellen Truong [employer] ECHO ORD Fin al Result * COVID/FLU/RSV PANEL (09/20/2024 11:30 AM CERNER ANALYST) COVID 19 [facility]INA MOLECULAR Negative Negative 09/20/2024 12:41 PM CERNER ANALYST [facility] Comment:All PCR tests are gomez bject to false negative result due to variability in viral load and collection technique. A negative result does not rule out a SARS-CoV-2 infection. Clinical correlation required. INFLUENZA A PCR Negative 5 12:41 PM CERNER ANALYST [facility] INFLUENZA B PCR Negative 5 12:41 PM CERNER ANALYST [facility] Respiratory Syncytial Virus Negative 09/20/2024 12:41 PM CERNER ANALYST [facility] Swab NASOPHARYNGEAL SWAB / Unknown Non-Blood / Unknown 09/20/2024 11:30 AM CERNER ANALYST 09/20/2024 11:32 AM CERNER ANALYST Sangita Osorio ARAGON MICROBIOLOGY Final R esult [facility] SENDOUT INTERNAL [facility] [id number] [address] [place] [address] * CONTINUOUS VIDEO EEG MONITORING (09/20/2024 8:55 AM CERNER ANALYST) Narrative Evelia Fernandes MBBS - 09/20/2024 8:55 AM CERNER ANALYST Evelia Fernandes MBBS 09/20/2024 2:06 PM [facility] long term care pharmacist monitoring/ video EEG report Name: Jose Luis Lozano Test Number: See below Test date: 09/20/24 : 1945 Referring Service: @SERVDEPT@ Age: 79 y.o. Referring Physician: [facility] Procedure: videoEEG/ LTM Interpreting Physician: Evelia Fernandes [...] it were read by Dr. Lao. Day 2 report - (Study date: 09/20/2024,Study duration: 13 [...] with a total recording time of (25Hours:37Minutes) iWcho Quiroz [facility] NEUROLOGY ORD Final Result * SCAN-CARDIAC STRIP (09/20/2024 7:41 AM CERNER ANALYST) us Scanner OTHER Final Result * PROCALCITONIN (09/20/2024 4:43 AM CERNER ANALYST) PROCALCITONIN 0.30 ng/ml 09/20/2024 5:27 AM [facility] Blood BLOOD SPECIMEN / Unknown Non-Lab Venipuncture / Unknown 09/20/2024 4:43 AM CERNER ANALYST 09/20/2024 4:43 AM CERNER ANALYST Narrative [facility] - 09/20/2024 5:27 AM CERNER ANALYST Procalcitonin for initial assessment of Lower Respiratory [...] Sangita ARAGON SEND OUTS Final R esult [facility] SENDOUT INTERNAL ZIP [phone] [place] [address] * TRIGLYCERIDES propofol (09/20/2024 4:39 AM CERNER ANALYST) TRIGLYCERIDES 65 <150 mg/dL 09/20/2024 5:14 AM CERNER ANALYST [facility] PROVIDER ORDERED STATUS RANDOM 09/20/2024 5:14 AM CERNER ANALYST [facility] Blood BLOOD SPECIMEN / Unknown Venipuncture / Unknown 09/20/2024 4:39 AM CERNER ANALYST 09/20/2024 4:42 AM CERNER ANALYST Sangita ARAGON CHEMISTRY Final R esult Performing Organization Address [facility]/ZIP Co de Phone Number [facility] SENDOUT INTERNAL ZIP [phone] [place] [address] * (ABNORMAL) SODIUM (09/20/2024 4:39 AM CERNER ANALYST) SODIUM 134(L) 136 - 145 mmol/L 09/20/2024 5:14 AM CERNER ANALYST [facility] Blood BLOOD SPECIMEN / Unknown Venipuncture / Unknown 09/20/2024 4:39 AM CERNER ANALYST 09/20/2024 4:42 AM CERNER ANALYST Nessa Lucas MD CHEMISTRY Final R esult Performing Organization Address [facility] Co de Phone Number [facility] SENDOUT INTERNAL ZIP [phone] [place] [phone] * (ABNORMAL) CO2,TOTAL (09/20/2024 4:39 AM CERNER ANALYST) CO2,TOTAL 19(L) 22 - 29 mmol/L 09/20/2024 5:14 AM CERNER ANALYST [facility] Blood BLOOD SPECIMEN / Unknown Venipuncture / Unknown 09/20/2024 4:39 AM CERNER ANALYST 09/20/2024 4:42 AM CERNER ANALYST Nessa Lucas MD CHEMISTRY Final R esult Performing Organization Address [facility]/ZIP Co de Phone Number [facility] SENDOUT INTERNAL ZIP [phone] [place] [address] * (ABNORMAL) CK TOTAL propofol (09/20/2024 4:39 AM CERNER ANALYST) CK,TOTAL 195(H) 26 - 192 IU/L 09/20/2024 5:14 AM CERNER ANALYST [facility] Blood BLOOD SPECIMEN / Unknown Venipuncture / Unknown 09/20/2024 4:39 AM CERNER ANALYST 09/20/2024 4:42 AM CERNER ANALYST [facility] Osorio ARAGON CHEMISTRY Final R esult [facility] SENDOUT INTERNAL ZIP [phone] [place] [address] * LEVETIRACETAM (KEPPRA) (09/20/2024 4:31 AM CERNER ANALYST) LEVETIRACETAM (KEPPRA) 30.8 6.0 - 46.0 ug/mL 09/20/2024 11:43 AM CERNER ANALYST [facility] Blood BLOOD SPECIMEN / Unknown Venipuncture / Unknown 09/20/2024 4:31 AM CERNER ANALYST 09/20/2024 4:43 AM CERNER ANALYST Narrative [facility] - 09/20/2024 11:43 AM CERNER ANALYST Reference Range is based on Trough Steady State in patients receiving recommended daily dose. The relationship between serum concentrations and toxicity is not known. Bivaracetam (Briviact ) interferes with measurements of levetiracetam (Keppra ) in the ARK Levetiracetam Assay Richard Lao MD SEND OUTS Final Resu lt Performing Organization Address City/[facility]/ZIP Co de Phone Number [facility] [address] * BLOOD CULTURE (09/19/2024 7:15 PM CERNER ANALYST) Only the most recent of2 resultswithin the time period is included. CULTURE No Growth. 09/25/2024 1:59 AM CERNER ANALYST [facility] Blood BLOOD SPECIMEN / Unknown Venipuncture / Unknown 09/19/2024 7:15 PM CERNER ANALYST 09/19/2024 7:19 PM CERNER ANALYST Narrative [facility] - 09/25/2024 1:59 AM CERNER ANALYST Low volume blood culture received; possible false negative culture. [facility] Osorio ARAGON MICROBIOLOGY Final R esult [facility] [address] [place] [address], [place] * (ABNORMAL) URINALYSIS MICROSCOPIC (09/19/2024 4:36 PM CERNER ANALYST) RBC 0-2 0-2, None Seen /HPF 09/19/2024 5:24 PM CERNER ANALYST [facility] WBC 6-10(A) 0-2, 3-5, None Seen /HPF 09/19/2024 5:24 PM CERNER ANALYST [facility] BACTERIA None Seen None Seen, Rare, Few Bacteria/ HPF 09/19/2024 5:24 PM [facility] EPITHELIAL CELLS None Seen None Seen, Few Epi/HPF 09/19/2024 5:24 PM [facility] HYALINE CASTS 0-2 0-2, 3-5 /LPF 09/19/2024 5:24 PM [facility] Urine URINE SPECIMEN / Unknown Non-Blood / Unknown 09/19/2024 4:36 PM CERNER ANALYST 09/19/2024 4:57 PM CERNER ANALYST us Nessa Lucas MD URINE Final R esult [facility] SENDOUT INTERNAL ZIP [phone] [place] [address] * (ABNORMAL) UA W/ SEDIMENT EXAM REFLEXED PER CRITERIA (09/19/2024 4:36 PM CERNER ANALYST) COLOR Yellow Yellow Color 09/19/2024 5:16 PM [facility] CLARITY Clear Clear Clarity 09/19/2024 5:16 PM [facility] SPECIFIC GRAVITY,URINE 1.015 1.010, 1.015, 1.020, 1.025 09/19/2024 5:16 PM [facility] PH,URINE 7.0 6.0, 7.0, 8.0, 5.5, 6.5, 7.5, 8.5 09/19/2024 5:16 PM [facility] UROBILINOGEN, QUALITATIVE Normal Normal EU/dl 09/19/2024 5:16 PM [facility] PROTEIN, URINE Negative Negative mg/dL 09/19/2024 5:16 PM [facility] GLUCOSE, URINE Negative Negative mg/dL 09/19/2024 5:16 PM CERNER ANALYST [facility] KETONES,URINE Negative Negative mg/dL 09/19/2024 5:16 PM CERNER ANALYST [facility] BILIRUBIN,URI NE Negative Negative 09/19/2024 5:16 PM CERNER ANALYST [facility] OCCULT BLOOD,URINE Trace(A) Negative 09/19/2024 5:16 PM CERNER ANALYST [facility] NITRITE Negative Negative 09/19/2024 5:16 PM CERNER ANALYST [facility] LEUKOCYTE ESTERASE Trace(A) Negative 09/19/2024 5:16 PM CERNER ANALYST [facility] Urine URINE SPECIMEN / Unknown Non-Blood / Unknown 09/19/2024 4:36 PM CERNER ANALYST 09/19/2024 4:57 PM CERNER ANALYST us Nessa Lucas MD URINE Final R esult [facility] SENDOUT INTERNAL ZIP [phone] [place] [address] * SCAN-CARDIAC STRIP (09/19/2024 3:51 PM CERNER ANALYST) us Scanner OTHER Final Result * MR Brain w/wo Contrast (09/19/2024 1:47 PM CERNER ANALYST) Anatomical Region Laterality Modality BRAIN, HEAD Magnetic Resonan ce 09/19/2024 1:47 PM CERNER ANALYST Impressions 09/19/2024 10:49 PM CERNER ANALYST 1. 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 2. No acute intracranial process. Narrative 09/19/2024 10:49 PM CERNER ANALYST For Patients: As a result of the Century Cures Act, medical imaging exams and procedure reports are released immediately into your electronic medical record. You may view this report before your referring provider. If you have questions, please contact your health care provider. EXAM: MR HEAD BRAIN WWO LOCATION: [facility] MEDICAL IMAGING DATE: 09/19/2024 INDICATION: Seizure, [...] provider. EXAM: MR HEAD BRAIN WWO LOCATION: [facility] MEDICAL IMAGING DATE: 09/19/2024 INDICATION: Seizure, [...] parietal lobe. 2. No acute intracranial process. Chester Osorio ARAGON MR Final R esult * MRSA/SA PCR (09/19/2024 12:31 PM CERNER ANALYST) Pathologist [facility] MRSA DNA PCR Negative Negative 09/19/2024 2:35 PM CERNER ANALYST [facility] STAPHYLOCOCCUS AUREUS PCR Negative Negative 09/19/2024 2:35 PM CERNER ANALYST [facility] Other SPECIMEN FROM INTERNAL NOSE / Unknown Non-Blood / Unknown 09/19/2024 12:31 PM CERNER ANALYST 09/19/2024 12:41 PM CERNER ANALYST Narrative [facility] - 09/19/2024 2:35 PM CERNER ANALYST Test result does not preclude MRSA or SA nasal colonization. [facility] Osorio ARAGON MICROBIOLOGY Final R esult [facility] SENDOUT INTERNAL ZIP [phone] [place] [address] * SCAN-CARDIAC STRIP (09/19/2024 8:06 AM CERNER ANALYST) Scanner OTHER Final Result * PROTIME-INR (09/19/2024 6:09 AM CERNER ANALYST) Only the most recent of3 resultswithin the time period is included. Pathologist [facility] INR 1.0 <1.3 09/19/2024 6:28 AM CERNER ANALYST [facility] PROTIME 11.1 10.6 - 12.4 sec 09/19/2024 6:28 AM CERNER ANALYST [facility] Blood BLOOD SPECIMEN / Unknown Venipuncture / Unknown 09/19/2024 6:09 AM CERNER ANALYST 09/19/2024 6:18 AM CERNER ANALYST Narrative [facility] - 09/19/2024 6:28 AM CERNER ANALYST Therapeutic Range 2.0-3.0 for most anticoagulated patients [...] seconds if the patient is on UFH. [facility] Osorio JONES HEMATOLOGY Final R esult Performing Organization Address City/[facility]/ZIP Co de Phone Number [facility] SENDOUT INTERNAL ZIP [phone] [place] [address] * ALT (SGPT) (09/19/2024 6:09 AM CERNER ANALYST) ALT (SGPT) 14 10 - 35 IU/L 09/19/2024 6:47 AM CERNER ANALYST [facility] Blood BLOOD SPECIMEN / Unknown Venipuncture / Unknown 09/19/2024 6:09 AM CERNER ANALYST 09/19/2024 6:18 AM CERNER ANALYST [facility] Osorio Herrera [facility] CHEMISTRY Final R esult Performing Organization Address [facility]/ZIP Co de Phone Number [facility] SENDOUT INTERNAL ZIP [phone] [place] [phone] * AST (SGOT) (09/19/2024 6:09 AM CERNER ANALYST) AST (SGOT) 33 10 - 35 IU/L 09/19/2024 6:47 AM CERNER ANALYST [facility] Blood BLOOD SPECIMEN / Unknown Venipuncture / Unknown 09/19/2024 6:09 AM CERNER ANALYST 09/19/2024 6:18 AM CERNER ANALYST [facility] Her[facility] CHEMISTRY Final R esult Performing Organization Address City/[facility]/ZIP Co de Phone Number [facility] SENDOUT INTERNAL ZIP [phone] [place] [phone] * BILIRUBIN DIRECT (09/19/2024 6:09 AM CERNER ANALYST) BILIRUBIN,DIRE CT 0.1 0.0 - 0.2 mg/dL 09/19/2024 6:47 AM [facility] Blood BLOOD SPECIMEN / Unknown Venipuncture / Unknown 09/19/2024 6:09 AM CERNER ANALYST 09/19/2024 6:18 AM [facility] us Sangita ARAGON CHEMISTRY Final R esult [facility] SENDOUT INTERNAL ZIP [phone] [place] [address] * (ABNORMAL) CBC WITH AUTO DIFFERENTIAL (09/19/2024 6:08 AM [facility]) Only the most recent of2 resultswithin the time period is included. WHITE BLOOD COUNT 16.9(H) 4.5 - 11.0 thou/cu mm 09/19/2024 6:21 AM [facility] RED BLOOD COUNT 3.76(L) 4.00 - 5.20 mil/cu mm 09/19/2024 6:21 AM [facility] HEMOGLOBIN 12.2 12.0 - 16.0 g/dL 09/19/2024 6:21 AM [facility] HEMATOCRIT 34.9 33.0 - 51.0 % 09/19/2024 6:21 AM [facility] MCV 93 80 - 100 fL 09/19/2024 6:21 AM [facility] MCH 32.4 26.0 - 34.0 pg 09/19/2024 6:21 AM [facility] MCHC 35.0 32.0 - 36.0 g/dL 09/19/2024 6:21 AM [facility] RDW 12.7 11.5 - 15.5 % 09/19/2024 6:21 AM [facility] PLATELET COUNT 257 140 - 440 thou/cu mm 09/19/2024 6:21 AM [facility] MPV 9.5 6.5 - 11.0 fL 09/19/2024 6:21 AM [facility] NRBC 0.0 % 09/19/2024 6:21 AM [facility] ABS NRBC 0.0 thou /cu mm 09/19/2024 6:21 AM [facility] % NEUT 68.9 % 09/19/2024 6:21 AM [facility] % LYMPH 21.8 % 09/19/2024 6:21 AM [facility] % MONO 7.8 % 09/19/2024 6:21 AM [facility] % EOS 0.5 % 09/19/2024 6:21 AM [facility] % BASO 0.5 % 09/19/2024 6:21 AM [facility] % IMMATURE GRAN (METAS,MYELOS,ID OS) 0.5 % 09/19/2024 6:21 AM [facility] ABSOLUTE NEUTROPHILS 11.6(H) 1.7 - 7.0 thou/cu mm 09/19/2024 6:21 AM [facility] ABSOLUTE LYMPHOCYTES 3.7(H) 0.9 - 2.9 thou/cu mm 09/19/2024 6:21 AM [facility] ABSOLUTE MONOCYTES 1.3(H) <0.9 thou/cu mm 09/19/2024 6:21 AM [facility] ABSOLUTE EOSINOPHILS 0.1 <0.5 thou/cu mm 09/19/2024 6:21 AM [facility] ABSOLUTE BASOPHILS 0.1 <0.3 thou/cu mm 09/19/2024 6:21 AM [facility] ABSOLUTE IMMATURE GRANULOCYTES(MET ,MYELOS,PROS) 0.1 <0.3 thou/cu mm 09/19/2024 6:21 AM [facility] Blood BLOOD SPECIMEN / Unknown Venipuncture / Unknown 09/19/2024 6:08 AM [facility] 09/19/2024 6:18 AM [facility] us Arif Osorio [facility] Final R esult [facility] LABORATORY SENDOUT INTERNAL ZIP [phone] [place] [address] * (ABNORMAL) SPUTUM CULTURE, STAIN (09/19/2024 4:04 AM [facility]) CULTURE RESULT(A) 09/22/2024 9:50 AM [facility] LABORAT[facility]- NTRAL LABORATORY CULTURE 4+ Streptococcus pneumoniae 09/22/2024 9:50 AM [facility] NTRAL LABORATORY CULTURE 3+ Usual Lisa 09/22/2024 9:50 AM CERNER ANALYST [facility] LABORATORY-CE NTRAL LABORATORY GRAM STAIN 4+ PMNs 09/22/2024 9:50 AM CERNER ANALYST [facility] GRAM STAIN 1+ Epithelial cells 09/22/2024 9:50 AM [facility] GRAM STAIN No RBCs 09/22/2024 9:50 AM [facility] GRAM STAIN 4+ Gram Positive Cocci 09/22/2024 9:50 AM [facility] GRAM STAIN Gram stain performed by [place], [place] 09/22/2024 9:50 AM [facility] Sputum SPECIMEN FROM ENDOTRACHEAL TUBE / Unknown Non-Blood / Unknown 09/19/2024 4:04 AM CERNER ANALYST 09/19/2024 4:07 AM [facility] Organism Antibiotic Method Susceptibility Streptococcus pneumoniae PENICILLIN-ORAL <=0.06: S Streptococcus pneumoniae [id number] <=0.06: S Streptococcus pneumoniae [id number]-[id number] <=0.06: S Streptococcus pneumoniae CEFTRIAXONE-MENINGIT <=0.12: S Streptococcus pneumoniae CEFTRIAXONE-NONMENIN <=0.12: S Streptococcus pneumoniae VANCOMYCIN 0.5: S Streptococcus pneumoniae LEVOFLOXACIN 0.5: S Streptococcus pneumoniae TRIMETHOPRIM/SULF <=0.5/9.5: S Streptococcus pneumoniae AZITHROMYCIN S Streptococcus pneumoniae CLARITHROMYCIN S [facility] Osorio ARAGON MICROBIOLOGY Final R esult [facility] LABORATORY-CENTRAL LABORATORY [address] [place] [address], [facility] LABORATORY SENDOUT INTERNAL ZIP [phone] [place] [address] * (ABNORMAL) HEPATIC FUNCTION PANEL (09/19/2024 2:41 AM CERNER ANALYST) ALBUMIN 3.8(L) 4.0 - 4.9 g/dL 09/19/2024 3:16 AM [facility] PROTEIN,TOTAL 7.3 6.0 - 8.0 g/dL 09/19/2024 3:16 AM [facility] BILIRUBIN,TOTAL 0.5 0.0 - 1.2 mg/dL 09/19/2024 3:16 AM [facility] BILIRUBIN,DIRECT 09/19/19 3:16 AM [facility] Comment:Canceled- Specimen H emolyzed, Disposition Per Policy ALK PHOSPHATASE 100 35 - 104 IU/L 09/19/2024 3:16 AM CERNER ANALYST [facility] ALT (SGPT) 09/19/2024 3:16 AM CERNER ANALYST [facility] Comment:Canceled- Specimen H emolyzed, Disposition Per Policy AST (SGOT) 09/19/2024 3:16 AM CERNER ANALYST [facility] Comment:Canceled- Specimen H emolyzed, Disposition Per Policy Blood BLOOD SPECIMEN / Unknown Butterfly / Unknown 09/19/2024 2:41 AM CERNER ANALYST 09/19/2024 2:54 AM CERNER ANALYST Sangita ARAGON CHEMISTRY Final R esult [facility] SENDOUT INTERNAL ZIP [phone] [place] [address] * XR ABDOMEN 1 VIEW PORTABLE (09/18/2024 11:18 PM CERNER ANALYST) Anatomical Region Laterality Modality Abdomen Computed Radiogr aphy 09/18/2024 11:1 8 PM CERNER ANALYST Impressions 09/19/2024 12:19 AM CERNER ANALYST Enteric suction tube tip overlies the region [...] CT chest 09/29/2023. Narrative 09/19/2024 12:19 AM CERNER ANALYST For Patients: As a result of the 21st Century Cures Act, medical imaging exams and procedure reports are released immediately into your electronic medical record. You may view this report before your referring provider. If you have questions, please contact your health care provider. EXAM: XR ABDOMEN 1 VIEW PORTABLE LOCATION: [facility] MEDICAL IMAGING DATE: 09/18/2024 INDICATION: Tube placement. COMPARISON: None available. Procedure Note Nelson Heard MD - 09/19/2024 For Patients: As a result of the Century Cures Act, medical imagingexams and procedure reports are released immediately into your electronicmedical record. You may view this report before your referring provider.If you have questions, please contact your health care provider. EXAM: XR ABDOMEN 1 VIEW PORTABLE LOCATION: [facility] MEDICAL IMAGING DATE: 09/18/2024 INDICATION: Tube [...] (ABNORMAL) ISTAT EG6+ ABG (09/18/2024 10:45 PM CERNER ANALYST) PH, ARTERIAL 7.48(H) 7.35 - 7.45 09/18/2024 10:48 PM [facility] PCO2, ARTERIAL 34 32 - 45 mmHg 09/18/2024 10:48 PM [facility] PO2, ARTERIAL 132(H) 83 - 108 mmHg 09/18/2024 10:48 PM [facility] HCO3, ARTERIAL 25 21 - 28 mmol/L 09/18/2024 10:48 PM [facility] BASE EXCESS, ARTERIAL 2.0 -2.0 - 3.0 09/18/2024 10:48 PM [facility] O2 SATURATION, ARTERIAL 99(H) 94 - 98 % 09/18/2024 10:48 PM [facility] SODIUM, POCT 09/18/2024 10:48 PM [facility] Comment:Unable to determine. POTASSIUM, POCT 10:48 PM [facility] Comment:Unable to determine. INSPIRED O2,ISTAT 30.0 09/18/2024 10:48 PM [facility] PATIENT TEMPERATURE 37.0 Degrees C 09/18/2024 10:48 PM [facility] ENRIQUE'S TEST Not Given 09/18/2024 10:48 PM [facility] SAMPLE TYPE,ISTAT BLOOD GAS ARTERIAL 09/18/2024 10:48 PM CERNER ANALYST [facility] Blood BLOOD SPECIMEN / Unknown 09/18/2024 10:45 PM CERNER ANALYST 09/18/2024 10:48 PM CERNER ANALYST us Suzanne Harris MD CHEMISTRY Final Result [facility] SENDOUT INTERNAL ZIP [phone] [place] [address] * MR HEAD RAPID CODE STROKE LTD BRAIN WO CONTRAST (09/18/2024 10:28 PM CERNER ANALYST) Anatomical Region Laterality Modality Magnetic Resonan ce 09/18/2024 10:2 8 PM CERNER ANALYST Impressions 09/18/2024 11:20 PM CERNER ANALYST HEAD MRI: 1. No acute intracranial abnormality. 2. Right parietotemporal encephalomalacia. HEAD MRA: No large vessel occlusion or hemodynamically significant stenosis. Narrative 09/18/2024 11:20 PM CERNER ANALYST For Patients: As a result of the Cures Act, medical imaging exams and procedure reports are released immediately into your electronic medical record. You may view this report before your referring provider. If you have questions, please contact your health care provider. EXAM: MR HEAD RAPID CODE STROKE LTD BRAIN WO CONTRAST LOCATION: [facility] MEDICAL IMAGING DATE/TIME: 09/18/2024 10:28 PM CERNER ANALYST INDICATION: Eval/ FU cerebral vascular disease or ischemia TIA COMPARISON: None. CONTRAST: None. TECHNIQUE: 1) Routine multiplanar multisequence head MRI without and with intravenous contrast. 2) 3D [id number]-qh-pbgfcw head MRA without intravenous contrast. FINDINGS: HEAD [...] CODE STROKE LTD BRAIN WO CONTRAST LOCATION: [facility] MEDICAL IMAGING DATE/TIME: 09/18/2024 10:28 PM CERNER ANALYST INDICATION: Eval/ FU cerebral vascular disease or ischemia TIA COMPARISON: None. CONTRAST: None. TECHNIQUE: 1) Routine multiplanar multisequence head MRI without and with intravenouscontrast. 2) 3D swpm-jh-nmethx head MRA without intravenous contrast. FINDINGS: HEAD [...] STROKE PROTOCOL BRET CANDIDAT (09/18/2024 8:54 PM CERNER ANALYST) Anatomical Region Laterality Modality BRAIN, NECK Computed Tomogra phy 09/18/2024 8:54 PM CERNER ANALYST Impressions 09/18/2024 9:12 PM CERNER ANALYST HEAD CT: 1. No acute intracranial findings. 2. 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 HEAD CTA: 1. No high-grade stenosis or large vessel occlusion of the [place] vasculature. NECK CTA: 1. No significant stenosis of the neck arterial vasculature. Results called to Dr. Flanagan at 10:55 PM on 09/18/2024. Narrative 09/18/2024 9:12 PM CERNER ANALYST For Patients: As a result of the Cures Act, medical imaging exams and procedure reports are released immediately into your electronic medical record. You may view this report before your referring provider. If you have questions, please contact your health care provider. EXAM: CT HEAD STROKE PROTOCOL WITHOUT CONTRAST, CTA HEAD NECK CAROTID STROKE PROTOCOL BRET CANDIDAT LOCATION: [facility] MEDICAL IMAGING DATE: 09/18/2024 INDICATION: STAT reading for possible thrombolytics. free text)->Neurologic Dysfunction COMPARISON: None. CONTRAST: None. (accession [id number]), Omnipaque [id number] (accession [id number]) TECHNIQUE: Head and neck CT angiogram with [...] HEAD NECK CAROTIDSTROKE PROTOCOL BRET CANDIDAT LOCATION: [facility] MEDICAL IMAGING DATE: 09/18/2024 INDICATION: STAT reading for possible thrombolytics. freetext)->Neurologic Dysfunction COMPARISON: None. CONTRAST: None. (accession [id number]), Omnipaque 350 [id number] ([id number]) TECHNIQUE: Head and neck CT angiogram with [...] stenosis or large vessel occlusion of the [place] vasculature. NECK CTA: 1. No significant stenosis of the neck arterial vasculature. Results called to Dr. Flanagan at 10:55 PM on 09/18/2024. Suzanne Harris MD CT Final Result * CT HEAD STROKE PROTOCOL WITHOUT CONTRAST Thrombolytic Candidate (09/18/2024 8:54 PM CERNER ANALYST) Anatomical Region Laterality Modality BRAIN Computed Tomogra phy 09/18/2024 8:54 PM CERNER ANALYST Impressions 09/18/2024 9:12 PM CERNER ANALYST HEAD CT: 1. No acute intracranial findings. 2. 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 HEAD CTA: 1. No high-grade stenosis or large vessel occlusion of the [place] vasculature. NECK CTA: 1. No significant stenosis of the neck arterial vasculature. Results called to Dr. Flanagan at 10:55 PM on 09/18/2024. Narrative 09/18/2024 9:12 PM CERNER ANALYST For Patients: As a result of the Century Cures Act, medical imaging exams and procedure reports are released immediately into your electronic medical record. You may view this report before your referring provider. If you have questions, please contact your health care provider. EXAM: CT HEAD STROKE PROTOCOL WITHOUT CONTRAST, CTA HEAD NECK CAROTID STROKE PROTOCOL BRET CANDIDAT LOCATION: [facility] MEDICAL IMAGING DATE: 09/18/2024 INDICATION: STAT reading for possible thrombolytics. free text)->Neurologic Dysfunction COMPARISON: None. CONTRAST: None. (accession [id number]), Omnipaque 350 75 (accession [id number]) TECHNIQUE: Head and neck CT angiogram with [...] HEAD NECK CAROTIDSTROKE PROTOCOL BRET CANDIDAT LOCATION: [facility] MEDICAL IMAGING DATE: 09/18/2024 INDICATION: STAT reading for possible thrombolytics. freetext)->Neurologic Dysfunction COMPARISON: None. CONTRAST: None. (accession [id number]), Omnipaque 350 75 ([id number]) TECHNIQUE: Head and neck CT angiogram with [...] stenosis or large vessel occlusion of the [place] vasculature. NECK CTA: 1. No significant stenosis of the neck arterial vasculature. Results called to Dr. Flanagan at 10:55 PM on 09/18/2024. us Suzanne Harris MD CT Final Result * CWS PATH REVIEW HEMATOLOGY (09/18/2024 8:49 PM CERNER ANALYST) PATH COMMENT comment 09/23/2024 10:55 PM CERNER ANALYST [facility] Comment: If the absolute lymphocytosis persists and/or is unexplained, consider peripheral blood morphology study for further evaluation. Reviewed by Mitzi Leblanc This is an appended report. These results have been appended to a previously final verified report. Blood BLOOD SPECIMEN / Unknown Non-Lab Venipuncture / Unknown 09/18/2024 8:49 PM CERNER ANALYST 09/18/2024 8:51 PM CERNER ANALYST us Suzanne Harris MD LABORATORY Edited Result - Final [facility] SENDOUT INTERNAL ZIP [phone] [place] [address] * (ABNORMAL) RED CELL MORPHOLOGY (09/18/2024 8:49 PM CERNER ANALYST) ELLIPTOCYTES Few 09/18/2024 9:36 PM CERNER ANALYST [facility] RBC COMMENT Present(A ) RBC morphology appears normal, RBC morphology within normal limits for newborns. 09/18/2024 9:36 PM CERNER ANALYST [facility] Blood BLOOD SPECIMEN / Unknown Non-Lab Venipuncture / Unknown 09/18/2024 8:49 PM CERNER ANALYST 09/18/2024 8:51 PM CERNER ANALYST us Suzanne Harris MD HEMATOLOGY Final Result [facility] SENDOUT INTERNAL ZIP [phone] [place] [address] * PLATELET ESTIMATE (09/18/2024 8:49 PM CERNER ANALYST) PLATELET ESTIMATE Adequate Adequate, No estimate 09/18/2024 9:36 PM [facility] Blood BLOOD SPECIMEN / Unknown Non-Lab Venipuncture / Unknown 09/18/2024 8:49 PM CERNER ANALYST 09/18/2024 8:51 PM CERNER ANALYST us Suzanne Harris MD HEMATOLOGY Final Result [facility] SENDOUT INTERNAL ZIP [phone] [place] [phone] * (ABNORMAL) MANUAL DIFFERENTIAL (09/18/2024 8:49 PM CERNER ANALYST) Pathologist [facility] % NEUTROPHILS 49.0 % 09/18/2024 9:36 PM CERNER ANALYST [facility] % LYMPHOCYTES 43.0 % 09/18/2024 9:36 PM [facility] % MONOCYTES 6.0 % 09/18/2024 9:36 PM [facility] % EOSINOPHILS 2.0 % 09/18/2024 9:36 PM [facility] % BASOPHILS 0.0 % 09/18/2024 9:36 PM [facility] NEUTROPHILS ABSOLUTE 7.4(H) 1.7 - 7.0 thou/cu mm 09/18/2024 9:36 PM [facility] LYMPHOCYTES ABSOLUTE 6.5(H) 0.9 - 2.9 thou/cu mm 09/18/2024 9:36 PM [facility] MONOCYTES ABSOLUTE 0.9(H) <0.9 thou/cu mm 09/18/2024 9:36 PM [facility] EOSINOPHILS ABSOLUTE 0.3 <0.5 thou/cu mm 09/18/2024 9:36 PM [facility] BASOPHILS ABSOLUTE 0.0 <0.3 thou/cu mm 09/18/2024 9:36 PM [facility] Blood BLOOD SPECIMEN / Unknown Non-Lab Venipuncture / Unknown 09/18/2024 8:49 PM CERNER ANALYST 09/18/2024 8:51 PM CERNER ANALYST us Suzanne Harris MD HEMATOLOGY Final Result Performing Organization Address City/[facility]/ZIP Co de Phone Number [facility] SENDOUT INTERNAL ZIP [phone] [place] [phone] * SCAN-RADIOLOGY REPORT (09/08/2024 12:00 AM CERNER ANALYST) Anatomical Region Laterality Modality Other us Scanner OTHER Final Result * SCAN-CT INTERPRETATION (09/08/2024 12:00 AM CERNER ANALYST) Only the most recent of2 resultswithin the time period is included. Anatomical Region Laterality Modality Other us Scanner OTHER Final Result * (ABNORMAL) HEMOGLOBIN A1C MONITORING (POCT) (07/08/2024 7:47 AM CERNER ANALYST) POC HEMOGLOBIN A1C 9.6(H) <6.0 % OF TOTAL HGB [facility] Comment: Any point of care results exhibiting inconsistency with the patient's clinical status should be repeated using a different testing method. Blood BLOOD SPECIMEN / Unknown 07/08/2024 7:47 AM CERNER ANALYST 07/08/2024 7:48 AM CERNER ANALYST us Kellen Atwood DO CHEMISTRY Final Resu lt Performing Organization Address City/[facility]/ZIP Co de Phone Number [facility] [address] [place] [address], [place] [phone] [facility] [address] [place] [address] * (ABNORMAL) XR DXA BONE DENSITY 2 [...] to assess therapeutic efficacy. Emma Naidu PA-C [facility] 04/07/2024 Narrative 04/07/2024 4:24 PM CDT For Patients: Results are automatically released to your [facility] ([employer]) account once available, in compliance with federal regulations. This means that you may see your results before your provider has had a chance to review them. Please allow 2-3 business days for your provider to comment on the results. XR DXA Bone Mineral Density (BMD) EXAM LOCATION: [address] [address] PATIENT NAME: Jose Luis Lozano DATE OF : 1945 EXAM DATE: [...] two scanners are made by the same senior data quality analyst. 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 06/13/21 Pcp, No . 06/18/21 Gustavo Castellano MBBS [address] [facility] [address] [place] [address] Cardiology - Interventional 09/22/24 [facility] [address] [place] [address] 09/26/24
[2024-10-05 17:29] LABS: D Dimer Quantitative* 1.22 ug/ml (0.00-0.50)
[2024-10-05 17:45] LABS: NT Pro B Type NatriureticPept* 329 pg/mL; Troponin I* < 0.01 ng/mL (0.01-0.04)
[2024-10-05 18:07] LABS: Slide Review Acceptable Review (Acceptable)
[2024-10-05] MEDS: 0.9 % SODIUM CHLORIDE 1000 ml 1,000 ML IV (19:25)
[2024-10-05] MEDS: LIDOCAINE 5% PATCH 1 PATCH TRANSDERMA (21:00)
== END 2024-10-05 21:27 | disposition home or self-care (01) ==
PROVIDERS: Emergency Provider Family Medicine; PCP Student in an Organized Health Care Education/Training Program
DX: R07.89 Other chest pain (principal); S22.080A Wedge compression fracture of T11-T12 vertebra, initial encounter for closed fracture; E87.1 Hypo-osmolality and hyponatremia
CPT/HCPCS: 36415; 71045; 71275; 80048; 82565; 83880; 84484; 85025; 85379; 94761; 99284; 99285; A9270; J7030; Q9967

== ENCOUNTER 2024-12-03 11:12 | Emergency (ER) | payer MEDICAID, SELFPAY ==
[2024-12-03] VITALS (10 sets, daily range): BP systolic 113–139; BP diastolic 71–75; PULSE 62–103; RESP 16; TEMP 36.6; O2SAT 95–99; BMI 18.9
--- OUTSIDE RECORDS SUMMARY | 2024-12-03 11:13 | XMS_ITS | Clinical Summary ---
[facility] Address [address] [place] [address] Care Team Providers Care Check And Transfer Beader Name Role Phone Navya Quinn DO Primary Care Provider Source Comments You are receiving this document as you are listed as the primary care provider,follow-up provider, or the patient has been referred to you for consultation.This is in compliance with the Medicare and[facility] EHR Incentive Program,which states Providers who transition their patient to another setting of careor provider of care or refers their patient to another provider of care shouldprovide summary care record for each transition of care or referral. [facility] Allergies No known active allergies Medications [...] as directed. 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 07/15/2019 Regular astigmatism of both eyes 07/15/2019 Headache, post-traumatic 10/26/2010 Hyperlipidemia 11/09/2008 Diabetes mellitus without complication 6 Resolved Problems Problem Noted Date Diagnosed Date Resolved Date Closed intertrochanteric fracture of femur 12/17/2019 12/11/2023 Overview (09/02/2023): Added automatically from request for surgery [id number] Social History Tobacco Use Types Packs/Day Years Used Date Smoking Tobacco: Never Assessed [facility] Utilities Answer Date Recorded In the past 12 months has e [employer], gas, oil, or water [employer] threatened to shut off services in your [...] place to sleep or slept in a [facility] (including now)? No 09/24/2023 Comments No Sex [...] 48.1 kg (106 lb) 09/24/2023 6:07 PM SKI PATROLLER Height 154 cm (5' 0.63) 09/24/2023 4:00 PM SKI PATROLLER Body Mass Index 20.27 09/24/2023 4:00 PM SKI PATROLLER Plan of Treatment Health Maintenance Due Date Last Done Comments Diabetes: Eye Exam 1944 Diabetes: Foot Exam 1944 Diabetes: Lipid Panel 1944 Diabetes: Urine Microalbumin 1944 Tuberculosis Screening 1944 Adult Preventive Visit 1962 Pneumococcal Vaccine 50+ Yrs (1 of 2 - PCV) 1963 Zoster/Shingles Vaccine (1 of 2) 1994 DTaP/Tdap/Td Vaccine (1 - Tdap) 09/22/2003 09/21/2003 Dexa 2009 RSV Vaccine (1 - 1-dose 75+ series) 2019 COVID-19 Vaccine (2 - season) 2024 11/21/2020 Diabetes: HGBA1C 06/25/2024 12/24/2023, , 09/24/2023, Additional history exists Diabetes: Creatinine 11/27/2024 11/28/2023, 09/26/2023, 09/24/2023, Additional history exists Influenza Vaccine (Season Ended) 2025 06/05/2022, 06/22/2021, 07/07/2019, Additional history exists HepA Vaccine Aged Out No longer eligi ble based on patient's age to complete this topic HepB Vaccine Aged Out No longer eligi ble based on patient's age to complete this topic Hib Vaccine Aged Out No longer eligi ble based on patient's age to complete this topic IPV (Polio) Vaccine Aged Out No longe r eligible based on patient's age to complete this topic MCV4 Vaccine Aged Out No longer eligi ble based on patient's age to complete this topic Meningococcal B Vaccine Aged Out No l onger eligible based on patient's age to complete this topic Medical Devices Implanted Type [employer] Operator Device Identifier Shelf Expiration Date Model / Serial / Lot Nail Michael Ti St 130d [id number] Lt - [id number] Implanted:Qty: 1 on 12/18/2019 by Nelson Escamilla MD at [facility] DEVICE [employer] - Trauma 05/27/2029 [id number] / / [id number] Scr Tfna [address] 90mm - [id number] Implanted:Qty: 1 on 12/18/2019 by Nelson Escamilla MD at [facility] DEVICE [employer] - Trauma 04/26/2029 [id number] / / [id number] Scr Lk Ti T25 St 5.0x44 - [id number] Implanted:Qty: 1 on 12/18/2019 by Nelson Escamilla MD at [facility] DEVICE [employer] - Trauma 07/27/2028 [id number] / / [id number] Scr Lk Ti T25 St 5.0x60 - [id number] Implanted:Qty: 1 on 12/18/2019 by Nelson Escamilla MD at [facility] DEVICE [employer] - Trauma 08/27/2028 [id number] / / [id number] Procedures Procedure Name Priority Date/Time Associated Diagnosis Comments BASIC METABOLIC PANEL STAT 11/28/2023 3:15 PM CDT HGB A1C Routine 09/24/2023 7:06 AM SKI PATROLLER from Last 3 Months or Most Recently Relevant to Health Maintenance Results * (ABNORMAL) Basic Metabolic Panel (11/28/2023 3:15 PM CDT) Sodium 134(L) 136 - 145 mmol/L 11/28/2023 3:49 PM CDT [facility] Potassium 3.6 3.5 - 5.1 mmol/L 11/28/2023 3:49 PM CDT [facility] Chloride 102 98 - 109 mmol/L 11/28/2023 3:49 PM CDT [facility] CO2 24 20 - 29 mmol/L 11/28/2023 3:49 PM CDT [facility] Anion Gap 8 6 - 16 mmol/L 11/28/2023 3:49 PM CDT [facility] Calcium 9.0 8.4 - 10.4 mg/dL 11/28/2023 3:49 PM CDT [facility] BUN 14 7 - 26 mg/dL 11/28/2023 3:49 PM CDT [facility] Creatinine 0.65 0.55 - 1.02 mg/dL 11/28/2023 3:49 PM CDT [facility] Glucose 190(H) 70 - 100 mg/dL 11/28/2023 3:49 PM CDT [facility] Comment:The given reference range is for the fasting state. Non-fasting reference range for glucose is 70 - 180 mg/dL. GFR, Estimated >60 >60 mL/min/1.7 3m2 11/28/2023 3:49 PM CDT [facility] Blood Venipuncture / Unknown 11/28/2023 3:15 PM CDT 11/28/2023 3:20 PM CDT us Sushma Valenzuela PA-C LAB_1 [place] [address], [facility] * (ABNORMAL) Hgb A1C (09/24/2023 7:06 AM SKI PATROLLER) Hemoglobin A1C 7.5(H) <=5.6 % 09/24/2023 11:45 AM SKI PATROLLER [facility] Estimated Average Glucose (Calc) 169 < 117 mg/dL 09/24/2023 11:45 AM SKI PATROLLER [facility] Comment:Estimated average gl ucose (eAG) converts A1c into glucose units (mg/dL) and estimates average glucose over the past approximately 3 months. The eAG reference interval (<117 mg/dL) corresponds to an A1c of <5.7%. Blood Venipuncture / Unknown 09/24/2023 7:06 AM SKI PATROLLER 09/24/2023 7:09 AM SKI PATROLLER Narrative [facility] - 09/24/2023 11:45 AM SKI PATROLLER For patients not previously diagnosed with diabetes: 5.7-6.4%: Increased risk for diabetes 6.5% and greater: Diagnostic for diabetes For patients diagnosed with diabetes: <8.0%: Goal of therapy for ages 18-75 Clinicians may recommend a higher or lower goal for specific individuals. us Myles Guo MD LAB_1 Final Result [facility] [address] [place] [address], [facility] from Last 3 Months or Most Recently Relevant to Health Maintenance Insurance [facility] Advance Directives * Full Code (Latest Code Status on File) Date Activated Date Inactivated Comments 09/24/2023 2:36 AM 09/26/2023 2:31 PM * Full Code Date Activated Date Inactivated Comments 12/17/2019 11:18 PM 12/24/2019 7:35 PM Care Teams Check And Transfer Beader Relationship Specialty Start Date End Date Navya Quinn DO [facility] [id number] P[facility] - General Family Practice 11/28/23
--- OUTSIDE RECORDS SUMMARY | 2024-12-03 11:14 | XMS_ITS | Clinical Summary ---
Author Organization [employer] [facility] Address [address] [place] [address] Care Team Providers Care Non Linear Editor Name Role Phone Navya Quinn DO Primary Care Provider [phone] Navya Quinn Annalee DO Unavailable [phone] Pcp, No Unavailable Unavailable Pcp, No Unavailable Unavailable Gustavo Castellano Unavailable [phone] [facility] Unavailable [phone] Allergies No known active allergies Medications nitroglycerin (NITROSTAT) 0.4 mg sublingual tabletIndications :Cardiovascular symptoms,ASCVD (arteriosclerotic cardiovascular disease) Place 1 Tablet (0.4 mg) under the tongue every 5 minutes if needed for Chest pain 1st choice (Hold if SBP less than 90 mmHg). Up to 3 tablets in 15 minutes. 25 Tablet 1 06/20/20 23 6:39 PM OFFICE RENTAL CLERK 023 Active acetaminophen (TYLENOL EXTRA STRGTH) 500 mg tabletIndications :S/P CABG x 4 Take 2 Tablets (1,000 mg) by mouth every 6 hours if needed for Pain. Max acetaminophen dose: 4000mg in 24 hrs. 120 Tablet 08/26/19 24 9:39 AM OFFICE RENTAL CLERK 024 Active WalkerIndications :S/P CABG x 4 [...] Constipation. 60 Tablet 1 025 Active levETIRAcetam 1,000 mg tabletIndications :prevent seizures Take 1 Tablet (1,000 mg) by mouth two times daily. 60 Tablet 11 025 Active HYDROcodone-aceta minophen (5-325 mg/tablet)Indicat ions:Lumbar facet arthropathy Take 1 Tablet by mouth 3 times daily if needed for Pain. 12 Tablet 025 Active HYDROcodone-aceta minophen (5-325 mg/tablet)Indicat ions:Lumbar facet arthropathy Take 0.5-1 Tablets by mouth 3 times daily if needed for Pain. Max acetaminophen dose: 4000 mg in 24 hrs. 12 Tablet 025 2024 Discontinued Active Problems Problem Noted Date Diagnosed Date New onset seizure 10/01/2024 Seizure 09/18/2024 History of CVA (cerebrovascular accident) 2024 Encephalopathy 09/18/2024 Acute respiratory failure 09/18/2024 Type 2 diabetes mellitus wit h proliferative retinopathy of both eyes, without long-term current use of insulin 07/05/2024 Vitreous hemorrhage of left eye 07/05/2024 Coronary artery disease invo lving [place] coronary artery without angina pectoris 06/01/2024 AF [...] (08/15/2022): Added automatically from request for surgery [id number] Presbyopia 07/15/2019 Regular astigmatism of both eyes [...] Encounters Date Type Department Care Team Description 11/30/2024 Nurse Triage [address] [address] Navya Quinn, DO Error-please disregard 11/19/2024 Telephone [facility] [address] [place] [address] Navya Quinn, DO Medication Management (Medication Barker) 11/17/[address] [address] Kristian Wang MD Refill Request (Hydrocodone-acetamino phen) 10/27/[address] [address] Navya Quinn, DO Medication Management (levETIRAcetam ) 10/27/[address] [address] Navya Quinn, DO Refill Request (levETIRAcetam (KEPPRA) 1,000 mg tablet/) 10/21/2024 Patient Outreach [facility] Care Management - Care Management Navigation/[facility] [address] [place] [phone] Valerie Melvin Care Management Intake (Care Management Intake Station Attendant Outreach) 10/19/2024 Refill [facility] [address] [place] [address] Kristian Wang MD Refill Request (HYDROcodone-acetamino phen (5-325 mg/tablet)) 10/15/2024 2:10 PM CDT Office Visit [facility] [address] [facility] [place] [address] Navya Quinn DO Diabetes (3 month check ) 10/15/2024 Travel 10/06/2024 2:40 PM CDT Office Visit [facility] [address] [place] [address] Kristian Wang MD Musculoskeletal Problem (Consult thoracic back pain) 10/06/2024 Telephone [facility] [address] [place] [address] Kristian Wang MD Medication Management 10/06/2024 Travel 10/05/2024 Orders Only [facility] Scanner 1 scan: (1-Ord) [facility], CT ANGIO CHEST PE PROTOCOL, 10/05/2024 10/05/2024 Orders Only [facility] Scanner 1 scan: (1-Ord) [facility], XR CHEST 1V PORTABLE, 10/05/2024 10/05/2024 Telephone [facility] [address] [place] [address] Navya Quinn DO 10/05/2024 Home Care Visit [address] [address] Yesenia Stovall, RN NOT TAKEN UNDER HOME CARE 10/04/2024 Home Care Visit [address] [address] Meseret Davis, RN CARE COORDINATION 10/01/2024 2:10 PM OFFICE RENTAL CLERK Office Visit [facility] [address] [place] [address] Navya Quinn DO Hospital F/U (3/2 Follow up - seizures, weakness, stent placement) 10/01/2024 Travel 09/29/2024 Home Care Visit [facility] [address] [place] [address] Yesenia Stovall, RN CARE COORDINATION 09/28/2024 Home Care Visit [address] [address] Yesenia Stovall, RN CARE COORDINATION 09/27/2024 Patient Outreach [facility] [address] [place] [address] Taya Judge, RN Primary RN Care Management; Hospital F/U (LACE 57) 09/24/2024 Travel 09/18/2024 8:45 PM OFFICE RENTAL CLERK - 09/26/2024 1:55 PM OFFICE RENTAL CLERK Hospital Encounter [address] [address] Suzanne Harris MD [facility], Hospitalist [facility] Simon, MD Lance Orr, MD Gregorio Marsh, Shelly Leavitt MD Seizure (HC) (Primary Dx); Left-sided weakness; Acute respiratory failure, unspecified whether with hypoxia or hypercapnia (HC) Discharge Disposition: Home Health 09/18/2024 8:38 PM OFFICE RENTAL CLERK - 09/19/2024 6:38 AM OFFICE RENTAL CLERK [facility] [address] [place] [address] Suzanne Harris MD Discharge Disposition: Home Self Care 09/08/2024 Orders Only [facility] Scanner 1 scan: (1-Ord) [facility], ADDENDUM-CT ABDOMEN PELVIS W, 09/08/2024 09/08/2024 Orders Only [facility] Scanner 1 scan: (1-Ord) [facility], XR CHEST 1V, 09/08/2024 09/08/2024 Orders Only [facility] Scanner 1 scan: (1-Ord) [facility], CT ABD PELVIS WO, 09/08/2024 from Last 3 Months Immunizations Immunization Administration Dates Next Due COVID-19 vaccine ([employer] NTech 30mcg/0.3mL) 12YO+ BIVALENT PF, MDV 06/05/2022 COVID-19 vaccine ([employer] NTech 30mcg/0.3mL) 12YO+ REGINALD-SUCROSE PF, MDV 01/02/2022 COVID-19 vaccine ([employer] [id number] Security 30mcg/0.3mL) PF, MDV 11/21/2020 Influenza, IIV3 (Age [...] Sign Reading Time Taken Comments Blood Pressure 106/62 10/15/2024 2:32 PM CDT Pulse 102 10/15/2024 2:32 PM CDT Temperature 37.2 C (98.9 F) 10/06/2024 2:57 PM CDT Respiratory Rate 16 09/26/2024 8:18 AM OFFICE RENTAL CLERK Oxygen Saturation 98% 10/15/2024 2:3 2 PM CDT Inhaled Oxygen Concentration - - Weight 46.9 kg (103 lb 6.4 oz) 10/06/2024 2:57 PM CDT shoes and jacket on Height 160 cm (5' 3) 09/19/2024 2:00 AM OFFICE RENTAL CLERK Body Mass Index 18.32 09/19/2024 2:00 AM OFFICE RENTAL CLERK Plan of Treatment Upcoming Encounters Date Type Department Care Team (Late st Contact Info) Description 01/06/2025 1:30 PM CDT Office Visit [facility] [address] [place], [place] [phone] Reji Perez, OD [address] [place], [place] [phone] Health Maintenance Due Date Last Done Comments Tdap 1956 Zoster (shingles) series for age 50+ (1 of 2) 1994 Tetanus booster 09/21/2013 09/21/2003 RSV vaccine for adults or (1 - 1-dose 75+ series) 2019 COVID-19 vaccine series ( - season) 2024 06/05/2022, 01/02/2022, 11/21/2020 BMI (ht and wt on same day) for age 18+ 12/01/2024 12/02/2023, 10/27/2023, 09/29/2023, Additional history exists Depression screening for age 12+ 12/17/2024 12/18/2023, 12/16/2023, 12/15/2023, Additional history exists Pneumococcal series for age 50+ Completed DEXA/DXA scan for age 65+ Completed 04/06/2024 Influenza Vaccine Completed 09/25/2024, , 06/22/2021, Additional history exists Medical Devices Implanted Type Area Low Altitude [employer] Gunner Device Identifier Shelf Expiration Date Model / Serial / Lot Log [id number] - Yesy Sn60wf Lens Iol - 1 - Lens Iol 21.0 Wf [id number] Implanted:Qty: 1 on 10/21/2011 at [facility] Left: Eye [employer] [id number]. [id number]# / [id number] / Log [id number] - Yesy Sn60wf Lens Iol - 1 - Lens Iol 22.5 Wf [id number]. [id number] Implanted:Qty: 1 on 11/07/2011 at [facility] Right: Eye [employer] 07/08/2016 [id number]. [id number]# / [id number] / Procedures Procedure Name Priority Date/Time Associated Diagnosis Comments LIPID PANEL W REFLEX MEASURED LDL Routine 10/15/2024 2:14 PM CDT Type II or unspecified type diabetes mellitus without mention of complication, not stated as uncontrolled HEMOGLOBIN A1C MONITORING (POCT) Routine 10/15/2024 2:13 PM CDT Type II or unspecified type diabetes mellitus without mention of complication, not stated as uncontrolled SCAN-CT INTERPRETATION 12:00 AM CDT SCAN-RADIOLOGY REPORT 10/05/2024 12:00 AM CDT GLUCOSE METER Timed 09/26/2024 12:46 PM OFFICE RENTAL CLERK SCAN-CARDIAC STRIP 09/26/2024 8: 26 AM OFFICE RENTAL CLERK GLUCOSE METER Timed 09/26/2024 7:26 AM OFFICE RENTAL CLERK MAGNESIUM Early AM 09/26/2024 6:18 AM OFFICE RENTAL CLERK POTASSIUM Early AM 09/26/2024 6:18 AM OFFICE RENTAL CLERK GLUCOSE METER Timed 09/25/2024 10:20 PM OFFICE RENTAL CLERK MAGNESIUM Timed 09/25/2024 5:34 PM OFFICE RENTAL CLERK GLUCOSE METER Timed 09/25/2024 5:11 PM OFFICE RENTAL CLERK GLUCOSE METER Timed 09/25/2024 12:00 PM OFFICE RENTAL CLERK SCAN-CARDIAC STRIP 09/25/2024 9: 11 AM OFFICE RENTAL CLERK GLUCOSE METER Timed 09/25/2024 8:40 AM OFFICE RENTAL CLERK POTASSIUM Early AM 09/25/2024 6:32 AM OFFICE RENTAL CLERK MAGNESIUM Early AM 09/25/2024 6:32 AM OFFICE RENTAL CLERK GLUCOSE METER Timed 09/24/2024 9:27 PM OFFICE RENTAL CLERK GLUCOSE METER Timed 09/24/2024 5:06 PM OFFICE RENTAL CLERK POTASSIUM Timed 09/24/2024 3:14 PM OFFICE RENTAL CLERK GLUCOSE METER Timed 09/24/2024 11:59 AM OFFICE RENTAL CLERK SCAN-CARDIAC STRIP 09/24/2024 9: 31 AM OFFICE RENTAL CLERK GLUCOSE METER Timed 09/24/2024 8:41 AM OFFICE RENTAL CLERK CREATININE Early AM 09/24/2024 6:34 AM OFFICE RENTAL CLERK HEMOGLOBIN Early AM 09/24/2024 6:34 AM OFFICE RENTAL CLERK WHITE BLOOD COUNT Early AM 09/24/2024 6:3 4 AM OFFICE RENTAL CLERK POTASSIUM Early AM 09/24/2024 6:34 AM OFFICE RENTAL CLERK MAGNESIUM Early AM 09/24/2024 6:34 AM OFFICE RENTAL CLERK GLUCOSE METER Timed 09/23/2024 10:20 PM OFFICE RENTAL CLERK SCAN-CARDIAC STRIP 09/23/2024 5: 33 PM OFFICE RENTAL CLERK GLUCOSE METER Timed 09/23/2024 4:55 PM OFFICE RENTAL CLERK GLUCOSE METER Timed 09/23/2024 11:17 AM OFFICE RENTAL CL[address] CARDIAC CORONARY ARTERIES CV DUAL READ Routine 09/23/2024 11:06 AM OFFICE RENTAL CLERK CT CARDIAC CORONARY ARTERIES RAD DUAL READ Routine 09/23/2024 11:06 AM OFFICE RENTAL CLERK GLUCOSE METER Timed 09/23/2024 7:52 AM OFFICE RENTAL CLERK MAGNESIUM Early AM 09/23/2024 3:59 AM OFFICE RENTAL CLERK CBC W PLT NO DIFF Early AM 09/23/2024 3:5 9 AM OFFICE RENTAL CLERK BASIC METABOLIC PANEL Early AM 09/23/2024 3:59 AM OFFICE RENTAL CLERK GLUCOSE METER Timed 09/23/2024 3:49 AM OFFICE RENTAL CLERK GLUCOSE METER Timed 09/22/2024 11:51 PM OFFICE RENTAL CLERK GLUCOSE METER Timed 09/22/2024 9:24 PM OFFICE RENTAL CLERK SCAN-CARDIAC STRIP 09/22/2024 8: 06 PM OFFICE RENTAL CLERK SCAN-CARDIAC STRIP 09/22/2024 7: 43 PM OFFICE RENTAL CLERK MAGNESIUM Timed 09/22/2024 5:40 PM OFFICE RENTAL CLERK GLUCOSE METER Timed 09/22/2024 4:27 PM OFFICE RENTAL CLERK GLUCOSE METER Timed 09/22/2024 3:53 PM OFFICE RENTAL CLERK SCAN CORRESP-EKG RESULTS 09/22/2024 1:55 PM OFFICE RENTAL CLERK GLUCOSE METER Timed 09/22/2024 12:30 PM OFFICE RENTAL CLERK XR VIDEO SWALLOW W SPEECH Routine 09/22/2024 10:10 AM OFFICE RENTAL CLERK GLUCOSE METER Timed 09/22/2024 7:49 AM OFFICE RENTAL CLERK SCAN-CARDIAC STRIP 09/22/2024 7: 19 AM OFFICE RENTAL CLERK EKG 12 LEAD STAT 09/22/2024 6:25 AM OFFICE RENTAL CLERK TROPONIN T (HS) ONE TIME STAT 09/22/2024 6:17 AM OFFICE RENTAL CLERK CREATININE Early AM 09/22/2024 4:26 AM OFFICE RENTAL CLERK HEMOGLOBIN Early AM 09/22/2024 4:26 AM OFFICE RENTAL CLERK WHITE BLOOD COUNT Early AM 09/22/2024 4:2 6 AM OFFICE RENTAL CLERK POTASSIUM Early AM 09/22/2024 4:26 AM OFFICE RENTAL CLERK MAGNESIUM Early AM 09/22/2024 4:26 AM OFFICE RENTAL CLERK GLUCOSE METER Timed 09/22/2024 4:14 AM OFFICE RENTAL CLERK GLUCOSE METER Timed 09/21/2024 11:57 PM OFFICE RENTAL CLERK US VENOUS LOWER EXTREMITY BILATERAL PORTABLE Routine 09/21/2024 10:47 PM OFFICE RENTAL CLERK EXTRA TUBE GOLD/SST Today 09/21/2024 8 :53 PM OFFICE RENTAL CLERK LACTATE VENOUS Today 09/21/2024 8:48 PM OFFICE RENTAL CLERK SCAN-CARDIAC STRIP 09/21/2024 8: 22 PM OFFICE RENTAL CLERK GLUCOSE METER Timed 09/21/2024 8:07 PM OFFICE RENTAL CLERK CT CHEST PULMONARY EMBOLUS PE ABDOMEN PELVIS W STAT 09/21/2024 7:17 PM OFFICE RENTAL CLERK GLUCOSE METER Timed 09/21/2024 4:50 PM OFFICE RENTAL CLERK TROPONIN T (HS) ONE TIME Today 09/21/2024 4:15 PM OFFICE RENTAL CLERK GLUCOSE METER Timed 09/21/2024 4:07 PM OFFICE RENTAL CLERK XR CHEST 1 VIEW PORTABLE JEMMA 09/21/2024 2:43 PM OFFICE RENTAL CLERK GLUCOSE METER Timed 09/21/2024 11:56 AM OFFICE RENTAL CLERK TROPONIN T (HS) ONE TIME Today 09/21/2024 10:22 AM OFFICE RENTAL CLERK EKG 12 LEAD Routine 09/21/2024 10:18 AM OFFICE RENTAL CLERK GLUCOSE METER Timed 09/21/2024 7:46 AM OFFICE RENTAL CLERK SCAN-CARDIAC STRIP 09/21/2024 7: 30 AM OFFICE RENTAL CLERK POTASSIUM Timed 09/21/2024 4:34 AM OFFICE RENTAL CLERK BASIC METABOLIC PANEL Early AM 09/21/2024 4:34 AM OFFICE RENTAL CLERK CBC W PLT NO DIFF Early AM 09/21/2024 4:3 4 AM OFFICE RENTAL CLERK MAGNESIUM Early AM 09/21/2024 4:34 AM OFFICE RENTAL CLERK GLUCOSE METER Timed 09/21/2024 3:49 AM OFFICE RENTAL CLERK GLUCOSE METER Timed 09/20/2024 11:55 PM OFFICE RENTAL CLERK EKG 12 LEAD Routine 09/20/2024 9:57 PM OFFICE RENTAL CLERK POTASSIUM STAT 09/20/2024 9:49 PM OFFICE RENTAL CLERK GLUCOSE METER Timed 09/20/2024 8:07 PM OFFICE RENTAL CLERK GLUCOSE METER Timed 09/20/2024 4:24 PM OFFICE RENTAL CLERK POTASSIUM Timed 09/20/2024 3:00 PM OFFICE RENTAL CLERK ECHO TTE COMPLETE WO CONTRAST Routine 09/20/2024 12:35 PM OFFICE RENTAL CLERK GLUCOSE METER Timed 09/20/2024 11:52 AM OFFICE RENTAL CLERK COVID/FLU/RSV PANEL Today 09/20/2024 1 1:30 AM OFFICE RENTAL CLERK XR CHEST 1 VIEW PORTABLE Routine 09/20/2024 9:58 AM OFFICE RENTAL CLERK CONTINUOUS VIDEO EEG MONITORING Routine 09/20/2024 8:55 AM OFFICE RENTAL CLERK GLUCOSE METER Timed 09/20/2024 8:21 AM OFFICE RENTAL CLERK SCAN-CARDIAC STRIP 09/20/2024 7: 41 AM OFFICE RENTAL CLERK PROCALCITONIN Early AM 09/20/2024 4:43 AM OFFICE RENTAL CLERK MAGNESIUM Early AM 09/20/2024 4:39 AM OFFICE RENTAL CLERK CO2,TOTAL Early AM 09/20/2024 4:39 AM OFFICE RENTAL CLERK WHITE BLOOD COUNT Early AM 09/20/2024 4:3 9 AM OFFICE RENTAL CLERK HEMOGLOBIN Early AM 09/20/2024 4:39 AM OFFICE RENTAL CLERK CREATININE Early AM 09/20/2024 4:39 AM OFFICE RENTAL CLERK SODIUM Early AM 09/20/2024 4:39 AM OFFICE RENTAL CLERK POTASSIUM Early AM 09/20/2024 4:39 AM OFFICE RENTAL CLERK CK TOTAL Timed 09/20/2024 4:39 AM OFFICE RENTAL CLERK TRIGLYCERIDES Timed 09/20/2024 4:39 AM OFFICE RENTAL CLERK LEVETIRACETAM (KEPPRA) Timed 4:31 AM OFFICE RENTAL CLERK GLUCOSE METER Timed 09/20/2024 4:14 AM OFFICE RENTAL CLERK EKG 12 LEAD STAT 09/20/2024 1:43 AM OFFICE RENTAL CLERK GLUCOSE METER Timed 09/20/2024 12:09 AM OFFICE RENTAL CLERK GLUCOSE METER Timed 09/19/2024 8:02 PM OFFICE RENTAL CLERK BLOOD CULTURE Today 09/19/2024 7:15 PM OFFICE RENTAL CLERK BLOOD CULTURE Today 09/19/2024 7:04 PM OFFICE RENTAL CLERK MAGNESIUM Timed 09/19/2024 7:04 PM OFFICE RENTAL CLERK URINALYSIS MICROSCOPIC Timed 4:36 PM OFFICE RENTAL CLERK UA W/ SEDIMENT EXAM REFLEXED PER CRITERIA Today 09/19/2024 4:36 PM OFFICE RENTAL CLERK GLUCOSE METER Timed 09/19/2024 4:20 PM OFFICE RENTAL CLERK SCAN-CARDIAC STRIP 09/19/2024 3: 51 PM OFFICE RENTAL CLERK MR HEAD BRAIN WWO Routine 09/19/2024 1:4 7 PM OFFICE RENTAL CLERK MRSA/SA PCR Today 09/19/2024 12:31 PM OFFICE RENTAL CLERK GLUCOSE METER Timed 09/19/2024 12:14 PM OFFICE RENTAL CLERK SCAN-CARDIAC STRIP 09/19/2024 8: 06 AM OFFICE RENTAL CLERK MAGNESIUM Early AM 09/19/2024 6:09 AM OFFICE RENTAL CLERK POTASSIUM STAT 09/19/2024 6:09 AM OFFICE RENTAL CLERK ALT (SGPT) STAT 09/19/2024 6:09 AM OFFICE RENTAL CLERK AST (SGOT) STAT 09/19/2024 6:09 AM OFFICE RENTAL CLERK BILIRUBIN DIRECT STAT 09/19/2024 6:09 AM OFFICE RENTAL CLERK PROTIME-INR JEMMA 09/19/2024 6:09 AM OFFICE RENTAL CLERK CBC WITH AUTO DIFFERENTIAL STAT 09/19/2024 6:08 AM OFFICE RENTAL CLERK CBC WITH AUTO DIFFERENTIAL STAT 09/19/2024 6:08 AM OFFICE RENTAL CLERK GLUCOSE METER Timed 09/19/2024 6:07 AM OFFICE RENTAL CLERK SPUTUM CULTURE, STAIN Today 09/19/2024 4:04 AM OFFICE RENTAL CLERK GLUCOSE METER Timed 09/19/2024 2:57 AM OFFICE RENTAL CLERK HEPATIC FUNCTION PANEL STAT 2:41 AM OFFICE RENTAL CLERK PROTIME-INR STAT 09/19/2024 2:41 AM OFFICE RENTAL CLERK BASIC METABOLIC PANEL STAT 09/19/2024 2:41 AM OFFICE RENTAL CLERK XR ABDOMEN 1 VIEW PORTABLE STAT 09/18/2024 11:18 PM OFFICE RENTAL CLERK ISTAT EG6+ ABG Timed 09/18/2024 10:45 PM OFFICE RENTAL CLERK MR HEAD RAPID CODE STROKE LTD BRAIN WO CONTRAST JEMMA 09/18/2024 10:28 PM OFFICE RENTAL CLERK XR CHEST 1 VIEW PORTABLE JEMMA 09/18/2024 9:29 PM OFFICE RENTAL CLERK EKG 12 LEAD STAT 09/18/2024 9:11 PM OFFICE RENTAL CLERK CT ANGIO HEAD NECK CAROTID STROKE PROTOCOL BRET CANDIDAT STAT 09/18/2024 8:54 PM OFFICE RENTAL CLERK CT HEAD STROKE PROTOCOL WITHOUT CONTRAST STAT 09/18/2024 8:54 PM OFFICE RENTAL CLERK CWS PATH REVIEW HEMATOLOGY STAT 09/18/2024 8:49 PM OFFICE RENTAL CLERK RED CELL MORPHOLOGY STAT 09/18/2024 8 :49 PM OFFICE RENTAL CLERK PLATELET ESTIMATE STAT 09/18/2024 8:4 9 PM OFFICE RENTAL CLERK MANUAL DIFFERENTIAL STAT 09/18/2024 8 :49 PM OFFICE RENTAL CLERK CBC WITH AUTO DIFFERENTIAL STAT 09/18/2024 8:49 PM OFFICE RENTAL CLERK BASIC METABOLIC PANEL STAT 09/18/2024 8:49 PM OFFICE RENTAL CLERK PROTIME-INR STAT 09/18/2024 8:49 PM OFFICE RENTAL CLERK CBC WITH AUTO DIFFERENTIAL STAT 09/18/2024 8:49 PM OFFICE RENTAL CLERK GLUCOSE METER Timed 09/18/2024 8:40 PM OFFICE RENTAL CLERK SCAN-CT INTERPRETATION 5 12:00 AM OFFICE RENTAL CLERK SCAN-RADIOLOGY REPORT 09/08/2024 12:00 AM OFFICE RENTAL CLERK SCAN-CT INTERPRETATION 5 12:00 AM OFFICE RENTAL CLERK XR DXA BONE DENSITY 2 SITES AXIAL AND 1 SITE PERIPHERAL Routine 04/06/2024 2:24 PM CDT Postmenopausal from Last 3 Months or Most Recently Relevant to Health Maintenance Results * (ABNORMAL) LIPID PANEL W REFLEX MEASURED LDL (10/15/2024 2:14 PM CDT) [facility] CHOLESTEROL, TOTAL 92 <200 mg/dL [facility] HDL CHOLESTEROL 45(L) > OR = 50 mg/dL [facility] TRIGLYCERIDES 59 <150 mg/dL [facility] LDL-CHOLESTEROL 33 mg/dL (calc) [facility] Comment: Reference range: <100 Desirable range <100 mg/dL for primary prevention; <70 mg/dL for patients with CHD or diabetic patients with > or = 2 CHD risk factors. LDL-C is now calculated using the Vic-Morales calculation, which is a validated novel method providing better accuracy than the Friedewald equation in the estimation of LDL-C. Vic SS et al. AZAM. 2013;310(19): 9855-2022 (http://education.Diagnose.me/faq/MZY279) CHOL/HDLC RATIO 2.0 <5.0 (calc) [facility] NON HDL CHOLESTEROL 47 <130 mg/dL (calc) [facility] Comment: For patients with diabetes plus 1 major ASCVD risk factor, treating to a non-HDL-C goal of <100 mg/dL (LDL-C of <70 mg/dL) is considered a therapeutic option. Blood BLOOD SPECIMEN / Unknown 10/15/2024 2:14 PM CDT 10/15/2024 2:14 PM CDT [employer] KK CHEMISTRY Final Result Performing Organization Address City/[facility]/ZIP Co de Phone Number Exit Games [facility] [address] [place] [address], [place] [phone] [facility] [address] [place] [address] * (ABNORMAL) POCT Hemoglobin A1C Monitoring (10/15/2024 2:13 PM CDT) Pathologist [facility] POC HEMOGLOBIN A1C 8.5(H) <6.0 % OF TOTAL [facility] Comment: Any point of care results exhibiting inconsistency with the patient's clinical status should be repeated using a different testing method. Blood BLOOD SPECIMEN / Unknown 10/15/2024 2:13 PM CDT 10/15/2024 2:13 PM CDT [employer] KK CHEMISTRY Final Result Performing Organization Address City/[facility]/ZIP Co de Phone Number [facility] [address] [place] [address], [place] [phone] [facility] [address] [place] [address] * SCAN-RADIOLOGY REPORT (10/05/2024 12:00 AM CDT) Only the most recent of2 resultswithin the time period is included. Anatomical Region Laterality Modality Other us Scanner OTHER Final Result * SCAN-CT INTERPRETATION (10/05/2024 12:00 AM CDT) Only the most recent of3 resultswithin the time period is included. Anatomical Region Laterality Modality Other us Scanner OTHER Final Result * (ABNORMAL) GLUCOSE METER (09/26/2024 12:46 PM OFFICE RENTAL CLERK) Only the most recent of42 resultswithin the time period is included. GLUCOSE METER 190(H) 65 - 100 mg/dL 09/26/2024 12:46 PM OFFICE RENTAL CLERK [facility] Blood BLOOD SPECIMEN / Unknown 09/26/2024 12:46 PM OFFICE RENTAL CLERK 09/26/2024 12:46 PM OFFICE RENTAL CLERK us Shelly Perkins MD CHEMISTRY F inal Result Performing Organization Address City/[facility]/ZIP Co de Phone Number [facility] SENDOUT INTERNAL ZIP [phone] [place] [address] * SCAN-CARDIAC STRIP (09/26/2024 8:26 AM OFFICE RENTAL CLERK) us Scanner OTHER Final Result * POTASSIUM (09/26/2024 6:18 AM OFFICE RENTAL CLERK) Only the most recent of10 resultswithin the time period is included. POTASSIUM 4.0 3.5 - 5.1 mmol/L 09/26/2024 6:59 AM OFFICE RENTAL CLERK [facility] Blood BLOOD SPECIMEN / Unknown Venipuncture / Unknown 09/26/2024 6:18 AM OFFICE RENTAL CLERK 09/26/2024 6:30 AM OFFICE RENTAL CLERK us Mariam Martinez RN CHEMISTRY Final Result Performing Organization Address [facility]/ZIP Co de Phone Number [facility] SENDOUT INTERNAL ZIP [phone] [place] [address] * MAGNESIUM (09/26/2024 6:18 AM OFFICE RENTAL CLERK) Only the most recent of11 resultswithin the time period is included. MAGNESIUM 2.1 1.6 - 2.4 mg/dL 09/26/2024 7:03 AM OFFICE RENTAL CLERK [facility] Blood BLOOD SPECIMEN / Unknown Venipuncture / Unknown 09/26/2024 6:18 AM OFFICE RENTAL CLERK 09/26/2024 6:30 AM OFFICE RENTAL CLERK us Mariam Martinez RN CHEMISTRY Final Result Performing Organization Address [facility]/ZIP Co de Phone Number [facility] SENDOUT INTERNAL ZIP [phone] [place] [address] * SCAN-CARDIAC STRIP (09/25/2024 9:11 AM OFFICE RENTAL CLERK) us Scanner OTHER Final Result * SCAN-CARDIAC STRIP (09/24/2024 9:31 AM OFFICE RENTAL CLERK) us Scanner OTHER Final Result * WHITE BLOOD COUNT (09/24/2024 6:34 AM OFFICE RENTAL CLERK) Only the most recent of3 resultswithin the time period is included. WHITE BLOOD COUNT 7.0 4.5 - 11.0 thou/cu mm 09/24/2024 7:23 AM OFFICE RENTAL CLERK [facility] NRBC 0.0 % 09/24/2024 7:23 AM OFFICE RENTAL CLERK [facility] ABS NRBC 0.0 thou /cu mm 09/24/2024 7:23 AM OFFICE RENTAL CLERK [facility] Blood BLOOD SPECIMEN / Unknown Venipuncture / Unknown 09/24/2024 6:34 AM OFFICE RENTAL CLERK 09/24/2024 7:11 AM OFFICE RENTAL CLERK us Shelly Perkins MD HEMATOLOGY F inal Result Performing Organization Address City/[facility]/ZIP Co de Phone Number [facility] SENDOUT INTERNAL ZIP [phone] [place] [address] * (ABNORMAL) HEMOGLOBIN (09/24/2024 6:34 AM OFFICE RENTAL CLERK) Only the most recent of3 resultswithin the time period is included. HEMOGLOBIN 10.7(L) 12.0 - 16.0 g/dL 09/24/2024 7:23 AM OFFICE RENTAL CLERK [facility] MCV 93 80 - 100 fL 09/24/2024 7:[address] [facility] Blood BLOOD SPECIMEN / Unknown Venipuncture / Unknown 09/24/2024 6:34 AM OFFICE RENTAL CLERK 09/24/2024 7:11 AM OFFICE RENTAL CLERK Shelly Perkins MD HEMATOLOGY F inal Result Performing Organization Address City/[facility]/ZIP Co de Phone Number [facility] SENDOUT INTERNAL ZIP [phone] [place] [address] * (ABNORMAL) CREATININE (09/24/2024 6:34 AM OFFICE RENTAL CLERK) Only the most recent of3 resultswithin the time period is included. eGFR >90 >90 mL/min/1.7 3m2 09/24/2024 7:[address] [facility] Comment:As of 2021, eG FR is calculated by the CKD-EPI creatinine equation without race adjustment. eGFR can be influenced by muscle mass, exercise, and diet. The reported eGFR is an estimation only and is only applicable if the renal function is stable. CREATININE 0.48(L) 0.50 - 0.90 mg/dL 09/24/2024 7:[address] [facility] Blood BLOOD SPECIMEN / Unknown Venipuncture / Unknown 09/24/2024 6:34 AM OFFICE RENTAL CLERK 09/24/2024 7:11 AM OFFICE RENTAL CLERK us Shelly Perkins MD CHEMISTRY F inal Result Performing Organization Address City/[facility]/ZIP Co de Phone Number [facility] SENDOUT INTERNAL ZIP [phone] [place] [address] * SCAN-CARDIAC STRIP (09/23/2024 5:33 PM OFFICE RENTAL CLERK) us Scanner OTHER Final Result * CT CARDIAC CORONARY ARTERIES CV DUAL READ (09/23/2024 11:06 AM OFFICE RENTAL CLERK) Anatomical Region Laterality Modality HEART Computed Tomogra phy, Other Narrative 09/23/2024 3:47 PM OFFICE RENTAL CLERK Results are automatically released to your [employer] Monitor) account once available, in compliance with federal [...] radiology report for non-cardiac findings. Severe multivessel [place] coronary artery disease involving the left anterior [...] Image post processing was performed on a [employer] Workstation. The patient received the following medications: [...] aorta. Mild aortic atherosclerosis. Corbin Coleman MD [facility] AHK/car Susan MALAVE CT Final Result * CT CARDIAC CORONARY ARTERIES RAD DUAL READ (09/23/2024 11:06 AM OFFICE RENTAL CLERK) Anatomical Region Laterality Modality HEART Computed Tomogra phy, Other 09/23/2024 11:0 6 AM OFFICE RENTAL CLERK Impressions 09/23/2024 12:48 PM OFFICE RENTAL CLERK 1. Please refer to street light repairer helper's dictation for the cardiac CT report. 2. No new significant incidental extracardiac findings. Narrative 09/23/2024 12:48 PM OFFICE RENTAL CLERK For Patients: As a result of the [...] FINALIZED AT DIFFERENT TIMES.* EXAM: OVERREAD: DETAILED [facility] EXTRACARDIAC OVERREAD OF CARDIAC CT LOCATION: [facility] MEDICAL IMAGING DATE: 09/23/2024 INDICATION: [...] BEFINALIZED AT DIFFERENT TIMES.* EXAM: OVERREAD: DETAILED [place] [facility] EXTRACARDIAC OVERREAD OFCARDIAC CT LOCATION: [facility] MEDICAL IMAGING DATE: 09/23/2024 INDICATION: [...] ABDOMEN: Cholecystectomy. IMPRESSION: 1. Please refer to street light repairer helper's dictation for the cardiac CT report. 2. No new significant incidental extracardiac findings. Susan MALAVE CT Final Result * (ABNORMAL) CBC W PLT NO DIFF (09/23/2024 3:59 AM OFFICE RENTAL CLERK) Only the most recent of2 resultswithin the time period is included. WHITE BLOOD COUNT 9.5 4.5 - 11.0 thou/cu mm 09/23/2024 4:13 AM OFFICE RENTAL CLERK [facility] RED BLOOD COUNT 3.25(L) 4.00 - 5.20 mil/cu mm 09/23/2024 4:13 AM OFFICE RENTAL CLERK [facility] HEMOGLOBIN 10.5(L) 12.0 - 16.0 g/dL 09/23/2024 4:13 AM OFFICE RENTAL CLERK [facility] HEMATOCRIT 30.7(L) 33.0 - 51.0 % 09/23/2024 4:[address] [facility] MCV 95 80 - 100 fL 09/23/2024 4:[address] [facility] MCH 32.3 26.0 - 34.0 pg 09/23/2024 4:[address] [facility] MCHC 34.2 32.0 - 36.0 g/dL 09/23/2024 4:[address] [facility] RDW 13.7 11.5 - 15.5 % 09/23/2024 4:[address] [facility] PLATELET COUNT 263 140 - 440 thou/cu mm 09/23/2024 4:[address] [facility] MPV 9.7 6.5 - 11.0 fL 09/23/2024 4:[address] [facility] NRBC 0.0 % 09/23/2024 4:[address] [facility] ABS NRBC 0.0 thou /cu mm 09/23/2024 4:[address] [facility] Blood BLOOD SPECIMEN / Unknown Venipuncture / Unknown 09/23/2024 3:59 AM [facility] 09/23/2024 4:11 AM [facility] Shelly Perkins MD HEMATOLOGY F inal Result [facility] SENDOUT INTERNAL ZIP [phone] [place] [address] * (ABNORMAL) BASIC METABOLIC PANEL (09/23/2024 3:59 AM [facility]) Only the most recent of4 resultswithin the time period is included. SODIUM 141 136 - 145 mmol/L 09/23/2024 4:[address] [facility] POTASSIUM 3.7 3.5 - 5.1 mmol/L 09/23/2024 4:[address] [facility] CHLORIDE 107 98 - 107 mmol/L 09/23/2024 4:[address] [facility] CO2,TOTAL 24 22 - 29 mmol/L 09/23/2024 4:[address] [facility] ANION GAP 10 5 - 18 09/23/2024 4:[address] [facility] GLUCOSE 128(H) 70 - 99 mg/dL 09/23/2024 4:[address] [facility] CALCIUM 8.6(L) 8.8 - 10.4 mg/dL 09/23/2024 4:[address] [facility] Comment: Reference ranges for this test were updated on 06/01/2024 to reflect our healthy population more accurately. Reference range changes are not retroactively applied to results, but previous results using the same methodology can be interpreted in the context of the new reference range. BUN 6(L) 8 - 23 mg/dL 09/23/2024 4:[address] [facility] CREATININE 0.54 0.50 - 0.90 mg/dL 09/23/2024 4:[address] [facility] BUN/CREAT RATIO 11 10 - 20 4:[address] [facility] eGFR >90 >90 mL/min/1. 73m2 09/23/2024 4:[address] [facility] Comment:As of 2021, eG FR is calculated by the CKD-EPI creatinine equation without race adjustment. eGFR can be influenced by muscle mass, exercise, and diet. The reported eGFR is an estimation only and is only applicable if the renal function is stable. Blood BLOOD SPECIMEN / Unknown Venipuncture / Unknown 09/23/2024 3:59 AM OFFICE RENTAL CLERK 09/23/2024 4:11 AM OFFICE RENTAL CLERK us Susan MALAVE CHEMISTRY Final Result [facility] SENDOUT INTERNAL [facility] [id number] [address] [place] [address] * SCAN-CARDIAC STRIP (09/22/2024 8:06 PM OFFICE RENTAL CLERK) us Scanner OTHER Final Result * SCAN-CARDIAC STRIP (09/22/2024 7:43 PM OFFICE RENTAL CLERK) us Scanner OTHER Final Result * SCAN CORRESP-EKG RESULTS (09/22/2024 1:55 PM OFFICE RENTAL CLERK) Narrative 09/22/2024 1:55 PM OFFICE RENTAL CLERK Ordered by an unspecified provider. us Other Clinical Staff OTHER Final Resul t * XR VIDEO SWALLOW AND TREATMENT W SPEECH (09/22/2024 10:10 AM OFFICE RENTAL CLERK) Anatomical Region Laterality Modality Esophagus Computed Radiogr aphy 09/22/2024 10:1 0 AM OFFICE RENTAL CLERK Impressions 09/22/2024 10:44 AM OFFICE RENTAL CLERK Swallow study with Speech Pathology using multiple barium thicknesses. Deep penetration of thin liquids without arcadio aspiration. Mildly thickened liquids, pudding, and solid textures swallowed without evidence for airway compromise. Minor pharyngeal residue. Please see speech pathology report for additional details and dietary recommendations. Narrative 09/22/2024 10:44 AM OFFICE RENTAL CLERK For Patients: As a result of the Cures Act, medical imaging exams and procedure reports are released immediately into your electronic medical record. You may view this report before your referring provider. If you have questions, please contact your health care provider. EXAM: XR VIDEO SWALLOW AND TREATMENT W SPEECH LOCATION: [facility] MEDICAL IMAGING DATE: 09/22/2024 INDICATION: [...] VIDEO SWALLOW AND TREATMENT W SPEECH LOCATION: [facility] MEDICAL IMAGING DATE: 09/22/2024 INDICATION: [...] pathology report for additional details and dietaryrecommendations. Shelly Perkins MD FLUOROSCOPY F inal Result * SCAN-CARDIAC STRIP (09/22/2024 7:19 AM OFFICE RENTAL CLERK) us Scanner OTHER Final Result * EKG 12 LEAD (09/22/2024 6:25 AM OFFICE RENTAL CLERK) Only the most recent of5 resultswithin the [...] NOW QTc 449 ms BEYOND NOW P [place] 56 degrees BEYOND NOW R [place] 0 degrees BEYOND NOW T [place] 34 degrees BEYOND NOW 09/22/2024 6:25 AM OFFICE RENTAL CLERK 09/22/2024 9:08 AM OFFICE RENTAL CLERK Angel Molina MD EKG ORD Final Re sult [place], [place] * (ABNORMAL) TROPONIN T (HS) ONE TIME (09/22/2024 6:17 AM OFFICE RENTAL CLERK) Only the most recent of3 resultswithin the time period is included. Pathologist [facility] TROPONIN T HS 48(H) 6-10 ng/L ng/L 09/22/2024 6:[address] [facility] Blood BLOOD SPECIMEN / Unknown Butterfly / Unknown 09/22/2024 6:17 AM OFFICE RENTAL CLERK 09/22/2024 6:22 AM OFFICE RENTAL CLERK Narrative [facility] - 09/22/2024 6:51 AM [facility] hs-cTnT (Elecsys Troponin T Gen 5) [...] Angel Molina MD CHEMISTRY Final Re sult [facility] SENDOUT INTERNAL [facility] [id number] [place] [address] * US VENOUS LOWER EXTREMITY BILATERAL PORTABLE (09/21/2024 10:47 PM OFFICE RENTAL CLERK) Anatomical Region Laterality Modality LEGS, LEG L, LEG R Ultrasound 09/21/2024 10:4 7 PM OFFICE RENTAL CLERK Impressions 09/21/2024 11:06 PM OFFICE RENTAL CLERK 1. No deep venous thrombosis in the bilateral lower extremities. Narrative 09/21/2024 11:06 PM OFFICE RENTAL CLERK For Patients: As a result of the 21st Century Cures Act, medical imaging exams and procedure reports are released immediately into your electronic medical record. You may view this report before your referring provider. If you have questions, please contact your health care provider. EXAM: US VENOUS LOWER EXTREMITY BILATERAL PORTABLE LOCATION: [facility] MEDICAL IMAGING DATE: 09/21/2024 INDICATION: [...] US VENOUS LOWER EXTREMITY BILATERAL PORTABLE LOCATION: [facility] MEDICAL IMAGING DATE: 09/21/2024 INDICATION: [...] venous thrombosis in the bilateral lower extremities. Kellen Truong NP US Fin al Result * EXTRA TUBE GOLD/SST (09/21/2024 8:53 PM OFFICE RENTAL CLERK) Blood BLOOD SPECIMEN / Unknown Non-Lab Venipuncture / Unknown 09/21/2024 8:53 PM OFFICE RENTAL CLERK 09/21/2024 8:53 PM OFFICE RENTAL CLERK us Doctor Unknown LABORATORY Final Result [facility] SENDOUT INTERNAL ZIP [phone] [place] [address] * LACTATE VENOUS (09/21/2024 8:48 PM OFFICE RENTAL CLERK) LACTATE,VENOUS 1.3 0.5 - 2.0 mmol/L 09/21/2024 9:21 PM OFFICE RENTAL CLERK [facility] Blood BLOOD SPECIMEN / Unknown Venipuncture / Unknown 09/21/2024 8:48 PM OFFICE RENTAL CLERK 09/21/2024 8:52 PM OFFICE RENTAL CLERK us Kellen Truong NP CHEMISTRY Fin al Result [facility] SENDOUT INTERNAL ZIP [phone] [place] [address] * SCAN-CARDIAC STRIP (09/21/2024 8:22 PM OFFICE RENTAL CLERK) us Scanner OTHER Final Result * CT CHEST PULMONARY EMBOLUS PE ABDOMEN PELVIS W (09/21/2024 7:17 PM OFFICE RENTAL CLERK) Anatomical Region Laterality Modality CHEST, Abdomen, Pelvis Computed Tomography 09/21/2024 7:17 PM OFFICE RENTAL CLERK Impressions 09/21/2024 8:05 PM OFFICE RENTAL CLERK 1. No pulmonary embolism. 2. Small bilateral effusions with bibasilar atelectasis. Additional patchy airspace opacities noted at the lung bases which may represent pneumonia or atelectasis. 3. Chronic interstitial fibrotic changes with Mosaic attenuation of the lungs suggesting small airway disease. 4. No acute findings in the abdomen and pelvis. Narrative 09/21/2024 8:05 PM OFFICE RENTAL CLERK For Patients: As a result of the Century Cures Act, medical imaging exams and procedure reports are released immediately into your electronic medical record. You may view this report before your referring provider. If you have questions, please contact your health care provider. EXAM: CT CHEST PULMONARY EMBOLUS PE ABDOMEN PELVIS W LOCATION: [facility] MEDICAL IMAGING DATE: 09/21/2024 INDICATION: [...] PULMONARY EMBOLUS PE ABDOMEN PELVIS W LOCATION: [facility] MEDICAL IMAGING DATE: 09/21/2024 INDICATION: [...] acute findings in the abdomen and pelvis. Shelly Perkins MD CT F inal Result * XR CHEST 1 VIEW PORTABLE (09/21/2024 2:43 PM OFFICE RENTAL CLERK) Only the most recent of3 resultswithin the time period is included. Anatomical Region Laterality Modality HEART, THORAX, CHEST Computed Ra diography 09/21/2024 2:43 PM OFFICE RENTAL CLERK Impressions 09/21/2024 3:32 PM OFFICE RENTAL CLERK Sternotomy. Heart mildly enlarged, unchanged. Low lung volumes. Small increased consolidation noted within the right mid and lower lung concerning for pneumonia. No large effusion. Chronic interstitial lung changes appears similar to prior examination. Narrative 09/21/2024 3:32 PM OFFICE RENTAL CLERK For Patients: As a result of the Cures Act, medical imaging exams and procedure reports are released immediately into your electronic medical record. You may view this report before your referring provider. If you have questions, please contact your health care provider. EXAM: XR CHEST 1 VIEW PORTABLE LOCATION: [facility] MEDICAL IMAGING DATE: 09/21/2024 INDICATION: SOB COMPARISON: 09/20/2024 Procedure Note Jesse Solis MD - 09/21/2024 For Patients: As a result of the Cures Act, medical imagingexams and procedure reports are released immediately into your electronicmedical record. You may view this report before your referring provider.If you have questions, please contact your health care provider. EXAM: XR CHEST 1 VIEW PORTABLE LOCATION: [facility] MEDICAL IMAGING DATE: 09/21/2024 INDICATION: SOB COMPARISON: 09/20/2024 IMPRESSION: Sternotomy. Heart mildly enlarged, unchanged. Low lung volumes. Smallincreased consolidation noted within the right mid and lower lungconcerning for pneumonia. No large effusion. Chronic interstitial lungchanges appears similar to prior examination. us Shelly Perkins MD GENERAL IMAGING F inal Result * SCAN-CARDIAC STRIP (09/21/2024 7:30 AM OFFICE RENTAL CLERK) us Scanner OTHER Final Result * ECHO TTE COMPLETE WO CONTRAST (09/20/2024 12:35 PM OFFICE RENTAL CLERK) Anatomical Region Laterality Modality Ultrasound 09/20/2024 12:0 2 PM OFFICE RENTAL CLERK Narrative 09/20/2024 1:13 PM [place] [address] Main: [email or web address] Transthoracic Echo Report KEE GABBIEJOSE LUIS ZAMUDIO Excellian ID: [id number] Age: 79 : 1945 Ordering Provider: KELLEN TRUONG Exam Date: 09/20/2024 12:02 Gender: F Lipstick Molder: MIKA Height: 68 in BSA: 1.87 m [...] ZScore: -1.42 Roxy Chowdary MD (Electronically Signed) [facility] Accredited Site Final Date: 20 September 2024 13:12 ICD-10 Codes: 428.9 Procedure Note Roxy Chowdary MD - 09/20/2024 [place] [address] Main: [email or web address] Transthoracic Echo Report JOSE LUIS JOYCE ID: [id number] Age: 79 : 1945 Ordering Provider:KELLEN TRUONG Exam Date: 09/20/2024 12:02 Gender: F Lipstick Molder: MIKA Height: 68 in BSA: 1.87 m [...] ZScore: -1.42 Roxy Chowdary MD (Electronically Signed) [facility] Accredited Site Final Date: 20 September 2024 13:12 ICD-10 Codes: 428.9 us Kellen Truong HISTOLOGY TEACHER ECHO ORD Fin al Result * COVID/FLU/RSV PANEL (09/20/2024 11:30 AM OFFICE RENTAL CLERK) COVID 19 [facility] MOLECULAR Negative Negative 09/20/2024 12:41 PM OFFICE RENTAL CLERK [facility] Comment:All PCR tests are gomez bject to false negative result due to variability in viral load and collection technique. A negative result does not rule out a SARS-CoV-2 infection. Clinical correlation required. INFLUENZA A PCR Negative 12:41 PM OFFICE RENTAL CLERK [facility] INFLUENZA B PCR Negative 12:41 PM OFFICE RENTAL CLERK [facility] Respiratory Syncytial Virus Negative 09/20/2024 12:41 PM OFFICE RENTAL CLERK [facility] Swab NASOPHARYNGEAL SWAB / Unknown Non-Blood / Unknown 09/20/2024 11:30 AM OFFICE RENTAL CLERK 09/20/2024 11:32 AM OFFICE RENTAL CLERK us Sangita ARAGON MICROBIOLOGY Final R esult [facility] SENDOUT INTERNAL ZIP [phone] [place] [address] * CONTINUOUS VIDEO EEG MONITORING (09/20/2024 8:55 AM OFFICE RENTAL CLERK) Narrative Evelia Fernandes MBBS - 09/20/2024 8:55 AM OFFICE RENTAL CLERK Evelia Fernandes MBBS 09/20/2024 2:06 PM [facility] [place] [facility] monitoring/ video EEG report Name: Jose Luis Lozano Test Number: See below Test date: 09/20/24 : 1945 Referring Service: @SERVDEPT@ Age: 79 y.o. Referring Physician: Patrick Hospitalist [facility] Procedure: videoEEG/ LTM Interpreting Physician: Evelia Fernandes [...] epileptiform discharges, or typical events were recorded. Evelai Fernandes MD, FAAN, FAES Continuous video EEG study completed from 09/19/24-09/20/24, with a total recording time of (25Hours:37Minutes) us Goldcharmaine Jeniffer Quiroz [facility] NEUROLOGY ORD Final Result * SCAN-CARDIAC STRIP (09/20/2024 7:41 AM OFFICE RENTAL CLERK) us Scanner OTHER Final Result * PROCALCITONIN (09/20/2024 4:43 AM OFFICE RENTAL CLERK) PROCALCITONIN 0.30 ng/ml 09/20/2024 5:27 AM OFFICE RENTAL CLERK [facility] Blood BLOOD SPECIMEN / Unknown Non-Lab Venipuncture / Unknown 09/20/2024 4:43 AM OFFICE RENTAL CLERK 09/20/2024 4:43 AM OFFICE RENTAL CLERK Narrative [facility] - 09/20/2024 5:27 AM OFFICE RENTAL CLERK Procalcitonin for initial assessment of Lower Respiratory [...] any concentrations < 2 ng/mL are obtained. Psychiatric Osorio JONES SEND OUTS Final R esult [facility] SENDOUT INTERNAL ZIP [phone] [place] [address] * TRIGLYCERIDES propofol (09/20/2024 4:39 AM OFFICE RENTAL CLERK) TRIGLYCERIDES 65 <150 mg/dL 09/20/2024 5:14 AM OFFICE RENTAL CLERK [facility] PROVIDER ORDERED STATUS RANDOM 09/20/2024 5:14 AM OFFICE RENTAL CLERK [facility] Blood BLOOD SPECIMEN / Unknown Venipuncture / Unknown 09/20/2024 4:39 AM OFFICE RENTAL CLERK 09/20/2024 4:42 AM OFFICE RENTAL CLERK Psychiatric Osorio JONES CHEMISTRY Final R esult [facility] SENDOUT INTERNAL ZIP [address] [place] [address] * (ABNORMAL) SODIUM (09/20/2024 4:39 AM OFFICE RENTAL CLERK) SODIUM 134(L) 136 - 145 mmol/L 09/20/2024 5:[address] [facility] Blood BLOOD SPECIMEN / Unknown Venipuncture / Unknown 09/20/2024 4:39 AM OFFICE RENTAL CLERK 09/20/2024 4:42 AM OFFICE RENTAL CLERK us Nessa Lucas MD CHEMISTRY Final R esult [facility] SENDOUT INTERNAL ZIP [phone] [place] [address] * (ABNORMAL) CO2,TOTAL (09/20/2024 4:39 AM OFFICE RENTAL CLERK) CO2,TOTAL 19(L) 22 - 29 mmol/L 09/20/2024 5:14 AM OFFICE RENTAL CLERK [facility] Blood BLOOD SPECIMEN / Unknown Venipuncture / Unknown 09/20/2024 4:39 AM OFFICE RENTAL CLERK 09/20/2024 4:42 AM OFFICE RENTAL CLERK us Nessa Lucas MD CHEMISTRY Final R esult Performing Organization Address City/[facility]/ZIP Co de Phone Number [facility] SENDOUT INTERNAL ZIP [phone] [place] [address] * (ABNORMAL) CK TOTAL propofol (09/20/2024 4:39 AM OFFICE RENTAL CLERK) CK,TOTAL 195(H) 26 - 192 IU/L 09/20/2024 5:14 AM OFFICE RENTAL CLERK [facility] Blood BLOOD SPECIMEN / Unknown Venipuncture / Unknown 09/20/2024 4:39 AM OFFICE RENTAL CLERK 09/20/2024 4:42 AM OFFICE RENTAL CLERK us Sangita ARAGON CHEMISTRY Final R esult [facility] SENDOUT INTERNAL ZIP [address] [place] [address] * LEVETIRACETAM (KEPPRA) (09/20/2024 4:31 AM OFFICE RENTAL CLERK) LEVETIRACETAM (KEPPRA) 30.8 6.0 - 46.0 ug/mL 09/20/2024 11:43 AM OFFICE RENTAL CLERK [facility] Blood BLOOD SPECIMEN / Unknown Venipuncture / Unknown 09/20/2024 4:31 AM OFFICE RENTAL CLERK 09/20/2024 4:43 AM OFFICE RENTAL CLERK Narrative [facility] - 09/20/2024 11:43 AM OFFICE RENTAL CLERK Reference Range is based on Trough Steady State in patients receiving recommended daily dose. The relationship between serum concentrations and toxicity is not known. Bivaracetam (Briviact ) interferes with measurements of levetiracetam (Keppra ) in the ARK Levetiracetam Assay Richard Lao MD SEND OUTS Final Resu lt Performing Organization Address [facility]/ZIP Co de Phone Number [facility] [address] [place] [address], * BLOOD CULTURE (09/19/2024 7:15 PM OFFICE RENTAL CLERK) Only the most recent of2 resultswithin the time period is included. CULTURE No Growth. 09/25/2024 1:59 AM OFFICE RENTAL CLERK [facility] Blood BLOOD SPECIMEN / Unknown Venipuncture / Unknown 09/19/2024 7:15 PM OFFICE RENTAL CLERK 09/19/2024 7:19 PM OFFICE RENTAL CLERK Narrative [facility] - 09/25/2024 1:59 AM OFFICE RENTAL CLERK Low volume blood culture received; possible false negative culture. Sangita JONES MICROBIOLOGY Final R esult Performing Organization Address [facility]/ZIP Co de Phone Number [facility] [address] [place] [address], * (ABNORMAL) URINALYSIS MICROSCOPIC (09/19/2024 4:36 PM OFFICE RENTAL CLERK) RBC 0-2 0-2, None Seen /HPF 09/19/2024 5:24 PM OFFICE RENTAL CLERK [facility] WBC 6-10(A) 0-2, 3-5, None Seen /HPF 09/19/2024 5:24 PM OFFICE RENTAL CLERK [facility] BACTERIA None Seen None Seen, Rare, Few Bacteria/ HPF 09/19/2024 5:24 PM OFFICE RENTAL CLERK [facility] EPITHELIAL CELLS None Seen None Seen, Few Epi/HPF 09/19/2024 5:[address] [facility] HYALINE CASTS 0-2 0-2, 3-5 /LPF 09/19/2024 5:[address] [facility] Urine URINE SPECIMEN / Unknown Non-Blood / Unknown 09/19/2024 4:36 PM OFFICE RENTAL CLERK 09/19/2024 4:57 PM OFFICE RENTAL CLERK Nessa Lucas MD URINE Final R esult [facility] SENDOUT INTERNAL ZIP [phone] [place] [address] * (ABNORMAL) UA W/ SEDIMENT EXAM REFLEXED PER CRITERIA (09/19/2024 4:36 PM OFFICE RENTAL CLERK) COLOR Yellow Yellow Color 09/19/2024 5:[address] [facility] CLARITY Clear Clear Clarity 09/19/2024 5:[address] [facility] SPECIFIC GRAVITY,URINE 1.015 1.010, 1.015, 1.020, 1.025 09/19/2024 5:[address] [facility] PH,URINE 7.0 6.0, 7.0, 8.0, 5.5, 6.5, 7.5, 8.5 09/19/2024 5:[address] [facility] UROBILINOGEN, QUALITATIVE Normal Normal EU/dl 09/19/2024 5:[address] [facility] PROTEIN, URINE Negative Negative mg/dL 09/19/2024 5:[address] [facility] GLUCOSE, URINE Negative Negative mg/dL 09/19/2024 5:[address] [facility] KETONES,URINE Negative Negative mg/dL 09/19/2024 5:[address] [facility] BILIRUBIN,URI NE Negative Negative 09/19/2024 5:[address] [facility] OCCULT BLOOD,URINE Trace(A) Negative 09/19/2024 5:[address] [facility] NITRITE Negative Negative 09/19/2024 5:[address] [facility] LEUKOCYTE ESTERASE Trace(A) Negative 09/19/2024 5:[address] [facility] Urine URINE SPECIMEN / Unknown Non-Blood / Unknown 09/19/2024 4:36 PM OFFICE RENTAL CLERK 09/19/2024 4:57 PM OFFICE RENTAL CLERK us Nessa Lucas MD URINE Final R esult [facility] SENDOUT [place]NAL ZIP [phone] [place] [address] * SCAN-CARDIAC STRIP (09/19/2024 3:51 PM OFFICE RENTAL CLERK) us Scanner OTHER Final Result * MR Brain w/wo Contrast (09/19/2024 1:47 PM OFFICE RENTAL CLERK) Anatomical Region Laterality Modality BRAIN, HEAD Magnetic Resonan ce 09/19/2024 1:47 PM OFFICE RENTAL CLERK Impressions 09/19/2024 10:49 PM OFFICE RENTAL CLERK 1. 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 2. No acute intracranial process. Narrative 09/19/2024 10:49 PM OFFICE RENTAL CLERK For Patients: As a result of the Century Cures Act, medical imaging exams and procedure reports are released immediately into your electronic medical record. You may view this report before your referring provider. If you have questions, please contact your health care provider. EXAM: MR HEAD BRAIN WWO LOCATION: [facility] MEDICAL IMAGING DATE: 09/19/2024 INDICATION: [...] provider. EXAM: MR HEAD BRAIN WWO LOCATION: [facility] MEDICAL IMAGING DATE: 09/19/2024 INDICATION: [...] esult * MRSA/SA PCR (09/19/2024 12:31 PM OFFICE RENTAL CLERK) MRSA DNA PCR Negative Negative 09/19/2024 2:35 PM OFFICE RENTAL CLERK [facility] STAPHYLOCOCCUS AUREUS PCR Negative Negative 09/19/2024 2:35 PM OFFICE RENTAL CLERK [facility] Other SPECIMEN FROM INTERNAL NOSE / Unknown Non-Blood / Unknown 09/19/2024 12:31 PM OFFICE RENTAL CLERK 09/19/2024 12:41 PM OFFICE RENTAL CLERK Narrative [facility] - 09/19/2024 2:35 PM OFFICE RENTAL CLERK Test result does not preclude MRSA or SA nasal colonization. Psychiatric Osorio ARAGON MICROBIOLOGY Final R esult Performing Organization Address [facility]/ZIP Co de Phone Number [facility] SENDOUT INTERNAL ZIP [phone] [place] [address] * SCAN-CARDIAC STRIP (09/19/2024 8:06 AM OFFICE RENTAL CLERK) Scanner OTHER Final Result * PROTIME-INR (09/19/2024 6:09 AM OFFICE RENTAL CLERK) Only the most recent of3 resultswithin the time period is included. INR 1.0 <1.3 09/19/2024 6:28 AM OFFICE RENTAL CLERK [facility] PROTIME 11.1 10.6 - 12.4 sec 09/19/2024 6:[address] [facility] Blood BLOOD SPECIMEN / Unknown Venipuncture / Unknown 09/19/2024 6:09 AM OFFICE RENTAL CLERK 09/19/2024 6:18 AM OFFICE RENTAL CLERK Narrative [facility] - 09/19/2024 6:28 AM OFFICE RENTAL CLERK Therapeutic Range 2.0-3.0 for most anticoagulated patients [...] seconds if the patient is on UFH. Sangita ARAGON HEMATOLOGY Final R esult Performing Organization Address [facility]/ZIP Co de Phone Number [facility] SENDOUT INTERNAL ZIP [phone] [place] [address] * ALT (SGPT) (09/19/2024 6:09 AM OFFICE RENTAL CLERK) ALT (SGPT) 14 10 - 35 IU/L 09/19/2024 6:47 AM OFFICE RENTAL CLERK [facility] Blood BLOOD SPECIMEN / Unknown Venipuncture / Unknown 09/19/2024 6:09 AM OFFICE RENTAL CLERK 09/19/2024 6:18 AM OFFICE RENTAL CLERK Psychiatric Osorio Herrera [facility] Final R esult [facility] SENDOUT INTERNAL ZIP [phone] [place] [address] * AST (SGOT) (09/19/2024 6:09 AM OFFICE RENTAL CLERK) AST (SGOT) 33 10 - 35 IU/L 09/19/2024 6:47 AM OFFICE RENTAL CLERK [facility] Blood BLOOD SPECIMEN / Unknown Venipuncture / Unknown 09/19/2024 6:09 AM OFFICE RENTAL CLERK 09/19/2024 6:18 AM OFFICE RENTAL CLERK Psychiatric Osorio Herrera [facility] Final R esult [facility] SENDOUT INTERNAL ZIP [address] [place] [address] * BILIRUBIN DIRECT (09/19/2024 6:09 AM OFFICE RENTAL CLERK) BILIRUBIN,DIRE CT 0.1 0.0 - 0.2 mg/dL 09/19/2024 6:47 AM OFFICE RENTAL CLERK [facility] Blood BLOOD SPECIMEN / Unknown Venipuncture / Unknown 09/19/2024 6:09 AM OFFICE RENTAL CLERK 09/19/2024 6:18 AM OFFICE RENTAL CLERK Psychiatric Osorio JONES CHEMISTRY Final R esult [facility] SENDOUT INTERNAL ZIP [phone] [place] [address] * (ABNORMAL) CBC WITH AUTO DIFFERENTIAL (09/19/2024 6:08 AM OFFICE RENTAL CLERK) Only the most recent of2 resultswithin the time period is included. WHITE BLOOD COUNT 16.9(H) 4.5 - 11.0 thou/cu mm 09/19/2024 6:[address] [facility] RED BLOOD COUNT 3.76(L) 4.00 - 5.20 mil/cu mm 09/19/2024 6:[address] [facility] HEMOGLOBIN 12.2 12.0 - 16.0 g/dL 09/19/2024 6:[address] [facility] HEMATOCRIT 34.9 33.0 - 51.0 % 09/19/2024 6:[address] [facility] MCV 93 80 - 100 fL 09/19/2024 6:[address] [facility] MCH 32.4 26.0 - 34.0 pg 09/19/2024 6:[address] [facility] MCHC 35.0 32.0 - 36.0 g/dL 09/19/2024 6:[address] [facility] RDW 12.7 11.5 - 15.5 % 09/19/2024 6:[address] [facility] PLATELET COUNT 257 140 - 440 thou/cu mm 09/19/2024 6:[address] [facility] MPV 9.5 6.5 - 11.0 fL 09/19/2024 6:[address] [facility] NRBC 0.0 % 09/19/2024 6:21 AM [facility] ABS NRBC 0.0 thou /cu mm 09/19/2024 6:[address] [facility] % NEUT 68.9 % 09/19/2024 6:[address] [facility] % LYMPH 21.8 % 09/19/2024 6:[address] [facility] % MONO 7.8 % 09/19/2024 6:[address] [facility] % EOS 0.5 % 09/19/2024 6:[address] [facility] % BASO 0.5 % 09/19/2024 6:[address] [facility] % IMMATURE GRAN (METAS,MYELOS,NC OS) 0.5 % 09/19/2024 6:[address] [facility] ABSOLUTE NEUTROPHILS 11.6(H) 1.7 - 7.0 thou/cu mm 09/19/2024 6:21 AM OFFICE RENTAL CLERK [facility] ABSOLUTE LYMPHOCYTES 3.7(H) 0.9 - 2.9 thou/cu mm 09/19/2024 6:[address] [facility] ABSOLUTE MONOCYTES 1.3(H) <0.9 thou/cu mm 09/19/2024 6:21 AM OFFICE RENTAL CLERK [facility] ABSOLUTE EOSINOPHILS 0.1 <0.5 thou/cu mm 09/19/2024 6:21 AM OFFICE RENTAL CLERK [facility] ABSOLUTE BASOPHILS 0.1 <0.3 thou/cu mm 09/19/2024 6:[address] [facility] ABSOLUTE IMMATURE GRANULOCYTES(MET ,MYELOS,PROS) 0.1 <0.3 thou/cu mm 09/19/2024 6:[address] [facility] Blood BLOOD SPECIMEN / Unknown Venipuncture / Unknown 09/19/2024 6:08 AM OFFICE RENTAL CLERK 09/19/2024 6:18 AM [facility] Psychiatric Osorio ARAGON HEMATOLOGY Final R esult [facility] SENDOUT INTERNAL ZIP [phone] [place] [address] * (ABNORMAL) SPUTUM CULTURE, STAIN (09/19/2024 4:04 AM [facility]) CULTURE RESULT(A) 09/22/2024 9:50 AM [facility] CULTURE 4+ Streptococcus pneumoniae 09/22/2024 9:50 AM [facility] CULTURE 3+ Usual Lisa 09/22/2024 9:50 AM [facility] GRAM STAIN 4+ PMNs 09/22/2024 9:[address] [facility] GRAM STAIN 1+ Epithelial cells 09/22/2024 9:50 AM OFFICE RENTAL CLERK [facility] GRAM STAIN No RBCs 09/22/2024 9:50 AM OFFICE RENTAL CLERK [facility] GRAM STAIN 4+ Gram Positive Cocci 09/22/2024 9:50 AM OFFICE RENTAL CLERK [facility] GRAM STAIN Gram stain performed by [place], [place] 09/22/2024 9:[address] [facility] Sputum SPECIMEN FROM ENDOTRACHEAL TUBE / Unknown Non-Blood / Unknown 09/19/2024 4:04 AM OFFICE RENTAL CLERK 09/19/2024 4:07 AM OFFICE RENTAL CLERK Narrative Organism Antibiotic Method Susceptibility Streptococcus pneumoniae PENICILLIN-ORAL <=0.06: S Streptococcus pneumoniae [id number] <=0.06: S Streptococcus pneumoniae [id number] <=0.06: S Streptococcus pneumoniae CEFTRIAXONE-MENINGIT <=0.12: S Streptococcus pneumoniae CEFTRIAXONE-NONMENIN <=0.12: S Streptococcus pneumoniae VANCOMYCIN 0.5: S Streptococcus pneumoniae LEVOFLOXACIN 0.5: S Streptococcus pneumoniae TRIMETHOPRIM/SULF <=0.5/9.5: S Streptococcus pneumoniae AZITHROMYCIN S Streptococcus pneumoniae CLARITHROMYCIN S Psychiatric Osorio ARAGON MICROBIOLOGY Final R esult [facility] [address] [place] [address], [facility] SENDOUT INTERNAL ZIP [address] [place] [address] * (ABNORMAL) HEPATIC FUNCTION PANEL (09/19/2024 2:41 AM [facility]) Pathologist [facility] ALBUMIN 3.8(L) 4.0 - 4.9 g/dL 09/19/2024 3:[address] [facility] PROTEIN,TOTAL 7.3 6.0 - 8.0 g/dL 09/19/2024 3:[address] [facility] BILIRUBIN,TOTAL 0.5 0.0 - 1.2 mg/dL 09/19/2024 3:[address] [facility] BILIRUBIN,DIRECT 09/19/19 3:[address] [facility] Comment:Canceled- Specimen H emolyzed, Disposition Per Policy ALK PHOSPHATASE 100 35 - 104 IU/L 09/19/2024 3:[address] [facility] ALT (SGPT) 09/19/2024 3:[address] [facility] Comment:Canceled- Specimen H emolyzed, Disposition Per Policy AST (SGOT) 09/19/2024 3:[address] [facility] Comment:Canceled- Specimen H emolyzed, Disposition Per Policy Blood BLOOD SPECIMEN / Unknown Butterfly / Unknown 09/19/2024 2:41 AM OFFICE RENTAL CLERK 09/19/2024 2:54 AM OFFICE RENTAL CLERK Sangita JONESBS CHEMISTRY Final R esult [facility] SENDOUT INTERNAL ZIP [phone] [place] [address] * XR ABDOMEN 1 VIEW PORTABLE (09/18/2024 11:18 PM OFFICE RENTAL CLERK) Anatomical Region Laterality Modality Abdomen Computed Radiogr aphy 09/18/2024 11:1 8 PM OFFICE RENTAL CLERK Impressions 09/19/2024 12:19 AM OFFICE RENTAL CLERK Enteric suction tube tip overlies the region [...] CT chest 09/29/2023. Narrative 09/19/2024 12:19 AM OFFICE RENTAL CLERK For Patients: As a result of the Cures Act, medical imaging exams and procedure reports are released immediately into your electronic medical record. You may view this report before your referring provider. If you have questions, please contact your health care provider. EXAM: XR ABDOMEN 1 VIEW PORTABLE LOCATION: [facility] MEDICAL IMAGING DATE: 09/18/2024 INDICATION: [...] EXAM: XR ABDOMEN 1 VIEW PORTABLE LOCATION: [facility] MEDICAL IMAGING DATE: 09/18/2024 INDICATION: [...] (ABNORMAL) ISTAT EG6+ ABG (09/18/2024 10:45 PM OFFICE RENTAL CLERK) PH, ARTERIAL 7.48(H) 7.35 - 7.45 09/18/2024 10:[address] [facility] PCO2, ARTERIAL 34 32 - 45 mmHg 09/18/2024 10:[address] [facility] PO2, ARTERIAL 132(H) 83 - 108 mmHg 09/18/2024 10:[address] [facility] HCO3, ARTERIAL 25 21 - 28 mmol/L 09/18/2024 10:[address] [facility] BASE EXCESS, ARTERIAL 2.0 -2.0 - 3.0 09/18/2024 10:[address] [facility] O2 SATURATION, ARTERIAL 99(H) 94 - 98 % 09/18/2024 10:[address] [facility] SODIUM, POCT 09/18/2024 10:[address] [facility] Comment:Unable to determine. POTASSIUM, POCT 10:[address] [facility] Comment:Unable to determine. INSPIRED O2,ISTAT 30.0 09/18/2024 10:[address] [facility] PATIENT TEMPERATURE 37.0 Degrees C 09/18/2024 10:[address] [facility] ENRIQUE'S TEST Not Given 09/18/2024 10:[address] [facility] SAMPLE TYPE,ISTAT BLOOD GAS ARTERIAL 09/18/2024 10:[address] [facility] Blood BLOOD SPECIMEN / Unknown 09/18/2024 10:45 PM OFFICE RENTAL CLERK 09/18/2024 10:48 PM [facility] us Suzanne Harris MD CHEMISTRY Final Result [facility] SENDOUT INTERNAL ZIP [phone] [place] [address] * MR HEAD RAPID CODE STROKE LTD BRAIN WO CONTRAST (09/18/2024 10:28 PM OFFICE RENTAL CLERK) Anatomical Region Laterality Modality Magnetic Resonan ce 09/18/2024 10:2 8 PM OFFICE RENTAL CLERK Impressions 09/18/2024 11:20 PM OFFICE RENTAL CLERK HEAD MRI: 1. No acute intracranial abnormality. 2. Right parietotemporal encephalomalacia. HEAD MRA: No large vessel occlusion or hemodynamically significant stenosis. Narrative 09/18/2024 11:20 PM OFFICE RENTAL CLERK For Patients: As a result of the Cures Act, medical imaging exams and procedure reports are released immediately into your electronic medical record. You may view this report before your referring provider. If you have questions, please contact your health care provider. EXAM: MR HEAD RAPID CODE STROKE LTD BRAIN WO CONTRAST LOCATION: [facility] MEDICAL IMAGING DATE/TIME: 09/18/2024 10:28 PM OFFICE RENTAL CLERK INDICATION: Eval/ FU cerebral vascular disease or ischemia TIA COMPARISON: None. CONTRAST: None. TECHNIQUE: 1) Routine multiplanar multisequence head MRI without and with intravenous contrast. 2) 3D [id number]-[id number] head MRA without intravenous contrast. FINDINGS: HEAD [...] CODE STROKE LTD BRAIN WO CONTRAST LOCATION: [facility] MEDICAL IMAGING DATE/TIME: 09/18/2024 10:28 PM OFFICE RENTAL CLERK INDICATION: Eval/ FU cerebral vascular disease or ischemia TIA COMPARISON: None. CONTRAST: None. TECHNIQUE: 1) Routine multiplanar multisequence head MRI without and with intravenouscontrast. 2) 3D [id number] head MRA without intravenous contrast. FINDINGS: HEAD [...] large vessel occlusion or hemodynamically significant stenosis. Manolo Flanagan MD MR Final R esult * CT ANGIO HEAD NECK CAROTID STROKE PROTOCOL BRET CANDIDAT (09/18/2024 8:54 PM OFFICE RENTAL CLERK) Anatomical Region Laterality Modality BRAIN, NECK Computed Tomogra phy 09/18/2024 8:54 PM OFFICE RENTAL CLERK Impressions 09/18/2024 9:12 PM OFFICE RENTAL CLERK HEAD CT: 1. No acute intracranial findings. 2. 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 HEAD CTA: 1. No high-grade stenosis or large vessel occlusion of the [place] of [place] vasculature. NECK CTA: 1. No significant stenosis of the neck arterial vasculature. Results called to Dr. Flanagan at 10:55 PM on 09/18/2024. Narrative 09/18/2024 9:12 PM OFFICE RENTAL CLERK For Patients: As a result of the Cures Act, medical imaging exams and procedure reports are released immediately into your electronic medical record. You may view this report before your referring provider. If you have questions, please contact your health care provider. EXAM: CT HEAD STROKE PROTOCOL WITHOUT CONTRAST, CTA HEAD NECK CAROTID STROKE PROTOCOL BRET CANDIDAT LOCATION: [facility] MEDICAL IMAGING DATE: 09/18/2024 INDICATION: STAT reading for possible thrombolytics. free text)->Neurologic Dysfunction COMPARISON: None. CONTRAST: None. (accession [id number]), Omnipaque 350 [id number] (accession [id number]) TECHNIQUE: Head and neck CT angiogram with [...] HEAD NECK CAROTIDSTROKE PROTOCOL BRET CANDIDAT LOCATION: [facility] MEDICAL IMAGING DATE: 09/18/2024 INDICATION: STAT reading for possible thrombolytics. freetext)->Neurologic Dysfunction COMPARISON: None. CONTRAST: None. (accession [id number]), Omnipaque 350 75 ([id number]) TECHNIQUE: Head and neck CT angiogram with [...] stenosis or large vessel occlusion of the [place] of[place] vasculature. NECK CTA: 1. No significant stenosis of the neck arterial vasculature. Results called to Dr. Flanagan at 10:55 PM on 09/18/2024. us Suzanne Harris MD CT Final Result * CT HEAD STROKE PROTOCOL WITHOUT CONTRAST Thrombolytic Candidate (09/18/2024 8:54 PM OFFICE RENTAL CLERK) Anatomical Region Laterality Modality BRAIN Computed Tomogra phy 09/18/2024 8:54 PM OFFICE RENTAL CLERK Impressions 09/18/2024 9:12 PM OFFICE RENTAL CLERK HEAD CT: 1. No acute intracranial findings. 2. 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 HEAD CTA: 1. No high-grade stenosis or large vessel occlusion of the [place] of [place] vasculature. NECK CTA: 1. No significant stenosis of the neck arterial vasculature. Results called to Dr. Flanagan at 10:55 PM on 09/18/2024. Narrative 09/18/2024 9:12 PM OFFICE RENTAL CLERK For Patients: As a result of the Century Cures Act, medical imaging exams and procedure reports are released immediately into your electronic medical record. You may view this report before your referring provider. If you have questions, please contact your health care provider. EXAM: CT HEAD STROKE PROTOCOL WITHOUT CONTRAST, CTA HEAD NECK CAROTID STROKE PROTOCOL BRET CANDIDAT LOCATION: [facility] MEDICAL IMAGING DATE: 09/18/2024 INDICATION: STAT reading for possible thrombolytics. free text)->Neurologic Dysfunction COMPARISON: None. CONTRAST: None. (accession [id number]), Omnipaque 350 75 (accession [id number]) TECHNIQUE: Head and neck CT angiogram with [...] HEAD NECK CAROTIDSTROKE PROTOCOL BRET CANDIDAT LOCATION: [facility] MEDICAL IMAGING DATE: 09/18/2024 INDICATION: STAT reading for possible thrombolytics. freetext)->Neurologic Dysfunction COMPARISON: None. CONTRAST: None. (accession [id number]), Omnipaque 350 75 ([id number]) TECHNIQUE: Head and neck CT angiogram with [...] stenosis or large vessel occlusion of the [place] of[place]is vasculature. NECK CTA: 1. No significant stenosis of the neck arterial vasculature. Results called to Dr. Flanagan at 10:55 PM on 09/18/2024. us Suzanne Harris MD CT Final Result * CWS PATH REVIEW HEMATOLOGY (09/18/2024 8:49 PM OFFICE RENTAL CLERK) PATH COMMENT comment 09/23/2024 10:55 PM OFFICE RENTAL CLERK [facility] Comment: If the absolute lymphocytosis persists and/or is unexplained, consider peripheral blood morphology study for further evaluation. Reviewed by Mitzi Leblanc This is an appended report. These results have been appended to a previously final verified report. Blood BLOOD SPECIMEN / Unknown Non-Lab Venipuncture / Unknown 09/18/2024 8:49 PM OFFICE RENTAL CLERK 09/18/2024 8:51 PM OFFICE RENTAL CLERK us Suzanne Harris MD LABORATORY Edited Result - Final [facility] SENDOUT INTERNAL ZIP [address] [place] [address] * (ABNORMAL) RED CELL MORPHOLOGY (09/18/2024 8:49 PM OFFICE RENTAL CLERK) ELLIPTOCYTES Few 09/18/2024 9:36 PM OFFICE RENTAL CLERK [facility] RBC COMMENT Present(A ) RBC morphology appears normal, RBC morphology within normal limits for newborns. 09/18/2024 9:36 PM OFFICE RENTAL CLERK [facility] Blood BLOOD SPECIMEN / Unknown Non-Lab Venipuncture / Unknown 09/18/2024 8:49 PM OFFICE RENTAL CLERK 09/18/2024 8:51 PM OFFICE RENTAL CLERK us Suzanne Harris MD HEMATOLOGY Final Result [facility] SENDOUT INTERNAL ZIP [address] [place] [address] * PLATELET ESTIMATE (09/18/2024 8:49 PM OFFICE RENTAL CLERK) PLATELET ESTIMATE Adequate Adequate, No estimate 09/18/2024 9:36 PM OFFICE RENTAL CLERK [facility] Blood BLOOD SPECIMEN / Unknown Non-Lab Venipuncture / Unknown 09/18/2024 8:49 PM OFFICE RENTAL CLERK 09/18/2024 8:51 PM OFFICE RENTAL CLERK Suzanne Harris MD HEMATOLOGY Final Result [facility] SENDOUT INTERNAL ZIP [phone] [place] [address] * (ABNORMAL) MANUAL DIFFERENTIAL (09/18/2024 8:49 PM OFFICE RENTAL CLERK) % NEUTROPHILS 49.0 % 09/18/2024 9:[address] [facility] % LYMPHOCYTES 43.0 % 09/18/2024 9:[address] [facility] % MONOCYTES 6.0 % 09/18/2024 9:[address] [facility] % EOSINOPHILS 2.0 % 09/18/2024 9:[address] [facility] % BASOPHILS 0.0 % 09/18/2024 9:36 PM [facility] NEUTROPHILS ABSOLUTE 7.4(H) 1.7 - 7.0 thou/cu mm 09/18/2024 9:[address] [facility] LYMPHOCYTES ABSOLUTE 6.5(H) 0.9 - 2.9 thou/cu mm 09/18/2024 9:[address] [facility] MONOCYTES ABSOLUTE 0.9(H) <0.9 thou/cu mm 09/18/2024 9:[address] [facility] EOSINOPHILS ABSOLUTE 0.3 <0.5 thou/cu mm 09/18/2024 9:36 PM [facility] BASOPHILS ABSOLUTE 0.0 <0.3 thou/cu mm 09/18/2024 9:[address] [facility] Blood BLOOD SPECIMEN / Unknown Non-Lab Venipuncture / Unknown 09/18/2024 8:49 PM OFFICE RENTAL CLERK 09/18/2024 8:51 PM OFFICE RENTAL CLERK Suzanne Harris MD HEMATOLOGY Final Result [facility] SENDOUT INTERNAL ZIP [phone] [place] [address] * (ABNORMAL) XR DXA BONE DENSITY 2 [...] to assess therapeutic efficacy. Emma Naidu PA-C [facility] 04/07/2024 Narrative 04/07/2024 4:24 PM CDT For Patients: Results are automatically released to your [facility] ([employer]) account once available, in compliance with federal regulations. This means that you may see your results before your provider has had a chance to review them. Please allow 2-3 business days for your provider to comment on the results. XR DXA Bone Mineral Density (BMD) EXAM LOCATION: [address] [address] PATIENT NAME: Jose Luis Lozano DATE OF [...] two scanners are made by the same note teller. PROCEDURE: Dual-energy x-ray absorptiometry performed with routine [...] Osteoporosis: T-score at or below -2.5 SD [facility] DO DEXA Final Result from Last 3 Months or Most Recently Relevant to Health Maintenance Insurance MEDICAID [place]ON[place] MEDICAID [place]ONNA Advance Directives Documents on File Type Date Recorded Patient Frameman Expl anation Healthcare Directive 09/22/2024 025 * [...] Code Status Discussion: Reviewed Preferences Care Teams Non Linear Editor Relationship Specialty Start Date End Date Navya Quinn Annalee, DO [address] [place] [address] PCP - General [facility] Practice 09/18/24 Deseanra Navya Mantilla DO [address] [place] [address] Family Practice 09/18/24 Pcp, No . 06/13/21 Pcp, No . 06/18/21 Gustavo Castellano MBBS [address] [place] [address] Cardiology - Interventional 09/22/24 [facility] [address] [place] [address] 09/26/24
--- OUTSIDE RECORDS SUMMARY | 2024-12-03 11:14 | XMS_ITS | Data Portability ---
Author Organization [facility] - HealthDeangelo grayson [facility] Address [address] [place] [address] [facility] [place] [address] Assessment No assessment recorded. Plan of Treatment Reminders Order Date Submit Date Provider Last Modified By Organization Details Last Modified Time Details Appointments None recorded. Lab CBC w/ auto diff 2020 L[facility] Not available 11:40:30 CMP, serum or plasma 2020 L[facility] Not available 13:01:26 lipid panel, blood 2020 [facility], [address] [place] [address], [phone], 19:21:27 hemoglobin A1C/hemoglo bin total, QN, blood 2020 [facility], [address] [place] [address], [id number], 10:43:52 microalbumi n, urine 2020 [facility], [address] [place] [address], [id number], 19:21:28 Referral None recorded. Procedures None recorded. Surgeries None recorded. Imaging None recorded. Medication Orders Naprosyn 500 mg tablet [address], [address], 14:25:44 metformin 500 mg tablet 2020 021 [facility], [address] [place] [address], [address], 16:30:56 Patient TargetsNo targets recorded. Patient Instructions Encounter Date Encounter Id Patient Instructions Last Modified By Organization Details Last Modified Time 11/27/2020 [id number] discuss eyes, kidneys, here with razia malave Not available 11/27/2020 17:41:53 12/11/2020 [id number] add Tylenol thre e times a day, review diet frieda Not available 12/11/2020 17:37:07 06/05/2021 [id number] Trista will get her scheduled at [facility] Not available 06/05/2021 20:07:01 Reason for Referral None Reported. Results Created Date Observation Date Name Description Value Unit Range Abnormal Flag Note LastModifiedBy Organization Detail LastModifiedTime 11/23/1911/22/2020 hemog lobin A1C/h emogl obin total , QN, blood hemoglobin A1C 9.7 Not Available [facility] [address] [place] [address], [place], [address], 11/24/2020 09:11:18 11/23/19 21 11/22/2020 CMP, serum [...] unila teral No observ ation record ed. [facility] Radiology Department [address] [place], [address], 12/11/2020 12:50:27 Result Notes None recorded. Problems Name Problem SNOMED Code Status Onset Date Resolution Date Notes Provider Name and Address Organization Details Recorded Time Type 2 diabetes mellitus 86589779 Active Nelson Canales MD [address] [place], [address] , [facility] [employer] 15:10:37 Problem Notes None recorded. Procedures Surgical History None recorded. Imaging Results Imaging Date Name Status LastModified by Organiz ation Details LastModified Time 11/28/2020 XR, hip, unilateral completed [facility] Radiology Department [address] [place], [address], 12/11/2020 12:50:27 Procedure Notes None recorded. Medical [...] Address Organization Details Last Updated DateTime 02/05/2021 77296.71 g 143 mm[Hg] 69 mm[Hg] Nelson Canales MD [address] [place], [address] [employer] 02/05/2021 15:34:54 Date Recorded Body weight Systolic blood pressure Diastolic blood pressure Provider Name and Address Organization Details Last Updated DateTime 06/05/2021 28093.04 g 132 mm[Hg] 71 mm[Hg] Muriel Tobias [facility] 06/05/2021 18:08:12 Social History None recorded. Functional Status None recorded. Mental Status None recorded. Family History Nothing Reported. Medical History No medical history recorded. Gynecological HistoryNo gynecological history recorded. Obstetrics History GPAL:G 0 P 0 0 0 0 Past Encounters Encounter ID Performer Location Encounter Start Date Encounter Closed Date Diagnosis/Indication Diagnosis SNOMED-CT Code Diagnosis ICD10 Code Diagnosis Note [id number] Nelson Canales MD [facility] [address] [place] [id number] 11/20/2020 16:11:17 11/20/2020 16:43:13 Type 2 diabetes mellitus without complication 491443340 E11.9 [id number] Nelson Canales MD [facility] [address] [place] [id number] 11/27/2020 15:30:28 11/27/2020 18:30:09 Neuropathy due to diabetes mellitus 755232143 E11.40 needs x-ray and med for discomfort [id number] [facility] [address] [place] [id number] 12/11/2020 14:26:48 12/11/2020 17:46:51 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 [id number] Nelson Canales MD [facility] [address] [place] [id number] 02/05/2021 13:53:31 02/05/2021 17:56:26 Chronic low back pain 304671867 M54.5 needs explanatio n, no narcotics, only NSAID's Peripheral neuropathy due to type 2 diabetes mellitus 0222018732 107 E11.42 needs nail care and inspection [id number] [facility] [address] [place] [address] 06/05/2021 17:47:44 06/05/2021 18:35:31 Peripheral neuropathy due to type 2 diabetes mellitus 2481254537 107 E11.42 add Tylenol to naproxen and [...] probs in past Nelson Canales MD [address] [facility] [place], [address], [facility] [employer] 11/20/2020 16:32:22 11/27/2020 text/html fractured hip ov er a year ago, sounds like a rid in femur and a pin in hip, now discomfort in calf, numbness in both feet Nelson Canales MD [address] [facility] [place], [address], [facility] [place] [place] 11/27/2020 17:42:29 12/11/2020 text/html follow up type 2 diabetes Nelson Canales MD [address] [facility] [place], [address], [facility] [employer] 12/11/2020 17:37:41 02/05/2021 text/html Diabetes F/UReported bypatient.Review finger sticks:fastin; pre dinner: Labs:last A1C result: Context:concerns? thrmoved to [place], known retinopathy, can't pay for glasses, glucometers in 100's but last panel had BS of 300+ previous fx of left femur, now hip hurts, Tylenol doesn't help, using cane, requesting IM medicine Nelson Canales MD [address] [facility] [place], [address], [facility] [employer] 02/05/2021 15:46:12 06/05/2021 text/html still has poor p ain control of left leg and lower back, knows that she needs more attention to opthalmologic problems Nelson Canales MD [address] [place], [address], [facility] - [facility] 06/05/2021 20:07:14 OBGyn Episode No OBEpisode recorded.
--- NOTE | 2024-12-03 11:54 | CRLHL7_ITS ---
For Patients: As a result of the Century Cures Act, medical imaging exams and procedure reports are released immediately into your electronic medical record. You may view this report before your referring provider. If you have questions, please contact your health care provider. Indication: cough Technique: PA and lateral views of the chest. Comparison: 10/05/2024. Findings: Postsurgical changes from median sternotomy and coronary artery bypass grafting. Normal cardiomediastinal silhouette. Redemonstration of moderate interstitial prominence. No focal consolidation, pleural effusions, or visualized pneumothorax. Right upper quadrant abdominal surgical clips. Moderate multilevel degenerative changes with redemonstration of moderate compression deformities in the lower thoracic and upper lumbar spine. Impression: Redemonstration of moderate interstitial prominence, which is compatible with fibrotic changes. No new focal consolidation. Dictated by Yahir Villasenor MD @ 12/03/2024 12:48:46 PM (Electronically Signed)
--- NOTE | 2024-12-03 12:05 | ED_ITS ---
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 She reports 4 days of cough with associated chest pain. She does not report any fevers. She arrives here with normal vital signs. Related Data Home Medications ?Medication ?Instructions ?Recorded ?Confirmed SENNA 08/12/23 aspirin 81 mg tablet,delayed 81 mg PO DAILY 08/12/23 12/03/24 release atorvastatin 40 mg tablet 40 mg PO QPM 08/12/23 12/03/24 calcium carbonate 08/12/23 cholecalciferol (vitamin D3) .Route 08/12/23 metformin 750 mg tablet,extended 750 mg PO QPM 08/12/23 12/03/24 release 24 hr polyethylene glycol 3350 17 g PO 08/12/23 gram/dose oral powder propylene glycol (PF) 0.6 % eye 1 drp ophthalmic (eye) BID PRN 08/12/23 08/12/23 drops (Systane Complete PF) docusate sodium 100 mg capsule 100 mg PO BID PRN constipation 10/05/24 10/05/24 levetiracetam 1,000 mg tablet 1,000 mg PO BID 10/05/24 12/03/24 (Keppra) nitroglycerin 10/05/24 polyethylene glycol 400 0.25 % eye drp ophthalmic (eye) 10/05/24 drops (Blink Tears) Previous Rx's ?Medication ?Instructions ?Recorded acetaminophen 300 mg-codeine 30 mg 1 tab PO Q6H PRN pain #12 tabs 12/03/24 tablet Allergies Allergy/AdvReac Type Severity Reaction Status Date / Time No Known Drug Allergies Allergy Verified 10/05/24 18:22 Review of Systems Status of ROS: Reports: 10 or more systems reviewed and unremarkable except as noted in History and below Narrative: Constitutional: No fevers, no weight gain or loss. Eyes: No discharge. No vision changes. HENT: No congestion, no sore throat, no ear pain. Cardiovascular: No palpitations. Respiratory: She reports cough with associated shortness of breath and chest pain. Gastrointestinal: No abdominal pain, no vomiting, no diarrhea. Genitourinary: No dysuria, no hematuria. Musculoskeletal: Normal range of motion. Skin: No rashes, no pruritis. Neurological: No dizziness, weakness, sensory change, speech change. Endo/Heme/Allergies: No bruising or bleeding. No polydipsia. Pysch: no suicidality, no anxiety, no insomnia. All other systems reviewed and are negative. [facility] Social History Smoking Status: Never smoker Do you use any of these nicotine containing products: None Second hand tobacco smoke exposure: No How often do you have a drink containing alcohol: never AUDIT-C Alcohol total score: 0 Non-prescribed substance use: denies use service: No Exam Narrative: Exam Narrative: Constitutional: Well-developed, well-nourished, no acute distress. HEENT: Normocephalic, atraumatic. Neck: Normal range of motion. Nontender. Supple. Heart: Regular. No murmurs. Normal rate. Intact distal pulses. Lungs: Clear to auscultation. No chest discomfort. No wheezes, rhonchi, or rales. Abdomen: Normal bowel sounds. Nontender. No rebound tenderness. Genitalia: Deferred. Back: No midline tenderness. Normal range of motion. Extremities: Normal range of motion. No injury. Skin: Intact. No rash. Warm. No erythema or pallor. Neurologic: No altered sensation. No weakness. Alert and oriented. Psychiatric: No suicidality. No anxiety or depression. No insomnia. Nursing notes and vitals signs are reviewed. Const: Vital Signs, click to edit/add: Vital Signs - 24 hr 12/03/24 11:27 Temperature 97.9 F Pulse Rate [Pulse Oximeter] 92 Respiratory Rate 16 [facility] 132/74 Pulse Oximetry 98 Oxygen Delivery Me thod Room Air Course Vital Signs Vital signs: Initial Vital Signs Temperature 97.9 F 12/03/24 11:27 Temperature Source Temporal Artery Scan 12/03/24 11:27 Pulse Rate 92 12/03/24 11:27 Respiratory Rate 16 12/03/24 11:27 Blood Pressure 132/74 12/03/24 11:27 Blood Pressure Mean 93 12/03/24 11:27 Blood Pressure Position Semi-Fowlers 12/03/24 11:27 Pulse Oximetry 98 12/03/24 11:27 Oxygen Delivery Method Room Air 12/03/24 11:27 Vital Signs Temperature 97.9 F 12/03/24 11:27 Pulse Rate 92 12/03/24 11:27 Respiratory Rate 16 12/03/24 11:27 Blood Pressure 132/74 12/03/24 11:27 Pulse Oximetry 98 12/03/24 11:27 Oxygen Delivery Method Room Air 12/03/24 11:27 Temperature 97.9 F 12/03/24 11:27 Pulse Rate 92 12/03/24 11:27 Respiratory Rate 16 12/03/24 11:27 Blood Pressure 132/74 12/03/24 11:27 Pulse Oximetry 98 12/03/24 11:27 Oxygen Delivery Method Room Air 12/03/24 11:27 MDM - SOB/Dyspnea MDM Narrative Medical decision making narrative: This patient comes in reporting upper respiratory symptoms primarily involving a cough which has associated chest discomfort. She arrives with normal vital signs. EKG and labs returned with normal findings. Additionally chest x-ray also is negative for pneumonia. The patient did receive an IV dose of dexamethasone 10 mg. Most likely her symptoms are viral upper respiratory infection. I did also prescribe some tablets of Tylenol 3 for symptomatic relief. Lab Data Labs: Lab Results 12/03/24 Range/Units 11:55 WBC 5.04 (4.50-11.00) K/uL RBC 3.52 L (4.00-5.20) m/uL Hgb 11.6 L (12.0-16.0) gm/dL Hct 33.6 (33.0-51.0) % MCV 96 (80-100) fL MCH 33 (26-34) pg MCHC 35 (32-36) gm/dL RDW Coeff of Demetrius 13.6 (11.5-15.5) % Plt Count 278 (140-440) K/uL Neut % (Auto) 57.7 (42.0-72.0) % Lymph % (Auto) 29.8 (20-44) % [place] % (Auto) 11.5 H (0.0-11.0) % Eos % (Auto) 0.4 (0.0-7.0) % Baso % (Auto) 0.4 (0.0-3.0) % Neut # (Auto) 2.91 (1.7-7.0) K/uL Lymph # (Auto) 1.50 (0.90-2.90) K/uL [place] # (Auto) 0.60 (0.00-0.90) K/UL Eos # (Auto) 0.02 (0.00-0.50) K/uL Baso # (Auto) 0.02 (0.00-0.30) K/uL Abs Immat Gran (auto) 0.01 (0.00-0.30) K/uL Imm/Tot Granulo (auto) 0.2 % Sodium 131 L (135-149) mmol/L Potassium 4.0 (3.6-5.1) mmol/L Chloride 91 L (96-114) mmol/L Carbon Dioxide 30 (20-32) mmol/L Anion Gap 10 (7-15) mEq/L BUN 10 (7-30) mg/dL Creatinine 0.5 (0.5-1.5) mg/dL Estimated Creat Clear 32.13 Estimated GFR 95 ml/min Glucose 124 H (60-115) mg/dL Calcium 9.1 (8.4-10.6) mg/dL SARS-CoV-2 (PCR) Negative SARS-CoV-2 (Negative) Influenza Type A (PCR) Negative PCR FLU A (Negative) Influenza Type B (PCR) Negative PCR FLU B (Negative) RSV (PCR) Negative PCR RSV (Negative) POC Troponin I 0.00 L (0.01-0.04) ng/ml Imaging Data Chest x-ray: Radiologist's impression: Redemonstration of moderate interstitial prominence, which is compatible with fibrotic changes. No new focal consolidation. Discharge Plan Discharge Clinical Impression: Acute upper respiratory infection Patient Disposition: Home w/ Parent or Adult Condition: Stable Additional Instructions: Take medication as needed and directed. Use [id number] medicines also as needed and directed. Follow up with MD return if worsening. Prescriptions: New acetaminophen-codeine 300-30 mg tablet 1 tab PO Q6H PRN (Reason: pain) Qty: 12 0RF No Action atorvastatin 40 mg tablet 40 mg PO QPM aspirin 81 mg tablet,delayed release (DR/EC) 81 mg PO DAILY polyethylene glycol 3350 17 gram/dose powder PO metformin 750 mg tablet extended release 24 hr 750 mg PO QPM Systane Complete PF 0.6 % drops 1 drp ophthalmic (eye) BID PRN SENNA cholecalciferol (vitamin D3) .Route calcium carbonate docusate sodium 100 mg capsule 100 mg PO BID PRN (Reason: constipation) levetiracetam [Keppra] 1,000 mg tablet 1,000 mg PO BID nitroglycerin Blink Tears 0.25 % drops ophthalmic (eye) Follow Up/Referrals: CORI BRAY DO [Primary Care Provider] - Stand Alone Forms: [employer] Info Instructions
[2024-12-03 12:10] LABS: Basophils Absolute Auto 0.02 K/uL (0.00-0.30); Basophils Percent Auto 0.4 % (0.0-3.0); Eosinophils Absolute Auto 0.02 K/uL (0.00-0.50); Eosinophils Percent Auto 0.4 % (0.0-7.0); Hematocrit 33.6 % (33.0-51.0); Hemoglobin* 11.6 gm/dL (12.0-16.0); Immature Granulocytes Abs Auto 0.01 K/uL (0.00-0.30); Immature Granulocytes Pct Auto 0.2 %; Lymphocytes Percent Auto 29.8 % (20-44); Mean Corpuscular HGB Conc 35 gm/dL (32-36); Mean Corpuscular Hemoglobin 33 pg (26-34); Mean Corpuscular Volume 96 fL (80-100); Monocytes Percent Auto 11.5 % (0.0-11.0); Neutrophils Absolute Auto 2.91 K/uL (1.7-7.0); Neutrophils Percent Auto 57.7 % (42.0-72.0); Platelet Count* 278 K/uL (140-440); RDW Coefficient of Variation % 13.6 % (11.5-15.5); Red Blood Count 3.52 m/uL (4.00-5.20); White Blood Count* 5.04 K/uL (4.50-11.00)
[2024-12-03 12:15] LABS: Slide Review Reflex No
[2024-12-03 12:22] LABS: Chloride* 91 mmol/L (96-114); Sodium* 131 mmol/L (135-149)
[2024-12-03 12:25] LABS: Anion Gap 10 mEq/L (7-15); Blood Urea Nitrogen* 10 mg/dL (7-30); Calcium* 9.1 mg/dL (8.4-10.6); Carbon Dioxide* 30 mmol/L (20-32); Creatinine* 0.5 mg/dL (0.5-1.5); Est. Creatinine Clearance* 32.13; Estimated Glomerular Filt Rate 95 ml/min; Glucose* 124 mg/dL (60-115)
--- OUTSIDE RECORDS SUMMARY | 2024-12-03 12:36 | XMS_ITS | Clinical Summary ---
Author Organization [facility] Address [address] [place] [address] Care Team Providers Care [employer]ime [employer] Worker Helper Name Role Phone Navya Quinn DO Primary Care Provider [phone] Source Comments You are receiving this document as you are listed as the primary care provider,follow-up provider, or the patient has been referred to you for consultation.This is in compliance with the Medicare and[facility] EHR Incentive Program,which states Providers who transition their patient to another setting of careor provider of care or refers their patient to another provider of care shouldprovide summary care record for each transition of care or referral. [facility] Allergies No known active allergies [...] as directed. 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 07/15/2019 Regular astigmatism of both eyes 07/15/2019 Headache, post-traumatic 10/26/2010 Hyperlipidemia 11/09/2008 Diabetes mellitus without complication 6 Resolved Problems Problem Noted Date Diagnosed Date Resolved Date Closed intertrochanteric fracture of femur 12/17/2019 12/11/2023 Overview (09/02/2023): Added automatically from request for surgery [id number] Social History Tobacco Use Types Packs/Day Years Used Date Smoking Tobacco: Never Assessed [facility] Utilities Answer Date Recorded In the past 12 months has e activ8 Intelligence, gas, oil, or water [facility] threatened to shut off services in your [...] place to sleep or slept in a fdc (including now)? No 09/24/2023 Comments No Sex [...] 48.1 kg (106 lb) 09/24/2023 6:07 PM [employer]ED GLASS JOINER Height 154 cm (5' 0.63) 09/24/2023 4:00 PM [employer]ED [employer]ASS [employer]ER Body Mass Index 20.27 09/24/2023 4:00 PM [employer]AINED GLASS JOINER Plan of Treatment Health Maintenance Due Date [...] topic Medical Devices Implanted Type Area Vp Client Services Device Identifier Shelf Expiration Date Model / Serial / Lot Nail Michael Ti St 130d [id number] Lt - [id number] Implanted:Qty: 1 on 12/18/2019 by Nelson Escamilla MD at [facility] DEVICE [employer]ynthes - Trauma 05/27/2029 [id number] / / [id number] Scr [address]na [address] 90mm - [id number] Implanted:Qty: 1 on 12/18/2019 by Nelson Escamilla MD at [facility] DEVICE [employer] - Trauma 04/26/2029 [id number] / / [id number] Scr Lk Ti T25 St 5.0x44 - [id number] Implanted:Qty: 1 on 12/18/2019 by Nelson Escamilla MD at [facility] DEVICE [employer] DePuy Synthes - Trauma 07/27/2028 [id number] / / [id number] Scr Lk Ti T25 St 5.0x60 - [id number] Implanted:Qty: 1 on 12/18/2019 by Nelson Escamilla MD at [facility] DEVICE [employer] DePuy Synthes - Trauma 08/27/2028 [id number] / / [id number] Procedures Procedure Name Priority Date/Time Associated Diagnosis Comments BASIC METABOLIC PANEL STAT 11/28/2023 3:15 PM CDT HGB A1C Routine 09/24/2023 7:06 AM STAINED GLASS JOINER from Last 3 Months or Most Recently Relevant to Health Maintenance Results * (ABNORMAL) Basic Metabolic Panel (11/28/2023 3:15 PM CDT) Sodium 134(L) 136 - 145 mmol/L 11/28/2023 3:49 PM CDT [facility] Potassium 3.6 3.5 - 5.1 mmol/L 11/28/2023 3:49 PM CDT [facility] Chloride 102 98 - 109 mmol/L 11/28/2023 3:49 PM CDT [facility] CO2 24 20 - 29 mmol/L 11/28/2023 3:49 PM CDT [facility] Anion Gap 8 6 - 16 mmol/L 11/28/2023 3:49 PM CDT [facility] Calcium 9.0 8.4 - 10.4 mg/dL 11/28/2023 3:49 PM CDT [facility] BUN 14 7 - 26 mg/dL 11/28/2023 3:49 PM CDT [facility] Creatinine 0.65 0.55 - 1.02 mg/dL 11/28/2023 3:49 PM CDT [facility] Glucose 190(H) 70 - 100 mg/dL 11/28/2023 3:49 PM CDT [facility] Comment:The given reference range is for the fasting state. Non-fasting reference range for glucose is 70 - 180 mg/dL. GFR, Estimated >60 >60 mL/min/1.7 3m2 11/28/2023 3:49 PM CDT [facility] Blood Venipuncture / Unknown 11/28/2023 3:15 PM CDT 11/28/2023 3:20 PM CDT us Sushma Valenzuela PA-C LAB_1 [place] [address], [facility] * (ABNORMAL) Hgb A1C (09/24/2023 7:06 AM STAINED GLASS JOINER) Hemoglobin A1C 7.5(H) <=5.6 % 09/24/2023 11:45 AM [facility]ASS [facility] Estimated Average Glucose (Calc) 169 < 117 mg/dL 09/24/2023 11:45 AM STAINED GLASS JOINER [facility] Comment:Estimated average gl ucose (eAG) converts A1c into glucose units (mg/dL) and estimates average glucose over the past approximately 3 months. The eAG reference interval (<117 mg/dL) corresponds to an A1c of <5.7%. Blood Venipuncture / Unknown 09/24/2023 7:06 AM STAINED GLASS JOINER 09/24/2023 7:09 AM STAINED GLASS JOINER Narrative [facility] - 09/24/2023 11:45 AM STAINED GLASS JOINER For patients not previously diagnosed with diabetes: 5.7-6.4%: Increased risk for diabetes 6.5% and greater: Diagnostic for diabetes For patients diagnosed with diabetes: <8.0%: Goal of therapy for ages 18-75 Clinicians may recommend a higher or lower goal for specific individuals. us Myles Guo MD LAB_1 Final Result [facility] [address] [place] [address], [facility] from Last 3 Months or Most Recently Relevant to Health Maintenance Insurance [facility] Advance Directives * Full Code (Latest Code Status on File) Date Activated Date Inactivated Comments 09/24/2023 2:36 AM 09/26/2023 2:31 PM * Full Code Date Activated Date Inactivated Comments 12/17/2019 11:18 PM 12/24/2019 7:35 PM Care Teams [employer] Worker Helper Relationship Specialty Start Date End Date Navya Quinn DO [facility] [id number] PCP - General Family Practice 11/28/23
--- OUTSIDE RECORDS SUMMARY | 2024-12-03 12:36 | XMS_ITS | Clinical Summary ---
Author Organization [facility] [facility] Address [address] [place] [address] Care Team Providers Care Hand Loom Weaver Name Role Phone Navya Quinn DO Primary Care Provider [phone] Navya Quinn Annalee DO Unavailable [phone] Pcp, No Unavailable Unavailable Pcp, No Unavailable Unavailable Gustavo Castellano Unavailable [phone] [facility] Unavailable [phone] Allergies No known active allergies Medications nitroglycerin (NITROSTAT) 0.4 mg sublingual tabletIndications :Cardiovascular symptoms,ASCVD (arteriosclerotic cardiovascular disease) Place 1 Tablet (0.4 mg) under the tongue every 5 minutes if needed for Chest pain 1st choice (Hold if SBP less than 90 mmHg). Up to 3 tablets in 15 minutes. 25 Tablet 1 06/20/20 23 6:39 PM FOUNDER CHAIRMAN AND CHIEF CREATIVE OFFICER 023 Active acetaminophen (TYLENOL EXTRA STRGTH) 500 mg tabletIndications :S/P CABG x 4 Take 2 Tablets (1,000 mg) by mouth every 6 hours if needed for Pain. Max acetaminophen dose: 4000mg in 24 hrs. 120 Tablet 08/26/19 24 9:39 AM FOUNDER CHAIRMAN AND CHIEF CREATIVE OFFICER 024 Active WalkerIndications :S/P CABG x 4 [...] eye 07/05/2024 Coronary artery disease invo lving king salmon coronary artery without angina pectoris 06/01/2024 AF [...] (08/15/2022): Added automatically from request for surgery [id number] Presbyopia 07/15/2019 Regular astigmatism of both eyes [...] Department Care Team Description 11/30/2024 Nurse Triage [address] [address] Navya Quinn, DO Error-please disregard 11/19/2024 Telephone [facility] [address] [place] [address] Navya Quinn, DO Medication Management (Medication Barker) 11/17/[address] [address] Kristian Wang MD Refill Request (Hydrocodone-acetamino phen) 10/27/[address] [address] Navya Quinn, DO Medication Management (levETIRAcetam ) 10/27/[address] [address] Navya Quinn, DO Refill Request (levETIRAcetam (KEPPRA) 1,000 mg tablet/) 10/21/2024 Patient Outreach [facility] Care Management - Care Management Navigation/[facility] [address] [place] [phone] Valerie Melvin Care Management Intake (Care Management Intake [employer] Set Up Technician Outreach) 10/19/2024 Refill [facility] [address] [facility] [place] [address] Kristian Wang MD Refill Request (HYDROcodone-acetamino phen (5-325 mg/tablet)) 10/15/2024 2:10 PM CDT Office Visit [facility] [address] [place] [address] Navya Quinn DO Diabetes (3 month check ) 10/15/2024 Travel 10/06/2024 2:40 PM CDT Office Visit [facility] [address] [facility] [place] [address] Kristian Wang MD Musculoskeletal Problem (Consult thoracic back pain) 10/06/2024 Telephone [facility] [address] [facility] [place] [address] Kristian Wang MD Medication Management 10/06/2024 Travel 10/05/2024 Orders Only [facility] Scanner 1 scan: (1-Ord) [facility], CT ANGIO CHEST PE PROTOCOL, 10/05/2024 10/05/2024 Orders Only [facility] Scanner 1 scan: (1-Ord) [facility], XR CHEST 1V PORTABLE, 10/05/2024 10/05/2024 Telephone [facility] [address] [facility] [place] [address] Navya Quinn DO 10/05/2024 Home Care Visit [address] [address] Yesenia Stovall, RN NOT TAKEN UNDER HOME CARE 10/04/2024 Home Care Visit [address] [address] Meseret Davis, RN CARE COORDINATION 10/01/2024 2:10 PM FOUNDER CHAIRMAN AND CHIEF CREATIVE OFFICER Office Visit [facility] [address] [facility] [place] [address] Navya Quinn DO Hospital F/U (3/2 Follow up - seizures, weakness, stent placement) 10/01/2024 Travel 09/29/2024 Home Care Visit [facility] [address] [place] [address] Yesenia Stovall, RN CARE COORDINATION 09/28/2024 Home Care Visit [address] [address] Yesenia Stovall, RN CARE COORDINATION 09/27/2024 Patient Outreach [facility] [address] [place] [address] Taya Judge, RN Primary RN Care Management; Hospital F/U (LACE 57) 09/24/2024 Travel 09/18/2024 8:45 PM FOUNDER CHAIRMAN AND CHIEF CREATIVE OFFICER - 09/26/2024 1:55 PM FOUNDER CHAIRMAN AND CHIEF CREATIVE OFFICER Hospital Encounter [address] [address] Suzanne Harris MD [facility], Hospitalist [facility] Simon, MD Lance Orr, MD Gregorio Marsh, Shelly Leavitt MD Seizure (HC) (Primary Dx); Left-sided weakness; Acute respiratory failure, unspecified whether with hypoxia or hypercapnia (HC) Discharge Disposition: Home Health 09/18/2024 8:38 PM FOUNDER CHAIRMAN AND CHIEF CREATIVE OFFICER - 09/19/2024 6:38 AM FOUNDER CHAIRMAN AND CHIEF CREATIVE OFFICER Emergency [facility] [address] [place] [address] Suzanne Harris MD Discharge Disposition: Home Self Care 09/08/2024 Orders Only [facility] Scanner 1 scan: (1-Ord) [facility], ADDENDUM-CT ABDOMEN PELVIS W, 09/08/2024 09/08/2024 Orders Only [facility] Scanner 1 scan: (1-Ord) [place], XR CHEST 1V, 09/08/2024 09/08/2024 Orders Only [facility] Scanner 1 scan: (1-Ord) [facility], CT ABD PELVIS WO, 09/08/2024 from Last 3 Months Immunizations Immunization Administration Dates Next Due COVID-19 vaccine ([employer] 30mcg/0.3mL) 12YO+ BIVALENT PF, MDV 06/05/2022 COVID-19 vaccine ([employer] 30mcg/0.3mL) 12YO+ REGINALD-SUCROSE PF, MDV 01/02/2022 COVID-19 vaccine ([employer] 30mcg/0.3mL) PF, MDV 11/21/2020 Influenza, IIV3 (Age [...] CDT Respiratory Rate 16 09/26/2024 8:18 AM FOUNDER CHAIRMAN AND CHIEF CREATIVE OFFICER Oxygen Saturation 98% 10/15/2024 2:3 2 PM CDT Inhaled Oxygen Concentration - - Weight 46.9 kg (103 lb 6.4 oz) 10/06/2024 2:57 PM CDT shoes and jacket on Height 160 cm (5' 3) 09/19/2024 2:00 AM FOUNDER CHAIRMAN AND CHIEF CREATIVE OFFICER Body Mass Index 18.32 09/19/2024 2:00 AM FOUNDER CHAIRMAN AND CHIEF CREATIVE OFFICER Plan of Treatment Upcoming Encounters Date Type Department Care Team (Late st Contact Info) Description 01/06/2025 1:30 PM CDT Office Visit [facility] [address] [place], [place] [phone] Reji Perez, OD [address] [place], [place] [id number] Health Maintenance Due Date Last Done Comments [...] history exists Medical Devices Implanted Type Area Weights And Measures Sealer Device Identifier Shelf Expiration Date Model / Serial / Lot Log [id number] - Yesy Sn60wf Lens Iol - 1 - Lens Iol 21.0 Wf [id number]. 0 Implanted:Qty: 1 on 10/21/2011 at [facility] Left: Eye [employer] [id number]. 0# / [id number] / Log [id number] - Yesy Sn60wf Lens Iol - 1 - Lens Iol 22.5 Wf [id number]. [id number] Implanted:Qty: 1 on 11/07/2011 at [facility] Right: Eye [employer] 07/08/2016 [id number]. [id number]# / [id number] / Procedures Procedure Name Priority Date/Time [...] CDT GLUCOSE METER Timed 09/26/2024 12:46 PM FOUNDER CHAIRMAN AND CHIEF CREATIVE OFFICER SCAN-CARDIAC STRIP 09/26/2024 8: 26 AM FOUNDER CHAIRMAN AND CHIEF CREATIVE OFFICER GLUCOSE METER Timed 09/26/2024 7:26 AM FOUNDER CHAIRMAN AND CHIEF CREATIVE OFFICER MAGNESIUM Early AM 09/26/2024 6:18 AM FOUNDER CHAIRMAN AND CHIEF CREATIVE OFFICER POTASSIUM Early AM 09/26/2024 6:18 AM FOUNDER CHAIRMAN AND CHIEF CREATIVE OFFICER GLUCOSE METER Timed 09/25/2024 10:20 PM FOUNDER CHAIRMAN AND CHIEF CREATIVE OFFICER MAGNESIUM Timed 09/25/2024 5:34 PM FOUNDER CHAIRMAN AND CHIEF CREATIVE OFFICER GLUCOSE METER Timed 09/25/2024 5:11 PM FOUNDER CHAIRMAN AND CHIEF CREATIVE OFFICER GLUCOSE METER Timed 09/25/2024 12:00 PM FOUNDER CHAIRMAN AND CHIEF CREATIVE OFFICER SCAN-CARDIAC STRIP 09/25/2024 9: 11 AM FOUNDER CHAIRMAN AND CHIEF CREATIVE OFFICER GLUCOSE METER Timed 09/25/2024 8:40 AM FOUNDER CHAIRMAN AND CHIEF CREATIVE OFFICER POTASSIUM Early AM 09/25/2024 6:32 AM FOUNDER CHAIRMAN AND CHIEF CREATIVE OFFICER MAGNESIUM Early AM 09/25/2024 6:32 AM FOUNDER CHAIRMAN AND CHIEF CREATIVE OFFICER GLUCOSE METER Timed 09/24/2024 9:27 PM FOUNDER CHAIRMAN AND CHIEF CREATIVE OFFICER GLUCOSE METER Timed 09/24/2024 5:06 PM FOUNDER CHAIRMAN AND CHIEF CREATIVE OFFICER POTASSIUM Timed 09/24/2024 3:14 PM FOUNDER CHAIRMAN AND CHIEF CREATIVE OFFICER GLUCOSE METER Timed 09/24/2024 11:59 AM FOUNDER CHAIRMAN AND CHIEF CREATIVE OFFICER SCAN-CARDIAC STRIP 09/24/2024 9: 31 AM FOUNDER CHAIRMAN AND CHIEF CREATIVE OFFICER GLUCOSE METER Timed 09/24/2024 8:41 AM FOUNDER CHAIRMAN AND CHIEF CREATIVE OFFICER CREATININE Early AM 09/24/2024 6:34 AM FOUNDER CHAIRMAN AND CHIEF CREATIVE OFFICER HEMOGLOBIN Early AM 09/24/2024 6:34 AM FOUNDER CHAIRMAN AND CHIEF CREATIVE OFFICER WHITE BLOOD COUNT Early AM 09/24/2024 6:3 4 AM FOUNDER CHAIRMAN AND CHIEF CREATIVE OFFICER POTASSIUM Early AM 09/24/2024 6:34 AM FOUNDER CHAIRMAN AND CHIEF CREATIVE OFFICER MAGNESIUM Early AM 09/24/2024 6:34 AM FOUNDER CHAIRMAN AND CHIEF CREATIVE OFFICER GLUCOSE METER Timed 09/23/2024 10:20 PM FOUNDER CHAIRMAN AND CHIEF CREATIVE OFFICER SCAN-CARDIAC STRIP 09/23/2024 5: 33 PM FOUNDER CHAIRMAN AND CHIEF CREATIVE OFFICER GLUCOSE METER Timed 09/23/2024 4:55 PM FOUNDER CHAIRMAN AND CHIEF CREATIVE OFFICER GLUCOSE METER Timed 09/23/2024 11:17 AM FOUNDER CHAIRMAN AND CHIEF CREATIVE OFFICER CT CARDIAC CORONARY ARTERIES CV DUAL READ Routine 09/23/2024 11:06 AM FOUNDER CHAIRMAN AND CHIEF CREATIVE OFFICER CT CARDIAC CORONARY ARTERIES RAD DUAL READ Routine 09/23/2024 11:06 AM FOUNDER CHAIRMAN AND CHIEF CREATIVE OFFICER GLUCOSE METER Timed 09/23/2024 7:52 AM FOUNDER CHAIRMAN AND CHIEF CREATIVE OFFICER MAGNESIUM Early AM 09/23/2024 3:59 AM FOUNDER CHAIRMAN AND CHIEF CREATIVE OFFICER CBC W PLT NO DIFF Early AM 09/23/2024 3:5 9 AM FOUNDER CHAIRMAN AND CHIEF CREATIVE OFFICER BASIC METABOLIC PANEL Early AM 09/23/2024 3:59 AM FOUNDER CHAIRMAN AND CHIEF CREATIVE OFFICER GLUCOSE METER Timed 09/23/2024 3:49 AM FOUNDER CHAIRMAN AND CHIEF CREATIVE OFFICER GLUCOSE METER Timed 09/22/2024 11:51 PM FOUNDER CHAIRMAN AND CHIEF CREATIVE OFFICER GLUCOSE METER Timed 09/22/2024 9:24 PM FOUNDER CHAIRMAN AND CHIEF CREATIVE OFFICER SCAN-CARDIAC STRIP 09/22/2024 8: 06 PM FOUNDER CHAIRMAN AND CHIEF CREATIVE OFFICER SCAN-CARDIAC STRIP 09/22/2024 7: 43 PM FOUNDER CHAIRMAN AND CHIEF CREATIVE OFFICER MAGNESIUM Timed 09/22/2024 5:40 PM FOUNDER CHAIRMAN AND CHIEF CREATIVE OFFICER GLUCOSE METER Timed 09/22/2024 4:27 PM FOUNDER CHAIRMAN AND CHIEF CREATIVE OFFICER GLUCOSE METER Timed 09/22/2024 3:53 PM FOUNDER CHAIRMAN AND CHIEF CREATIVE OFFICER SCAN CORRESP-EKG RESULTS 09/22/2024 1:55 PM FOUNDER CHAIRMAN AND CHIEF CREATIVE OFFICER GLUCOSE METER Timed 09/22/2024 12:30 PM FOUNDER CHAIRMAN AND CHIEF CREATIVE OFFICER XR VIDEO SWALLOW W SPEECH Routine 09/22/2024 10:10 AM FOUNDER CHAIRMAN AND CHIEF CREATIVE OFFICER GLUCOSE METER Timed 09/22/2024 7:49 AM FOUNDER CHAIRMAN AND CHIEF CREATIVE OFFICER SCAN-CARDIAC STRIP 09/22/2024 7: 19 AM FOUNDER CHAIRMAN AND CHIEF CREATIVE OFFICER EKG 12 LEAD STAT 09/22/2024 6:25 AM FOUNDER CHAIRMAN AND CHIEF CREATIVE OFFICER TROPONIN T (HS) ONE TIME STAT 09/22/2024 6:17 AM FOUNDER CHAIRMAN AND CHIEF CREATIVE OFFICER CREATININE Early AM 09/22/2024 4:26 AM FOUNDER CHAIRMAN AND CHIEF CREATIVE OFFICER HEMOGLOBIN Early AM 09/22/2024 4:26 AM FOUNDER CHAIRMAN AND CHIEF CREATIVE OFFICER WHITE BLOOD COUNT Early AM 09/22/2024 4:2 6 AM FOUNDER CHAIRMAN AND CHIEF CREATIVE OFFICER POTASSIUM Early AM 09/22/2024 4:26 AM FOUNDER CHAIRMAN AND CHIEF CREATIVE OFFICER MAGNESIUM Early AM 09/22/2024 4:26 AM FOUNDER CHAIRMAN AND CHIEF CREATIVE OFFICER GLUCOSE METER Timed 09/22/2024 4:14 AM FOUNDER CHAIRMAN AND CHIEF CREATIVE OFFICER GLUCOSE METER Timed 09/21/2024 11:57 PM FOUNDER CHAIRMAN AND CHIEF CREATIVE OFFICER US VENOUS LOWER EXTREMITY BILATERAL PORTABLE Routine 09/21/2024 10:47 PM FOUNDER CHAIRMAN AND CHIEF CREATIVE OFFICER EXTRA TUBE GOLD/SST Today 09/21/2024 8 :53 PM FOUNDER CHAIRMAN AND CHIEF CREATIVE OFFICER LACTATE VENOUS Today 09/21/2024 8:48 PM FOUNDER CHAIRMAN AND CHIEF CREATIVE OFFICER SCAN-CARDIAC STRIP 09/21/2024 8: 22 PM FOUNDER CHAIRMAN AND CHIEF CREATIVE OFFICER GLUCOSE METER Timed 09/21/2024 8:07 PM FOUNDER CHAIRMAN AND CHIEF CREATIVE OFFICER CT CHEST PULMONARY EMBOLUS PE ABDOMEN PELVIS W STAT 09/21/2024 7:17 PM FOUNDER CHAIRMAN AND CHIEF CREATIVE OFFICER GLUCOSE METER Timed 09/21/2024 4:50 PM FOUNDER CHAIRMAN AND CHIEF CREATIVE OFFICER TROPONIN T (HS) ONE TIME Today 09/21/2024 4:15 PM FOUNDER CHAIRMAN AND CHIEF CREATIVE OFFICER GLUCOSE METER Timed 09/21/2024 4:07 PM FOUNDER CHAIRMAN AND CHIEF CREATIVE OFFICER XR CHEST 1 VIEW PORTABLE JEMMA 09/21/2024 2:43 PM FOUNDER CHAIRMAN AND CHIEF CREATIVE OFFICER GLUCOSE METER Timed 09/21/2024 11:56 AM FOUNDER CHAIRMAN AND CHIEF CREATIVE OFFICER TROPONIN T (HS) ONE TIME Today 09/21/2024 10:22 AM FOUNDER CHAIRMAN AND CHIEF CREATIVE OFFICER EKG 12 LEAD Routine 09/21/2024 10:18 AM FOUNDER CHAIRMAN AND CHIEF CREATIVE OFFICER GLUCOSE METER Timed 09/21/2024 7:46 AM FOUNDER CHAIRMAN AND CHIEF CREATIVE OFFICER SCAN-CARDIAC STRIP 09/21/2024 7: 30 AM FOUNDER CHAIRMAN AND CHIEF CREATIVE OFFICER POTASSIUM Timed 09/21/2024 4:34 AM FOUNDER CHAIRMAN AND CHIEF CREATIVE OFFICER BASIC METABOLIC PANEL Early AM 09/21/2024 4:34 AM FOUNDER CHAIRMAN AND CHIEF CREATIVE OFFICER CBC W PLT NO DIFF Early AM 09/21/2024 4:3 4 AM FOUNDER CHAIRMAN AND CHIEF CREATIVE OFFICER MAGNESIUM Early AM 09/21/2024 4:34 AM FOUNDER CHAIRMAN AND CHIEF CREATIVE OFFICER GLUCOSE METER Timed 09/21/2024 3:49 AM FOUNDER CHAIRMAN AND CHIEF CREATIVE OFFICER GLUCOSE METER Timed 09/20/2024 11:55 PM FOUNDER CHAIRMAN AND CHIEF CREATIVE OFFICER EKG 12 LEAD Routine 09/20/2024 9:57 PM FOUNDER CHAIRMAN AND CHIEF CREATIVE OFFICER POTASSIUM STAT 09/20/2024 9:49 PM FOUNDER CHAIRMAN AND CHIEF CREATIVE OFFICER GLUCOSE METER Timed 09/20/2024 8:07 PM FOUNDER CHAIRMAN AND CHIEF CREATIVE OFFICER GLUCOSE METER Timed 09/20/2024 4:24 PM FOUNDER CHAIRMAN AND CHIEF CREATIVE OFFICER POTASSIUM Timed 09/20/2024 3:00 PM FOUNDER CHAIRMAN AND CHIEF CREATIVE OFFICER ECHO TTE COMPLETE WO CONTRAST Routine 09/20/2024 12:35 PM FOUNDER CHAIRMAN AND CHIEF CREATIVE OFFICER GLUCOSE METER Timed 09/20/2024 11:52 AM FOUNDER CHAIRMAN AND CHIEF CREATIVE OFFICER COVID/FLU/RSV PANEL Today 09/20/2024 1 1:30 AM FOUNDER CHAIRMAN AND CHIEF CREATIVE OFFICER XR CHEST 1 VIEW PORTABLE Routine 09/20/2024 9:58 AM FOUNDER CHAIRMAN AND CHIEF CREATIVE OFFICER CONTINUOUS VIDEO EEG MONITORING Routine 09/20/2024 8:55 AM FOUNDER CHAIRMAN AND CHIEF CREATIVE OFFICER GLUCOSE METER Timed 09/20/2024 8:21 AM FOUNDER CHAIRMAN AND CHIEF CREATIVE OFFICER SCAN-CARDIAC STRIP 09/20/2024 7: 41 AM FOUNDER CHAIRMAN AND CHIEF CREATIVE OFFICER PROCALCITONIN Early AM 09/20/2024 4:43 AM FOUNDER CHAIRMAN AND CHIEF CREATIVE OFFICER MAGNESIUM Early AM 09/20/2024 4:39 AM FOUNDER CHAIRMAN AND CHIEF CREATIVE OFFICER CO2,TOTAL Early AM 09/20/2024 4:39 AM FOUNDER CHAIRMAN AND CHIEF CREATIVE OFFICER WHITE BLOOD COUNT Early AM 09/20/2024 4:3 9 AM FOUNDER CHAIRMAN AND CHIEF CREATIVE OFFICER HEMOGLOBIN Early AM 09/20/2024 4:39 AM FOUNDER CHAIRMAN AND CHIEF CREATIVE OFFICER CREATININE Early AM 09/20/2024 4:39 AM FOUNDER CHAIRMAN AND CHIEF CREATIVE OFFICER SODIUM Early AM 09/20/2024 4:39 AM FOUNDER CHAIRMAN AND CHIEF CREATIVE OFFICER POTASSIUM Early AM 09/20/2024 4:39 AM FOUNDER CHAIRMAN AND CHIEF CREATIVE OFFICER CK TOTAL Timed 09/20/2024 4:39 AM FOUNDER CHAIRMAN AND CHIEF CREATIVE OFFICER TRIGLYCERIDES Timed 09/20/2024 4:39 AM FOUNDER CHAIRMAN AND CHIEF CREATIVE OFFICER LEVETIRACETAM (KEPPRA) Timed 4:31 AM FOUNDER CHAIRMAN AND CHIEF CREATIVE OFFICER GLUCOSE METER Timed 09/20/2024 4:14 AM FOUNDER CHAIRMAN AND CHIEF CREATIVE OFFICER EKG 12 LEAD STAT 09/20/2024 1:43 AM FOUNDER CHAIRMAN AND CHIEF CREATIVE OFFICER GLUCOSE METER Timed 09/20/2024 12:09 AM FOUNDER CHAIRMAN AND CHIEF CREATIVE OFFICER GLUCOSE METER Timed 09/19/2024 8:02 PM FOUNDER CHAIRMAN AND CHIEF CREATIVE OFFICER BLOOD CULTURE Today 09/19/2024 7:15 PM FOUNDER CHAIRMAN AND CHIEF CREATIVE OFFICER BLOOD CULTURE Today 09/19/2024 7:04 PM FOUNDER CHAIRMAN AND CHIEF CREATIVE OFFICER MAGNESIUM Timed 09/19/2024 7:04 PM FOUNDER CHAIRMAN AND CHIEF CREATIVE OFFICER URINALYSIS MICROSCOPIC Timed 4:36 PM FOUNDER CHAIRMAN AND CHIEF CREATIVE OFFICER UA W/ SEDIMENT EXAM REFLEXED PER CRITERIA Today 09/19/2024 4:36 PM FOUNDER CHAIRMAN AND CHIEF CREATIVE OFFICER GLUCOSE METER Timed 09/19/2024 4:20 PM FOUNDER CHAIRMAN AND CHIEF CREATIVE OFFICER SCAN-CARDIAC STRIP 09/19/2024 3: 51 PM FOUNDER CHAIRMAN AND CHIEF CREATIVE OFFICER MR HEAD BRAIN WWO Routine 09/19/2024 1:4 7 PM FOUNDER CHAIRMAN AND CHIEF CREATIVE OFFICER MRSA/SA PCR Today 09/19/2024 12:31 PM FOUNDER CHAIRMAN AND CHIEF CREATIVE OFFICER GLUCOSE METER Timed 09/19/2024 12:14 PM FOUNDER CHAIRMAN AND CHIEF CREATIVE OFFICER SCAN-CARDIAC STRIP 09/19/2024 8: 06 AM FOUNDER CHAIRMAN AND CHIEF CREATIVE OFFICER MAGNESIUM Early AM 09/19/2024 6:09 AM FOUNDER CHAIRMAN AND CHIEF CREATIVE OFFICER POTASSIUM STAT 09/19/2024 6:09 AM FOUNDER CHAIRMAN AND CHIEF CREATIVE OFFICER ALT (SGPT) STAT 09/19/2024 6:09 AM FOUNDER CHAIRMAN AND CHIEF CREATIVE OFFICER AST (SGOT) STAT 09/19/2024 6:09 AM FOUNDER CHAIRMAN AND CHIEF CREATIVE OFFICER BILIRUBIN DIRECT STAT 09/19/2024 6:09 AM FOUNDER CHAIRMAN AND CHIEF CREATIVE OFFICER PROTIME-INR JEMMA 09/19/2024 6:09 AM FOUNDER CHAIRMAN AND CHIEF CREATIVE OFFICER CBC WITH AUTO DIFFERENTIAL STAT 09/19/2024 6:08 AM FOUNDER CHAIRMAN AND CHIEF CREATIVE OFFICER CBC WITH AUTO DIFFERENTIAL STAT 09/19/2024 6:08 AM FOUNDER CHAIRMAN AND CHIEF CREATIVE OFFICER GLUCOSE METER Timed 09/19/2024 6:07 AM FOUNDER CHAIRMAN AND CHIEF CREATIVE OFFICER SPUTUM CULTURE, STAIN Today 09/19/2024 4:04 AM FOUNDER CHAIRMAN AND CHIEF CREATIVE OFFICER GLUCOSE METER Timed 09/19/2024 2:57 AM FOUNDER CHAIRMAN AND CHIEF CREATIVE OFFICER HEPATIC FUNCTION PANEL STAT 2:41 AM FOUNDER CHAIRMAN AND CHIEF CREATIVE OFFICER PROTIME-INR STAT 09/19/2024 2:41 AM FOUNDER CHAIRMAN AND CHIEF CREATIVE OFFICER BASIC METABOLIC PANEL STAT 09/19/2024 2:41 AM FOUNDER CHAIRMAN AND CHIEF CREATIVE OFFICER XR ABDOMEN 1 VIEW PORTABLE STAT 09/18/2024 11:18 PM FOUNDER CHAIRMAN AND CHIEF CREATIVE OFFICER ISTAT EG6+ ABG Timed 09/18/2024 10:45 PM FOUNDER CHAIRMAN AND CHIEF CREATIVE OFFICER MR HEAD RAPID CODE STROKE LTD BRAIN WO CONTRAST JEMMA 09/18/2024 10:28 PM FOUNDER CHAIRMAN AND CHIEF CREATIVE OFFICER XR CHEST 1 VIEW PORTABLE JEMMA 09/18/2024 9:29 PM FOUNDER CHAIRMAN AND CHIEF CREATIVE OFFICER EKG 12 LEAD STAT 09/18/2024 9:11 PM FOUNDER CHAIRMAN AND CHIEF CREATIVE OFFICER CT ANGIO HEAD NECK CAROTID STROKE PROTOCOL BRET CANDIDAT STAT 09/18/2024 8:54 PM FOUNDER CHAIRMAN AND CHIEF CREATIVE OFFICER CT HEAD STROKE PROTOCOL WITHOUT CONTRAST STAT 09/18/2024 8:54 PM FOUNDER CHAIRMAN AND CHIEF CREATIVE OFFICER CWS PATH REVIEW HEMATOLOGY STAT 09/18/2024 8:49 PM FOUNDER CHAIRMAN AND CHIEF CREATIVE OFFICER RED CELL MORPHOLOGY STAT 09/18/2024 8 :49 PM FOUNDER CHAIRMAN AND CHIEF CREATIVE OFFICER PLATELET ESTIMATE STAT 09/18/2024 8:4 9 PM FOUNDER CHAIRMAN AND CHIEF CREATIVE OFFICER MANUAL DIFFERENTIAL STAT 09/18/2024 8 :49 PM FOUNDER CHAIRMAN AND CHIEF CREATIVE OFFICER CBC WITH AUTO DIFFERENTIAL STAT 09/18/2024 8:49 PM FOUNDER CHAIRMAN AND CHIEF CREATIVE OFFICER BASIC METABOLIC PANEL STAT 09/18/2024 8:49 PM FOUNDER CHAIRMAN AND CHIEF CREATIVE OFFICER PROTIME-INR STAT 09/18/2024 8:49 PM FOUNDER CHAIRMAN AND CHIEF CREATIVE OFFICER CBC WITH AUTO DIFFERENTIAL STAT 09/18/2024 8:49 PM FOUNDER CHAIRMAN AND CHIEF CREATIVE OFFICER GLUCOSE METER Timed 09/18/2024 8:40 PM FOUNDER CHAIRMAN AND CHIEF CREATIVE OFFICER SCAN-CT INTERPRETATION 5 12:00 AM FOUNDER CHAIRMAN AND CHIEF CREATIVE OFFICER SCAN-RADIOLOGY REPORT 09/08/2024 12:00 AM FOUNDER CHAIRMAN AND CHIEF CREATIVE OFFICER SCAN-CT INTERPRETATION 5 12:00 AM FOUNDER CHAIRMAN AND CHIEF CREATIVE OFFICER XR DXA BONE DENSITY 2 SITES AXIAL AND 1 SITE PERIPHERAL Routine 04/06/2024 2:24 PM CDT Postmenopausal from Last 3 Months or Most Recently Relevant to Health Maintenance Results * (ABNORMAL) LIPID PANEL W REFLEX MEASURED LDL (10/15/2024 2:14 PM CDT) [facility] CHOLESTEROL, TOTAL 92 <200 mg/dL [facility] LDL-C. Vic SS et al. AZAM. 2013;310(19): 6677-7148 (http://education.[employer]/faq/KCE986) CHOL/HDLC RATIO 2.0 <5.0 (calc) [facility] NON HDL CHOLESTEROL 47 <130 mg/dL (calc) [facility] Comment: For patients with diabetes plus 1 major ASCVD risk factor, treating to a non-HDL-C goal of <100 mg/dL (LDL-C of <70 mg/dL) is considered a therapeutic option. Blood BLOOD SPECIMEN / Unknown 10/15/2024 2:14 PM CDT 10/15/2024 2:14 PM CDT [employer] CHEMISTRY Final Result Performing Organization Address City/[facility]/ZIP Co de Phone Number [employer] [facility] [address] [place] [address], [place] [phone] [facility] [address] [place] [address] * (ABNORMAL) POCT Hemoglobin A1C Monitoring (10/15/2024 2:13 PM CDT) Pathologist [facility] POC HEMOGLOBIN A1C 8.5(H) <6.0 % OF TOTAL HGB [facility] Comment: Any point of care results exhibiting inconsistency with the patient's clinical status should be repeated using a different testing method. Blood BLOOD SPECIMEN / Unknown 10/15/2024 2:13 PM CDT 10/15/2024 2:13 PM CDT [employer] CHEMISTRY Final Result Performing Organization Address City/[facility]/ZIP Co de Phone Number [facility] [address] [place] [address], [place] [phone] [facility] [address] [place] [address] * SCAN-RADIOLOGY REPORT (10/05/2024 12:00 AM CDT) Only the most recent of2 resultswithin the time period is included. Anatomical Region Laterality Modality Other us Scanner OTHER Final Result * SCAN-CT INTERPRETATION (10/05/2024 12:00 AM CDT) Only the most recent of3 resultswithin the time period is included. Anatomical Region Laterality Modality Other us Scanner OTHER Final Result * (ABNORMAL) GLUCOSE METER (09/26/2024 12:46 PM [employer]) Only the most recent of42 resultswithin the time period is included. GLUCOSE METER 190(H) 65 - 100 mg/dL 09/26/2024 12:46 PM [employer]ER [facility] Blood BLOOD SPECIMEN / Unknown 09/26/2024 12:46 PM [employer]IVE [employer]IC[employer] 09/26/2024 12:46 PM [employer]IVE [employer]IC[employer] us Shelly Perkins MD CHEMISTRY F inal Result Performing Organization Address City/[facility]/ZIP Co de Phone Number [facility] SENDOUT INTERNAL ZIP [phone] [place] [id number] * SCAN-CARDIAC STRIP (09/26/2024 8:26 AM [employer]ATIVE OFFIC[employer]) us Scanner OTHER Final Result * POTASSIUM (09/26/2024 6:18 AM [employer]IVE OFFIC[employer]) Only the most recent of10 resultswithin the time period is included. POTASSIUM 4.0 3.5 - 5.1 mmol/L 09/26/2024 6:59 AM [employer]IVE [employer]IC[employer] [facility] Blood BLOOD SPECIMEN / Unknown Venipuncture / Unknown 09/26/2024 6:18 AM [employer]IVE OFFICER 09/26/2024 6:30 AM [employer]IVE [employer]IC[employer] us Mariam Martinez RN CHEMISTRY Final Result Performing Organization Address [facility] [place]/[facility]/ZIP Co de Phone Number [facility] SENDOUT INTERNAL ZIP [phone] [place] [id number] * MAGNESIUM (09/26/2024 6:18 AM FOUNDER CHAIRMAN AND CHIEF CREATIVE OFFICER) Only the most recent of11 resultswithin the time period is included. MAGNESIUM 2.1 1.6 - 2.4 mg/dL 09/26/2024 7:03 AM FOUNDER CHAIRMAN AND CHIEF CREATIVE OFFICER [facility] Blood BLOOD SPECIMEN / Unknown Venipuncture / Unknown 09/26/2024 6:18 AM FOUNDER CHAIRMAN AND CHIEF CREATIVE OFFICER 09/26/2024 6:30 AM FOUNDER CHAIRMAN AND CHIEF CREATIVE OFFICER us Mariam Martinez RN CHEMISTRY Final Result Performing Organization Address [facility] [place]/[facility]/ZIP Co de Phone Number [facility] SENDOUT INTERNAL ZIP [phone] [place] [address] * SCAN-CARDIAC STRIP (09/25/2024 9:11 AM FOUNDER CHAIRMAN AND CHIEF CREATIVE OFFICER) us Scanner OTHER Final Result * SCAN-CARDIAC STRIP (09/24/2024 9:31 AM FOUNDER CHAIRMAN AND CHIEF CREATIVE OFFICER) us Scanner OTHER Final Result * WHITE BLOOD COUNT (09/24/2024 6:34 AM FOUNDER CHAIRMAN AND CHIEF CREATIVE OFFICER) Only the most recent of3 resultswithin the time period is included. WHITE BLOOD COUNT 7.0 4.5 - 11.0 thou/cu mm 09/24/2024 7:23 AM FOUNDER CHAIRMAN AND CHIEF CREATIVE OFFICER [facility] NRBC 0.0 % 09/24/2024 7:23 AM FOUNDER CHAIRMAN AND CHIEF CREATIVE OFFICER [facility] ABS NRBC 0.0 thou /cu mm 09/24/2024 7:23 AM FOUNDER CHAIRMAN AND CHIEF CREATIVE OFFICER [facility] Blood BLOOD SPECIMEN / Unknown Venipuncture / Unknown 09/24/2024 6:34 AM FOUNDER CHAIRMAN AND CHIEF CREATIVE OFFICER 09/24/2024 7:11 AM FOUNDER CHAIRMAN AND CHIEF CREATIVE OFFICER us Shelly Perkins MD HEMATOLOGY F inal Result Performing Organization Address City/[facility]/ZIP Co de Phone Number [facility] SENDOUT INTERNAL ZIP [phone] [place] [address] * (ABNORMAL) HEMOGLOBIN (09/24/2024 6:34 AM FOUNDER CHAIRMAN AND CHIEF CREATIVE OFFICER) Only the most recent of3 resultswithin the time period is included. HEMOGLOBIN 10.7(L) 12.0 - 16.0 g/dL 09/24/2024 7:23 AM FOUNDER CHAIRMAN AND CHIEF CREATIVE OFFICER [facility] MCV 93 80 - 100 fL 09/24/2024 7:23 AM [facility] Blood BLOOD SPECIMEN / Unknown Venipuncture / Unknown 09/24/2024 6:34 AM FOUNDER CHAIRMAN AND CHIEF CREATIVE OFFICER 09/24/2024 7:11 AM FOUNDER CHAIRMAN AND CHIEF CREATIVE OFFICER Shelly Perkins MD HEMATOLOGY F inal Result Performing Organization Address City/[facility]/ZIP Co de Phone Number [facility] SENDOUT INTERNAL ZIP [phone] [place] [id number] * (ABNORMAL) CREATININE (09/24/2024 6:34 AM FOUNDER CHAIRMAN AND CHIEF CREATIVE OFFICER) Only the most recent of3 resultswithin the time period is included. eGFR >90 >90 mL/min/1.7 3m2 09/24/2024 7:39 AM [facility] Comment:As of 2021, eG FR is calculated by the CKD-EPI creatinine equation without race adjustment. eGFR can be influenced by muscle mass, exercise, and diet. The reported eGFR is an estimation only and is only applicable if the renal function is stable. CREATININE 0.48(L) 0.50 - 0.90 mg/dL 09/24/2024 7:39 AM [facility] Blood BLOOD SPECIMEN / Unknown Venipuncture / Unknown 09/24/2024 6:34 AM FOUNDER CHAIRMAN AND CHIEF CREATIVE OFFICER 09/24/2024 7:11 AM FOUNDER CHAIRMAN AND CHIEF CREATIVE OFFICER us Shelly Perkins MD CHEMISTRY F inal Result Performing Organization Address City/[facility]/ZIP Co de Phone Number [facility] SENDOUT INTERNAL ZIP [phone] [place] [address] * SCAN-CARDIAC STRIP (09/23/2024 5:33 PM FOUNDER CHAIRMAN AND CHIEF CREATIVE OFFICER) us Scanner OTHER Final Result * CT CARDIAC CORONARY ARTERIES CV DUAL READ (09/23/2024 11:06 AM FOUNDER CHAIRMAN AND CHIEF CREATIVE OFFICER) Anatomical Region Laterality Modality HEART Computed Tomogra phy, Other Narrative 09/23/2024 3:47 PM FOUNDER CHAIRMAN AND CHIEF CREATIVE OFFICER Results are automatically released to your [employer]) account once available, in compliance with federal [...] radiology report for non-cardiac findings. 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 The patient received the following medications: [...] aorta. Mild aortic atherosclerosis. Corbin Coleman MD [facility]/car Susan MALAVE CT Final Result * CT CARDIAC CORONARY ARTERIES RAD DUAL READ (09/23/2024 11:06 AM FOUNDER CHAIRMAN AND CHIEF CREATIVE OFFICER) Anatomical Region Laterality Modality HEART Computed Tomogra phy, Other 09/23/2024 11:0 6 AM FOUNDER CHAIRMAN AND CHIEF CREATIVE OFFICER Impressions 09/23/2024 12:48 PM FOUNDER CHAIRMAN AND CHIEF CREATIVE OFFICER 1. Please refer to sheet cutter's dictation for the cardiac CT report. 2. No new significant incidental extracardiac findings. Narrative 09/23/2024 12:48 PM FOUNDER CHAIRMAN AND CHIEF CREATIVE OFFICER For Patients: As a result of the [...] FINALIZED AT DIFFERENT TIMES.* EXAM: OVERREAD: DETAILED [facility] EXTRACARDIAC OVERREAD OF CARDIAC CT LOCATION: [facility] MEDICAL IMAGING DATE: 09/23/2024 INDICATION: Chest pain/anginal [...] BEFINALIZED AT DIFFERENT TIMES.* EXAM: OVERREAD: DETAILED [facility] RADIOLOG[facility] EXTRACARDIAC OVERREAD OFCARDIAC CT LOCATION: [facility] MEDICAL IMAGING DATE: 09/23/2024 INDICATION: Chest pain/anginal [...] ABDOMEN: Cholecystectomy. IMPRESSION: 1. Please refer to sheet cutter's dictation for the cardiac CT report. 2. No new significant incidental extracardiac findings. Susan MALAVE CT Final Result * (ABNORMAL) CBC W PLT NO DIFF (09/23/2024 3:59 AM FOUNDER CHAIRMAN AND CHIEF CREATIVE OFFICER) Only the most recent of2 resultswithin the time period is included. WHITE BLOOD COUNT 9.5 4.5 - 11.0 thou/cu mm 09/23/2024 4:13 AM FOUNDER CHAIRMAN AND CHIEF CREATIVE OFFICER [facility] RED BLOOD COUNT 3.25(L) 4.00 - 5.20 mil/cu mm 09/23/2024 4:13 AM FOUNDER CHAIRMAN AND CHIEF CREATIVE OFFICER [facility] HEMOGLOBIN 10.5(L) 12.0 - 16.0 g/dL 09/23/2024 4:13 AM FOUNDER CHAIRMAN AND CHIEF CREATIVE OFFICER [facility] HEMATOCRIT 30.7(L) 33.0 - 51.0 % 09/23/2024 4:13 AM [facility] MCV 95 80 - 100 fL 09/23/2024 4:13 AM [facility] MCH 32.3 26.0 - 34.0 pg 09/23/2024 4:13 AM [facility] MCHC 34.2 32.0 - 36.0 g/dL 09/23/2024 4:13 AM [facility] RDW 13.7 11.5 - 15.5 % 09/23/2024 4:13 AM [facility] PLATELET COUNT 263 140 - 440 thou/cu mm 09/23/2024 4:13 AM [facility] MPV 9.7 6.5 - 11.0 fL 09/23/2024 4:13 AM [facility] NRBC 0.0 % 09/23/2024 4:13 AM [facility] ABS NRBC 0.0 thou /cu mm 09/23/2024 4:13 AM [facility] Blood BLOOD SPECIMEN / Unknown Venipuncture / Unknown 09/23/2024 3:59 AM [facility] 09/23/2024 4:11 AM [facility] Shelly Perkins MD HEMATOLOGY F inal Result [facility] SENDOUT INTERNAL ZIP [phone] [place] [phone] * (ABNORMAL) BASIC METABOLIC PANEL (09/23/2024 3:59 AM [facility]) Only the most recent of4 resultswithin the time period is included. SODIUM 141 136 - 145 mmol/L 09/23/2024 4:33 AM [facility] POTASSIUM 3.7 3.5 - 5.1 mmol/L 09/23/2024 4:33 AM [facility] CHLORIDE 107 98 - 107 mmol/L 09/23/2024 4:33 AM [facility] CO2,TOTAL 24 22 - 29 mmol/L 09/23/2024 4:33 AM [facility] ANION GAP 10 5 - 18 09/23/2024 4:33 AM [facility] GLUCOSE 128(H) 70 - 99 mg/dL 09/23/2024 4:33 AM [facility] CALCIUM 8.6(L) 8.8 - 10.4 mg/dL 09/23/2024 4:33 AM [facility] Comment: Reference ranges for this test were updated on 06/01/2024 to reflect our healthy population more accurately. Reference range changes are not retroactively applied to results, but previous results using the same methodology can be interpreted in the context of the new reference range. BUN 6(L) 8 - 23 mg/dL 09/23/2024 4:33 AM [facility] CREATININE 0.54 0.50 - 0.90 mg/dL 09/23/2024 4:33 AM [facility] BUN/CREAT RATIO 11 10 - 20 4:33 AM [facility] eGFR >90 >90 mL/min/1. 73m2 09/23/2024 4:33 AM [facility] Comment:As of 2021, eG FR is calculated by the CKD-EPI creatinine equation without race adjustment. eGFR can be influenced by muscle mass, exercise, and diet. The reported eGFR is an estimation only and is only applicable if the renal function is stable. Blood BLOOD SPECIMEN / Unknown Venipuncture / Unknown 09/23/2024 3:59 AM FOUNDER CHAIRMAN AND CHIEF CREATIVE OFFICER 09/23/2024 4:11 AM FOUNDER CHAIRMAN AND CHIEF CREATIVE OFFICER us Susan MALAVE CHEMISTRY Final Result [facility] SENDOUT INTERNAL [facility] [phone] [place] [address] * SCAN-CARDIAC STRIP (09/22/2024 8:06 PM FOUNDER CHAIRMAN AND CHIEF CREATIVE OFFICER) us Scanner OTHER Final Result * SCAN-CARDIAC STRIP (09/22/2024 7:43 PM FOUNDER CHAIRMAN AND CHIEF CREATIVE OFFICER) us Scanner OTHER Final Result * SCAN CORRESP-EKG RESULTS (09/22/2024 1:55 PM FOUNDER CHAIRMAN AND CHIEF CREATIVE OFFICER) Narrative 09/22/2024 1:55 PM FOUNDER CHAIRMAN AND CHIEF CREATIVE OFFICER Ordered by an unspecified provider. us Other Clinical Staff OTHER Final Resul t * XR VIDEO SWALLOW AND TREATMENT W SPEECH (09/22/2024 10:10 AM FOUNDER CHAIRMAN AND CHIEF CREATIVE OFFICER) Anatomical Region Laterality Modality Esophagus Computed Radiogr aphy 09/22/2024 10:1 0 AM FOUNDER CHAIRMAN AND CHIEF CREATIVE OFFICER Impressions 09/22/2024 10:44 AM FOUNDER CHAIRMAN AND CHIEF CREATIVE OFFICER Swallow study with Speech Pathology using multiple barium thicknesses. Deep penetration of thin liquids without arcadio aspiration. Mildly thickened liquids, pudding, and solid textures swallowed without evidence for airway compromise. Minor pharyngeal residue. Please see speech pathology report for additional details and dietary recommendations. Narrative 09/22/2024 10:44 AM FOUNDER CHAIRMAN AND CHIEF CREATIVE OFFICER For Patients: As a result of the Cures Act, medical imaging exams and procedure reports are released immediately into your electronic medical record. You may view this report before your referring provider. If you have questions, please contact your health care provider. EXAM: XR VIDEO SWALLOW AND TREATMENT W SPEECH LOCATION: [facility] MEDICAL IMAGING DATE: 09/22/2024 INDICATION: Recent stroke. [...] VIDEO SWALLOW AND TREATMENT W SPEECH LOCATION: [facility] MEDICAL IMAGING DATE: 09/22/2024 INDICATION: Recent stroke. [...] Result * SCAN-CARDIAC STRIP (09/22/2024 7:19 AM FOUNDER CHAIRMAN AND CHIEF CREATIVE OFFICER) us Scanner OTHER Final Result * EKG 12 LEAD (09/22/2024 6:25 AM FOUNDER CHAIRMAN AND CHIEF CREATIVE OFFICER) Only the most recent of5 resultswithin the [...] NOW QTc 449 ms BEYOND NOW P [place] 56 degrees BEYOND NOW R [place] 0 degrees BEYOND NOW T [place] 34 degrees BEYOND NOW 09/22/2024 6:25 AM FOUNDER CHAIRMAN AND CHIEF CREATIVE OFFICER 09/22/2024 9:08 AM FOUNDER CHAIRMAN AND CHIEF CREATIVE OFFICER Angel Molina MD EKG ORD Final Re sult BEY[place] NOW [place], [place] * (ABNORMAL) TROPONIN T (HS) ONE TIME (09/22/2024 6:17 AM FOUNDER CHAIRMAN AND CHIEF CREATIVE OFFICER) Only the most recent of3 resultswithin the time period is included. Pathologist [facility] TROPONIN T HS 48(H) 6-10 ng/L ng/L 09/22/2024 6:51 AM [facility] Blood BLOOD SPECIMEN / Unknown Butterfly / Unknown 09/22/2024 6:17 AM FOUNDER CHAIRMAN AND CHIEF CREATIVE OFFICER 09/22/2024 6:22 AM FOUNDER CHAIRMAN AND CHIEF CREATIVE OFFICER Narrative [facility] - 09/22/2024 6:51 AM [facility] hs-cTnT (Elecsys Troponin T Gen 5) [...] Angel Molina MD CHEMISTRY Final Re sult [facility] SENDOUT INTERNAL [facility] [id number] [place] [address] * US VENOUS LOWER EXTREMITY BILATERAL PORTABLE (09/21/2024 10:47 PM FOUNDER CHAIRMAN AND CHIEF CREATIVE OFFICER) Anatomical Region Laterality Modality LEGS, LEG L, LEG R Ultrasound 09/21/2024 10:4 7 PM FOUNDER CHAIRMAN AND CHIEF CREATIVE OFFICER Impressions 09/21/2024 11:06 PM FOUNDER CHAIRMAN AND CHIEF CREATIVE OFFICER 1. No deep venous thrombosis in the bilateral lower extremities. Narrative 09/21/2024 11:06 PM FOUNDER CHAIRMAN AND CHIEF CREATIVE OFFICER For Patients: As a result of the 21st Century Cures Act, medical imaging exams and procedure reports are released immediately into your electronic medical record. You may view this report before your referring provider. If you have questions, please contact your health care provider. EXAM: US VENOUS LOWER EXTREMITY BILATERAL PORTABLE LOCATION: [facility] MEDICAL IMAGING DATE: 09/21/2024 INDICATION: Bilateral lower [...] US VENOUS LOWER EXTREMITY BILATERAL PORTABLE LOCATION: [facility] MEDICAL IMAGING DATE: 09/21/2024 INDICATION: Bilateral lower [...] * EXTRA TUBE GOLD/SST (09/21/2024 8:53 PM FOUNDER CHAIRMAN AND CHIEF CREATIVE OFFICER) Blood BLOOD SPECIMEN / Unknown Non-Lab Venipuncture / Unknown 09/21/2024 8:53 PM FOUNDER CHAIRMAN AND CHIEF CREATIVE OFFICER 09/21/2024 8:53 PM FOUNDER CHAIRMAN AND CHIEF CREATIVE OFFICER us Doctor Unknown LABORATORY Final Result [facility] SENDOUT INTERNAL ZIP [address] [address] [place] [address] * LACTATE VENOUS (09/21/2024 8:48 PM FOUNDER CHAIRMAN AND CHIEF CREATIVE OFFICER) LACTATE,VENOUS 1.3 0.5 - 2.0 mmol/L 09/21/2024 9:21 PM FOUNDER CHAIRMAN AND CHIEF CREATIVE OFFICER [facility] Blood BLOOD SPECIMEN / Unknown Venipuncture / Unknown 09/21/2024 8:48 PM FOUNDER CHAIRMAN AND CHIEF CREATIVE OFFICER 09/21/2024 8:52 PM FOUNDER CHAIRMAN AND CHIEF CREATIVE OFFICER us Kellen Truong NP CHEMISTRY Fin al Result [facility] SENDOUT INTERNAL ZIP [address] [address] [place] [address] * SCAN-CARDIAC STRIP (09/21/2024 8:22 PM FOUNDER CHAIRMAN AND CHIEF CREATIVE OFFICER) us Scanner OTHER Final Result * CT CHEST PULMONARY EMBOLUS PE ABDOMEN PELVIS W (09/21/2024 7:17 PM FOUNDER CHAIRMAN AND CHIEF CREATIVE OFFICER) Anatomical Region Laterality Modality CHEST, Abdomen, Pelvis Computed Tomography 09/21/2024 7:17 PM FOUNDER CHAIRMAN AND CHIEF CREATIVE OFFICER Impressions 09/21/2024 8:05 PM FOUNDER CHAIRMAN AND CHIEF CREATIVE OFFICER 1. No pulmonary embolism. 2. Small bilateral effusions with bibasilar atelectasis. Additional patchy airspace opacities noted at the lung bases which may represent pneumonia or atelectasis. 3. Chronic interstitial fibrotic changes with Mosaic attenuation of the lungs suggesting small airway disease. 4. No acute findings in the abdomen and pelvis. Narrative 09/21/2024 8:05 PM FOUNDER CHAIRMAN AND CHIEF CREATIVE OFFICER For Patients: As a result of the Century Cures Act, medical imaging exams and procedure reports are released immediately into your electronic medical record. You may view this report before your referring provider. If you have questions, please contact your health care provider. EXAM: CT CHEST PULMONARY EMBOLUS PE ABDOMEN PELVIS W LOCATION: [facility] MEDICAL IMAGING DATE: 09/21/2024 INDICATION: Pulmonary Embolism [...] PULMONARY EMBOLUS PE ABDOMEN PELVIS W LOCATION: [facility] MEDICAL IMAGING DATE: 09/21/2024 INDICATION: Pulmonary Embolism [...] CHEST 1 VIEW PORTABLE (09/21/2024 2:43 PM FOUNDER CHAIRMAN AND CHIEF CREATIVE OFFICER) Only the most recent of3 resultswithin the time period is included. Anatomical Region Laterality Modality HEART, THORAX, CHEST Computed Ra diography 09/21/2024 2:43 PM FOUNDER CHAIRMAN AND CHIEF CREATIVE OFFICER Impressions 09/21/2024 3:32 PM FOUNDER CHAIRMAN AND CHIEF CREATIVE OFFICER Sternotomy. Heart mildly enlarged, unchanged. Low lung volumes. Small increased consolidation noted within the right mid and lower lung concerning for pneumonia. No large effusion. Chronic interstitial lung changes appears similar to prior examination. Narrative 09/21/2024 3:32 PM FOUNDER CHAIRMAN AND CHIEF CREATIVE OFFICER For Patients: As a result of the Cures Act, medical imaging exams and procedure reports are released immediately into your electronic medical record. You may view this report before your referring provider. If you have questions, please contact your health care provider. EXAM: XR CHEST 1 VIEW PORTABLE LOCATION: [facility] MEDICAL IMAGING DATE: 09/21/2024 INDICATION: SOB COMPARISON: 09/20/2024 Procedure Note Jesse Solis MD - 09/21/2024 For Patients: As a result of the Cures Act, medical imagingexams and procedure reports are released immediately into your electronicmedical record. You may view this report before your referring provider.If you have questions, please contact your health care provider. EXAM: XR CHEST 1 VIEW PORTABLE LOCATION: [facility] MEDICAL IMAGING DATE: 09/21/2024 INDICATION: SOB COMPARISON: 09/20/2024 IMPRESSION: Sternotomy. Heart mildly enlarged, unchanged. Low lung volumes. Smallincreased consolidation noted within the right mid and lower lungconcerning for pneumonia. No large effusion. Chronic interstitial lungchanges appears similar to prior examination. us Shelly Perkins MD GENERAL IMAGING F inal Result * SCAN-CARDIAC STRIP (09/21/2024 7:30 AM FOUNDER CHAIRMAN AND CHIEF CREATIVE OFFICER) us Scanner OTHER Final Result * ECHO TTE COMPLETE WO CONTRAST (09/20/2024 12:35 PM FOUNDER CHAIRMAN AND CHIEF CREATIVE OFFICER) Anatomical Region Laterality Modality Ultrasound 09/20/2024 12:0 2 PM FOUNDER CHAIRMAN AND CHIEF CREATIVE OFFICER Narrative 09/20/2024 1:13 PM FOUNDER CHAIRMAN AND [place] [address] Main: [email or web address] Transthoracic Echo Report KEE GABBIEJOSE LUIS ZAMUDIO Excellian ID: [id number] Age: 79 : 1945 Ordering Provider: KELLEN TRUONG Exam Date: 09/20/2024 12:02 Gender: F [place] Upholsterer: MIKA Height: 68 in BSA: 1.87 m [...] ZScore: -1.42 Roxy Chowdary MD (Electronically Signed) [facility] Accredited Site Final Date: 20 September 2024 13:12 ICD-10 Codes: 428.9 Procedure Note Roxy Chowdary MD - 09/20/2024 [place] [address] Main: [email or web address] Transthoracic Echo Report JOSE LUIS JOYCE ID: [id number] Age: 79 : 1945 Ordering Provider:KELLEN TRUONG Exam Date: 09/20/2024 12:02 Gender: F [place] Upholsterer: MIKA Height: 68 in BSA: 1.87 m [...] ZScore: -1.42 Roxy Chowdary MD (Electronically Signed) [facility] Accredited Site Final Date: 20 September 2024 13:12 ICD-10 Codes: 428.9 us Kellen Truong DIRECTOR OF PAYROLL ECHO ORD Fin al Result * COVID/FLU/RSV PANEL (09/20/2024 11:30 AM FOUNDER CHAIRMAN AND CHIEF CREATIVE OFFICER) COVID 19 ALLINA MOLECULAR Negative Negative 09/20/2024 12:41 PM FOUNDER CHAIRMAN AND CHIEF CREATIVE OFFICER [facility] Comment:All PCR tests are gomez bject to false negative result due to variability in viral load and collection technique. A negative result does not rule out a SARS-CoV-2 infection. Clinical correlation required. INFLUENZA A PCR Negative 12:41 PM FOUNDER CHAIRMAN AND CHIEF CREATIVE OFFICER [facility] INFLUENZA B PCR Negative 12:41 PM FOUNDER CHAIRMAN AND CHIEF CREATIVE OFFICER [facility] Respiratory Syncytial Virus Negative 09/20/2024 12:41 PM FOUNDER CHAIRMAN AND CHIEF CREATIVE OFFICER [facility] Swab NASOPHARYNGEAL SWAB / Unknown Non-Blood / Unknown 09/20/2024 11:30 AM FOUNDER CHAIRMAN AND CHIEF CREATIVE OFFICER 09/20/2024 11:32 AM FOUNDER CHAIRMAN AND CHIEF CREATIVE OFFICER us Sangita ARAGON MICROBIOLOGY Final R esult [facility] SENDOUT INTERNAL ZIP [phone] [place] [address] * CONTINUOUS VIDEO EEG MONITORING (09/20/2024 8:55 AM FOUNDER CHAIRMAN AND CHIEF CREATIVE OFFICER) Narrative Evelia Fernandes MBBS - 09/20/2024 8:55 AM FOUNDER CHAIRMAN AND CHIEF CREATIVE OFFICER Evelia Fernandes MBBS 09/20/2024 2:06 PM [facility] [place] long-term monitoring/ video EEG report Name: Jose Luis Lozano Test Number: See below Test date: 09/20/24 : 1945 Referring Service: @SERVDEPT@ Age: 79 y.o. Referring Physician: Patrick Hospitalist [facility] Procedure: videoEEG/ LTM Interpreting Physician: Evelia Fernandes [...] time of (25Hours:37Minutes) us Goldcharmaine Jeniffer Quiroz [facility] NEUROLOGY ORD Final Result * SCAN-CARDIAC STRIP (09/20/2024 7:41 AM FOUNDER CHAIRMAN AND CHIEF CREATIVE OFFICER) us Scanner OTHER Final Result * PROCALCITONIN (09/20/2024 4:43 AM FOUNDER CHAIRMAN AND CHIEF CREATIVE OFFICER) PROCALCITONIN 0.30 ng/ml 09/20/2024 5:27 AM FOUNDER CHAIRMAN AND CHIEF CREATIVE OFFICER [facility] Blood BLOOD SPECIMEN / Unknown Non-Lab Venipuncture / Unknown 09/20/2024 4:43 AM FOUNDER CHAIRMAN AND CHIEF CREATIVE OFFICER 09/20/2024 4:43 AM FOUNDER CHAIRMAN AND CHIEF CREATIVE OFFICER Narrative [facility] - 09/20/2024 5:27 AM FOUNDER CHAIRMAN AND CHIEF CREATIVE OFFICER Procalcitonin for initial assessment of Lower Respiratory [...] any concentrations < 2 ng/mL are obtained. [facility] Osorio JONES SEND OUTS Final R esult [facility] SENDOUT INTERNAL ZIP [phone] [place] [id number] * TRIGLYCERIDES propofol (09/20/2024 4:39 AM FOUNDER CHAIRMAN AND CHIEF CREATIVE OFFICER) TRIGLYCERIDES 65 <150 mg/dL 09/20/2024 5:14 AM FOUNDER CHAIRMAN AND CHIEF CREATIVE OFFICER [facility] PROVIDER ORDERED STATUS RANDOM 09/20/2024 5:14 AM FOUNDER CHAIRMAN AND CHIEF CREATIVE OFFICER [facility] Blood BLOOD SPECIMEN / Unknown Venipuncture / Unknown 09/20/2024 4:39 AM FOUNDER CHAIRMAN AND CHIEF CREATIVE OFFICER 09/20/2024 4:42 AM FOUNDER CHAIRMAN AND CHIEF CREATIVE OFFICER [facility] Osorio JONES CHEMISTRY Final R esult [facility] SENDOUT INTERNAL ZIP [phone] [place] [address] * (ABNORMAL) SODIUM (09/20/2024 4:39 AM FOUNDER CHAIRMAN AND CHIEF CREATIVE OFFICER) SODIUM 134(L) 136 - 145 mmol/L 09/20/2024 5:14 AM [facility] Blood BLOOD SPECIMEN / Unknown Venipuncture / Unknown 09/20/2024 4:39 AM FOUNDER CHAIRMAN AND CHIEF CREATIVE OFFICER 09/20/2024 4:42 AM FOUNDER CHAIRMAN AND CHIEF CREATIVE OFFICER us Nessa Lucas MD CHEMISTRY Final R esult [facility] SENDOUT INTERNAL ZIP [address] [address] [place] [address] * (ABNORMAL) CO2,TOTAL (09/20/2024 4:39 AM FOUNDER CHAIRMAN AND CHIEF CREATIVE OFFICER) CO2,TOTAL 19(L) 22 - 29 mmol/L 09/20/2024 5:14 AM FOUNDER CHAIRMAN AND CHIEF CREATIVE OFFICER [facility] Blood BLOOD SPECIMEN / Unknown Venipuncture / Unknown 09/20/2024 4:39 AM FOUNDER CHAIRMAN AND CHIEF CREATIVE OFFICER 09/20/2024 4:42 AM FOUNDER CHAIRMAN AND CHIEF CREATIVE OFFICER us Nessa Lucas MD CHEMISTRY Final R esult Performing Organization Address City/[facility]/ZIP Co de Phone Number [facility] SENDOUT INTERNAL ZIP [phone] [place] [address] * (ABNORMAL) CK TOTAL propofol (09/20/2024 4:39 AM FOUNDER CHAIRMAN AND CHIEF CREATIVE OFFICER) CK,TOTAL 195(H) 26 - 192 IU/L 09/20/2024 5:14 AM FOUNDER CHAIRMAN AND CHIEF CREATIVE OFFICER [facility] Blood BLOOD SPECIMEN / Unknown Venipuncture / Unknown 09/20/2024 4:39 AM FOUNDER CHAIRMAN AND CHIEF CREATIVE OFFICER 09/20/2024 4:42 AM FOUNDER CHAIRMAN AND CHIEF CREATIVE OFFICER us Sangita ARAGON CHEMISTRY Final R esult [facility] SENDOUT INTERNAL ZIP [phone] [place] [id number] * LEVETIRACETAM (KEPPRA) (09/20/2024 4:31 AM FOUNDER CHAIRMAN AND CHIEF CREATIVE OFFICER) LEVETIRACETAM (KEPPRA) 30.8 6.0 - 46.0 ug/mL 09/20/2024 11:43 AM FOUNDER CHAIRMAN AND CHIEF CREATIVE OFFICER [facility] Blood BLOOD SPECIMEN / Unknown Venipuncture / Unknown 09/20/2024 4:31 AM FOUNDER CHAIRMAN AND CHIEF CREATIVE OFFICER 09/20/2024 4:43 AM FOUNDER CHAIRMAN AND CHIEF CREATIVE OFFICER Narrative [facility] - 09/20/2024 11:43 AM FOUNDER CHAIRMAN AND CHIEF CREATIVE OFFICER Reference Range is based on Trough Steady State in patients receiving recommended daily dose. The relationship between serum concentrations and toxicity is not known. Bivaracetam (Briviact ) interferes with measurements of levetiracetam (Keppra ) in the ARK Levetiracetam Assay Richard Lao MD SEND OUTS Final Resu lt Performing Organization Address [facility] [place]/[facility]/ZIP Co de Phone Number [facility] [address] [place] [address], * BLOOD CULTURE (09/19/2024 7:15 PM FOUNDER CHAIRMAN AND CHIEF CREATIVE OFFICER) Only the most recent of2 resultswithin the time period is included. CULTURE No Growth. 09/25/2024 1:59 AM FOUNDER CHAIRMAN AND CHIEF CREATIVE OFFICER [facility] Blood BLOOD SPECIMEN / Unknown Venipuncture / Unknown 09/19/2024 7:15 PM FOUNDER CHAIRMAN AND CHIEF CREATIVE OFFICER 09/19/2024 7:19 PM FOUNDER CHAIRMAN AND CHIEF CREATIVE OFFICER Narrative [facility] - 09/25/2024 1:59 AM FOUNDER CHAIRMAN AND CHIEF CREATIVE OFFICER Low volume blood culture received; possible false negative culture. Sangita JONES MICROBIOLOGY Final R esult Performing Organization Address [facility] [place]/[facility]/ZIP Co de Phone Number [facility] [address] [place] [address], * (ABNORMAL) URINALYSIS MICROSCOPIC (09/19/2024 4:36 PM FOUNDER CHAIRMAN AND CHIEF CREATIVE OFFICER) RBC 0-2 0-2, None Seen /HPF 09/19/2024 5:24 PM FOUNDER CHAIRMAN AND CHIEF CREATIVE OFFICER [facility] WBC 6-10(A) 0-2, 3-5, None Seen /HPF 09/19/2024 5:24 PM FOUNDER CHAIRMAN AND CHIEF CREATIVE OFFICER [facility] BACTERIA None Seen None Seen, Rare, Few Bacteria/ HPF 09/19/2024 5:24 PM FOUNDER CHAIRMAN AND CHIEF CREATIVE OFFICER [facility] EPITHELIAL CELLS None Seen None Seen, Few Epi/HPF 09/19/2024 5:24 PM [facility] HYALINE CASTS 0-2 0-2, 3-5 /LPF 09/19/2024 5:24 PM [facility] Urine URINE SPECIMEN / Unknown Non-Blood / Unknown 09/19/2024 4:36 PM FOUNDER CHAIRMAN AND CHIEF CREATIVE OFFICER 09/19/2024 4:57 PM FOUNDER CHAIRMAN AND CHIEF CREATIVE OFFICER Nessa Lucas MD URINE Final R esult [facility] SENDOUT INTERNAL ZIP [phone] [place] [address] * (ABNORMAL) UA W/ SEDIMENT EXAM REFLEXED PER CRITERIA (09/19/2024 4:36 PM FOUNDER CHAIRMAN AND CHIEF CREATIVE OFFICER) COLOR Yellow Yellow Color 09/19/2024 5:16 PM [facility] CLARITY Clear Clear Clarity 09/19/2024 5:16 PM [facility] SPECIFIC GRAVITY,URINE 1.015 1.010, 1.015, 1.020, 1.025 09/19/2024 5:16 PM [facility] PH,URINE 7.0 6.0, 7.0, 8.0, 5.5, 6.5, 7.5, 8.5 09/19/2024 5:16 PM [facility] UROBILINOGEN, QUALITATIVE Normal Normal EU/dl 09/19/2024 5:16 PM [facility] PROTEIN, URINE Negative Negative mg/dL 09/19/2024 5:16 PM [facility] GLUCOSE, URINE Negative Negative mg/dL 09/19/2024 5:16 PM [facility] KETONES,URINE Negative Negative mg/dL 09/19/2024 5:16 PM [facility] BILIRUBIN,URI NE Negative Negative 09/19/2024 5:16 PM [facility] OCCULT BLOOD,URINE Trace(A) Negative 09/19/2024 5:16 PM [facility] NITRITE Negative Negative 09/19/2024 5:16 PM [facility] LEUKOCYTE ESTERASE Trace(A) Negative 09/19/2024 5:16 PM [facility] Urine URINE SPECIMEN / Unknown Non-Blood / Unknown 09/19/2024 4:36 PM FOUNDER CHAIRMAN AND CHIEF CREATIVE OFFICER 09/19/2024 4:57 PM FOUNDER CHAIRMAN AND CHIEF CREATIVE OFFICER us Nessa Lucas MD URINE Final R esult [facility] SENDOUT INTERNAL ZIP [phone] [place] [address] * SCAN-CARDIAC STRIP (09/19/2024 3:51 PM FOUNDER CHAIRMAN AND CHIEF CREATIVE OFFICER) us Scanner OTHER Final Result * MR Brain w/wo Contrast (09/19/2024 1:47 PM FOUNDER CHAIRMAN AND CHIEF CREATIVE OFFICER) Anatomical Region Laterality Modality BRAIN, HEAD Magnetic Resonan ce 09/19/2024 1:47 PM FOUNDER CHAIRMAN AND CHIEF CREATIVE OFFICER Impressions 09/19/2024 10:49 PM FOUNDER CHAIRMAN AND CHIEF CREATIVE OFFICER 1. 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 2. No acute intracranial process. Narrative 09/19/2024 10:49 PM FOUNDER CHAIRMAN AND CHIEF CREATIVE OFFICER For Patients: As a result of the Century Cures Act, medical imaging exams and procedure reports are released immediately into your electronic medical record. You may view this report before your referring provider. If you have questions, please contact your health care provider. EXAM: MR HEAD BRAIN WWO LOCATION: [facility] MEDICAL IMAGING DATE: 09/19/2024 INDICATION: Seizure, new-onset, [...] provider. EXAM: MR HEAD BRAIN WWO LOCATION: [facility] MEDICAL IMAG[facility] DATE: 09/19/2024 INDICATION: Seizure, new-onset, [...] esult * MRSA/SA PCR (09/19/2024 12:31 PM FOUNDER CHAIRMAN AND CHIEF CREATIVE OFFICER) MRSA DNA PCR Negative Negative 09/19/2024 2:35 PM FOUNDER CHAIRMAN AND CHIEF CREATIVE OFFICER [facility] STAPHYLOCOCCUS AUREUS PCR Negative Negative 09/19/2024 2:35 PM FOUNDER CHAIRMAN AND CHIEF CREATIVE OFFICER [facility] Other SPECIMEN FROM INTERNAL NOSE / Unknown Non-Blood / Unknown 09/19/2024 12:31 PM FOUNDER CHAIRMAN AND CHIEF CREATIVE OFFICER 09/19/2024 12:41 PM FOUNDER CHAIRMAN AND CHIEF CREATIVE OFFICER Narrative [facility] - 09/19/2024 2:35 PM FOUNDER CHAIRMAN AND CHIEF CREATIVE OFFICER Test result does not preclude MRSA or SA nasal colonization. [facility] Osorio ARAGON MICROBIOLOGY Final R esult Performing Organization Address [facility] [place]/ZIP Co de Phone Number [facility] SENDOUT INTERNAL ZIP [phone] [place] [address] * SCAN-CARDIAC STRIP (09/19/2024 8:06 AM FOUNDER CHAIRMAN AND CHIEF CREATIVE OFFICER) Scanner OTHER Final Result * PROTIME-INR (09/19/2024 6:09 AM FOUNDER CHAIRMAN AND CHIEF CREATIVE OFFICER) Only the most recent of3 resultswithin the time period is included. INR 1.0 <1.3 09/19/2024 6:28 AM FOUNDER CHAIRMAN AND CHIEF CREATIVE OFFICER [facility] PROTIME 11.1 10.6 - 12.4 sec 09/19/2024 6:28 AM [facility] Blood BLOOD SPECIMEN / Unknown Venipuncture / Unknown 09/19/2024 6:09 AM FOUNDER CHAIRMAN AND CHIEF CREATIVE OFFICER 09/19/2024 6:18 AM FOUNDER CHAIRMAN AND CHIEF CREATIVE OFFICER Narrative [facility] - 09/19/2024 6:28 AM FOUNDER CHAIRMAN AND CHIEF CREATIVE OFFICER Therapeutic Range 2.0-3.0 for most anticoagulated patients [...] HEMATOLOGY Final R esult Performing Organization Address [facility] [place]/ZIP Co de Phone Number [facility] SENDOUT INTERNAL ZIP [phone] [place] [address] * ALT (SGPT) (09/19/2024 6:09 AM FOUNDER CHAIRMAN AND CHIEF CREATIVE OFFICER) ALT (SGPT) 14 10 - 35 IU/L 09/19/2024 6:47 AM FOUNDER CHAIRMAN AND CHIEF CREATIVE OFFICER [facility] Blood BLOOD SPECIMEN / Unknown Venipuncture / Unknown 09/19/2024 6:09 AM FOUNDER CHAIRMAN AND CHIEF CREATIVE OFFICER 09/19/2024 6:18 AM FOUNDER CHAIRMAN AND CHIEF CREATIVE OFFICER [facility] Osorio Herrera [place] CHEMISTRY Final R esult [facility] SENDOUT INTERNAL ZIP [phone] [place] [address] * AST (SGOT) (09/19/2024 6:09 AM FOUNDER CHAIRMAN AND CHIEF CREATIVE OFFICER) AST (SGOT) 33 10 - 35 IU/L 09/19/2024 6:47 AM FOUNDER CHAIRMAN AND CHIEF CREATIVE OFFICER [facility] Blood BLOOD SPECIMEN / Unknown Venipuncture / Unknown 09/19/2024 6:09 AM FOUNDER CHAIRMAN AND CHIEF CREATIVE OFFICER 09/19/2024 6:18 AM FOUNDER CHAIRMAN AND CHIEF CREATIVE OFFICER [facility] Osorio Herrera [place] CHEMISTRY Final R esult [facility] SENDOUT INTERNAL ZIP [phone] [place] [address] * BILIRUBIN DIRECT (09/19/2024 6:09 AM FOUNDER CHAIRMAN AND CHIEF CREATIVE OFFICER) BILIRUBIN,DIRE CT 0.1 0.0 - 0.2 mg/dL 09/19/2024 6:47 AM FOUNDER CHAIRMAN AND CHIEF CREATIVE OFFICER [facility] Blood BLOOD SPECIMEN / Unknown Venipuncture / Unknown 09/19/2024 6:09 AM FOUNDER CHAIRMAN AND CHIEF CREATIVE OFFICER 09/19/2024 6:18 AM FOUNDER CHAIRMAN AND CHIEF CREATIVE OFFICER [facility] Osorio JONES CHEMISTRY Final R esult [facility] SENDOUT INTERNAL ZIP [phone] [place] [phone] * (ABNORMAL) CBC WITH AUTO DIFFERENTIAL (09/19/2024 6:08 AM FOUNDER CHAIRMAN AND CHIEF CREATIVE OFFICER) Only the most recent of2 resultswithin the time period is included. WHITE BLOOD COUNT 16.9(H) 4.5 - 11.0 thou/cu mm 09/19/2024 6:21 AM [facility] RED BLOOD COUNT 3.76(L) 4.00 - 5.20 mil/cu mm 09/19/2024 6:21 AM [facility] HEMOGLOBIN 12.2 12.0 - 16.0 g/dL 09/19/2024 6:21 AM [facility] HEMATOCRIT 34.9 33.0 - 51.0 % 09/19/2024 6:21 AM [facility] MCV 93 80 - 100 fL 09/19/2024 6:21 AM [facility] MCH 32.4 26.0 - 34.0 pg 09/19/2024 6:21 AM [facility] MCHC 35.0 32.0 - 36.0 g/dL 09/19/2024 6:21 AM [facility] RDW 12.7 11.5 - 15.5 % 09/19/2024 6:21 AM [facility] PLATELET COUNT 257 140 - 440 thou/cu mm 09/19/2024 6:21 AM [facility] MPV 9.5 6.5 - 11.0 fL 09/19/2024 6:21 AM [facility] NRBC 0.0 % 09/19/2024 6:21 AM [facility] ABS NRBC 0.0 thou /cu mm 09/19/2024 6:21 AM [facility] % NEUT 68.9 % 09/19/2024 6:21 AM [facility] % LYMPH 21.8 % 09/19/2024 6:21 AM [facility] % MONO 7.8 % 09/19/2024 6:21 AM [facility] % EOS 0.5 % 09/19/2024 6:21 AM [facility] % BASO 0.5 % 09/19/2024 6:21 AM [facility] % IMMATURE GRAN (METAS,MYELOS,IL OS) 0.5 % 09/19/2024 6:21 AM [facility] ABSOLUTE NEUTROPHILS 11.6(H) 1.7 - 7.0 thou/cu mm 09/19/2024 6:21 AM FOUNDER CHAIRMAN AND CHIEF CREATIVE OFFICER [facility] ABSOLUTE LYMPHOCYTES 3.7(H) 0.9 - 2.9 thou/cu mm 09/19/2024 6:21 AM [facility] ABSOLUTE MONOCYTES 1.3(H) <0.9 thou/cu mm 09/19/2024 6:21 AM FOUNDER CHAIRMAN AND CHIEF CREATIVE OFFICER [facility] ABSOLUTE EOSINOPHILS 0.1 <0.5 thou/cu mm 09/19/2024 6:21 AM FOUNDER CHAIRMAN AND CHIEF CREATIVE OFFICER [facility] ABSOLUTE BASOPHILS 0.1 <0.3 thou/cu mm 09/19/2024 6:21 AM [facility] ABSOLUTE IMMATURE GRANULOCYTES(MET ,MYELOS,PROS) 0.1 <0.3 thou/cu mm 09/19/2024 6:21 AM [facility] Blood BLOOD SPECIMEN / Unknown Venipuncture / Unknown 09/19/2024 6:08 AM FOUNDER CHAIRMAN AND CHIEF CREATIVE OFFICER 09/19/2024 6:18 AM [facility] Osorio ARAGON HEMATOLOGY Final R esult [facility] SENDOUT INTERNAL ZIP [phone] [place] [phone] * (ABNORMAL) SPUTUM CULTURE, STAIN (09/19/2024 4:04 AM [facility]) CULTURE RESULT(A) 09/22/2024 9:50 AM [facility] CULTURE 4+ Streptococcus pneumoniae 09/22/2024 9:50 AM [facility] CULTURE 3+ Usual Lisa 09/22/2024 9:50 AM [facility] GRAM STAIN 4+ PMNs 09/22/2024 9:50 AM [facility] GRAM STAIN 1+ Epithelial cells 09/22/2024 9:50 AM FOUNDER CHAIRMAN AND CHIEF CREATIVE OFFICER [facility] GRAM STAIN No RBCs 09/22/2024 9:50 AM FOUNDER CHAIRMAN AND CHIEF CREATIVE OFFICER [facility] GRAM STAIN 4+ Gram Positive Cocci 09/22/2024 9:50 AM FOUNDER CHAIRMAN AND CHIEF CREATIVE OFFICER [facility] GRAM STAIN Gram stain performed by [place] 09/22/2024 9:50 AM [facility] Sputum SPECIMEN FROM ENDOTRACHEAL TUBE / Unknown Non-Blood / Unknown 09/19/2024 4:04 AM FOUNDER CHAIRMAN AND CHIEF CREATIVE OFFICER 09/19/2024 4:07 AM FOUNDER CHAIRMAN AND CHIEF CREATIVE OFFICER Narrative Organism Antibiotic Method Susceptibility Streptococcus pneumoniae PENICILLIN-ORAL <=0.06: S Streptococcus pneumoniae [id number] <=0.06: S Streptococcus pneumoniae [id number] <=0.06: S Streptococcus pneumoniae CEFTRIAXONE-MENINGIT <=0.12: S Streptococcus pneumoniae CEFTRIAXONE-NONMENIN <=0.12: S Streptococcus pneumoniae VANCOMYCIN 0.5: S Streptococcus pneumoniae LEVOFLOXACIN 0.5: S Streptococcus pneumoniae TRIMETHOPRIM/SULF <=0.5/9.5: S Streptococcus pneumoniae AZITHROMYCIN S Streptococcus pneumoniae CLARITHROMYCIN S [facility] Osorio ARAGON MICROBIOLOGY Final R esult [facility] [address] [place] [address], [facility] SENDOUT INTERNAL ZIP [phone] [place] [address] * (ABNORMAL) HEPATIC FUNCTION PANEL (09/19/2024 2:41 AM [facility]) Pathologist [facility] ALBUMIN 3.8(L) 4.0 - 4.9 g/dL 09/19/2024 3:16 AM [facility] PROTEIN,TOTAL 7.3 6.0 - 8.0 g/dL 09/19/2024 3:16 AM [facility] BILIRUBIN,TOTAL 0.5 0.0 - 1.2 mg/dL 09/19/2024 3:16 AM [facility] BILIRUBIN,DIRECT 09/19/19 3:16 AM [facility] Comment:Canceled- Specimen H emolyzed, Disposition Per Policy ALK PHOSPHATASE 100 35 - 104 IU/L 09/19/2024 3:16 AM [facility] ALT (SGPT) 09/19/2024 3:16 AM [facility] Comment:Canceled- Specimen H emolyzed, Disposition Per Policy AST (SGOT) 09/19/2024 3:16 AM [facility] Comment:Canceled- Specimen H emolyzed, Disposition Per Policy Blood BLOOD SPECIMEN / Unknown Butterfly / Unknown 09/19/2024 2:41 AM FOUNDER CHAIRMAN AND CHIEF CREATIVE OFFICER 09/19/2024 2:54 AM FOUNDER CHAIRMAN AND CHIEF CREATIVE OFFICER Sangita JONESBS CHEMISTRY Final R esult [facility] SENDOUT INTERNAL ZIP [phone] [place] [address] * XR ABDOMEN 1 VIEW PORTABLE (09/18/2024 11:18 PM FOUNDER CHAIRMAN AND CHIEF CREATIVE OFFICER) Anatomical Region Laterality Modality Abdomen Computed Radiogr aphy 09/18/2024 11:1 8 PM FOUNDER CHAIRMAN AND CHIEF CREATIVE OFFICER Impressions 09/19/2024 12:19 AM FOUNDER CHAIRMAN AND CHIEF CREATIVE OFFICER Enteric suction tube tip overlies the region [...] CT chest 09/29/2023. Narrative 09/19/2024 12:19 AM FOUNDER CHAIRMAN AND CHIEF CREATIVE OFFICER For Patients: As a result of the Cures Act, medical imaging exams and procedure reports are released immediately into your electronic medical record. You may view this report before your referring provider. If you have questions, please contact your health care provider. EXAM: XR ABDOMEN 1 VIEW PORTABLE LOCATION: [facility] MEDICAL IMAGING DATE: 09/18/2024 INDICATION: Tube placement. COMPARISON: None available. Procedure Note Nelson Heard MD - 09/19/2024 For Patients: As a result of the Cures Act, medical imagingexams and procedure reports are released immediately into your electronicmedical record. You may view this report before your referring provider.If you have questions, please contact your health care provider. EXAM: XR ABDOMEN 1 VIEW PORTABLE LOCATION: [facility] MED[facility]AG[facility] DATE: 09/18/2024 INDICATION: Tube placement. [...] (ABNORMAL) ISTAT EG6+ ABG (09/18/2024 10:45 PM FOUNDER CHAIRMAN AND CHIEF CREATIVE OFFICER) PH, ARTERIAL 7.48(H) 7.35 - 7.45 09/18/2024 10:48 PM [facility] PCO2, ARTERIAL 34 32 - 45 mmHg 09/18/2024 10:48 PM [facility] PO2, ARTERIAL 132(H) 83 - 108 mmHg 09/18/2024 10:48 PM [facility] HCO3, ARTERIAL 25 21 - 28 mmol/L 09/18/2024 10:48 PM [facility] BASE EXCESS, ARTERIAL 2.0 -2.0 - 3.0 09/18/2024 10:48 PM [facility] O2 SATURATION, ARTERIAL 99(H) 94 - 98 % 09/18/2024 10:48 PM [facility] SODIUM, POCT 09/18/2024 10:48 PM [facility] Comment:Unable to determine. POTASSIUM, POCT 10:48 PM [facility] Comment:Unable to determine. INSPIRED O2,ISTAT 30.0 09/18/2024 10:48 PM [facility] PATIENT TEMPERATURE 37.0 Degrees C 09/18/2024 10:48 PM [facility] ENRIQUE'S TEST Not Given 09/18/2024 10:48 PM [facility] SAMPLE TYPE,ISTAT BLOOD GAS ARTERIAL 09/18/2024 10:48 PM [facility] Blood BLOOD SPECIMEN / Unknown 09/18/2024 10:45 PM FOUNDER CHAIRMAN AND CHIEF CREATIVE OFFICER 09/18/2024 10:48 PM [facility] us Suzanne Harris MD CHEMISTRY Final Result [facility] SENDOUT INTERNAL ZIP [phone] [place] [address] * MR HEAD RAPID CODE STROKE LTD BRAIN WO CONTRAST (09/18/2024 10:28 PM FOUNDER CHAIRMAN AND CHIEF CREATIVE OFFICER) Anatomical Region Laterality Modality Magnetic Resonan ce 09/18/2024 10:2 8 PM FOUNDER CHAIRMAN AND CHIEF CREATIVE OFFICER Impressions 09/18/2024 11:20 PM FOUNDER CHAIRMAN AND CHIEF CREATIVE OFFICER HEAD MRI: 1. No acute intracranial abnormality. 2. Right parietotemporal encephalomalacia. HEAD MRA: No large vessel occlusion or hemodynamically significant stenosis. Narrative 09/18/2024 11:20 PM FOUNDER CHAIRMAN AND CHIEF CREATIVE OFFICER For Patients: As a result of the Cures Act, medical imaging exams and procedure reports are released immediately into your electronic medical record. You may view this report before your referring provider. If you have questions, please contact your health care provider. EXAM: MR HEAD RAPID CODE STROKE LTD BRAIN WO CONTRAST LOCATION: [facility]AG[facility] DATE/TIME: 09/18/2024 10:28 PM FOUNDER CHAIRMAN AND CHIEF CREATIVE OFFICER INDICATION: Eval/ FU cerebral vascular disease or ischemia TIA COMPARISON: None. CONTRAST: None. TECHNIQUE: 1) Routine multiplanar multisequence head MRI without and with intravenous contrast. 2) 3D [id number] head MRA without intravenous contrast. FINDINGS: HEAD [...] CODE STROKE LTD BRAIN WO CONTRAST LOCATION: [facility] MED[facility] IMAGING DATE/TIME: 09/18/2024 10:28 PM FOUNDER CHAIRMAN AND CHIEF CREATIVE OFFICER INDICATION: Eval/ FU cerebral vascular disease or ischemia TIA COMPARISON: None. CONTRAST: None. TECHNIQUE: 1) Routine multiplanar multisequence head MRI without and with intravenouscontrast. 2) 3D krtj-es-[id number] head MRA without intravenous contrast. FINDINGS: HEAD [...] STROKE PROTOCOL BRET CANDIDAT (09/18/2024 8:54 PM FOUNDER CHAIRMAN AND CHIEF CREATIVE OFFICER) Anatomical Region Laterality Modality BRAIN, NECK Computed Tomogra phy 09/18/2024 8:54 PM FOUNDER CHAIRMAN AND CHIEF CREATIVE OFFICER Impressions 09/18/2024 9:12 PM FOUNDER CHAIRMAN AND CHIEF CREATIVE OFFICER HEAD CT: 1. No acute intracranial findings. 2. 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 HEAD CTA: 1. No high-grade stenosis or large vessel occlusion of the [place] vasculature. NECK CTA: 1. No significant stenosis of the neck arterial vasculature. Results called to Dr. Flanagan at 10:55 PM on 09/18/2024. Narrative 09/18/2024 9:12 PM FOUNDER CHAIRMAN AND CHIEF CREATIVE OFFICER For Patients: As a result of the Cures Act, medical imaging exams and procedure reports are released immediately into your electronic medical record. You may view this report before your referring provider. If you have questions, please contact your health care provider. EXAM: CT HEAD STROKE PROTOCOL WITHOUT CONTRAST, CTA HEAD NECK CAROTID STROKE PROTOCOL BRET CANDIDAT LOCATION: [facility] MED[facility]AGING DATE: 09/18/2024 INDICATION: STAT reading for possible thrombolytics. free text)->Neurologic Dysfunction COMPARISON: None. CONTRAST: None. (accession [id number]), Omnipaque [phone] (accession [id number]) TECHNIQUE: Head and neck CT angiogram with [...] HEAD NECK CAROTIDSTROKE PROTOCOL BRET CANDIDAT LOCATION: [facility] DATE: 09/18/2024 INDICATION: STAT reading for possible thrombolytics. freetext)->Neurologic Dysfunction COMPARISON: None. CONTRAST: None. (accession [id number]), Omnipaque [phone] ([id number]) TECHNIQUE: Head and neck CT angiogram with [...] stenosis or large vessel occlusion of the [place] vasculature. NECK CTA: 1. No significant stenosis of the neck arterial vasculature. Results called to Dr. Flanagan at 10:55 PM on 09/18/2024. us Suzanne Harris MD CT Final Result * CT HEAD STROKE PROTOCOL WITHOUT CONTRAST Thrombolytic Candidate (09/18/2024 8:54 PM FOUNDER CHAIRMAN AND CHIEF CREATIVE OFFICER) Anatomical Region Laterality Modality BRAIN Computed Tomogra phy 09/18/2024 8:54 PM FOUNDER CHAIRMAN AND CHIEF CREATIVE OFFICER Impressions 09/18/2024 9:12 PM FOUNDER CHAIRMAN AND CHIEF CREATIVE OFFICER HEAD CT: 1. No acute intracranial findings. 2. 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 HEAD CTA: 1. No high-grade stenosis or large vessel occlusion of the [place] vasculature. NECK CTA: 1. No significant stenosis of the neck arterial vasculature. Results called to Dr. Flanagan at 10:55 PM on 09/18/2024. Narrative 09/18/2024 9:12 PM [employer]ATIVE OFFICER For Patients: As a result of the Century Cures Act, medical imaging exams and procedure reports are released immediately into your electronic medical record. You may view this report before your referring provider. If you have questions, please contact your health care provider. EXAM: CT HEAD STROKE PROTOCOL WITHOUT CONTRAST, CTA HEAD NECK CAROTID STROKE PROTOCOL BRET CANDIDAT LOCATION: [facility] MEDICAL IMAG[facility] DATE: 09/18/2024 INDICATION: STAT reading for possible thrombolytics. free text)->Neurologic Dysfunction COMPARISON: None. CONTRAST: None. (accession [id number]), Omnipaque 350 75 (accession [id number]) TECHNIQUE: Head and neck CT angiogram with [...] HEAD NECK CAROTIDSTROKE PROTOCOL BRET CANDIDAT LOCATION: [facility] MEDICAL IMAGING DATE: 09/18/2024 INDICATION: STAT reading for possible thrombolytics. freetext)->Neurologic Dysfunction COMPARISON: None. CONTRAST: None. (accession [id number]), Omnipaque 350 75 ([id number]) TECHNIQUE: Head and neck CT angiogram with [...] stenosis or large vessel occlusion of the [place] vasculature. NECK CTA: 1. No significant stenosis of the neck arterial vasculature. Results called to Dr. Flanagan at 10:55 PM on 09/18/2024. us Suzanne Harris MD CT Final Result * [facility] PATH REVIEW HEMATOLOGY (09/18/2024 8:49 PM FOUNDER CHAIRMAN AND CHIEF CREATIVE OFFICER) PATH COMMENT comment 09/23/2024 10:55 PM FOUNDER CHAIRMAN AND CHIEF CREATIVE OFFICER [facility] Comment: If the absolute lymphocytosis persists and/or is unexplained, consider peripheral blood morphology study for further evaluation. Reviewed by Mitzi Leblanc This is an appended report. These results have been appended to a previously final verified report. Blood BLOOD SPECIMEN / Unknown Non-Lab Venipuncture / Unknown 09/18/2024 8:49 PM FOUNDER CHAIRMAN AND CHIEF CREATIVE OFFICER 09/18/2024 8:51 PM FOUNDER CHAIRMAN AND CHIEF CREATIVE OFFICER us Suzanne Harris MD LABORATORY Edited Result - Final [facility] SENDOUT INTERNAL ZIP [id number] [place] [id number] * (ABNORMAL) RED CELL MORPHOLOGY (09/18/2024 8:49 PM FOUNDER CHAIRMAN AND CHIEF CREATIVE OFFICER) ELLIPTOCYTES Few 09/18/2024 9:36 PM FOUNDER CHAIRMAN AND CHIEF CREATIVE OFFICER [facility] RBC COMMENT Present(A ) RBC morphology appears normal, RBC morphology within normal limits for newborns. 09/18/2024 9:36 PM FOUNDER CHAIRMAN AND CHIEF CREATIVE OFFICER [facility] Blood BLOOD SPECIMEN / Unknown Non-Lab Venipuncture / Unknown 09/18/2024 8:49 PM FOUNDER CHAIRMAN AND CHIEF CREATIVE OFFICER 09/18/2024 8:51 PM FOUNDER CHAIRMAN AND CHIEF CREATIVE OFFICER us Suzanne Harris MD HEMATOLOGY Final Result [facility] SENDOUT INTERNAL ZIP [phone] [place] [id number] * PLATELET ESTIMATE (09/18/2024 8:49 PM FOUNDER CHAIRMAN AND CHIEF CREATIVE OFFICER) PLATELET ESTIMATE Adequate Adequate, No estimate 09/18/2024 9:36 PM FOUNDER CHAIRMAN AND CHIEF CREATIVE OFFICER [facility] Blood BLOOD SPECIMEN / Unknown Non-Lab Venipuncture / Unknown 09/18/2024 8:49 PM FOUNDER CHAIRMAN AND CHIEF CREATIVE OFFICER 09/18/2024 8:51 PM FOUNDER CHAIRMAN AND CHIEF CREATIVE OFFICER Suzanne Harris MD HEMATOLOGY Final Result [facility] SENDOUT INTERNAL ZIP [id number] [place] [address] * (ABNORMAL) MANUAL DIFFERENTIAL (09/18/2024 8:49 PM FOUNDER CHAIRMAN AND CHIEF CREATIVE OFFICER) % NEUTROPHILS 49.0 % 09/18/2024 9:36 PM [facility] % LYMPHOCYTES 43.0 % 09/18/2024 9:36 PM [facility] % MONOCYTES 6.0 % 09/18/2024 9:36 PM [facility] % EOSINOPHILS 2.0 % 09/18/2024 9:36 PM [facility] % BASOPHILS 0.0 % 09/18/2024 9:36 PM [facility] NEUTROPHILS ABSOLUTE 7.4(H) 1.7 - 7.0 thou/cu mm 09/18/2024 9:36 PM [facility] LYMPHOCYTES ABSOLUTE 6.5(H) 0.9 - 2.9 thou/cu mm 09/18/2024 9:36 PM [facility] MONOCYTES ABSOLUTE 0.9(H) <0.9 thou/cu mm 09/18/2024 9:36 PM [facility] EOSINOPHILS ABSOLUTE 0.3 <0.5 thou/cu mm 09/18/2024 9:36 PM [facility] BASOPHILS ABSOLUTE 0.0 <0.3 thou/cu mm 09/18/2024 9:36 PM [facility] Blood BLOOD SPECIMEN / Unknown Non-Lab Venipuncture / Unknown 09/18/2024 8:49 PM FOUNDER CHAIRMAN AND CHIEF CREATIVE OFFICER 09/18/2024 8:51 PM FOUNDER CHAIRMAN AND CHIEF CREATIVE OFFICER Suzanne Harris MD HEMATOLOGY Final Result [facility] SENDOUT INTERNAL ZIP [phone] [place] [address] * (ABNORMAL) XR DXA BONE DENSITY 2 [...] to assess therapeutic efficacy. Emma Naidu PA-C [facility] 04/07/2024 Narrative 04/07/2024 4:24 PM CDT For Patients: Results are automatically released to your [facility] ([facility]) account once available, in compliance with federal regulations. This means that you may see your results before your provider has had a chance to review them. Please allow 2-3 business days for your provider to comment on the results. XR DXA Bone Mineral Density (BMD) EXAM LOCATION: [address] [address] PATIENT NAME: Jose Luis Lozano DATE OF [...] two scanners are made by the same children's service worker. PROCEDURE: Dual-energy x-ray absorptiometry performed with routine [...] Osteoporosis: T-score at or below -2.5 SD [facility] DO DEXA Final Result from Last 3 Months or Most Recently Relevant to Health Maintenance Insurance MEDICAID [place] MEDICAID [place] Advance Directives Documents on File Type Date Recorded Patient Corporate Accounting Manager Expl anation Healthcare Directive 09/22/2024 025 * [...] Code Status Discussion: Reviewed Preferences Care Teams Hand Loom Weaver Relationship Specialty Start Date End Date Navya Quinn Annalee, DO [address] [place] [address] PCP - General [facility] 09/18/24 Deseanra Navya Mantilla DO [address] [place] [address] Family Practice 09/18/24 Pcp, No . 06/13/21 Pcp, No . 06/18/21 Gustavo Castellano MBBS [address] [place] [address] Cardiology - Interventional 09/22/24 [facility] [address] [place] [address] 09/26/24
[2024-12-03 12:48] LABS: PCR FLU A Negative PCR FLU A (Negative); PCR FLU B Negative PCR FLU B (Negative); PCR RSV Negative PCR RSV (Negative); SARS PCR* Negative SARS-CoV-2 (Negative)
[2024-12-03] MEDS: DEXAMETHASONE 10 MG/ML PF IVP (13:46)
== END 2024-12-03 14:07 | disposition home or self-care (01) ==
PROVIDERS: Emergency Provider Emergency Medicine Emergency Medical Services; PCP Student in an Organized Health Care Education/Training Program
DX: J06.9 Acute upper respiratory infection, unspecified (principal)
CPT/HCPCS: 36415; 71046; 80048; 84484; 85025; 87631; 93005; 96374; 99284; J1100